=== PATIENT | female | born 1995 | race Caucasian/White ===

== ENCOUNTER 2018-01-20 21:48 | Emergency (ER) | payer OTHER, MEDICAID, SELFPAY ==
[2018-01-20 21:51] VITALS: BP 101/59; PULSE 85; RESP 18; TEMP 36.8; O2SAT 99; BMI 18.8
--- NOTE | 2018-01-20 22:07 | ED.RN ---
CALLED DAQUAN & NOTIFIED HER THAT PT NEED [facility] TESTING. SHE IS ON THE WAY.
--- NOTE | 2018-01-20 22:08 | RAD_ITS ---
STUDY: X-RAY - RIGHT FOOT CLINICAL: Female, 22 years old. Injury TECHNIQUE: 3 view(s) of the foot. COMPARISON: None. FINDINGS: Normal talus, calcaneus, and tarsal bones. Normal visualized subtalar, talonavicular, calcaneocuboid, tarsal and tarsometatarsal articulations. Normal metatarsi. Normal metatarsophalangeal joint of the great toe. Normal tibial and fibular sesamoid bones. Normal interphalangeal joint of the great toe. Normal phalanges of the great toe. Normal second through fifth metatarsophalangeal joints. Normal interphalangeal joints and phalanges of the lesser toes. The soft tissue structures are unremarkable. RAD/Foot min 3 Views IMPRESSION: Normal x-ray examination of the foot. Electronically Signed: Jorge Reynaga MD at 22:18 EDT Tel , Service support ,
--- NOTE | 2018-01-20 22:24 | ED.VISSUMM ---
- ER Visit Summary Date of Service: 01/20/18 Chief Complaint: [Injury right foot] History of Present Illness: The patient is a 22 F [presents to the emergency department with complaint of injury to her right foot that occurred approximately 1:30 PM while at work today. Patient states that she was carrying a palate and she accidentally dropped it onto her right foot. Patient was wearing steel toed shoes. Patient is unsure the weight of the palate. Patient initially did not think much of it continue to work. Once patient got home and took her boots off she noticed swelling and not having more pain and difficulty ambulating secondary to pain. Physical Examination: [HEENT-PERRLA, EOMI. Cranial nerves II through XII grossly intact. TMs clear. Mucous membranes moist. No adenopathy. Cardiovascular-regular rate and rhythm without murmur or ectopy Lungs-clear to auscultation, chest wall stable without crepitus or subcu emphysema Abdomen-normoactive bowel sounds, soft, nontender, no rebound or rigidity, no peritoneal signs. Extremities-intact ?4, normal range of motion, normal pulses. Right foot-patient has some mild soft tissue swelling over the dorsum of midfoot. No ecchymosis or bruising noted. No deformity noted. Neurovascularly intact. Test Results: [X-rays of the right foot obtained were read as normal] Emergency Department Course and Treatment: [Patient will be given an Joce wrap and crutches] Treatment Plan: [Patient to follow-up with corporate care in 3-5 days and given work restrictions] Disposition: [Discharged home in stable condition] Impression: [Contusion right foot] This note was generated with [employer] dictation software. It may contain incorrect words, spelling, and punctuation that were not noted in review of the chart prior to signing ED Disposition - Plan for ED Patient: Chief Complaint: Lower Extremity Injury Referrals: Farrah Oro [Primary Care Provider] -
--- NOTE | 2018-01-20 22:27 | ED.DCSUM_ITS ---
- ER Visit Summary Date of Service: 01/20/18 Chief Complaint: [Injury right foot] History of Present Illness: The patient is a 22 F [presents to the emergency department with complaint of injury to her right foot that occurred approximately 1:30 PM while at work today. Patient states that she was carrying a palate and she accidentally dropped it onto her right foot. Patient was wearing steel toed shoes. Patient is unsure the weight of the palate. Patient initially did not think much of it continue to work. Once patient got home and took her boots off she noticed swelling and not having more pain and difficulty ambulating secondary to pain. Physical Examination: [HEENT-PERRLA, EOMI. Cranial nerves II through XII grossly intact. TMs clear. Mucous membranes moist. No adenopathy. Cardiovascular-regular rate and rhythm without murmur or ectopy Lungs-clear to auscultation, chest wall stable without crepitus or subcu emphysema Abdomen-normoactive bowel sounds, soft, nontender, no rebound or rigidity, no peritoneal signs. Extremities-intact ?4, normal range of motion, normal pulses. Right foot- patient has some mild soft tissue swelling over the dorsum of midfoot. No ecchymosis or bruising noted. No deformity noted. Neurovascularly intact. Test Results: [X-rays of the right foot obtained were read as normal] Emergency Department Course and Treatment: [Patient will be given an Joce wrap and crutches] Treatment Plan: [Patient to follow-up with corporate care in 3-5 days and given work restrictions] Disposition: [Discharged home in stable condition] Impression: [Contusion right foot] This note was generated with [employer] dictation software. It may contain incorrect words, spelling, and punctuation that were not noted in review of the chart prior to signing ED Disposition - Plan for ED Patient: Chief Complaint: Lower Extremity Injury Referrals: Farrah Oro [Primary Care Provider] -
--- NOTE | 2018-01-20 22:28 | DCINST.ED_ITS ---
ED Disposition - Plan for ED Patient: Chief Complaint: Lower Extremity Injury Instructions: ED Contusion Foot Prescriptions: Naproxen [Naprosyn] 500 mg PO BID PRN #20 tab Referrals: Farrah Oro [Primary Care Provider] - [facility] [GROUP OF PHYSICIANS] - 3-5 Days
[2018-01-20 22:58] VITALS: RESP 18
== END 2018-01-20 22:59 | disposition home or self-care (01) ==
LOC: ED 22:15
PROVIDERS: Emergency Provider Emergency Medicine
DX: S90.31XA Contusion of right foot, initial encounter (principal); W22.8XXA Striking against or struck by other objects, initial encounter; Y93.89 Activity, other specified; Y92.9 Unspecified place or not applicable; Y99.0 Civilian activity done for income or pay; Z72.0 Tobacco use
CPT/HCPCS: 73630; 99283

== ENCOUNTER → 2018-04-03 17:24 | Outpatient (CLI) | payer MEDICAID, SELFPAY ==
[2018-04-03 17:26] LABS: Red Blood Cells-Urine 0 SEEN /hpf (0-5)
[2018-04-03 17:32] LABS: Color, Urine Yellow (Yellow); Glucose, Dipstick Normal (Normal); Ketone-Dipstick Negative (Negative); Leukocyte Esterase-Dipstick 500 /ul (Negative); Nitrite-Dipstick Negative (Negative); Occult Blood-Urine 10 /ul (Negative); Protein-Dipstick Negative (Negative); Urine Bilirubin Dipstick Negative (Negative); Urine Clarity Sl. Cloudy (Clear); Urine Urobilinogen 1 mg/dl (Normal)
[2018-04-03 17:45] LABS: Bacteria 3+ /hpf (None Seen); Mucous, Urine 2+ /hpf (<or=2+); Squamous Epithelial Cells - UA 0-5 SEEN /hpf (5-10); White Blood Cells 0-5 SEEN /hpf (0-5)
== END ==
PROVIDERS: Visit Provider Physician Assistant Medical
DX: R82.99 Other abnormal findings in urine (principal)
CPT/HCPCS: 81001; 87086; 87088

== ENCOUNTER → 2018-04-29 18:06 | Outpatient (CLI) | payer MEDICAID, SELFPAY ==
--- NOTE | 2018-04-29 | IMM_PTH ---
PATIENT: CHAITANYA WISEMAN LOC: [facility] U#:[id number] AGE/SX: 30/F ROOM: RE04/29/[address]: Dr. Valentin Villanueva MD : 1995 BED: DIS: SPEC #: [id number] RECD: 05/05/18 09:43 STATUS: ADALGISA REDevon #: [id number] JOMAR: 04/29/18 00:[address]: Valentin Villanueva DEPT: IMMUNOHISTOCHEMISTRY RECD BY: Stephanie Lou Tissues: A - Uterine cervix, NOS Procedures: p16 (initial) KI-67 (add) PHYSICIAN & INSTITUTION [place] [id number] SPECIMEN INFORMATION: Tissue Source: A ? Four quadrants Clinical Info: LSIL, HPV positive Specimen Number: [id number] CPT code: 77671, 52529 METHODOLOGY: Deparaffinized sections of prefer/formalin-fixed tissue or PAP/DQ stained slides are incubated with monoclonal/polyclonal antibodies/oligonucleotide probes. Localization is made via biotin free immunoperoxidase method. Appropriate controls are performed and reacted as expected. Results on target cell population are indicated in the following table: RESULTS: ANTIBODY / CLONE RESULT Block A P16 (E6H4) positive, block-like Ki-67 (30-9) positive, moderate These tests were developed and their performance characteristics determined by [facility]. They may not have been cleared or approved by the U.S. Food and Drug Administration. The FDA has determined that such clearance or approval is not necessary. 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 AM:jason 05/05/18
--- NOTE | 2018-04-29 | CER_PTH ---
PATIENT: CHAITANYA WISEMAN [id number] AGE/SX: 30/F ROOM: RE04/29/[address]: Dr. Valentin Villanueva MD : 1995 BED: DIS: SPEC #: [id number] RECD: 04/30/18 09:12 STATUS: ADALGISA BERE #: [id number] JOMAR: 04/29/18 00:[address]: aVlentin Villanueva DEPT: SURGICAL PATHOLOGY RECD BY: Salo Owens Tissues: A - Uterine cervix, NOS B - Uterine cervix, NOS Procedures: Surgery Specimen Level IV HEADER OPERATION: Colposcopy PRE-OP DIAGNOSIS: LSIL, HPV positive TISSUE SUBMITTED: A ? Four quadrants, B - Cervical MICROSCOPIC DIAGNOSIS A. Cervix, four-quadrants, biopsy: Mild to focal moderate squamous dysplasia, ANDRE I-II (HSIL). Squamous metaplasia and chronic inflammation. See comment. B. Cervical: Scant strips of benign superficial endocervix, mucous and blood. No evidence of dysplasia. AM:jason 05/01/18 COMMENT A. Results from immunohistochemistry ([id number]) for surrogate HPV marker (p16) will be reported separately. MICROSCOPIC DESCRIPTION Slides are reviewed. GROSS DESCRIPTION A - Received in fixative is one container labeled with the patient's name and designated four quadrant. The specimen consists of multiple irregular fragments of light dawson soft tissue that in aggregate measure 0.8 x 0.6 x 0.1 cm. The specimen is totally submitted in one cassette. B - Received in fixative is one container labeled with the patient's name and designated cervical. The specimen consists of an irregular fragment of light dawson mucoid material aggregating to 1.5 x 1 x 0.1 cm. The specimen is totally submitted in one cassette. / AM:jason 04/30/18 TC:? CPT: 24710 x2
== END ==
PROVIDERS: Visit Provider Obstetrics & Gynecology
DX: R87.612 Low grade squamous intraepithelial lesion on cytologic smear of cervix (LGSIL) (principal); R87.810 Cervical high risk human papillomavirus (HPV) DNA test positive
CPT/HCPCS: 88305; 88341; 88342

== ENCOUNTER → 2018-10-29 17:55 | Outpatient (CLI) | payer MEDICAID, SELFPAY ==
[2018-08-10 17:34] VITALS: BMI 22.0
[2018-10-29 20:27] LABS: Chlamydia Trachomatis by PCR Negative (Negative); Neisserai gonorrhoeae by PCR Negative (Negative); Probe Check PASS; Sample Adequacy Control PASS; Specimen Processing Control PASS
== END ==
PROVIDERS: Referring Provider Obstetrics & Gynecology; Visit Provider Obstetrics & Gynecology
DX: R30.0 Dysuria (principal); Z11.3 Encounter for screening for infections with a predominantly sexual mode of transmission
CPT/HCPCS: 87086; 87088; 87491; 87591

== ENCOUNTER 2018-11-01 17:19 | Emergency (ER) | payer MEDICAID, SELFPAY ==
[2018-08-10 17:34] VITALS: BMI 22.0
[2018-11-01 17:21] VITALS: BP 117/70; PULSE 75; RESP 18; TEMP 36.9; O2SAT 100; BMI 22.0
--- NOTE | 2018-11-01 18:35 | ED.DCSUM_ITS ---
- ER Visit Summary Date of Service: 11/01/18 Chief Complaint: Toothache History of Present Illness: The patient is a 23 F presenting with toothache. Patient states this started on Friday. She has had severe pain right upper tooth. She has an appointment with her dentist tomorrow. She has been using Tylenol and Excedrin at home. She is 7 weeks and understands that she should not be using Excedrin. She has been taking leftover amoxicillin intermittently. She denies fever or other complaints. Physical Examination: Vitals are stable. Patient is afebrile. Alert no acute distress. HEENT exam right upper incisor tender to palpation, no surrounding fluctuance, no sublingual edema. Neck is supple. Lungs are clear and equal bilaterally. Heart is regular rate and rhythm. Extremities are unremarkable. Skin is warm and dry. Remainder of exam is unremarkable. Emergency Department Course and Treatment: Patient was given [place] x1. She was given penicillin. She is advised to follow-up with her dentist as scheduled tomorrow. Advised return to ED if worsening complaints. Disposition: Discharge home Impression: Odontalgia This note was generated with [employer] dictation software. It may contain incorrect words, spelling, and punctuation that were not noted in review of the chart prior to signing ED Disposition - Plan for ED Patient: Referrals: Care Physician,No Primary [Primary Care Provider] -
--- NOTE | 2018-11-01 18:35 | ED.DEP ---
ED Disposition - Plan for ED Patient: Instructions: ED Tooth Pain Prescriptions: Penicillin V Potassium 500 mg PO 4X/DAY #40 tablet Referrals: Care Physician,No Primary [Primary Care Provider] -
[2018-11-01] MEDS: HYDROcodone Bitartrate/Apap 5/325 Tablet PO (18:46)
[2018-11-01] MEDS: Penicillin Vk 250 MG Tablet 500 MG PO (18:46)
== END 2018-11-01 18:48 | disposition home or self-care (01) ==
PROVIDERS: Emergency Provider Emergency Medicine
DX: O99.89 Other specified diseases and conditions complicating pregnancy, childbirth and the puerperium (principal); K08.89 Other specified disorders of teeth and supporting structures; O99.331 Smoking (tobacco) complicating pregnancy, first trimester; Z3A.01 Less than 8 weeks gestation of pregnancy
CPT/HCPCS: 99283

== ENCOUNTER 2018-11-03 22:52 | Emergency (ER) | payer MEDICAID, SELFPAY ==
[2018-11-03 22:52] VITALS: BP 121/70; PULSE 83; RESP 16; TEMP 36.6; O2SAT 99; BMI 22.4
[2018-11-03 23:25] VITALS: BP 121/80; PULSE 83; RESP 16; TEMP 36.7; O2SAT 98
--- NOTE | 2018-11-03 23:36 | ED.VISSUMM ---
- ER Visit Summary Date of Service: 11/03/18 Chief Complaint: Fever, facial pain History of Present Illness: The patient is a 23 F reports fever on and off since 5 days ago. Dealing with right upper dental pain prior, is on penicillin saw dentist yesterday had tooth extracted. Feeling hot and cold sensitivities. Headache myalgias on . She is G4, P0013 7-week gestation followed by Dr. Villanueva. No abdominal pain, no urinary symptoms. Tylenol taken at 8:30 PM. 1 nausea and vomiting episode this morning. Tolerating oral fluids. No diarrhea. Physical Examination: General: Alert and oriented ?3, no acute distress HEENT: Normocephalic, atraumatic. Moist mucosa membranes. Extracted tooth #7, no bleeding, no fluctuance. Airway patent. Neck: supple, nontender. No lymphadenopathy Cardiovascular: Regular rate and rhythm, no murmurs Respiratory: Normal breath sounds, symmetric, no distress Abdomen: Soft, nontender, nondistended Extremities: Nontender, no edema, pulses intact ?4 Neuro: no focal neurological deficits. Test Results: [] Emergency Department Course and Treatment: Patient nontoxic vital signs stable. Patient gumline appears stable. Is currently on penicillin. Discussed with her fever myalgias 5 days ago experience influenza symptoms with pre-vitamins, however with her asthma history she is 5 days into symptoms and out of the window for treatment. She is tolerating oral fluids. Discussed with patient continuing Tylenol as needed, oral hydration, and finishing her penicillin. Discussed if symptoms persist in her gumline, she will follow-up with her dentist for reevaluation. All questions were answered. Treatment Plan: [] Disposition: Discharge Impression: 1. Dentalgia 2. Viral syndrome This note was generated with [employer] software. It may contain incorrect words, spelling, and punctuation that were not noted in review of the chart prior to signing ED Disposition - Plan for ED Patient: Disposition: Home or Assisted Living Diagnosis: Dentalgia, Viral syndrome Instructions: ED Tooth Pain, ED Viral Syndrome Prescriptions: proMETHazine tablet [Phenergan] 25 mg PO Q6H PRN PRN #10 tablet PRN Reason: Nausea Referrals: Care Physician,No Primary [Primary Care Provider] - Additional Instructions: Follow up with your dentist is symptoms persist. finish your antibiotics.
== END 2018-11-03 23:48 | disposition home or self-care (01) ==
PROVIDERS: Emergency Provider Emergency Medicine
DX: O98.511 Other viral diseases complicating pregnancy, first trimester (principal); O99.89 Other specified diseases and conditions complicating pregnancy, childbirth and the puerperium; K08.89 Other specified disorders of teeth and supporting structures; O99.331 Smoking (tobacco) complicating pregnancy, first trimester; Z3A.01 Less than 8 weeks gestation of pregnancy
CPT/HCPCS: 99282

== ENCOUNTER → 2018-11-11 14:30 | Outpatient (CLI) | payer MEDICAID, SELFPAY ==
[2018-11-03 22:52] VITALS: BMI 22.4
[2018-11-11 15:48] LABS: Absolute Lymphocyte Count 2.36 X10^3/ul (0.83-4.51); Absolute Neutrophil Count 4.7 X10^3/uL (2.0-7.7); Basophil# 0.04 X10^3/uL; Basophil% 0.5 % (0-1); Eosinophils% 1.3 % (0-5); Hematocrit 32.8 % (37-47); Lymphocyte # 2.36 X10^3/ul (4.0); Lymphocyte % 31.2 % (19-41); Mean Corp Hgb Conc 33.5 g/gl (32-36); Mean Corpuscular Hgb 29.9 pg (27.0-32.0); Mean Corpuscular Volume 89.1 fL (81-99); Mean Platelet Vol. 9.6 fl (6.2-12.0); Monocyte# 0.33 X10^3/uL; Monocyte% 4.4 % (0-10); Neutrophil # 4.72 X10^3/uL (2.7-7.7); Neutrophil % 62.5 % (47-70); Platelet Count 256 K/mm3 (150-450); RBC Distribution Width CV 12.2 % (11.6-14.6); RBC Distribution Width SD 38.3 fl (35.1-43.9); Red Blood Count 3.68 M/mm3 (4.2-5.4); White Blood Count 7.6 K/mm3 (4.4-11.0)
[2018-11-11 16:01] LABS: POSITIVE COUNT NO; POSITIVE DIFFERENTIAL NO; POSITIVE MORPHOLOGY NO
[2018-11-11 16:05] LABS: Thyroid Stim Hormone (TSH) 0.35 uIU/mL (0.358-3.74)
[2018-11-11 16:50] LABS: HIV - WCH Non-Reactive (Nonreactive)
[2018-11-11 17:36] LABS: Color, Urine Yellow (Yellow); Glucose, Dipstick Normal (Normal); Ketone-Dipstick Negative (Negative); Leukocyte Esterase-Dipstick Negative /ul (Negative); Nitrite-Dipstick Negative (Negative); Occult Blood-Urine Negative /ul (Negative); Protein-Dipstick Negative (Negative); Urine Bilirubin Dipstick Negative (Negative); Urine Clarity Sl. Cloudy (Clear); Urine Urobilinogen Normal (Normal)
[2018-11-11 17:51] LABS: Amphetamine Urine VISTA NEGATIVE (<1000 ng/mL); Barbiturate Urine VISTA NEGATIVE (< 200 ng/mL); Benzodiazepine Urine VISTA NEGATIVE (< 200 ng/mL); Cocaine Urine VISTA NEGATIVE (< 300 ng/mL); Ecstacy Urine VISTA NEGATIVE (< 500 ng/mL); Methadone Urine VISTA NEGATIVE (< 300 ng/mL); PCP Urine VISTA NEGATIVE (< 25 ng/mL); THC Urine VISTA NEGATIVE (< 50 ng/mL); Vista UDS pH Range 6
[2018-11-12 20:21] LABS: Prenatal RPR NONREACTIVE (NONREACTIVE)
[2018-11-13 09:11] LABS: HEPATITIS B SURFACE AG Negative (Negative); Hep C Antibodies <0.1 s/co ratio (0.0-0.9)
== END ==
PROVIDERS: Visit Provider Obstetrics & Gynecology
DX: Z34.81 Encounter for supervision of other normal pregnancy, first trimester (principal)
CPT/HCPCS: 36415; 80307; 81002; 84443; 85025; 86703; 86762; 86803; 87340

== ENCOUNTER 2018-12-03 08:46 | Emergency (ER) | payer MEDICAID, SELFPAY ==
[2018-12-03 08:47] VITALS: BP 116/60; PULSE 77; RESP 18; TEMP 37; O2SAT 100; BMI 22.6
--- NOTE | 2018-12-03 09:00 | ED.DCSUM_ITS ---
History of Present Illness Chief Complaint: Abd Pain Informant: Patient Onset: Days - Onset of discomfort 2 days ago Context: - - Somewhat abrupt Timing: Continuous, Waxes and wanes Quality: Burning cramping Location: Originally epigastric now right and left lower quadrant Current Severity: Mild Maximum Severity: Moderate Worsened by: P.o. intake Relieved by: Nothing Associated Symptoms: Fever 101.5 Narrative: Patient is a 23-year-old woman who presents with upper abdominal pain and now predominately bilateral lower abdominal pain with temperature documented 101.5 associated with nausea. She denies urologic symptoms. Denies vaginal symptoms. She denies flank or low back pain. She denies runny nose, earache, sore throat, cough or shortness of breath. She denies rash. She denies myalgias or arthralgias. Prior similar symptoms: No Recent Illness/Hospitalization: No - Past Medical History (1) No significant past medical history Status: Acute Past Medical History - Allergies and Home Meds Allergies/Adverse Reactions: Allergies No Known Allergies Allergy (Verified 12/03/18 08:48) Primary Care Physician: Care Physician,No Primary [Primary Care Provider] - Prior records reviewed: Yes Lives: Spouse/ Significant Other Smoking Status: Current every day smoker Alcohol: None Review of Systems General: Reports: Fever. Denies: Chills, Malaise, Subjective, Sweats Eyes: Denies: Visual changes - bilaterally, Blurred Vision - bilaterally, Diplopia ENT: Denies: Bilateral ear pain, Left ear pain, Right ear pain, Rhinorrhea, Sore throat, -, - Cardiovascular: Denies: Chest pain, Palpitations, Heart racing, -, - Respiratory: Denies: Dyspnea, Cough, Sputum, Dyspnea on exertion, Orthopnea, Paroxysmal nocturnal dyspnea, -, - Gastrointestinal: Reports: Abdominal pain, Nausea, Constipation - Patient states she had a small hard stool yesterday. She states normal is bowel movement once a week., Hematochezia. Denies: Vomiting, Diarrhea, Melena Genitourinary: Denies: Dysuria, Hematuria, Frequency, -, - Musculoskeletal: Denies: Myalgias, Arthralgias, Neck pain, Back pain, Swelling, Extremity Pain, -, - Skin: Denies: Rash, Wounds Neurological: Reports: Weakness Hematologic: Denies: Easy bruising, Easy bleeding Allergy: Denies: Uticaria Physical Exam Vital Signs/Narrative: Vital Signs Temp Pulse Resp BP Pulse Ox 12/03/18 08:47 98.6 F 77 18 116/60 100 Inital Vital Signs reviewed: Yes General: Well nourished, Well developed, No Acute Distress Head: Normocephalic, Atraumatic Eyes: Perrl, EOMI. Negative for: Pale conjunctiva, Scleral icterus ENT: Moist mucous membranes, No rhinorrhea Neck: Supple, Nontender, No lymphadenopathy, No JVD Cardiovascular: Regular rate, Regular rhythm, No murmurs, Normal S1, Normal S2 Respiratory: No distress, CTA bilaterally, Chest nontender Abdomen: Soft, Nondistended, No masses, Tender, Guarding, Rebound tenderness, Hypoactive bowel sounds, - - Patient reported tenderness epigastric and left side. Repeat exam did not elicit tenderness.. Negative for: Hepatomegaly, Splenomegaly, Mass, Pulsatile mass, Zendejas's sign Rectal: Deferred Back: Nontender, Normal Inspection. Negative for: CVA tenderness Extremities: Nontender, No edema. Negative for: Calf Tenderness Skin: Normal color, No rash. Negative for: Cyanosis, Jaundice Neurological: Alert, Oriented x3, Cranial nerves II-XII grossly intact, Normal Strength, Normal Sensation Psychological: Normal affect, Normal Mood Diagnostic/Tx/Re-eval Laboratory Results 12/03/18 12/03/18 12/03/18 09:08 09:08 09:13 WBC 6.5 RBC 3.68 L Hgb 11.0 L Hct 31.7 L MCV 86.1 MCH 29.9 MCHC 34.7 RDW 13.2 RDW Differential 40.4 Plt Count 212 MPV 9.2 Immature Gran % (Auto) 0.200 Neut % (Auto) 60.4 Lymph % (Auto) 31.7 [place] % (Auto) 6.3 Eos % (Auto) 1.1 Baso % (Auto) 0.3 Absolute Neuts (auto) 4.0 Absolute Lymphs (auto) 2.07 Total Counted Not Reportable Differential Comment SCANNED Sodium 136 Potassium 3.7 Chloride 104 Carbon Dioxide 27.0 Anion Gap 5 BUN 5 L Creatinine 0.53 L Estim Creat Clear Calc 140.12 Est GFR (MDRD) Af Amer 178 Est GFR (MDRD) Non-Af 147 BUN/Creatinine Ratio 9.4 L Glucose 78 Calcium 8.7 Urine Color Yellow Urine Clarity Sl. Cloudy Urine pH 6.5 Ur Specific Delta 1.015 Urine Protein 15 H Urine Glucose (UA) Normal Urine Ketones Negative Urine Occult Blood 10 H Urine Nitrite Positive H Urine Bilirubin Negative Urine Urobilinogen Normal Ur Leukocyte Esterase 500 H Urine RBC 0 SEEN Urine WBC 0-5 SEEN Ur Squamous Epith Cells 0-5 SEEN Urine Bacteria 4+ Urine Mucus 0 SEEN - Medical Decision Making Suspect abdominal pain secondary to constipation. Uncertain etiology of fever. Will obtain UA. Also blood work was obtained. This may represent viral infection versus urinary tract infection doubt respiratory since she has no symptoms and lung exam is normal. Patient was informed her test results indicates she has a urinary tract infectio n. Culture was sent. She received first dose of cephalexin in the department. She was instructed to follow-up with Dr. Villanueva. ED Disposition - Plan for ED Patient: Disposition: Home or Assisted Living Diagnosis: Cystitis during in first trimester, antepartum Instructions: ED UTI Cystitis Female Prescriptions: Cephalexin [Keflex] 500 mg PO 4X/DAY #30 capsule Referrals: Care Physician,No Primary [Primary Care Provider] - Valentin Villanueva MD [STAFF PHYSICIAN] - 3-5 Days
[2018-12-03 09:18] LABS: Mucous, Urine 0 SEEN /hpf (<or=2+); Red Blood Cells-Urine 0 SEEN /hpf (0-5)
[2018-12-03 09:24] LABS: Color, Urine Yellow (Yellow); Glucose, Dipstick Normal (Normal); Ketone-Dipstick Negative (Negative); Leukocyte Esterase-Dipstick 500 /ul (Negative); Nitrite-Dipstick Positive (Negative); Occult Blood-Urine 10 /ul (Negative); Protein-Dipstick 15 mg/dl (Negative); Specific Gravity, Urine 1.015 (1.002-1.030); Urine Bilirubin Dipstick Negative (Negative); Urine Clarity Sl. Cloudy (Clear); Urine Urobilinogen Normal (Normal); Urine pH 6.5 (5.0 - 8.0)
[2018-12-03 09:28] LABS: Absolute Lymphocyte Count 2.07 X10^3/ul (0.83-4.51); Basophil# 0.02 X10^3/uL; Basophil% 0.3 % (0-1); Differential Indicated SCAN CRITERIA MET; Eosinophil# 0.07 X10^3/uL; Eosinophils% 1.1 % (0-5); Hematocrit 31.7 % (37-47); Lymphocyte # 2.07 X10^3/ul (4.0); Lymphocyte % 31.7 % (19-41); Mean Corp Hgb Conc 34.7 g/gl (32-36); Mean Corpuscular Hgb 29.9 pg (27.0-32.0); Mean Corpuscular Volume 86.1 fL (81-99); Mean Platelet Vol. 9.2 fl (6.2-12.0); Monocyte# 0.41 X10^3/uL; Monocyte% 6.3 % (0-10); Neutrophil # 3.95 X10^3/uL (2.7-7.7); Neutrophil % 60.4 % (47-70); POSITIVE COUNT NO; POSITIVE DIFFERENTIAL NO; POSITIVE MORPHOLOGY YES; Platelet Count 212 K/mm3 (150-450); RBC Distribution Width CV 13.2 % (11.6-14.6); RBC Distribution Width SD 40.4 fl (35.1-43.9); Red Blood Count 3.68 M/mm3 (4.2-5.4); White Blood Count 6.5 K/mm3 (4.4-11.0)
[2018-12-03 09:29] LABS: Squamous Epithelial Cells - UA 0-5 SEEN /hpf (5-10)
[2018-12-03 09:30] LABS: Bacteria 4+ /hpf (None Seen); White Blood Cells 0-5 SEEN /hpf (0-5)
[2018-12-03 09:33] LABS: Anion Gap 5 (5-15); BUN 5 mg/dL (7-18); BUN/Creat Ratio 9.4 RATIO (10-20); Calcium,Total 8.7 mg/dL (8.5-10.1); Chloride 104 mmol/L (98-107); Creatinine, Serum 0.53 mg/dL (0.55-1.02); EST Glomerular Filtration Rate 147 mL/min (>60); Est Glom Filt Rate - Afr Amer 178 mL/min (>60); Estimated Creatinine Clearance 140.12 ml/min; Glucose 78 mg/dL (74-106); Potassium 3.7 mmol/L (3.5-5.1); Sodium Level 136 mmol/L (136-145)
[2018-12-03 09:47] LABS: Differential Comment SCANNED
[2018-12-03] MEDS: Cephalexin 250 MG Capsule 500 MG PO (09:57)
[2018-12-03 10:02] VITALS: PULSE 81; RESP 17; O2SAT 97
== END 2018-12-03 10:03 | disposition home or self-care (01) ==
PROVIDERS: Emergency Provider Emergency Medicine
DX: O23.11 Infections of bladder in pregnancy, first trimester (principal); N30.90 Cystitis, unspecified without hematuria; O99.331 Smoking (tobacco) complicating pregnancy, first trimester; Z3A.00 Weeks of gestation of pregnancy not specified
CPT/HCPCS: 80048; 81001; 85025; 87077; 87086; 87088; 87186; 99284; A4216

== ENCOUNTER 2018-12-20 04:53 | Emergency (ER) | payer MEDICAID, SELFPAY ==
[2018-12-20 04:54] VITALS: BP 115/66; PULSE 63; RESP 18; TEMP 36.7; O2SAT 98; BMI 22.3
--- NOTE | 2018-12-20 05:30 | ED.VISSUMM ---
- ER Visit Summary Date of Service: 12/20/18 Chief Complaint: Dental pain History of Present Illness: The patient is a 23 F who presents with dental pain. It is been present since last night. It was initially mild she is Tylenol. Her pain is worsened since that time. She is 13 weeks . She denies any fevers jaw facial swelling. Physical Examination: Afebrile vitals normal Patient indicates that the pain is above her right central maxillary incisor to the right maxillary canine. Her right lateral maxillary incisor has been extracted. I do not appreciate any focal dental abscess she has no dental tenderness on percussion. No trismus Clear speech No sublingual edema Heart regular Lungs clear Test Results: Not indicated Emergency Department Course and Treatment: I suspect this is related to developing periapical abscess. We will start the patient on penicillin. 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 She understands to return for new or worsening symptoms and was discharged home. Treatment Plan: [] Disposition: Discharge Impression: Odontalgia This note was generated with [employer] dictation software. It may contain incorrect words, spelling, and punctuation that were not noted in review of the chart prior to signing ED Disposition - Plan for ED Patient: Referrals: Care Physician,No Primary [Primary Care Provider] -
--- NOTE | 2018-12-20 05:33 | ED.DEP ---
ED Disposition - Plan for ED Patient: Instructions: ED Tooth Pain Prescriptions: Penicillin V Potassium 500 mg PO 4X/DAY #40 tab Referrals: Care Physician,No Primary [Primary Care Provider] -
[2018-12-20] MEDS: Penicillin Vk 250 MG Tablet 500 MG PO (05:40)
[2018-12-20 05:43] VITALS: RESP 14
== END 2018-12-20 05:44 | disposition home or self-care (01) ==
LOC: ED 05:33
PROVIDERS: Emergency Provider Emergency Medicine
DX: O99.89 Other specified diseases and conditions complicating pregnancy, childbirth and the puerperium (principal); K08.89 Other specified disorders of teeth and supporting structures; O99.331 Smoking (tobacco) complicating pregnancy, first trimester; Z3A.13 13 weeks gestation of pregnancy
CPT/HCPCS: 99283

== ENCOUNTER → 2019-03-31 14:08 | Outpatient (CLI) | payer MEDICAID, SELFPAY ==
[2019-03-31 15:46] LABS: Hematocrit 29.3 % (37-47); Hemoglobin 9.8 g/dL (12.0-15.0); Mean Corp Hgb Conc 33.4 g/dL (32-36); Mean Corpuscular Hgb 30.4 pg (27.0-32.0); Mean Platelet Vol. 9.6 fl (6.2-12.0); Platelet Count 223 K/mm3 (150-450); RBC Distribution Width CV 13.3 % (11.6-14.6); RBC Distribution Width SD 43.9 fl (35.1-43.9); Red Blood Count 3.22 M/mm3 (4.2-5.4); White Blood Count 9.9 K/mm3 (4.4-11.0)
[2019-03-31 15:51] LABS: Glucose Challenge Gest 1H 50g 137 mg/dL (70-140)
== END ==
PROVIDERS: Visit Provider Obstetrics & Gynecology
DX: Z34.83 Encounter for supervision of other normal pregnancy, third trimester (principal)
CPT/HCPCS: 36415; 82950; 85027

== ENCOUNTER → 2019-04-15 14:12 | Outpatient (CLI) | payer MEDICAID, SELFPAY ==
[2019-04-15 14:16] LABS: Mucous, Urine 0 SEEN /hpf (<or=2+)
[2019-04-15 14:36] LABS: Color, Urine Yellow (Yellow); Glucose, Dipstick Normal (Normal); Ketone-Dipstick 5 mg/dl (Negative); Leukocyte Esterase-Dipstick 500 /ul (Negative); Nitrite-Dipstick Negative (Negative); Occult Blood-Urine 25 /ul (Negative); Protein-Dipstick 15 mg/dl (Negative); Specific Gravity, Urine 1.015 (1.002-1.030); Urine Bilirubin Dipstick Negative (Negative); Urine Clarity Sl. Cloudy (Clear); Urine Urobilinogen 1 mg/dl (Normal)
[2019-04-15 14:45] LABS: Amorphous Sediment 2+ PHOS; Bacteria 1+ /hpf (None Seen); Red Blood Cells-Urine 0-5 SEEN /hpf (0-5); Squamous Epithelial Cells - UA 10-25 SEEN /hpf (5-10); White Blood Cells 25-50 SEEN /hpf (0-5)
[2019-04-15 14:47] LABS: Fetal Fibronectin Negative
== END ==
PROVIDERS: Visit Provider Obstetrics & Gynecology
DX: O99.89 Other specified diseases and conditions complicating pregnancy, childbirth and the puerperium (principal); R30.0 Dysuria; Z3A.00 Weeks of gestation of pregnancy not specified
CPT/HCPCS: 81001; 82731; 87086; 87088

== ENCOUNTER → 2019-04-22 14:07 | Outpatient (CLI) | payer MEDICAID, SELFPAY ==
[2019-04-22 12:39] VITALS: BMI 22.3
== END ==
PROVIDERS: Referring Provider Physician Assistant; Visit Provider Physician Assistant
DX: J02.9 Acute pharyngitis, unspecified (principal)
CPT/HCPCS: 87077; 87081

== ENCOUNTER 2019-05-18 12:16 | Observation (INO) | payer MEDICAID, SELFPAY ==
[2019-04-22 12:39] VITALS: BMI 22.3
[2019-05-18 12:32] VITALS: BMI 26.4
--- NOTE | 2019-05-18 12:59 | US_ITS ---
STUDY: OBSTETRICAL ULTRASOUND - BIOPHYSICAL PROFILE REASON FOR EXAM: Female, 24 years old. well-being LMP: Unknown. PRIOR ULTRASOUND: None. TECHNIQUE: Transabdominal ultrasound evaluation was performed. FINDINGS: There is a single intrauterine fetus. The fetus is in a cephalic presentation. There is demonstrated cardiac activity with a heart rate of 109 bpm. There is a normal amniotic fluid volume. The amniotic fluid index (ALAN) is 12.59 cm. The placenta is anterior in location and is not low lying. BIOPHYSICAL PROFILE: Breathing Movements (FBM): 0 Gross Body Movements (GBM): 2 Tone (FT): 2 Amniotic Fluid Volume (AFV): 2 TOTAL SCORE: 6 / 8 US/Biophysical Profile IMPRESSION: Biophysical profile score 6/8 with 2 points conducted for no breathing motions observed. Electronically Signed: Jorge Jimenez, at 15:52 EDT Tel , Service support ,
[2019-05-18] MEDS: Betamethasone/Betamethasone 30 MG/5 ML Vial 12 MG IM ×2 (15:40→16:00)
[2019-05-18] MEDS: 0.9% Normal Saline 1,000 ML 500 ML IV (16:00)
[2019-05-18] MEDS: 0.9% Saline Lock 10 ML Syringe IV (17:46)
--- NOTE | 2019-05-18 21:09 | OB.TRI.NOTE ---
- Problem List (1) 35 weeks gestation of Status: Acute (2) Decreased movement Status: Acute Qualifiers: Fetus number: single or unspecified fetus Trimester: third trimester Qualified Code(s): O36.8130 - Decreased movements, third trimester, not applicable or unspecified History of Present Illness Date of Service: 05/18/19 Was patient seen by the physician?: Yes Reason For Visit: EXTENDED MONITORING Final GENA: 06/22/19 Final GENA Source: US <20 weeks Gestational age: 35 Weeks and 0 Days History of Present Illness: 24yo @ 35wga with c/o decreased movement and lower abdominal pain sent from the office. In office US performed with hand noted at site of painfulness occurring with contractions. NST performed with Category II FHR with late decelerations. She was sent from the office for extended monitoring and celestone. Allergies No Known Allergies Allergy (Verified 05/18/19 12:33) - Pertinent Past Medical History Medical History: Past Medical History (Last Reviewed 04/22/19 @ 11:59 by Lenora Calderon) Anemia Arthritis Asthma Stomach ulcer UNEXPLAINED BRUISES Laboratory Studies: Mom's Problem List Problem Status Onset Code 35 weeks gestation of Acute Z3A.35 Decreased movement Acute O36.8190 Social History Hx Smoking Yes Smoking Status Current every day smoker Physical Exam Vitals: AVSS General: Alert, Oriented x3, Cooperative, No apparent distress HEENT: Atraumatic, Normocephalic Lungs: Normal air movement Abdomen: Soft, Non Tender, Non-Distended, Gravid Neurological: Neuro grossly intact Estimated gestational size: Appropriate for gestational size NST - FHR Rate Baby A Baseline: 120 Variability:: Moderate Accelerations:: 15 x 15 Decelerations:: None NST Reactive:: Yes FHR Category:: Category I Uterine Activity:: none Impression/Plan Mom's Problem List Problem Status Onset Code 35 weeks gestation of Acute Z3A.35 Decreased movement Acute O36.8190 Social History Hx Smoking Yes Smoking Status Current every day smoker 24yo with false labor and heart rate decelerations, now resolved. BPP 6/8 (-2 for breathing) No evidence of labor NST now reactive with no recent decelerations Plan for repeat BPP in am and celestone tomorrow Observe overnight, continuous monitoring Code Visit Office Visits / Consults: [id number] OV L3 Est
[2019-05-19] MEDS: 0.9% Saline Lock 10 ML Syringe IV (05:07)
--- NOTE | 2019-05-19 08:00 | US_ITS ---
STUDY: OBSTETRICAL ULTRASOUND - BIOPHYSICAL PROFILE REASON FOR EXAM: Female, 24 years old well-being. LMP: September 15, 2018. PRIOR ULTRASOUND: Comparison is made with prior study dated May 18, 2019. TECHNIQUE: Transabdominal TECHNICAL QUALITY: Adequate. FINDINGS: There is a single intrauterine fetus. The fetus is in a cephalic presentation. There is demonstrated cardiac activity with a heart rate of 1:15 bpm. There is a normal amniotic fluid volume. The largest amniotic fluid pocket measures 3.9 cm. The amniotic fluid index (ALAN) is 12.6 cm. The placenta is anterior in location and is not low lying. There are Grade 2 placental changes. BIOPHYSICAL PROFILE: Breathing Movements (FBM): 2 Gross Body Movements (GBM): 2 Tone (FT): 2 Amniotic Fluid Volume (AFV): 2 TOTAL SCORE: US/Biophysical Profile IMPRESSION: Normal biophysical profile of 04/08. Electronically Signed: Alli Daigle, at 9:29 EDT , Service support ,
[2019-05-19 09:19] LABS: Group B Strep DNA By PCR Negative (Negative); Internal Control PASS; Probe Check PASS; Specimen Processing Control PASS
[2019-05-19] MEDS: Betamethasone/Betamethasone 30 MG/5 ML Vial 12 MG IM (09:44)
--- NOTE | 2019-05-19 09:54 | NURSING ---
This instructor present with Chancellor Ching, student nurse, to observe and acknowledge betamethasone IM injection. pt tolerated well and instructed on side effects.
--- NOTE | 2019-05-25 08:33 | OB.TRI.PN ---
Progress Notes Date of Service: 05/19/19 Progress Note: Pain resolved. AVSS GEN - NAD, AAO x 3 FHR 115, moderate variability, + accelerations, no decelerations TOCO 0/10 min SVE deferred A/P: 24yo at 35+ wga with false labor -Contractions resolved -d/c home Laboratory Studies: Laboratory Tests 05/18/19 Range/Units 07:40 Group B Strep DNA Negative (Negative) Specimen Comment Not Reportable - Problem List (1) 35 weeks gestation of Status: Acute (2) Decreased movement Status: Acute Qualifiers: Fetus number: single or unspecified fetus Trimester: third trimester Qualified Code(s): O36.8130 - Decreased movements, third trimester, not applicable or unspecified
== END 2019-05-19 10:45 | disposition home or self-care (01) ==
LOC: WPOUT 12:23 → WP 12:24 → WPOUT 05-19 09:17
PROVIDERS: Obstetrics & Gynecology; Admitting Provider Obstetrics & Gynecology; Referring Provider Obstetrics & Gynecology; Visit Provider Obstetrics & Gynecology
DX: O47.03 False labor before 37 completed weeks of gestation, third trimester (principal); O76 Abnormality in fetal heart rate and rhythm complicating labor and delivery; O36.8130 Decreased fetal movements, third trimester, not applicable or unspecified; O99.013 Anemia complicating pregnancy, third trimester; D64.9 Anemia, unspecified; O99.333 Smoking (tobacco) complicating pregnancy, third trimester; F17.200 Nicotine dependence, unspecified, uncomplicated; Z3A.35 35 weeks gestation of pregnancy
CPT/HCPCS: 96365; 96366 ×3; 96372; 36415; 59025; 59050; 76818; 87081; 87653; 99218; J7030; A4216; G0378; J0702

== ENCOUNTER 2019-06-17 19:09 | Inpatient (IN) | payer MEDICAID, SELFPAY ==
[2019-06-17] MEDS: Lactated Ringers 1,000 ML 50 ML IV (19:35)
[2019-06-17 19:43] VITALS: BMI 28.4
[2019-06-17 20:29] LABS: Absolute Lymphocyte Count 3.29 X10^3/uL (0.83-4.51); Absolute Neutrophil Count 8.4 X10^3/uL (2.0-7.7); Basophil# 0.04 X10^3/uL; Basophil% 0.3 % (0-1); Eosinophil# 0.05 X10^3/uL; Eosinophils% 0.4 % (0-5); Hematocrit 34.3 % (37-47); Hemoglobin 11.8 g/dL (12.0-15.0); Lymphocyte # 3.29 X10^3/ul (4.0); Lymphocyte % 26.7 % (19-41); Mean Corp Hgb Conc 34.4 g/dL (32-36); Mean Corpuscular Hgb 30.8 pg (27.0-32.0); Mean Corpuscular Volume 89.6 fL (81-99); Mean Platelet Vol. 10.5 fl (6.2-12.0); Monocyte# 0.52 X10^3/uL; Monocyte% 4.2 % (0-10); NRBC Flagged by Analyzer 0 % (0-5); Neutrophil # 8.35 X10^3/uL (2.7-7.7); Neutrophil % 67.8 % (47-70); Platelet Count 231 K/mm3 (150-450); RBC Distribution Width CV 14.6 % (11.6-14.6); RBC Distribution Width SD 47.2 fl (35.1-43.9); Red Blood Count 3.83 M/mm3 (4.2-5.4); White Blood Count 12.3 K/mm3 (4.4-11.0)
[2019-06-17] MEDS: miSOPROStol 25 MCG TABLET PO (20:47)
[2019-06-17] MEDS: Acetaminophen 325 MG Tablet PO (22:09)
--- NOTE | 2019-06-17 23:07 | PCM.HP.BLA ---
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 Original Ordering Provider: Nic Villanueva HEP C AB <0.1 s/co ratio 0.0-0.9 Negative: < 0.8 Indeterminate: 0.8 - 0.9 Positive: > 0.9 The CDC recommends that a positive HCV antibody result be followed up with a HCV Nucleic Acid Amplification test (070484). Reviewed by SWATHI HEPATITIS B SURFACE AG 11/11/18 NOTE Original Ordering Provider: Nic Villanueva HB SURF AG Negative Negative Performed at: [address] [id number] Commercial Coordinator: Rodger Kang PhD, Phone: [phone] Reviewed by SWATHI RPR 11/11/18 NOTE Original Ordering Provider: Nic Villanueva RPR NONREACTIVE NONREACTIVE Reviewed by SWATHI URINALYSIS, ROUTINE (DIPSTICK) 11/11/18 NOTE Original Ordering Provider: Nic Villanueva COLOR Yellow Yellow CLARITY Sl. Cloudy Clear GLUCOSE, UR Normal mg/dl Normal BILIRUBIN URINE Negative mg/dL Negative KETONE UR Negative mg/dl Negative SP.GR. DIPSTX 1.020 1.002-1.030 PH UR 7.0 5.0 - 8.0 PROT DIPSTX Negative mg/dl Negative UROBILI Normal mg/dl Normal NITRITE UR Negative Negative OCCULT BLOOD-UR Negative /ul Negative LEUK ESTERASE Negative /ul Negative Reviewed by SWATHI URINE DRUG SCREEN (VISTA) 11/11/18 NOTE Original Ordering Provider: Nic Villanueva TO BE CONFIRMED CONFIRMATORY TESTING FOR ALL POSITIVE URINE DRUG SCREEN RESULTS WILL ONLY BE SENT OUT UPON PHYSICIAN ORDER. VISTA Urine Drug Screen methods provide only preliminary analytical test results. A more specific alternate chemical method must be used in order to obtain a confirmed analytical result. Gas chromatography/mass spectrometery (GC/MS) is the preferred confirmatory method. Clinical consideration and professional judgement should be applied to any drug of abuse test result, particularly when preliminary positive results are used. URINE TCA TESTING MUST BE ORDERED SEPARATELY. USE TEST MNEMONIC: [facility]IST[facility] UDS PH 6 AMPHETAMINES NEGATIVE <1000 ng/mL BARBITIURATES NEGATIVE < 200 ng/mL BENZODIAZIPINE NEGATIVE < 200 ng/mL COCAINE NEGATIVE < 300 ng/mL ECSTACY NEGATIVE < 500 ng/mL METHADONE NEGATIVE < 300 ng/mL OPIATES NEGATIVE < 300 ng/mL PCP NEGATIVE < 25 ng/mL THC NEGATIVE < 50 ng/mL Reviewed by SWATHI T AND S-NO CHARGE W/PNP 11/11/18 Reason for Type AND Screen/Red Cells: Surgery? [facility]~[address] [place], [address]~ BLOOD TYPE GEL A POSITIVE N AB SCREEN GEL NEGATIVE N Reviewed by SWATHI HIV - [facility] 11/11/18 NOTE Original Ordering Provider: Nic Villanueva HIV - [facility] Non-Reactive Nonreactive Reviewed by SWATHI RUBELLA IGG 11/11/18 NOTE Original Ordering Provider: Nic Villanueva RUBELLA IGG 64.0 IU/mL Antibody results Interpretation of Immune Status < 5 IU/ml Presumed Non-immune 5 - < 10 IU/ml Equivocal > or = 10 IU/ml Presumed Immune Reviewed by SWATHI THYROID STIM HORMONE (TSH) 11/11/18 NOTE Original Ordering Provider: Nic Villanueva TSH 0.35 uIU/mL 0.358-3.74 L Reviewed by SWATHI CBC W/DIFF, AUTOMATED 11/11/18 NOTE Original Ordering Provider: Nic Villanueva WBC 7.6 K/mm3 4.4-11.0 RBC 3.68 M/mm3 4.2-5.4 L HGB 11.0 g/dl 12.0-15.0 L HCT 32.8 % 37-47 L MCV 89.1 fL 81-99 MCH 29.9 pg 27.0-32.0 MCHC 33.5 g/gl 32-36 RDW CV 12.2 % 11.6-14.6 RDW SD 38.3 fl 35.1-43.9 PLT 256 K/mm3 150-450 MPV 9.6 fl 6.2-12.0 NEUT% 62.5 % 47-70 LY% 31.2 % 19-41 MONO% 4.4 % 0-10 EO% 1.3 % 0-5 BASO% 0.5 % 0-1 IM GRAN % 0.100 % 0.0-0.9 IG% - Immature Granulocytes (promyelocytes, myelocytes and metamyelocytes) > 1% indicates that a LEFT SHIFT is Present. ABSOLUTE NEUT 4.7 X10 3/uL 2.0-7.7 ABSOLUTE LYMPH 2.36 X10 3/ul 0.83-4.51 Reviewed by SWATHI CULTURE, URINE 10/29/18 NOTE Original Ordering Provider: Nic Villanueva Urine Culture Below infection level. ORGANISM 1: Mixed Gram Positive Organisms [place] Count 1000-10,000 ORGANISM 2: Yeast Like Organism [place] Count 1000-10,000 Reviewed by SWATHI Reviewed by SWATHI CT/MARIANO [facility] BY PCR 10/29/18 NOTE Original Ordering Provider: Nic Villanueva [facility] PCR Negative Negative BY PCR Negative Negative Reviewed by SWATHI PROVIDER SIGNATURE ( REQUIRED) Impression /Plan: 39+ week intrauterine with nonreassuring heart tones, grade 3 placenta. Plan Cytotec induction, rupture of membranes and anticipate spontaneous vaginal delivery. Preparations in progress for delivery.
[2019-06-18] MEDS: miSOPROStol 25 MCG TABLET PO (01:27)
[2019-06-18] MEDS: Lactated Ringers 500 ML 999 ML IV ×3 (02:26→07:05)
[2019-06-18] MEDS: Lactated Ringers 1,000 ML 200 ML IV ×2 (03:18→09:43)
[2019-06-18] MEDS: fentaNYL-bupivacaine (epidural) 100 ML BAG EPIDURAL ×2 (04:28→08:54)
[2019-06-18] MEDS: Ondansetron 4 MG/2 ML Vial IV (08:45)
--- NOTE | 2019-06-18 10:17 | PCM.PN.OB ---
Objective: Patient has progressed to 4 to 5 cm 80% effaced -2 station. Still intact given intermittent nonreassuring heart tones. For now heart tones are reactive. Plan rupture membranes if cervix does not continue to dilate. Anticipate spontaneous vaginal delivery. - Physical Exam Weight: 168 lb 3.403 oz Body Mass Index (BMI) 28.4 Intake and Output for Last 24 Hours 06/16/19 06/17/19 06/18/19 23:59 23:59 23:59 Intake Total 152.5 / 152.5 4320.00 / 4320.00 Output Total 575 / 575 1850 / 1850 Balance -422.5 / -422.5 2470.00 / 2470.00 Laboratory Tests Past 24 Hrs 06/17/19 06/17/19 19:35 19:35 WBC 12.3 H RBC 3.83 L Hgb 11.8 L Hct 34.3 L MCV 89.6 MCH 30.8 MCHC 34.4 RDW Std Deviation 47.2 H RDW Coeff of Stacey 14.6 Plt Count 231 MPV 10.5 Immature Gran % (Auto) 0.600 Neut % (Auto) 67.8 Lymph % (Auto) 26.7 Mer[place] % (Auto) 4.2 Eos % (Auto) 0.4 Baso % (Auto) 0.3 Absolute Neuts (auto) 8.4 H Absolute Lymphs (auto) 3.29 Nucleated RBC % 0 Blood Type A POSITIVE Antibody Screen NEGATIVE Medical Necessity - Tobacco Use Smoking Status: Current every day smoker
[2019-06-18] MEDS: Oxytocin 30 units/NS 500 ml 30 UNITS/500 ML IV.SOLN 334 UNITS IV (13:39)
--- NOTE | 2019-06-18 13:44 | DCINST_ITS ---
Discharge Diet: No Restrictions May resume sexual activity in: 4-6 weeks Additional Activity Instructions:: Nothing in the vagina for 4-6 weeks. You may return to work/school in 6 weeks. Additional Instructions: If you experience any of the following, contact your healthcare provider. * Bleeding that soaks a pad every hour for 2 hours * Fever 100.4 or higher * Unrelieved abdominal pain * Problems urinating (including inability to urinate or burning while ur inating). * Visual changes * Severe headache * Flu-like symptoms * Pain or redness in one of both of your breasts * Pain, warmth, tenderness or swelling in your legs, especially the calf area * Frequent nausea and vomiting * Symptoms of depression or anxiety If you experience any of the following, call 911 or go to the nearest Emergency Room. * Chest pain * Problems breathing * Seizure activity * Partial or complete paralysis of a body part, slurred speech, weakness or drooping of the face, or a sudden inability to walk or hold your balance Allergies/Adverse Reactions: Allergies No Known Allergies Allergy (Verified 06/17/19 19:48) Medications to take at Discharge Ferrous Sulfate [Iron] 325 mg PO DAILY 05/18/19 Pnv No.95/Ferrous Fum/Folic AC [ Vitamin Tablet] 1 tab PO DAILY 05/18/19 Please Follow Up With: Valentin Villanueva MD - [phone] When: Call to make an appointment with your doctor in 6 weeks. Primary Care Physician: Care Physician,No Primary [Primary Care Provider] - Test Results: Test results from this visit will be discussed in further detail at your follow- up appointment, if applicable. Proposed Discharge Date: 06/20/19
--- NOTE | 2019-06-18 13:44 | PCM.DCVAG ---
Discharge Diet: No Restrictions May resume sexual activity in: 4-6 weeks Additional Activity Instructions:: Nothing in the vagina for 4-6 weeks. You may return to work/school in 6 weeks. Additional Instructions: If you experience any of the following, contact your healthcare provider. Bleeding that soaks a pad every hour for 2 hours Fever 100.4 or higher Unrelieved abdominal pain Problems urinating (including inability to urinate or burning while urinating). Visual changes Severe headache Flu-like symptoms Pain or redness in one of both of your breasts Pain, warmth, tenderness or swelling in your legs, especially the calf area Frequent nausea and vomiting Symptoms of depression or anxiety If you experience any of the following, call 911 or go to the nearest Emergency Room. Chest pain Problems breathing Seizure activity Partial or complete paralysis of a body part, slurred speech, weakness or drooping of the face, or a sudden inability to walk or hold your balance Allergies/Adverse Reactions: Allergies No Known Allergies Allergy (Verified 06/17/19 19:48) Medications to take at Discharge Ferrous Sulfate [Iron] 325 mg PO DAILY 05/18/19 Pnv No.95/Ferrous Fum/Folic AC [ Vitamin Tablet] 1 tab PO DAILY 05/18/19 Please Follow Up With: Valentin Villanueva MD - [phone] When: Call to make an appointment with your doctor in 6 weeks. Primary Care Physician: Care Physician,No Primary [Primary Care Provider] - Test Results: Test results from this visit will be discussed in further detail at your follow-up appointment, if applicable. Proposed Discharge Date: 06/20/19
--- NOTE | 2019-06-18 13:45 | PCM.OPRPT ---
Vaginal Delivery Maternal Presentation: Medically Indicated Induction - smoker, nonreassuring surveillance Method of Induction: Pitocin Medical Reason for Induction: Compromise: list: - nonreassuring surveillance Amniotic Membrane Rupture Type: Artificial Amniotic Fluid Description: Clear Final GENA: 06/23/19 Gestational age: 39 Weeks and 2 Days Date of Procedure: 06/18/19 Pre-Operative Diagnosis: 39 wk 2 d induction Post-Operative Diagnosis: same Surgery/ Procedure Performed: Spontaneous Vaginal Delivery Type of Anesthesia: Epidural Description of Procedure: AROM just prior to delivery Clear fluid. Copious fluid noted with delivery. of a meade viable male over intact perineum Head delivered ANDERS. Shoulders delivered immediately after VTX. OP and nares bulb suctioned after [id number] of shoulders. to maternal abdomen with spont cry. PP exam; abrasion at posterior introitus. no repair required. No other lacerations Placenta delivered by spont expulsion, expression. 3V normal appearing and intact with trailing membranes. Pt and tolerated delivery well. To recovery, stable condition Ray Nani counts correct times two. Presentation: Vertex, ANDERS Placental Delivery Description: Spontaneous, Expressed Placenta Disposition: [facility] Cord Vessel Description: 3 Vessels Cord Entanglement: None Drain: Meade to straight drain Estimated Blood Loss: 200 Infant A gender: Male (1 minute): 8 (5 minute): 9 Episiotomy Description: None Laceration: None - abrasion at posterior introitus Medications given after delivery: IV Pitocin Complications: None
[2019-06-18 20:41] VITALS: BP 109/48; PULSE 72; RESP 18; TEMP 36.7; O2SAT 97
[2019-06-18] MEDS: Ibuprofen 600 MG Tablet PO (21:55)
[2019-06-19] VITALS: BP 101/47; PULSE 64; RESP 18; TEMP 36.4; O2SAT 98
[2019-06-19 03:50] VITALS: BP 102/49; PULSE 72; RESP 20; TEMP 36.6; O2SAT 97
--- NOTE | 2019-06-19 07:48 | PCM.PN.OB ---
Subjective: Feeling well,tolerating diet, passing flatus, pain well controlled, well Objective: AVSS Breasts soft, nipples atraumatic Fundus firm, midline, u/2, lochia small - Physical Exam General: Alert, Oriented x3, Cooperative, No apparent distress HEENT: PERRLA, EOMI Oral: Moist Mucosa Neck: Supple Lungs: Clear to auscultation, Normal air movement Cardiovascular: Regular rate, Regular Rhythm Abdomen: Bowel Sounds Present, Soft, Non Tender, Non-Distended, Passing Flatus Extremities: No edema Musculoskeletal: No Tenderness to Palpation of Joints or Extremities Neurological: Cranial nerves II-XII grossly intact, Deep Tendon Reflexes 2+/4 and Symmetrical Psych/Mental Status: Normal Affect, Appropriate, Alert and oriented to time, place, person, mood and affect Vital Signs Temp Pulse Resp BP Pulse Ox 97.8 F 72 20 H 102/49 L 97 06/19/19 03:50 06/19/19 03:50 06/19/19 03:50 06/19/19 03:50 06/19/19 03:50 Oxygen Delivery Method Room Air Weight: 168 lb 3.403 oz Body Mass Index (BMI) 28.4 Intake and Output for Last 24 Hours 06/17/19 06/18/19 06/19/19 23:59 23:59 23:59 Intake Total 152.5 / 152.5 6606.67 / 6606.67 Output Total 575 / 575 3700 / 3700 Balance -422.5 / -422.5 2906.67 / 2906.67 Medical Necessity - Tobacco Use Smoking Status: Current every day smoker Assessment/Plan Assessment: 24yo G4 now P1114 (previous twin ) with GENA 45943/19 by L=7w5d US at 39w2d s/p IOL for nonreassuring status PP Day#1 Normal involution, normal course Plan: Discharge teaching started Continue routine care
[2019-06-19 10:00] VITALS: BP 100/49; PULSE 65; RESP 16; TEMP 36.5
[2019-06-19 16:05] VITALS: BP 101/59; PULSE 71; RESP 16; TEMP 36.2
--- NOTE | 2019-06-19 16:52 | NURSING ---
1015 Patient requests formula for infant. States she needs a backup plan for when she goes home because she has 3 year old twins and a daughter with severe ADHD. She states she plans to continue breast feeding but feels like he isn't satisfied and nurses continuously. Also requesting pacifier. Supplemental Huddle form completed.
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
[2019-06-19] MEDS: Ibuprofen 600 MG Tablet PO (17:41)
[2019-06-19 18:00] VITALS: BP 101/45; PULSE 71; RESP 16; TEMP 36.2
--- NOTE | 2019-06-19 19:26 | NURSING ---
1840 Discharged to home. Pt states she wants to go home and feels able to care for her and herself. Instructed to return to ER tomorrow am for baby's repeat bilirubin. States she will do that. Discharged via wheelchair with baby in car seat to car.
== END 2019-06-19 18:40 | disposition home or self-care (01) | DRG 560 ==
PROVIDERS: Admitting Provider Obstetrics & Gynecology; Referring Provider Obstetrics & Gynecology; Visit Provider Obstetrics & Gynecology
DX: O76 Abnormality in fetal heart rate and rhythm complicating labor and delivery (principal); O43.893 Other placental disorders, third trimester; O71.89 Other specified obstetric trauma; O99.42 Diseases of the circulatory system complicating childbirth; I49.8 Other specified cardiac arrhythmias; R01.1 Cardiac murmur, unspecified; O99.52 Diseases of the respiratory system complicating childbirth; J45.909 Unspecified asthma, uncomplicated; F17.200 Nicotine dependence, unspecified, uncomplicated; O99.334 Smoking (tobacco) complicating childbirth; Z37.0 Single live birth; Z3A.39 39 weeks gestation of pregnancy
CPT/HCPCS: 59025; 59050; 85025; 86850; 86900; 86901; 99218; J7120; G0378; J2405

== ENCOUNTER → 2019-08-04 17:50 | Outpatient (CLI) | payer MEDICAID, SELFPAY ==
[2019-08-10 14:00] LABS: HPV APTIMA, High Risk Negative (Negative); HPV Reflexed? YES, CHARGE PATIENT
== END ==
PROVIDERS: Referring Provider Obstetrics & Gynecology; Visit Provider Obstetrics & Gynecology
DX: Z12.4 Encounter for screening for malignant neoplasm of cervix (principal)
CPT/HCPCS: 87624; 88175; G0145

== ENCOUNTER 2019-08-26 19:31 | Emergency (ER) | payer MEDICAID, SELFPAY ==
[2019-08-26 19:33] VITALS: BP 117/72; PULSE 80; RESP 18; TEMP 36.4; O2SAT 98; BMI 25.3
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
[2019-08-26] MEDS: Naproxen 500 MG Tablet PO (20:45)
[2019-08-26] MEDS: HYDROcodone Bitartrate/Apap 5/325 Tablet PO (20:45)
[2019-08-26] MEDS: Diphth,Pertuss(Acell),Tet Vac 0.5 ML Vial IM (20:46)
[2019-08-26 21:14] VITALS: BP 135/72; PULSE 80; RESP 16; O2SAT 97
--- NOTE | 2019-08-26 21:14 | ED.RN ---
SHOT TIME OBSERVED FOR 15 MIN NO REACTION NOTED BY THIS NURSE.
== END 2019-08-26 21:15 | disposition home or self-care (01) ==
PROVIDERS: Emergency Provider Emergency Medicine
DX: T23.252A Burn of second degree of left palm, initial encounter (principal); T23.232A Burn of second degree of multiple left fingers (nail), not including thumb, initial encounter; F17.200 Nicotine dependence, unspecified, uncomplicated
CPT/HCPCS: 90715; 99283

== ENCOUNTER → 2020-05-22 16:50 | Outpatient (CLI) | payer MEDICAID, SELFPAY ==
[2020-04-28 09:37] VITALS: BMI 25.3
[2020-05-25 08:08] LABS: Chlamydia By Nucleic Acid AMP Negative (Negative)
[2020-05-25 08:35] LABS: Gonococcus By Nucleic Acid AMP Negative (Negative)
== END ==
PROVIDERS: Visit Provider Obstetrics & Gynecology
DX: Z11.3 Encounter for screening for infections with a predominantly sexual mode of transmission (principal)
CPT/HCPCS: 87491; 87591

== ENCOUNTER → 2020-08-10 13:13 | Outpatient (CLI) | payer MEDICAID, SELFPAY ==
[2020-04-28 09:37] VITALS: BMI 25.3
[2020-08-14 21:35] LABS: HPV APTIMA, High Risk Positive (Negative); HPV Reflexed? YES, CHARGE PATIENT
== END ==
PROVIDERS: Visit Provider Obstetrics & Gynecology
DX: Z12.4 Encounter for screening for malignant neoplasm of cervix (principal)
CPT/HCPCS: 87086; 87088; 87186; 87624; 88175; G0145

== ENCOUNTER → 2020-10-02 11:10 | Outpatient (CLI) | payer MEDICAID, SELFPAY ==
[2020-10-02 10:25] VITALS: BMI 22.8
[2020-10-02 12:02] LABS: Absolute Lymphocyte Count 2.68 X10^3/uL (0.83-4.51); Absolute Neutrophil Count 6.5 X10^3/uL (2.0-7.7); Basophil# 0.04 X10^3/uL; Basophil% 0.4 % (0-1); Eosinophil# 0.15 X10^3/uL; Eosinophils% 1.5 % (0-5); Hematocrit 39.5 % (37-47); Hemoglobin 13.3 g/dL (12.0-15.0); Lymphocyte # 2.68 X10^3/ul (4.0); Lymphocyte % 27.2 % (19-41); Mean Corp Hgb Conc 33.7 g/dL (32-36); Mean Corpuscular Hgb 30.6 pg (27.0-32.0); Mean Corpuscular Volume 90.8 fL (81-99); Monocyte# 0.48 X10^3/uL; Monocyte% 4.9 % (0-10); NRBC Flagged by Analyzer 0 % (0-5); Neutrophil # 6.46 X10^3/uL (2.7-7.7); Neutrophil % 65.7 % (47-70); Platelet Count 266 K/mm3 (150-450); RBC Distribution Width CV 12.6 % (11.6-14.6); RBC Distribution Width SD 41.4 fl (35.1-43.9); Red Blood Count 4.35 M/mm3 (4.2-5.4); White Blood Count 9.8 K/mm3 (4.4-11.0)
[2020-10-02 12:22] LABS: Vitamin B12 424 pg/mL (211-911)
[2020-10-02 12:34] LABS: ALB/GLOB Ratio 1.1 RATIO (0.9-2.4); AST(SGOT) 13 U/L (15-37); Alanine Aminotransfer ALT/SGPT 14 U/L (13-56); Albumin, Serum 4.1 g/dL (3.2-5.0); Alkaline Phosphatase 86 U/L (45-117); Anion Gap 8 (5-15); BUN 6 mg/dL (7-18); BUN/Creat Ratio 7.4 RATIO (10-20); Calcium,Total 9.4 mg/dL (8.5-10.1); Chloride 107 mmol/L (98-107); Creatinine, Serum 0.81 mg/dL (0.55-1.02); EST Glomerular Filtration Rate 89 mL/min (>60); Est Glom Filt Rate - Afr Amer 108 mL/min (>60); Globulin 3.7 g/dL (2.2-4.2); Glucose 81 mg/dL (74-106); Potassium 3.8 mmol/L (3.5-5.1); Protein, Total 7.8 g/dL (6.4-8.2); Sodium Level 140 mmol/L (136-145); T4 Free Direct 1.14 ng/dL (0.76-1.46)
== END ==
PROVIDERS: Visit Provider Internal Medicine
DX: F41.9 Anxiety disorder, unspecified (principal); F32.9 Major depressive disorder, single episode, unspecified
CPT/HCPCS: 36415; 80053; 82607; 84439; 84443; 85025

== ENCOUNTER 2020-11-13 09:28 | Day surgery (SDC) | payer MEDICAID, SELFPAY ==
[2020-10-02 10:25] VITALS: BMI 22.8
[2020-11-08 14:24] LABS: Hemoglobin 13.5 g/dL (12.0-15.0); Mean Corp Hgb Conc 33.8 g/dL (32-36); Mean Corpuscular Hgb 31.5 pg (27.0-32.0); Mean Corpuscular Volume 93.5 fL (81-99); Platelet Count 293 K/mm3 (150-450); RBC Distribution Width SD 44.2 fl (35.1-43.9); Red Blood Count 4.28 M/mm3 (4.2-5.4); White Blood Count 12.1 K/mm3 (4.4-11.0)
[2020-11-08 14:39] LABS: International Normalized Ratio 1.1; Prothrombin Time (Protime)PT. 13.6 SECONDS (11.7-14.9)
[2020-11-08 14:42] LABS: Internal QC Validated? YES +Cl - CLEAR BKGD; Pregnancy, Serum, hCG Quali. NEGATIVE Negative
--- NOTE | 2020-11-12 19:02 | PCM.HP.BLA ---
History and Physical Date of Admission: 11/13/20 Surgical History and Physical Marylu Osorio, a 25 year old female 2 1 1 1 4, presents for L/S Bilateral Salpingectomy and Remove Liletta IUD on November 13, 2020 at 11:30. -- Desires Permanent Sterilization -- Marylu presents for a tubal as she wants her IUD removed per the advice of her PCP, and she does not want any more children. She is a 25yo female with no menses since Liletta placed 06/20, but sts she has been spotting daily. She is having extreme anxiety and depression, and has been taken off work for the month of Oct as she is just not coping well. Pt is taking Abilify 5mg qd. MEDICATIONS HISTORY: Patient is also takin. Abilify 5 mg tablet, 1 qd 2. Zoloft 50 mg tablet, daily ALLERGIES: No Known Drug Allergies Infections - Chicken pox and unknown Illnesses - anxiety, depression, migraines, childhood asthma and endometriosis Accidents - no injuries of consequence Hospitalizations - Childbirth and see surgery Review of Systems: GENERAL - Denies fever, or chills SKIN - Denies skin changes EYES - Denies visual changes EARS - Denies difficulty hearing NOSE - Denies nasal congestion or bleeding MOUTH - Denies sore throat or difficulty swallowing NECK - Denies pain or swelling RESPIRATORY - Denies shortness of breath or wheezing CARDIOVASCULAR - Denies palpitations or chest pain GASTROINTESTINAL - Denies nausea, vomiting, diarrhea, constipation GENITOURINARY - Denies dysuria, frequency of urination, incontinence of urine MUSCULOSKELETAL - Denies joint or muscle pain NEUROLOGICAL - Denies localized numbness or weakness PSYCHIATRIC - Denies depression or anxiety ENDOCRINE - Denies heat or cold intolerance, weight loss or gain HEMATO-IMMUNOLOGIC - Denies excesive bleeding with cuts SOCIAL HISTORY: Alcohol Use - RARELY not while Smoking - Advised to quit and Smoker since age 14. Currently 10-20 ciga daily. Diet - balanced Diet, caffeine < 2 drinks per day and Water intake at least 3 bottles daily. Lifestyle - high stress lifestyle Exercise - Busy with kids, Enc to walk 20min daily. Seat Belt Use - always Employer - [employer] Illicit Drug Use - Marijuana use as teen only. Sexual Activity - single sexual partner Residence - rent home and LIves with her kids. Hours Worked - none Children Name(s) - Chino Martin Karinnia, Karson(19) Control - none- wants to discuss options FAMILY HISTORY: MENSTRUAL HISTORY: LMP Known?- DefiniteAmount/Duration - 2-3 days, Regularity - Regular, Frequency - monthly days, LMP - 10/28/20, Age Onset Menarche - 9 PAST PREGNANCIES: Total Pregnancies - 3; Full Term Pregnancies - 2; Premature - 1; Abortions, Induced - 0; Abortions, Spontaneous - 1; Ectopics - 0; Multiple Births - 1; Living Children - 4 SURGICAL HISTORY: 1. 09/01/2011 Laparoscopy ; [facility] - pelvic pain - endometriosis dx PHYSICAL EXAM BP- 102/64 Sitting, Right arm, regular cuff Weight- 131.41842 lbs Height- 64.5 inch BMI:22.19 CONSTITUTIONAL - NAD, well nourished, and well developed SKIN - No rash, lesions, or ulcers LUNGS - CTA x2 without wheezes, crackles or rales CARDIAC - Regular rate and rhythm without rubs, murmurs, or gallops ABDOMEN - Without hepatosplenomegaly, distention, masses, rebound, or guarding; normal bowel sounds; no hernias EXTREMITIES - No edema or calf tenderness NEUROLOGICAL - Cranial nerves II-XII grossly intact PSYCHIATRIC - A and O to time, place, person, mood and affect External Genitial Vagina - non-tender without lesions Urethra/Urethral Meatus - non-tender Vagina - vaginal jara are pink and moist without loss of rugae and no evidence of atropy Cervix - without cervical motion tenderness and has normal size and features without evident lesions Uterus - 5-6 cm in size, mobile and nontender Adnexa - clear without massess or tenderness ASSESSMENT/PLAN: 1. Desires Permanent Sterilization Discussed continuing LARCs vs proceeding with L/S Bilateral Salpingectomy with IUD removal. Pt desires the latter. Discussed RBAs and all questions answered.
[2020-11-13] VITALS (7 sets, daily range): BP systolic 94–116; BP diastolic 44–71; PULSE 45–66; RESP 16; TEMP 36.2–36.7; O2SAT 99–100; BMI 22.9
[2020-11-13 10:02] LABS: Internal QC Validated? YES +Cl - CLEAR BKGD; Pregnancy, Urine Negative Negative
[2020-11-13] MEDS: Lactated Ringers 1,000 ML 100 ML IV (10:19)
[2020-11-13] MEDS: Cefotetan 2 GM in 0.9% NS 100 ML IV (10:58)
--- NOTE | 2020-11-13 11:00 | FALS_PTH ---
PATIENT: CHAITANYA WISEMAN [place] [facility] [place][id number] AGE/SX: 25/F ROOM: RE11/13/[address]: Dr. Valentin Villanueva MD : 1995 BED: DIS: 11/13/2020 SPEC #: [id number] RECD: 11/13/20 12:28 STATUS: ADALGISA REDevon #: [id number] JOMAR: 11/13/20 11:[address]: Valentin Villanueva DEPT: SURGICAL PATHOLOGY RECD BY: Kalie Soares ENTERED: 11/14/20 07:45 SP TYPE: FALL TUBES OTHR DR: Dr. Carlie Lozano MD Tissues: Fallopian tube Procedures: Surgery Specimen Level II HEADER OPERATION: Laparoscopic salpingectomy, IUD removal PRE-OP DIAGNOSIS: Sterilization TISSUE SUBMITTED: Bilateral fallopian tubes MICROSCOPIC DIAGNOSIS Right and left fallopian tubes, bilateral salpingectomies: Two complete segments of fallopian tubes with no pathologic change. AM:jason 11/15/2020 MICROSCOPIC DESCRIPTION Slides are reviewed. GROSS DESCRIPTION Received in fixative is one container labeled with the patient's name and designated bilateral fallopian tubes. The specimen consists of two fallopian tubes with an average length of 8 cm and has an average diameter of 0.6 cm. Both fallopian tubes have normal fimbriated ends. No mass lesions are identified. Project Manager/Design Manager sections are submitted in two cassettes as follows: 1 - one fallopian tube, 2 - the other fallopian tube. / AM:jason 11/14/20 TC:4 CPT: 97450 x2
[2020-11-13] MEDS: Lubricating Jelly 60 GM Tube 30 GM TOPICAL (11:15)
[2020-11-13] MEDS: Ropivacaine 0.5% 30 ML Vial (11:18)
--- NOTE | 2020-11-13 11:36 | PCM.OPRPT ---
Report of Operation Date of Procedure: 11/13/20 Pre-Operative Diagnosis: Desires Permanent Sterilization Post-Operative Diagnosis: Desires Permanent Sterilization Surgery/Procedure Performed:: Bilateral Laparoscopic Salpingectomy, Intrauterine Device Removal Description of Surgical Findings:: 8 cm uterus with normal-appearing fallopian tubes and ovaries. IUD device string in vagina consistent with Liletta. continuous improvement director: Mike Barksdale Type of Anesthesia:: General - Endotracheal Anesthesiologist: Josh Calhoun Specimen's removed: Bilateral fallopian tubes. Liletta IUD device discarded. Estimated Blood Loss (mL): Minimal Fluids Replaced: Crystalloid Description of Procedure: Surgeon: Valentin Villanueva MD, FACOG Indications: This is a 25 year old patient who has the above diagnosis. She has considered sterilization for quite some time. She is aware of the permanent nature of the procedure, the failure rate of 1-2%, and the availability of other nonpermanent control options. All questions were answered to consider the patient well-informed. Procedure: The patient was taken to the operating room where after induction of general anesthesia, she was placed in the dorsolithotomy position and prepped and draped in the usual sterile fashion. The bladder was drained of approximately 50 cc of clear yellow urine with a catheter. Anterior cervix was grasped with the tenaculum. After the IUD device was removed with a ring forcep a Conn cannula was placed and attention was turned toward the laparoscopic portion of the procedure. Approximately 20 cc of half percent ropivacaine was injected subumbilically, suprapubically and midway between. A 5 mm bladeless trocar was placed subumbilically and intraperitoneal placement confirmed. After CO2 insufflation was complete, a 5 mm bladeless trocar was introduced suprapubically. The above findings were noted. A 5 mm bladeless port was then placed midway between these 2 ports for tubal manipulation. Each fallopian tube was identified to its fimbriated end and an Enseal device was used to divide the mesosalpinx to the uterus. Tubes were removed through the lower 5 mm port. The peritoneal cavity and upper abdomen were examined and noted to be normal. Photographs were taken. Laparoscopic instruments with as much CO2 gas as possible were removed and incisions were closed with interrupted 4-0 Monocryl suture. Steri-Strips placed across the incision. Vaginal instruments were removed. The patient tolerated the procedure well was taken to recovery room in satisfactory condition and sponge instrument and needle counts were all reportedly correct. Estimated blood loss for the case was minimal. Cefotan 2 g IV was given prior to beginning the operative procedure. There were no apparent complications of the surgery. Specimens to pathology was bilateral tubes Grafts/Implants Used: None - Complications None - Admit VTE Documentation VTE Present on Admission: Yes VTE Mechan Device Prophylaxis: SCD's
--- NOTE | 2020-11-13 11:42 | DCINST_ITS ---
Discharge Diet: No Restrictions - Increase fluid intake for the next 48 hours. Discharge Activity: Return to Normal Activity, May Drive - when you are no longer taking pain/narcotic medicines., May Shower, May Take a Tub Bath May resume sexual activity in: 3 weeks Additional Activity Instructions:: Ambulate often the next week after surgery. Nothing in the vagina for 5 days. Call your doctor if your incision/area has: Continuous Slow Oozing, Sudden Increased Bleeding, Increased Pain/ Swelling, Increased Redness, Foul Smelling Discharge Call your doctor if you observe: Fever of 101 or Higher, Inability to urinate, Inability to have a bowel movement, Using more than one pad per hour Additional Instructions: Nothing in the vagina for 2 weeks please; no lifting more than 20-25 lbs for 2 weeks. Use Ibuprophen 800 mg orally every 8 hours as needed for pain. Can also add Tylenol 1000 mg every 8 hours if needed for pain. If Ibuprophen and Tylenol are not effective then use the Oxycodone but keep in mind it can cause constipation issues. Drink lots of water. Call if bleeding more than a pad per hour. Use stool softener as constipation is an issue after this type of surgery. Activity is encouraged but do not over do it !! Allergies/Adverse Reactions: Allergies No Known Allergies Allergy (Verified 11/13/20 10:12) Medications to take at Discharge multivitamin 1 tab PO DAILY 10/02/20 sennosides 8.6 mg-docusate sodium 50 mg tablet 1 tab-cap PO QHS #60 tab 10/09/20 aripiprazole 10 mg tablet 10 mg PO QHS #30 tab 10/30/20 linaclotide 145 mcg capsule 145 mcg PO QAM #30 cap 10/30/20 sertraline 50 mg tablet 50 mg PO DAILY #30 tab 10/30/20 Oxycodone [Oxyir] 5 mg PO Q6H PRN PRN 7 Days #7 tablet 11/13/20 The following prescriptions were given: Oxycodone [Oxyir] 5 mg PO Q6H PRN PRN 7 Days #7 tablet PRN Reason: Pain Score 6-10 Transmission Status: Sent to [facility] #30 Primary Care Physician: Carlie Lozano MD [Primary Care Provider] - Test Results: Test results from this visit will be discussed in further detail at your follow-up appointment, if applicable. Please Follow Up With: Valentin Villanueva MD - [phone] When: Call with an update in 7 days.
== END 2020-11-13 14:53 | disposition home or self-care (01) ==
LOC: SDC 09:28 → AC 09:39
PROVIDERS: Anesthesiology; PCP Internal Medicine; Referring Provider Obstetrics & Gynecology; Visit Provider Obstetrics & Gynecology
PROC: (CPT 58661; principal; 2020-11-13 10:45)
DX: Z30.2 Encounter for sterilization (principal); F41.9 Anxiety disorder, unspecified; F32.9 Major depressive disorder, single episode, unspecified; J45.909 Unspecified asthma, uncomplicated; Z79.899 Other long term (current) drug therapy
CPT/HCPCS: 00940; 58301; 58661; 36415; 81025; 84703; 85027; 85610; 85730; 86850; 86900; 86901; 87426; 88302; C9803; J7120; C1760

== ENCOUNTER → 2021-04-25 14:23 | Outpatient (CLI) | payer MEDICAID, SELFPAY | PROVIDERS: PCP Internal Medicine; Visit Provider Physician Assistant | DX: R51.9 Headache, unspecified (principal); H66.90 Otitis media, unspecified, unspecified ear | CPT/HCPCS: 87635; U0005; U0003 ==

== ENCOUNTER → 2021-06-04 10:38 | Outpatient (CLI) | payer MEDICAID, SELFPAY | PROVIDERS: PCP Internal Medicine; Visit Provider Physician Assistant Surgical | DX: U07.1 COVID-19 (principal) | CPT/HCPCS: 87635; U0005; U0003 ==

== ENCOUNTER → 2021-07-31 11:40 | Outpatient (CLI) | payer MEDICAID, SELFPAY ==
[2021-07-31 12:00] LABS: Mucous, Urine 0 SEEN /hpf (<or=2+)
[2021-07-31 15:11] LABS: Absolute Lymphocyte Count 2.49 X10^3/uL (0.83-4.51); Absolute Neutrophil Count 5.9 X10^3/uL (2.0-7.7); Basophil# 0.04 X10^3/uL; Basophil% 0.4 % (0-1); Eosinophil# 0.12 X10^3/uL; Eosinophils% 1.3 % (0-5); Hematocrit 39.4 % (37-47); Hemoglobin 13.3 g/dL (12.0-15.0); Lymphocyte # 2.49 X10^3/ul (0.83-4.51); Lymphocyte % 27.5 % (19-41); Mean Corp Hgb Conc 33.8 g/dL (32-36); Mean Corpuscular Hgb 30.9 pg (27.0-32.0); Mean Corpuscular Volume 91.6 fL (81-99); Monocyte# 0.54 X10^3/uL; NRBC Flagged by Analyzer 0 % (0-5); Neutrophil # 5.85 X10^3/uL (2.7-7.7); Neutrophil % 64.5 % (47-70); Platelet Count 270 K/mm3 (150-450); RBC Distribution Width CV 12.6 % (11.6-14.6); RBC Distribution Width SD 41.2 fl (35.1-43.9); White Blood Count 9.1 K/mm3 (4.4-11.0)
[2021-07-31 15:15] LABS: Color, Urine Yellow (Yellow); Glucose, Dipstick Normal (Normal); Ketone-Dipstick Negative (Negative); Leukocyte Esterase-Dipstick 100 /ul (Negative); Nitrite-Dipstick Positive (Negative); Occult Blood-Urine 250 /ul (Negative); Protein-Dipstick 30 mg/dl (Negative); Urine Bilirubin Dipstick Negative (Negative); Urine Clarity Sl. Cloudy (Clear); Urine Urobilinogen Normal (Normal)
[2021-07-31 15:24] LABS: Amorphous Sediment 1+ URATE; Bacteria 1+ /hpf (None Seen); Red Blood Cells-Urine 10-25 SEEN /hpf (0-5); Squamous Epithelial Cells - UA 0-5 SEEN /hpf (5-10); White Blood Cells 10-25 SEEN /hpf (0-5)
[2021-07-31 15:28] LABS: AST(SGOT) 14 U/L (15-37); Alanine Aminotransfer ALT/SGPT 17 U/L (13-56); Albumin, Serum 3.8 g/dL (3.2-5.0); Alkaline Phosphatase 82 U/L (45-117); Anion Gap 5 (5-15); BUN 7 mg/dL (7-18); BUN/Creat Ratio 9.6 RATIO (10-20); Calcium,Total 9.5 mg/dL (8.5-10.1); Chloride 108 mmol/L (98-107); Creatinine, Serum 0.73 mg/dL (0.55-1.02); EST Glomerular Filtration Rate 101 mL/min (>60); Est Glom Filt Rate - Afr Amer 122 mL/min (>60); Glucose 86 mg/dL (74-106); Potassium 4.2 mmol/L (3.5-5.1); Protein, Total 7.8 g/dL (6.4-8.2); Sodium Level 139 mmol/L (136-145)
== END ==
PROVIDERS: PCP Internal Medicine; Referring Provider Internal Medicine; Visit Provider Internal Medicine
DX: R10.9 Unspecified abdominal pain (principal)
CPT/HCPCS: 36415; 80053; 81001; 85025

== ENCOUNTER 2021-10-31 16:14 | Outpatient (CLI) | payer MEDICAID, SELFPAY | END 2021-10-31 23:59 | disposition home or self-care (01) | LOC: LABSPEC 16:15 | PROVIDERS: PCP Internal Medicine; Referring Provider Physician Assistant; Visit Provider Physician Assistant | DX: J02.9 Acute pharyngitis, unspecified (principal) | CPT/HCPCS: 87635; 87070; 87077; 87186; U0003; U0005 ==

== ENCOUNTER 2022-01-16 11:49 | Outpatient (CLI) | payer MEDICAID, SELFPAY ==
--- NOTE | 2022-01-16 | LES_PTH ---
PATIENT: CHAITANYA WISEMAN LOC: [facility] U#:[id number] AGE/SX: 26/F ROOM: RE01/16/[address]: Dr. Valentin Villanueva MD : 1995 BED: DIS: 01/16/2022 SPEC #: [id number] RECD: 01/16/22 12:59 STATUS: ADALGISA BLACKBURN #: [id number] JOMAR: 01/16/22 00:[address]: Valentin Villanueva DEPT: SURGICAL PATHOLOGY RECD BY: Salo Owens ENTERED: 01/16/22 13:00 SP TYPE: Lesion OTHR DR: Dr. Skinny Francois MD Tissues: Skin of vulva Procedures: Surgery Specimen Level IV HEADER OPERATION: Removal of skin tag vulva area PRE-OP DIAGNOSIS: Skin tag TISSUE SUBMITTED: Condyloma MICROSCOPIC DIAGNOSIS Skin tag of vulvar area, biopsy: Intradermal nevus. Polypoid condyloma. AM:jason 01/17/2022 COMMENT Case has been reviewed in consultation with Dr. Wiseman who concurs with the above diagnosis. IDC:DELONTE MICROSCOPIC DESCRIPTION Slides are reviewed. GROSS DESCRIPTION Received in fixative is one container labeled with the patient's name and designated condyloma. The specimen consists of two pieces of dawson-white skin measuring 0.5 x 0.5 x 0.2 cm and 0.3 x 0.3 x 0.1 cm. The specimen is totally submitted in one cassette. / DELONTE:jason 01/16/2022 TC:5 CPT: 24175
[2022-01-21 18:46] LABS: HPV APTIMA, High Risk Negative (Negative)
[2022-01-21 18:47] LABS: HPV Reflexed? YES, CHARGE PATIENT
== END 2022-01-16 23:59 | disposition home or self-care (01) ==
LOC: LABSPEC 11:52
PROVIDERS: PCP Internal Medicine; Visit Provider Obstetrics & Gynecology
DX: Z12.4 Encounter for screening for malignant neoplasm of cervix (principal); L91.8 Other hypertrophic disorders of the skin
CPT/HCPCS: 87624; 88175; 88305; G0145

== ENCOUNTER 2022-06-16 12:21 | Emergency (ER) | payer BC, MEDICAID, SELFPAY ==
[2022-06-16 12:22] VITALS: BP 120/77; PULSE 80; RESP 16; TEMP 36.3; O2SAT 98; BMI 23.1
--- NOTE | 2022-06-16 12:36 | EDS_ITS ---
HPI History of Present Illness Chief Complaint: General Illness [facility] Medical History (Updated 06/16/22 @ 14:03 by DALTON Cummings) 35 weeks gestation of Abdominal pain Anemia Anxiety Arthritis Asthma Contusion of right foot, initial encounter Decreased movement Depression Endometriosis Frequent UTI Heart murmur HPV (human papilloma virus) infection Laryngitis Migraines No significant past medical history Pharyngitis RLQ abdominal pain Stomach ulcer UNEXPLAINED BRUISES URI (upper respiratory infection) Urinary frequency UTI (urinary tract infection) Home Medications NK 06/16/22 [History Last Taken Unknown] Allergy/AdvReac Type Severity Reaction Status Date / Time No Known Allergies Allergy Verified 06/16/22 12:22 Family History Mother Anxiety and depression Heart disease Cancer lung Father Anxiety and depression Diabetes Other Hyperlipemia Surgical History History of tubal ligation Social History Smoking Status: Current every day smoker tobacco type: cigarettes Tobacco: How many years used: 10 alcohol intake: current alcohol intake frequency: a few times a month substance use type: does not use what type of physical activity do you participate in: none EXAM Physical Exam Const Vital Signs: 06/16/22 12:22 06/16/22 12:52 06/16/22 14:11 Temperature 97.4 F L Temperature Source Temporal Pulse Rate 80 78 Respiratory Rate 16 15 Respiratory Effort Normal Respiratory Pattern Normal Blood Pressure 120/77 115/85 H Blood Pressure Mean 91 Pulse Ox 98 98 Oxygen Delivery Method Room Air Discharge Plan Triage Chief Complaint: General Illness ED Midlevel Provider: Lyric Holt ED Provider: Mir Castellon Dx/Rx/DC Orders Clinical Impression: Hot flashes, Post-op pain Instructions: ED Post Op Wound Check, General Prescriptions: No Action NK Primary Care Provider: Skinny Francois Referrals: Skinny Francois MD [Primary Care Provider] - Activity Restrictions/Additional Instructions: Continue your antibiotic and take Tylenol ibuprofen as needed every 6 hours. If symptoms change or worsen call your doctor or return to the ER. Disposition Disposition: Home, Self Care Discharge Date/Time: 06/16/22 14:20
--- NOTE | 2022-06-16 12:36 | EX.ED.DYSGE1 ---
HPI <DALTON Cummings - Last Filed: 06/16/22 14:03> History of Present Illness Chief Complaint: General Illness Narrative Narrative: 27-year-old female had 8 teeth pulled on June 14. The procedure went well without complications and was put on amoxicillin. She states same day she started not feeling well. She has had hot flashes and chills with intermittent sweats and states her temperature has been around 99 ?F. No chest pain or shortness of breath. Denies URI symptoms or N/V/D. She really has minimal oral pain that is well managed with ibuprofen and she has been able to eat and drink. PFSH <DALTON Cummings - Last Filed: 06/16/22 14:03> [facility] Medical History (Updated 06/16/22 @ 14:03 by DALTON Cummings) 35 weeks gestation of Abdominal pain Anemia Anxiety Arthritis Asthma Contusion of right foot, initial encounter Decreased movement Depression Endometriosis Frequent UTI Heart murmur HPV (human papilloma virus) infection Laryngitis Migraines No significant past medical history Pharyngitis RLQ abdominal pain Stomach ulcer UNEXPLAINED BRUISES URI (upper respiratory infection) Urinary frequency UTI (urinary tract infection) Home Medications NK 06/16/22 [History Last Taken Unknown] Allergy/AdvReac Type Severity Reaction Status Date / Time No Known Allergies Allergy Verified 06/16/22 12:22 Family History Mother Anxiety and depression Heart disease Cancer lung Father Anxiety and depression Diabetes Other Hyperlipemia Surgical History History of tubal ligation Social History Smoking Status: Current every day smoker tobacco type: cigarettes Tobacco: How many years used: 10 alcohol intake: current alcohol intake frequency: a few times a month substance use type: does not use what type of physical activity do you participate in: none ROS <DALTON Cummings - Last Filed: 06/16/22 14:03> ROS ED ROS Narrative Constitutional: Positive for fever, chills, malaise. Eyes: Negative for visual change. ENT: Negative for sore throat, ear pain, rhinorrhea. CVS: Positive for palpitations. Negative for chest pain, syncope. Respiratory: Negative for shortness of breath, cough, orthopnea. GI: Negative for abdominal pain, nausea, vomiting, diarrhea, constipation, melena, hematochezia. : Negative for dysuria, hematuria or frequency. Neuro: Negative for headache, motor/sensory dysfunction. Skin: Negative for rash, abscess, or wound. Musc: Negative for joint pain, swelling, trauma. Heme: Negative for easy bruising, bleeding, lymphadenopathy. EXAM <DALTON Cummings - Last Filed: 06/16/22 14:03> Physical Exam Narrative Exam Narrative: CONST: Patient sitting in no acute distress. EYES: Normal inspection. ENT: Mandibular extraction sites appear normal with no swelling or sign of infection. Moist mucous membranes, airway patent. NECK: Normal inspection. RESP: No respiratory distress, CTAB. CVS: Regular rate and rhythm, no murmur, no gallop. ABD: Soft and nontender, no guarding or rebound, nondistended. SKIN: Color normal, no rash, warm, dry, intact. EXTREMITIES: Normal appearance, no pedal edema. NEURO: Oriented x4. PSYCH: Normal affect. Const Vital Signs: 06/16/22 12:22 06/16/22 12:52 Temperature 97.4 F L Temperature Source Temporal Pulse Rate 80 Respiratory Rate 16 Respiratory Effort Normal Respiratory Pattern Normal Blood Pressure 120/77 Blood Pressure Mean 91 Pulse Ox 98 Oxygen Delivery Method Room Air <Dr. Mir Castellon MD - Last Filed: 06/16/22 14:08> Physical Exam Const Vital Signs: 06/16/22 12:22 06/16/22 12:52 Temperature 97.4 F L Temperature Source Temporal Pulse Rate 80 Respiratory Rate 16 Respiratory Effort Normal Respiratory Pattern Normal Blood Pressure 120/77 Blood Pressure Mean 91 Pulse Ox 98 Oxygen Delivery Method Room Air MDM <DALTON Cummings - Last Filed: 06/16/22 14:03> [facility] Narrative Medical decision making narrative: Patient had multiple teeth extracted 3 days ago and is now having intermittent hot flashes and chills with no other specific symptoms. She appears well nontoxic. She is afebrile with normal vital signs. Her lower teeth extraction sites all appear to be healing well with no signs of infection or dry socket. Her exam overall is benign. With nonspecific symptoms of COVID/flu was obtained and is negative. At this point there is no indication for further emergent work-up. She can continue amoxicillin post dental extraction. She was counseled to monitor for new symptoms and follow-up with her doctor. She was discharged in stable condition. <Dr. Mir Castellon MD - Last Filed: 06/16/22 14:08> [facility] Treatment and Re-Evaluation Narrative: Seen and evaluated independently and in conjunction with physician family medicine physician assistant. Agree with notes above unless documented otherwise. Patient having hot flashes, several days after she had dental extractions that were all mandibular. She is having pain and on amoxicillin prior to the extraction, still on amoxicillin. No discharge from the sites, they all look very well on exam, with no signs of objective infection, bleeding, discharge, no evidence of a dry socket, and the patient verifies that she has had that before and it was much more painful than she has been having now. Gingiva are normal-appearing with healing extraction sites and nontender. COVID and influenza are negative, supportive care advised, certainly could be noninfectious etiologies and I would continue the amoxicillin, I see no objective evidence of a reason to change her antibiotic at this time. She is seeing her dentist in 2 days for follow-up appointment. Discharge Plan Triage Chief Complaint: General Illness ED Midlevel Provider: Lyric Holt ED Provider: Mir Castellon Dx/Rx/DC Orders Clinical Impression: Hot flashes, Post-op pain Instructions: ED Post Op Wound Check, General Prescriptions: No Action NK Primary Care Provider: Skinny Francois Referrals: Skinny Francois MD [Primary Care Provider] - Activity Restrictions/Additional Instructions: Continue your antibiotic and take Tylenol ibuprofen as needed every 6 hours. If symptoms change or worsen call your doctor or return to the ER. Disposition Disposition: Home, Self Care
[2022-06-16 14:11] VITALS: BP 115/85; PULSE 78; RESP 15; O2SAT 98
== END 2022-06-16 14:20 | disposition home or self-care (01) ==
PROVIDERS: Emergency Provider Emergency Medicine; PCP Internal Medicine; Visit Provider Emergency Medicine
DX: R68.83 Chills (without fever) (principal); G89.18 Other acute postprocedural pain; F17.210 Nicotine dependence, cigarettes, uncomplicated
CPT/HCPCS: 87428; 99282

== ENCOUNTER → 2023-01-17 | Outpatient (CLI) | payer MEDICAID, SELFPAY ==
--- NOTE | 2023-01-17 13:50 | RAD_ITS ---
INDICATION: Abdominal Pain. Constipation EXAMINATION/TECHNIQUE: X-RAY - XR Abdomen W/ Decub and/or Erect Views COMPARISON: FINDINGS: BOWEL GAS PATTERN: Moderate stool throughout the colon. Remainder bowel gas pattern normal. FREE AIR: Not assessed on a single supine view. ORGANOMEGALY: Not seen. CALCIFICATIONS: No abnormal calcifications observed. LOWER CHEST: No acute pathology. BONES AND SOFT TISSUES: Mild osteitis symphysis. RAD/Abd Inc Decub and/or Erect IMPRESSION: Fecal stasis. Electronically Signed: Guillaume Lucas MD, [facility]ILD at 21:51 EDT ,
[2023-01-17 15:20] LABS: Absolute Lymphocyte Count 3.28 X10^3/uL (0.83-4.51); Absolute Neutrophil Count 3.8 X10^3/uL (2.0-7.7); Basophil# 0.05 X10^3/uL; Basophil% 0.6 % (0-1); Eosinophil# 0.24 X10^3/uL; Hematocrit 36.1 % (37-47); Lymphocyte # 3.28 X10^3/ul (0.83-4.51); Lymphocyte % 41.6 % (19-41); Mean Corp Hgb Conc 33.2 g/dL (32-36); Mean Corpuscular Hgb 30.5 pg (27.0-32.0); Mean Corpuscular Volume 91.9 fL (81-99); Monocyte# 0.51 X10^3/uL; Monocyte% 6.5 % (0-10); NRBC Flagged by Analyzer 0 % (0-5); Neutrophil # 3.78 X10^3/uL (2.7-7.7); Platelet Count 246 K/mm3 (150-450); RBC Distribution Width CV 12.5 % (11.6-14.6); RBC Distribution Width SD 41.3 fl (35.1-43.9); Red Blood Count 3.93 M/mm3 (4.2-5.4); White Blood Count 7.9 K/mm3 (4.4-11.0)
[2023-01-17 15:53] LABS: ALB/GLOB Ratio 1.1 RATIO (0.9-2.4); AST(SGOT) 16 U/L (15-37); Alanine Aminotransfer ALT/SGPT 17 U/L (13-56); Albumin, Serum 3.8 g/dL (3.2-5.0); Alkaline Phosphatase 78 U/L (45-117); Anion Gap 6 (5-15); BUN 6 mg/dL (7-18); BUN/Creat Ratio 9.1 RATIO (10-20); Calcium,Total 9.4 mg/dL (8.5-10.1); Chloride 108 mmol/L (98-107); Creatinine, Serum 0.66 mg/dL (0.55-1.02); EST Glomerular Filtration Rate 112 mL/min (>60); Est Glom Filt Rate - Afr Amer 136 mL/min (>60); Globulin 3.5 g/dL (2.2-4.2); Glucose 85 mg/dL (74-106); Potassium 3.6 mmol/L (3.5-5.1); Protein, Total 7.3 g/dL (6.4-8.2); Sodium Level 140 mmol/L (136-145)
== END | disposition home or self-care (01) ==
PROVIDERS: PCP Internal Medicine; Referring Provider Internal Medicine; Visit Provider Internal Medicine
DX: K59.09 Other constipation (principal); R10.9 Unspecified abdominal pain
CPT/HCPCS: 36415; 74019; 80053; 85025

== ENCOUNTER 2023-05-11 11:23 | Emergency (ER) | payer MEDICAID, SELFPAY ==
[2023-05-11 11:24] VITALS: BP 121/67; PULSE 111; RESP 16; TEMP 36.6; O2SAT 100
--- NOTE | 2023-05-11 11:34 | ED.VIS.LOWEX ---
HPI History of Present Illness Chief Complaint: Lower Extremity Injury Informant: patient Narrative Narrative: Patient was playing basketball yesterday, states that she got wrapped up with another player and inverted her left ankle, felt a crack and has had pain ever since and trouble bearing weight walking. Pain is mostly in the lateral aspect of the foot. No other injuries. [facility] Medical History 35 weeks gestation of Abdominal pain Anemia Anxiety Arthritis Asthma Chronic constipation Contusion of right foot, initial encounter Decreased movement Depression Endometriosis Frequent UTI Heart murmur HPV (human papilloma virus) infection Laryngitis Migraines No significant past medical history Pharyngitis RLQ abdominal pain Stomach ulcer UNEXPLAINED BRUISES URI (upper respiratory infection) Urinary frequency UTI (urinary tract infection) Home Medications lubiprostone 24 mcg capsule (Amitiza) 24 mcg PO BID #60 caps 02/14/23 [Rx Last Taken Unknown] lactulose 10 gram/15 mL oral solution 10 g (15 mL) PO BID #946 mL 04/24/23 [Rx Last Taken Unknown] naproxen 500 mg tablet 500 mg PO BID PRN #14 tabs 05/11/23 [Rx Last Taken Unknown] Allergy/AdvReac Type Severity Reaction Status Date / Time No Known Allergies Allergy Verified 05/11/23 11:25 Family History (Reviewed 02/14/23 @ 14:42 by Kimberley Aparicio NP, [employer] FINISHER HELPER-C) Mother Anxiety and depression Heart disease Cancer lung Father Anxiety and depression Diabetes Other Hyperlipemia Surgical History (Reviewed 02/14/23 @ 14:42 by Kimberley Aparicio [employer] FINISHER HELPER, [employer] FINISHER HELPER-C) History of tubal ligation Social History Smoking Status: Current every day smoker tobacco type: cigarettes Tobacco: How many years used: 10 alcohol intake: current alcohol intake frequency: a few times a month substance use type: does not use what type of physical activity do you participate in: none ROS ROS ED Constitutional Constitutional ED: Denies chills or fever(s) Musculoskeletal Musculoskeletal: Reports extremity pain; Denies neck pain Integumentary Denies Abrasions, rash or wounds Neurologic Neurologic: Denies paresthesias or weakness EXAM Physical Exam Const Vital Signs: 05/11/23 11:24 Temperature 98 F Temperature Source Temporal Pulse Rate 111 H Respiratory Rate 16 Blood Pressure 121/67 H Blood Pressure Mean 85 Pulse Ox 100 Oxygen Delivery Method Room Air Positive well nourished and well developed General Appearance ED: well developed and NAD Neck full ROM and supple Back/Spine normal ROM and normal to inspection Extremity normal to inspection Extremity Narrative: Patient is tender in the area of the lateral aspect of the talus/midfoot. There is no tenderness at the lateral malleolus, the medial malleolus, nor the base of the fifth metatarsal or the toes. There are some mild swelling in the tender area, no gross purpura. Very limited range of motion of the ankle due to pain, she refuses to move it at all. She can wiggle the toes without difficulty brisk up refill distally strong pulses palpable. General Extremety ED: Yes weight-bearing difficulty General Extremity: weight-bearing difficulty Neuro oriented x3, no focal motor deficits and no sensory deficits noted Sensorium / Orientation: alert Psych mental status grossly normal and thought process normal Skin no wounds Rashes: no rashes MDM MDM MDM Narrative Medical decision making narrative: Three-view x-ray series of the left foot were obtained, and are negative for acute fracture my interpretation, and additional 2 views of the left ankle were obtained including AP and mortise views, and my interpretation those are normal as well. I am at a low suspicion of an ankle fracture, I was more concerned about the talus, radiology is in agreement that there is no obvious radiographic evidence of a fracture here. Therefore Marianne treat her like an ankle sprain with an Aircast, we are low on crutches right now and if we do not have any to give her I will give her a prescription for them, and anti-inflammatories advised along with follow-up if not improving. Radiography Diagnostic Testing: Clinical Impression(s) from Imaging Studies Ankle X-Ray 05/11/23 11:45 IMPRESSION: Normal x-ray examination of the ankle. Electronically Signed: Oswald Washington MD at 12:39 EDT , Foot X-Ray 05/11/23 11:45 IMPRESSION: Normal x-ray examination of the foot. Electronically Signed: Oswald Washington MD at 12:42 EDT , Discharge Plan Triage Chief Complaint: Lower Extremity Injury ED Provider: Mir Castellon Dx/Rx/DC Orders Clinical Impression: Left ankle sprain Instructions: ED Ankle Sprain (Adult) Prescriptions: New naproxen 500 mg tablet 500 mg PO BID PRN Qty: 14 0RF No Action lubiprostone [Amitiza] 24 mcg capsule 24 mcg PO BID Qty: 60 12RF lactulose 10 gram/15 mL solution 10 g PO BID Qty: 946 0RF Primary Care Provider: Skinny Francois Referrals: Skinny Francois MD [Primary Care Provider] - Elroy Ledesma DPM [Med Staff - Active Staff] - 1-2 Weeks (if not improving) Activity Restrictions/Additional Instructions: May use the Aircast as long as you need. Crutches encouraged for the first week, then as needed. Disposition Disposition: Home, Self Care
--- NOTE | 2023-05-11 11:45 | RAD_ITS ---
STUDY: X-RAY - LEFT FOOT CLINICAL: Female, 28 years old. injury TECHNIQUE: 3 view(s) of the foot. COMPARISON: None. FINDINGS: Normal talus, calcaneus, and tarsal bones. Normal visualized subtalar, talonavicular, calcaneocuboid, tarsal and tarsometatarsal articulations. Normal metatarsi. Normal metatarsophalangeal joint of the great toe. Normal tibial and fibular sesamoid bones. Normal interphalangeal joint of the great toe. Normal phalanges of the great toe. Normal second through fifth metatarsophalangeal joints. Normal interphalangeal joints and phalanges of the lesser toes. The soft tissue structures are unremarkable. RAD/Foot min 3 Views IMPRESSION: Normal x-ray examination of the foot. Electronically Signed: Oswald Washington MD at 12:42 EDT ,
--- NOTE | 2023-05-11 11:45 | RAD_ITS ---
STUDY: X-RAY - LEFT ANKLE REASON FOR EXAM: Female, 28 years old. injury -- AP, mortise TECHNIQUE: 3 view(s) of the ankle. COMPARISON: None. FINDINGS: Normal visualized distal tibia and fibula. Normal medial and lateral malleoli. Normal tibiotalar articulation and ankle mortise. Normal visualized talus and calcaneus. The visualized subtalar, talonavicular, calcaneocuboid and tarsal articulations are normal. The soft tissue structures are unremarkable. RAD/Ankle min 3 Views IMPRESSION: Normal x-ray examination of the ankle. Electronically Signed: Oswald Washington MD at 12:39 EDT ,
== END 2023-05-11 13:25 | disposition home or self-care (01) ==
PROVIDERS: Emergency Provider Emergency Medicine; PCP Internal Medicine; Visit Provider Emergency Medicine
DX: S93.402A Sprain of unspecified ligament of left ankle, initial encounter (principal); F17.210 Nicotine dependence, cigarettes, uncomplicated; Y93.67 Activity, basketball
CPT/HCPCS: 73610; 73630; 99284

== ENCOUNTER → 2023-06-09 | Outpatient (CLI) | payer MEDICAID, SELFPAY ==
[2023-06-09 12:54] LABS: Bacteria 0 SEEN /hpf (None Seen); Mucous, Urine 0 SEEN /hpf (<or=2+)
[2023-06-09 15:09] LABS: Color, Urine Yellow (Yellow); Glucose, Dipstick Normal (Normal); Ketone-Dipstick 5 mg/dl (Negative); Leukocyte Esterase-Dipstick 25 /ul (Negative); Nitrite-Dipstick Negative (Negative); Occult Blood-Urine 10 /ul (Negative); Protein-Dipstick Negative (Negative); Urine Bilirubin Dipstick Negative (Negative); Urine Clarity Clear (Clear); Urine Urobilinogen Normal (Normal); Urine pH 6.5 (5.0 - 8.0)
[2023-06-09 15:20] LABS: Red Blood Cells-Urine 0-5 SEEN /hpf (0-5); White Blood Cells 0-5 SEEN /hpf (0-5)
[2023-06-09 15:21] LABS: Squamous Epithelial Cells - UA 0-5 SEEN /hpf (5-10)
== END | disposition home or self-care (01) ==
PROVIDERS: PCP Internal Medicine; Visit Provider Physician Assistant
DX: R30.0 Dysuria (principal)
CPT/HCPCS: 81001; 87086; 87088

== ENCOUNTER → 2023-06-30 | Outpatient (CLI) | payer MEDICAID, SELFPAY ==
[2023-06-30 11:10] LABS: Erythrocyte Sedimentation Rate 5 mm/hr (0-30)
[2023-06-30 11:12] LABS: Absolute Lymphocyte Count 3.39 X10^3/uL (0.83-4.51); Absolute Neutrophil Count 6.8 X10^3/uL (2.0-7.7); Basophil# 0.07 X10^3/uL; Basophil% 0.7 % (0-1); Eosinophil# 0.07 X10^3/uL; Eosinophils% 0.7 % (0-5); Hemoglobin 13.1 g/dL (12.0-15.0); Lymphocyte # 3.39 X10^3/ul (0.83-4.51); Lymphocyte % 31.7 % (19-41); Mean Corp Hgb Conc 33.6 g/dL (32-36); Mean Corpuscular Hgb 30.9 pg (27.0-32.0); Mean Platelet Vol. 9.2 fl (6.2-12.0); Monocyte# 0.37 X10^3/uL; Monocyte% 3.5 % (0-10); NRBC Flagged by Analyzer 0 % (0-5); Neutrophil # 6.75 X10^3/uL (2.7-7.7); Platelet Count 264 K/mm3 (150-450); RBC Distribution Width CV 12.9 % (11.6-14.6); RBC Distribution Width SD 43.1 fl (35.1-43.9); Red Blood Count 4.24 M/mm3 (4.2-5.4); White Blood Count 10.7 K/mm3 (4.4-11.0)
[2023-06-30 11:36] LABS: Hemoglobin A1c 4.8 % (3.8-5.6)
[2023-06-30 12:05] LABS: AST(SGOT) 13 U/L (15-37); Alanine Aminotransfer ALT/SGPT 20 U/L (13-56); Alkaline Phosphatase 80 U/L (45-117); Amylase 48 U/L (25-115); Anion Gap 4 (5-15); BUN 8 mg/dL (7-18); BUN/Creat Ratio 11.8 RATIO (10-20); CRP < 2.90 mg/L (0.0-3.0); Calcium,Total 9.2 mg/dL (8.5-10.1); Chloride 109 mmol/L (98-107); Creatinine, Serum 0.68 mg/dL (0.55-1.02); EST Glomerular Filtration Rate 108 mL/min (>60); Est Glom Filt Rate - Afr Amer 131 mL/min (>60); Globulin 4.2 g/dL (2.2-4.2); Glucose 89 mg/dL (74-106); Lipase 27 U/L (13-75); Potassium 3.6 mmol/L (3.5-5.1); Protein, Total 8.2 g/dL (6.4-8.2); Sodium Level 137 mmol/L (136-145)
[2023-06-30 12:34] LABS: HIV - WCH Non-Reactive (Nonreactive)
[2023-07-01 12:09] LABS: Anti-Centromere B Ab <0.2 AI (0.0-0.9); Anti-Chromatin <0.2 AI (0.0-0.9); Anti-Jo <0.2 AI (0.0-0.9); Anti-Scleroderma-70 AB 0.2 AI (0.0-0.9); Anti-dsDNA Ab 1 IU/mL (0-9); RNP Ab <0.2 AI (0.0-0.9); SJOGREN'S Anti-SS-A test < 0.2 AI (0.0-0.9); SJOGREN'S Anti-SS-B test < 0.2 AI (0.0-0.9); Smith Ab <0.2 AI (0.0-0.9)
[2023-07-03 21:07] LABS: Albumin 4.1 g/dL (2.9-4.4); Alpha-1-Globulins 0.2 g/dL (0.0-0.4); Alpha-2-Globulins 0.9 g/dL (0.4-1.0); Cytoplasmic Ab (C-ANCA) <1:20 titer (Neg:<1:20); Endomysial Antibody IgA Negative (Negative); Gamma Globulin 1.3 g/dL (0.4-1.8); Haptoglobin 214 mg/dL (33-278); Immunoglobulin A 170 mg/dL (87-352); Immunoglobulin E 148 IU/mL (6-495); Immunoglobulin G 1218 mg/dL (586-1602); Immunoglobulin M 68 mg/dL (26-217); PROEL- TOTAL PROTEIN 7.5 g/dL (6.0-8.5); Perinuclear Ab (P-ANCA) <1:20 titer (Neg:<1:20); t-Transglutaminase IgA <2 U/mL (0-3)
== END | disposition home or self-care (01) ==
PROVIDERS: PCP Internal Medicine; Referring Provider Internal Medicine Gastroenterology; Visit Provider Internal Medicine Gastroenterology
DX: K59.09 Other constipation (principal); R10.9 Unspecified abdominal pain
CPT/HCPCS: 36415; 80053; 82150; 82784; 82785; 83010; 83036; 83516; 83690; 84165; 85025; 85652; 86140; 86225; 86235; 86255; 86256; 86334; 86703

== ENCOUNTER 2023-07-09 09:49 | Emergency (ER) | payer MEDICAID, SELFPAY ==
[2023-07-09 09:50] VITALS: BP 109/75; PULSE 79; RESP 16; TEMP 36.4; O2SAT 95; BMI 23.9
--- NOTE | 2023-07-09 10:20 | EKG12_ITS ---
Test Reason : CP Blood Pressure : / mmHG Vent. Rate : 076 BPM Atrial Rate : 076 BPM P-R Int : 136 ms QRS Dur : 078 ms QT Int : 398 ms P-R-T Axes : 068 068 066 degrees QTc Int : 447 ms Normal sinus rhythm with sinus arrhythmia Normal ECG Confirmed by SANDIE MULLEN, NELLI ([id number]), supervising film or videotape editor AMIRA GILBERT ([id number]) on 07/14/2023 8:40:10 AM Referred By: Confirmed By:DAYNA HOOPER MD
--- NOTE | 2023-07-09 10:20 | RAD_ITS ---
STUDY: X-RAY CHEST REASON FOR EXAM: Female, 28 years old. Chest pain TECHNIQUE: Single AP portable view of the chest. COMPARISON: Comparison is made with prior examination of March 13, 2017. FINDINGS: The lungs are clear and expanded. There is no demonstrated pleural abnormality. Normal size heart. Normal mediastinum and darian. Normal visualized pulmonary arteries. Normal visualized aortic arch and descending thoracic aorta. Normal visualized thoracic spine. Normal visualized ribs, clavicles, and shoulders. There is no demonstrated abnormality of the visualized soft tissue structures of the upper abdomen. RAD/Chest 1 View (Portable) IMPRESSION: Normal x-ray examination of the chest. Electronically Signed: Alli Daigle MD at 10:44 [facility] ,
--- NOTE | 2023-07-09 10:20 | ED.VIS.CHEST ---
HPI History of Present Illness Chief Complaint: Chest Pain Informant: patient Narrative Narrative: 28-year-old female presenting to the emergency room with months of constant pain. She states that she has been very busy and with 4 children its hard to get seen. She states that today the pain became more worse and was making her short of breath so she came to emergency. Patient states that time it feels like she has ice in her chest. She states she gets a very cold sensation for a second or 2. She states that she has heart problems. She states by this she means that she has been told that she had an irregular heartbeat, slow heartbeat, and heart murmur. 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 She states today the pain is left upper chest near the axilla. Sharp stabbing dull achy. It is making her arm numb and tingling. She denies weight loss weight gain. She denies DVT PE risk factors. She is a smoker. She notes cough with sputum production which seems worse than normal. Patient seems to have a positive review of systems. She states that 3 months ago she failed her vision test. Her last eye exam was 3 years ago. She wears corrective glasses. [facility] Medical History 35 weeks gestation of Abdominal pain Acute pharyngitis, unspecified Anemia Anxiety Arthritis Asthma Chronic constipation Contusion of right foot, initial encounter Decreased movement Depression Endometriosis Frequent UTI Heart murmur HPV (human papilloma virus) infection Laryngitis Migraines No significant past medical history Pharyngitis RLQ abdominal pain Stomach ulcer UNEXPLAINED BRUISES URI (upper respiratory infection) Urinary frequency UTI (urinary tract infection) Home Medications lubiprostone 24 mcg capsule (Amitiza) 24 mcg PO BID #60 caps 02/14/23 [Rx Last Taken Unknown] lactulose 10 gram/15 mL oral solution 10 g (15 mL) PO BID #946 mL 04/24/23 [Rx Last Taken Unknown] naproxen 500 mg tablet 500 mg PO BID PRN #14 tabs 05/11/23 [Rx Last Taken Unknown] hyoscyamine sulfate 0.125 mg tablet 0.125 mg PO BID-QID PRN abdominal pain #60 tabs 06/30/23 [Rx Last Taken Unknown] Allergy/AdvReac Type Severity Reaction Status Date / Time No Known Allergies Allergy Verified 07/09/23 09:50 Family History Mother Anxiety and depression Heart disease Cancer lung Father Anxiety and depression Diabetes Other Hyperlipemia Surgical History History of tubal ligation Social History Smoking Status: Current every day smoker tobacco type: cigarettes Tobacco: How many years used: 10 alcohol intake: current alcohol intake frequency: a few times a month substance use type: does not use what type of physical activity do you participate in: none ROS ROS ED Constitutional Constitutional ED: Reports chills and sweats; Denies fever(s) or weight loss Eyes Eyes: Reports blurry vision; Denies change in vision or diplopia ENT ENT ED: Denies ear pain, rhinorrhea or sore throat Cardiovascular Cardiovascular: Reports chest pain, palpitations and racing heartbeat; Denies orthopnea Respiratory/Chest Respiratory/Chest: Reports cough, dyspnea, dyspnea on exertion and sputum; Denies orthopnea Gastrointestinal Gastrointestinal: Reports nausea; Denies abdominal pain, diarrhea or vomiting Genitourinary Genitourinary ED: Denies dysuria, hematuria or urinary frequency Musculoskeletal Musculoskeletal: Denies arthralgias, back pain, myalgias or neck pain Integumentary Denies abscess or rash Neurologic Neurologic: Reports paresthesias; Denies headache(s) or weakness Psychiatric Psychiatric: Denies anxiety, depression, suicidal ideation or suicidal thoughts Endocrine Endocrinology: Denies polydipsia, polyphagia or polyuria Allergic/Immunologic Allergic/Immunologic ED: Denies mouth swelling, tongue swelling or urticaria EXAM Physical Exam Const Vital Signs: 07/09/23 09:50 Temperature 97.5 F L Temperature Source Temporal Pulse Rate 79 Respiratory Rate 16 Blood Pressure 109/75 Blood Pressure Mean 86 Pulse Ox 95 Oxygen Delivery Method Room Air Positive well nourished and well developed General Appearance ED: well developed HEENT Reports normocephalic, head/scalp atraumatic and moist mucous membranes Eyes PERRL and EOMs intact bilaterally Neck no lymphadenopathy, supple and no JVD Chest Wall Chest Narrative: Tender to palpation left upper chest. No tenderness in the posterior associated ribs. Resp normal respiratory effort and clear to auscultation bilaterally Cardio regular rate, regular rhythm and no murmurs GI normal to inspection, nondistended, normoactive bowel sounds and non-tender Palpation: soft Back/Spine no CVA tenderness and normal ROM Extremity normal to inspection General Extremety ED: Negative for edema General Extremity: Negative for edema Neuro oriented x3 and CN's II-XII intact bilaterally Sensorium / Orientation: alert Motor Exam: strength 5/5 throughout Psych mental status grossly normal Mood & Affect: Negative for depressed or tearful Skin no rashes or lesions noted and no wounds MDM MDM MDM Narrative Medical decision making narrative: My independent interpretation of the single view chest x-ray is no acute process. With months of constant symptoms the patient troponin is 4. Therefore I do not think that the etiology of the patient's symptoms is causing cardiac damage. TSH 0.65. Potassium 3.4 and I do not believe that that is a contributing factor in her chest pain. Hemoglobin 11.7 with a white count of 10.7. Platelet count of 231. D-dimer was obtained and is within normal limits. Patient has not shown any tachy- or li- dysrhythmias on the monitor. At this point without any evidence of acute emergent causes for chest pain I will have the patient follow-up primary care. I am not seeing evidence of ACS, PE, dissection, effusion [place] or endocarditis or pericarditis or dissection. Lab Data Attestation: I reviewed the patient's lab results. Labs: Laboratory Results - last 24 hr 07/09/23 10:25 WBC 10.7 RBC 3.81 L Hgb 11.7 L Hct 35.7 L MCV 93.7 MCH 30.7 MCHC 32.8 RDW Std Deviation 44.3 H RDW Coeff of Stacey 13.0 Plt Count 231 MPV 9.1 Immature Gran % (Auto) 0.600 Neut % (Auto) 69.3 Lymph % (Auto) 25.2 [place] % (Auto) 3.7 Eos % (Auto) 0.7 Baso % (Auto) 0.5 Absolute Neuts (auto) 7.4 Absolute Lymphs (auto) 2.69 Nucleated RBC % 0 D-Dimer Quant (PE/DVT) < 0.27 L Sodium 139 Potassium 3.4 L Chloride 110 H Carbon Dioxide 24.0 Anion Gap 5 BUN 8 Creatinine 0.70 Estim Creat Clear Calc 97.21 Est GFR (MDRD) Af Amer 126 Est GFR (MDRD) Non-Af 104 BUN/Creatinine Ratio 11.4 Glucose 93 Calcium 8.9 Troponin I High Sens 4 TSH 0.65 Radiography Diagnostic Testing: Clinical Impression(s) from Imaging Studies Chest X-Ray 07/09/23 10:20 IMPRESSION: Normal x-ray examination of the chest. Electronically Signed: Alli Daigle MD at 10:44 EST , EKG Initial EKG: Attestation: I personally reviewed and interpreted this EKG as follows: Comments: Normal sinus rhythm with a ventricular rate of 76 bpm. No concerning features of ACS noted Discharge Plan Triage Chief Complaint: Chest Pain ED Provider: Ladarius Lozada Dx/Rx/DC Orders Clinical Impression: Acute dyspnea, Arm paresthesia, left, Chest pain Instructions: ED Chest Pain, Uncertain Cause Prescriptions: No Action lubiprostone [Amitiza] 24 mcg capsule 24 mcg PO BID Qty: 60 12RF hyoscyamine sulfate 0.125 mg tablet 0.125 mg PO BID-QID PRN (Reason: abdominal pain) Qty: 60 1RF naproxen 500 mg tablet 500 mg PO BID PRN Qty: 14 0RF lactulose 10 gram/15 mL solution 10 g PO BID Qty: 946 0RF Primary Care Provider: Skinny Francois Referrals: Skinny Francois MD [Primary Care Provider] - As soon as possible Disposition Disposition: Home, Self Care
[2023-07-09 10:33] LABS: Absolute Lymphocyte Count 2.69 X10^3/uL (0.83-4.51); Absolute Neutrophil Count 7.4 X10^3/uL (2.0-7.7); Basophil# 0.05 X10^3/uL; Basophil% 0.5 % (0-1); Eosinophil# 0.07 X10^3/uL; Eosinophils% 0.7 % (0-5); Hematocrit 35.7 % (37-47); Hemoglobin 11.7 g/dL (12.0-15.0); Lymphocyte # 2.69 X10^3/ul (0.83-4.51); Lymphocyte % 25.2 % (19-41); Mean Corp Hgb Conc 32.8 g/dL (32-36); Mean Corpuscular Hgb 30.7 pg (27.0-32.0); Mean Corpuscular Volume 93.7 fL (81-99); Mean Platelet Vol. 9.1 fl (6.2-12.0); Monocyte# 0.39 X10^3/uL; Monocyte% 3.7 % (0-10); NRBC Flagged by Analyzer 0 % (0-5); Neutrophil # 7.41 X10^3/uL (2.7-7.7); Neutrophil % 69.3 % (47-70); Platelet Count 231 K/mm3 (150-450); RBC Distribution Width SD 44.3 fl (35.1-43.9); Red Blood Count 3.81 M/mm3 (4.2-5.4); White Blood Count 10.7 K/mm3 (4.4-11.0)
[2023-07-09 10:55] LABS: Anion Gap 5 (5-15); BUN 8 mg/dL (7-18); BUN/Creat Ratio 11.4 RATIO (10-20); Calcium,Total 8.9 mg/dL (8.5-10.1); Chloride 110 mmol/L (98-107); EST Glomerular Filtration Rate 104 mL/min (>60); Est Glom Filt Rate - Afr Amer 126 mL/min (>60); Estimated Creatinine Clearance 97.21 ml/min; Glucose 93 mg/dL (74-106); Potassium 3.4 mmol/L (3.5-5.1); Sodium Level 139 mmol/L (136-145); Thyroid Stim Hormone (TSH) 0.65 uIU/mL (0.358-3.74); Troponin-I HS 4 pg/mL (3.0-54.0)
[2023-07-09 11:19] LABS: D-Dimer Quantitative (DVT/PE) < 0.27 FEU/ug/m (0.27-0.49)
[2023-07-09 11:36] VITALS: PULSE 77; RESP 18; O2SAT 100
== END 2023-07-09 11:37 | disposition home or self-care (01) ==
PROVIDERS: Emergency Provider Emergency Medicine; PCP Internal Medicine; Visit Provider Emergency Medicine
DX: R06.00 Dyspnea, unspecified (principal); R20.2 Paresthesia of skin; R07.9 Chest pain, unspecified; F17.210 Nicotine dependence, cigarettes, uncomplicated
CPT/HCPCS: 71045; 80048; 84443; 84484; 85025; 85379; 93005; 99284; A4216

== ENCOUNTER → 2023-07-17 | Outpatient (CLI) | payer MEDICAID, SELFPAY ==
[2023-07-17 09:55] LABS: Bacteria 0 SEEN /hpf (None Seen); Mucous, Urine 0 SEEN /hpf (<or=2+); Red Blood Cells-Urine 0 SEEN /hpf (0-5)
[2023-07-17 09:59] LABS: Color, Urine Yellow (Yellow); Glucose, Dipstick Normal (Normal); Ketone-Dipstick Negative (Negative); Leukocyte Esterase-Dipstick 25 /ul (Negative); Nitrite-Dipstick Negative (Negative); Occult Blood-Urine 10 /ul (Negative); Protein-Dipstick Negative (Negative); Urine Bilirubin Dipstick Negative (Negative); Urine Clarity Clear (Clear); Urine Urobilinogen Normal (Normal)
[2023-07-17 10:11] LABS: Squamous Epithelial Cells - UA 0-5 SEEN /hpf (5-10); White Blood Cells 0-5 SEEN /hpf (0-5)
== END | disposition home or self-care (01) ==
LOC: LABSPEC 09:51
PROVIDERS: PCP Internal Medicine; Referring Provider Physician Assistant; Visit Provider Physician Assistant
DX: R30.0 Dysuria (principal)
CPT/HCPCS: 81001; 87086

== ENCOUNTER → 2023-12-15 | Outpatient (CLI) | payer MEDICAID, SELFPAY ==
[2023-12-15 15:46] LABS: Absolute Lymphocyte Count 2.58 X10^3/uL (0.83-4.51); Absolute Neutrophil Count 3.9 X10^3/uL (2.0-7.7); Basophil# 0.05 X10^3/uL; Basophil% 0.7 % (0-1); Eosinophil# 0.11 X10^3/uL; Eosinophils% 1.5 % (0-5); Hematocrit 35.7 % (37-47); Hemoglobin 11.9 g/dL (12.0-15.0); Lymphocyte # 2.58 X10^3/ul (0.83-4.51); Lymphocyte % 36.2 % (19-41); Mean Corp Hgb Conc 33.3 g/dL (32-36); Mean Corpuscular Hgb 30.9 pg (27.0-32.0); Mean Corpuscular Volume 92.7 fL (81-99); NRBC Flagged by Analyzer 0 % (0-5); Neutrophil # 3.87 X10^3/uL (2.7-7.7); Neutrophil % 54.5 % (47-70); Platelet Count 258 K/mm3 (150-450); RBC Distribution Width CV 12.5 % (11.6-14.6); RBC Distribution Width SD 42.5 fl (35.1-43.9); Red Blood Count 3.85 M/mm3 (4.2-5.4); White Blood Count 7.1 K/mm3 (4.4-11.0)
[2023-12-15 16:13] LABS: ALB/GLOB Ratio 1.1 RATIO (0.9-2.4); AST(SGOT) 21 U/L (15-37); Alanine Aminotransfer ALT/SGPT 21 U/L (13-56); Albumin, Serum 3.9 g/dL (3.2-5.0); Alkaline Phosphatase 79 U/L (45-117); Anion Gap 5 (5-15); BUN 9 mg/dL (7-18); BUN/Creat Ratio 12.8 RATIO (10-20); Calcium,Total 9.2 mg/dL (8.5-10.1); Chloride 109 mmol/L (98-107); EST Glomerular Filtration Rate 103 mL/min (>60); Est Glom Filt Rate - Afr Amer 125 mL/min (>60); Globulin 3.6 g/dL (2.2-4.2); Glucose 84 mg/dL (74-106); Potassium 3.7 mmol/L (3.5-5.1); Protein, Total 7.5 g/dL (6.4-8.2); Sodium Level 140 mmol/L (136-145)
== END | disposition home or self-care (01) ==
LOC: BIMLAB 14:31
PROVIDERS: PCP Internal Medicine; Referring Provider Internal Medicine; Visit Provider Internal Medicine
DX: J06.9 Acute upper respiratory infection, unspecified (principal)
CPT/HCPCS: 36415; 80053; 85025

== ENCOUNTER 2024-02-24 08:26 | Emergency (ER) | payer MEDICAID, SELFPAY ==
[2024-02-24 08:26] VITALS: BP 111/72; PULSE 80; RESP 14; TEMP 36.8; O2SAT 100; BMI 24.2
--- NOTE | 2024-02-24 08:53 | CT_ITS ---
STUDY: CT FACIAL BONES WITH CONTRAST REASON FOR EXAM: Female, 29 years old. Right jaw pain RADIATION DOSAGE (If Supplied By Facility): CTDIvol = ( 29.38 ) mGy, DLP = ( 547.46 ) mGycm TECHNIQUE: The patient was scanned in a multi detector CT scanner. Transaxial imaging was performed following the intravenous administration of IV 75mL Isovue-300. Sagittal and coronal images were reconstructed. Individualized dose optimization techniques were used for this CT. COMPARISON: None. FINDINGS: Normal soft tissue structures. Normal orbital jara and orbital contents. Normal nasal bones and anterior nasal spine. Normal facial bones. There is no demonstrated fracture. There is evidence of bilateral impacted molars. Normal visualized paranasal sinuses. CT/Sinus/Facial Bone WITH Contras IMPRESSION: Bilateral impacted molars. Electronically Signed: Alli Daigle MD at 9:28 EDT ,
--- NOTE | 2024-02-24 08:53 | EKG12_ITS ---
Test Reason : Blood Pressure : / mmHG Vent. Rate : 060 BPM Atrial Rate : 060 BPM P-R Int : 140 ms QRS Dur : 074 ms QT Int : 418 ms P-R-T Axes : 067 054 053 degrees QTc Int : 418 ms Normal sinus rhythm Normal ECG Confirmed by Mauricio Allen ([id number]), editor magazine AMIRA GILBERT ([id number]) on 02/25/2024 9:14:33 AM Referred By: Confirmed By:Mauricio Allen
--- NOTE | 2024-02-24 08:55 | EX.ED.DYSGE1 ---
HPI History of Present Illness Chief Complaint: Other, Pain/Inj Narrative Narrative: 29-year-old female presenting with right jaw pain. She states it is nontraumatic. She states she does not have any dentition there where the pain is. She feels her swelling here. It radiates down into the neck on the right. She states internally her throat is not sore. She has no rashes. No fevers or chills. She states she is already had this evaluated by ENT and they biopsied it but she does not have any malignancy. Patient also states that recently she has been noted to get chest pain when she works. She describes it as aching. She states she does know that she has sinus bradycardia and a murmur. Denies cardiac history otherwise.. No history of DVT/PE and no risk factors. Currently has no chest pain. PFSH [facility] Medical History Sinusitis Acute pharyngitis, unspecified Chronic constipation UTI (urinary tract infection) Urinary frequency RLQ abdominal pain Abdominal pain Migraines Heart murmur HPV (human papilloma virus) infection Endometriosis Depression Anxiety Frequent UTI Decreased movement 35 weeks gestation of Pharyngitis URI (upper respiratory infection) No significant past medical history Laryngitis Contusion of right foot, initial encounter UNEXPLAINED BRUISES Asthma Anemia Stomach ulcer Arthritis Home Medications ?Medication ?Instructions ?Recorded ?Last Taken ?Type albuterol sulfate 90 mcg/actuation 2 puff inhalation Q4-6H PRN 12/16/23 Unknown Rx aerosol inhaler shortness of breath or wheezing #8.5 grams omeprazole 20 mg tablet,delayed 20 mg PO DAILY 01/22/24 Unknown History release Allergy/AdvReac Type Severity Reaction Status Date / Time No Known Allergies Allergy Verified 02/24/24 08:27 Family History Mother Anxiety and depression Heart disease Cancer lung Father Anxiety and depression Diabetes Other Hyperlipemia Surgical History History of tubal ligation Social History Smoking Status: Current every day smoker tobacco type: cigarettes Tobacco: How many years used: 10 alcohol intake: current alcohol intake frequency: a few times a month substance use type: does not use what type of physical activity do you participate in: none ROS ROS ED Constitutional Constitutional ED: Denies chills, fever(s) or sweats Eyes Eyes: Denies blurry vision or change in vision ENT ENT ED: Reports other Details: Right jaw pain ; Denies ear pain or sore throat Cardiovascular Cardiovascular: Reports chest pain; Denies palpitations or racing heartbeat Respiratory/Chest Respiratory/Chest: Denies cough, dyspnea or sputum Gastrointestinal Gastrointestinal: Denies abdominal pain, constipation, diarrhea, nausea or vomiting Genitourinary Genitourinary ED: Denies dysuria, hematuria or urinary frequency Musculoskeletal Musculoskeletal: Denies arthralgias, myalgias or neck pain Integumentary Denies abscess, Abrasions or rash Neurologic Neurologic: Denies headache(s), paresthesias or weakness Psychiatric Psychiatric: Denies anxiety, depression, suicidal ideation or suicidal thoughts Endocrine Endocrinology: Denies polydipsia or polyuria EXAM Physical Exam Const Vital Signs: 02/24/24 08:26 02/24/24 08:33 02/24/24 09:00 Temperature 98.2 F Temperature Source Temporal Pulse Rate 80 Respiratory Rate 14 Respiratory Effort Normal Non-Labored Respiratory Pattern Normal Blood Pressure 111/72 Blood Pressure Mean 85 Pulse Ox 100 Oxygen Delivery Method Room Air Room Air Positive well nourished General Appearance ED: NAD HEENT Reports normocephalic and moist mucous membranes Face and Sinus: normal facial exam, sinuses nontender and face symmetric Nose: external nose normal and nares normal External Ear: external ears normal Mouth ED: Yes oral and palatal mucosa normal, Yes lips normal, Yes tongue normal, Yes salivary gland normal, No drooling and No muffled voice Mouth: oral and palatal mucosa normal, lips normal, tongue normal, salivary gland normal, No drooling and No muffled voice Throat: posterior oropharynx normal Eyes PERRL and EOMs intact bilaterally Neck no lymphadenopathy and supple Chest Wall inspection of chest normal Resp normal respiratory effort and clear to auscultation bilaterally Auscultation: Negative for rales, rhonchi or wheezes Cardio regular rate and regular rhythm Extremity normal to inspection General Extremety ED: Negative for edema General Extremity: Negative for edema Neuro oriented x3 and CN's II-XII intact bilaterally Sensorium / Orientation: alert Motor Exam: strength 5/5 throughout Psych mental status grossly normal MDM MDM MDM Narrative Medical decision making narrative: Patient presenting with right-sided jaw pain.. I am unable to reproduce this on examination. Does not appear to be any TMJ. And her parotid gland is soft nontender. Neck supple without lymphadenopathy. Oropharynx patent without stridor. No posterior oropharyngeal erythema. No sublingual edema or gingival edema. No stridor. We discussed this at length and we will obtain a CT of the facial bones. Patient also states that she has been having chest pain when she works. She describes it as aching. Differential includes differential includes but is not limited to ACS, PE, pneumonia,, pneumothorax, muscle strain, costochondritis. CBC will be obtained to assess white blood cell count, hemoglobin, platelets. BMP to assess renal function, electrolytes, glucose. High-sensitivity troponin and EKG to assess for ischemia/dysrhythmia. Chest x-ray to rule out pneumonia. CBC shows normal white blood cell count of 6.1. Hemoglobin 12.1. Platelets are normal at 231. Renal function electrolytes within normal limits. High-sensitivity troponin is 3. EKG interpreted by myself shows a sinus rhythm at 60 bpm without sign of ischemic change or ectopy. Chest x-ray on my interpretation shows no acute process. Radiology interprets this and agrees. CT of the facial bones shows bilateral impacted molars which the patient is aware of. She is on amoxicillin for this. Given that her workup is ultimately negative I feel she stable for discharge. I recommend she follow-up with her dental professional. Impression: 1. Jaw pain 2. Chest pain Lab Data Attestation: I reviewed the patient's lab results. Labs: Laboratory Results - last 24 hr 02/24/24 08:58 WBC 6.1 RBC 3.95 L Hgb 12.1 Hct 35.9 L MCV 90.9 MCH 30.6 MCHC 33.7 RDW Std Deviation 40.8 RDW Coeff of Stacey 12.3 Plt Count 231 MPV 9.7 Immature Gran % (Auto) 0.300 Neut % (Auto) 68.3 Lymph % (Auto) 26.2 [place] % (Auto) 3.7 Eos % (Auto) 0.8 Baso % (Auto) 0.7 Absolute Neuts (auto) 4.2 Absolute Lymphs (auto) 1.61 Nucleated RBC % 0 Sodium 139 Potassium 3.8 Chloride 112 H Carbon Dioxide 24.0 Anion Gap 3 L BUN 9 Creatinine 0.82 Estim Creat Clear Calc 82.23 Est GFR (MDRD) Af Amer 105 Est GFR (MDRD) Non-Af 87 BUN/Creatinine Ratio 11.0 Glucose 95 Calcium 9.2 Troponin I High Sens < 3 L Radiography Diagnostic Testing: Clinical Impression(s) from Imaging Studies Facial/Sinus 02/24/24 08:53 IMPRESSION: Bilateral impacted molars. Electronically Signed: Alli Daigle MD at 9:28 EDT , Chest X-Ray 02/24/24 09:15 IMPRESSION: Normal x-ray examination of the chest. Electronically Signed: Alli Daigle MD at 9:28 EDT , Discharge Plan Triage Chief Complaint: Other, Pain/Inj ED Provider: Donald Delong Dx/Rx/DC Orders Instructions: ED Chest Pain, Noncardiac Prescriptions: No Action omeprazole 20 mg tablet,delayed release (DR/EC) 20 mg PO DAILY albuterol sulfate 90 mcg/actuation HFA aerosol inhaler 2 puff inhalation Q4-6H PRN (Reason: shortness of breath or wheezing) Qty: 8.5 1RF Primary Care Provider: Skinny Francois Referrals: Skinny Francois MD [Primary Care Provider] - Print Language: Portuguese Disposition Disposition: Home, Self Care
--- NOTE | 2024-02-24 09:15 | RAD_ITS ---
STUDY: X-RAY CHEST REASON FOR EXAM: Female, 29 years old. Chest pain TECHNIQUE: Single AP portable view of the chest. COMPARISON: Comparison is made with prior study dated July 09, 2023. FINDINGS: Hyperinflation. The lungs are clear. Scattered calcified granulomas. There is no demonstrated pleural abnormality. Normal size heart. There are calcified mediastinal lymph nodes. Normal visualized pulmonary arteries. Normal visualized aortic arch and descending thoracic aorta. Normal visualized thoracic spine. Normal visualized ribs, clavicles, and shoulders. There is no demonstrated abnormality of the visualized soft tissue structures of the upper abdomen. RAD/Chest 1 View (Portable) IMPRESSION: Normal x-ray examination of the chest. Electronically Signed: Alli Daigle MD at 9:28 EDT ,
[2024-02-24 09:23] LABS: Anion Gap 3 (5-15); BUN 9 mg/dL (7-18); Calcium,Total 9.2 mg/dL (8.5-10.1); Chloride 112 mmol/L (98-107); Creatinine, Serum 0.82 mg/dL (0.55-1.02); EST Glomerular Filtration Rate 87 mL/min (>60); Est Glom Filt Rate - Afr Amer 105 mL/min (>60); Estimated Creatinine Clearance 82.23 ml/min; Glucose 95 mg/dL (74-106); Potassium 3.8 mmol/L (3.5-5.1); Sodium Level 139 mmol/L (136-145); Troponin-I HS < 3 pg/mL (3.0-54.0)
[2024-02-24 09:28] LABS: Absolute Lymphocyte Count 1.61 X10^3/uL (0.83-4.51); Absolute Neutrophil Count 4.2 X10^3/uL (2.0-7.7); Basophil# 0.04 X10^3/uL; Basophil% 0.7 % (0-1); Eosinophil# 0.05 X10^3/uL; Eosinophils% 0.8 % (0-5); Hematocrit 35.9 % (37-47); Hemoglobin 12.1 g/dL (12.0-15.0); Lymphocyte # 1.61 X10^3/ul (0.83-4.51); Lymphocyte % 26.2 % (19-41); Mean Corp Hgb Conc 33.7 g/dL (32-36); Mean Corpuscular Hgb 30.6 pg (27.0-32.0); Mean Corpuscular Volume 90.9 fL (81-99); Mean Platelet Vol. 9.7 fl (6.2-12.0); Monocyte# 0.23 X10^3/uL; Monocyte% 3.7 % (0-10); NRBC Flagged by Analyzer 0 % (0-5); Neutrophil # 4.19 X10^3/uL (2.7-7.7); Neutrophil % 68.3 % (47-70); Platelet Count 231 K/mm3 (150-450); RBC Distribution Width CV 12.3 % (11.6-14.6); RBC Distribution Width SD 40.8 fl (35.1-43.9); Red Blood Count 3.95 M/mm3 (4.2-5.4); White Blood Count 6.1 K/mm3 (4.4-11.0)
== END 2024-02-24 10:07 | disposition home or self-care (01) ==
PROVIDERS: Emergency Provider Student in an Organized Health Care Education/Training Program; PCP Internal Medicine; Visit Provider Student in an Organized Health Care Education/Training Program
DX: R68.84 Jaw pain (principal); R07.9 Chest pain, unspecified; F17.210 Nicotine dependence, cigarettes, uncomplicated
CPT/HCPCS: 70487; 71045; 80048; 84484; 85025; 93005; 99283; Q9967; A4216

== ENCOUNTER → 2024-02-26 | Outpatient (CLI) | payer MEDICAID, SELFPAY ==
[2024-02-26 12:28] LABS: Erythrocyte Sedimentation Rate 2 mm/hr (0-30)
[2024-02-26 12:41] LABS: CRP < 2.90 mg/L (0.0-3.0); LDH 162 U/L (84-246)
[2024-02-26 12:47] LABS: Internal QC Validated? YES +Cl - CLEAR BKGD; Monotest Negative (Negative); Record Kit Lot#, Mono 13241033
[2024-02-27 12:09] LABS: ANTINUCLEAR ANTIBODIES DIRECT Negative (Negative)
== END | disposition home or self-care (01) ==
LOC: BIMLAB 08:13
PROVIDERS: Nurse Practitioner; PCP Internal Medicine; Referring Provider Internal Medicine; Visit Provider Internal Medicine
DX: R59.0 Localized enlarged lymph nodes (principal)
CPT/HCPCS: 36415; 83615; 85652; 86038; 86140; 86225; 86235; 86308

== ENCOUNTER → 2024-03-08 | Outpatient (CLI) | payer MEDICAID, SELFPAY ==
--- NOTE | 2024-03-08 15:38 | US_ITS ---
STUDY: RIGHT NECK ULTRASOUND REASON FOR EXAM: Female, 29 years old. Right neck lump TECHNIQUE: Ultrasound evaluation of the palpable lump in the right neck was performed with real-time and static ellis-scale imaging. COMPARISON: None. FINDINGS: Solid and elongated lymph node in the right neck underneath the right sternocleidomastoid muscle measures 1.91 x 0.45 x 0.64 cm. The hilum of the lymph node contains normal fat. US/Other Unlisted US Procedure IMPRESSION: Benign reactive lymph node in the right neck without central cystic necrosis measures 1.91 x 0.45 x 0.64 cm. This corresponds to the palpable lump. Electronically Signed: Dalton Jasmine MD at 9:14 EDT ,
== END | disposition home or self-care (01) ==
LOC: US 15:35
PROVIDERS: PCP Internal Medicine; Referring Provider Nurse Practitioner; Visit Provider Nurse Practitioner
DX: R59.0 Localized enlarged lymph nodes (principal)
CPT/HCPCS: 76999

== ENCOUNTER → 2024-08-03 | Outpatient (CLI) | payer MEDICAID, SELFPAY ==
--- NOTE | 2024-08-03 10:27 | RAD_ITS ---
EXAM: XR LEFT FINGERS, 2 OR MORE VIEWS CLINICAL INDICATION: finger injury -- left 3rd finger TECHNIQUE: Frontal, lateral and oblique views of the fingers of the left hand. COMPARISON: No relevant prior studies available. FINDINGS: BONES/JOINTS: No acute abnormality. SOFT TISSUES: Normal. No soft tissue swelling or gas. No radiopaque foreign body. RAD/Finger(s) Min 2 Views IMPRESSION: Intact left third finger. Electronically Signed: Reg Jenkins MD at 11:14 EST ,
== END | disposition home or self-care (01) ==
LOC: MTRAD 10:27
PROVIDERS: PCP Internal Medicine; Referring Provider Physician Assistant; Visit Provider Physician Assistant
DX: S69.90XA Unspecified injury of unspecified wrist, hand and finger(s), initial encounter (principal)
CPT/HCPCS: 73140

== ENCOUNTER → 2024-08-12 | Outpatient (CLI) | payer OTHER, SELFPAY ==
--- NOTE | 2024-08-12 16:32 | RAD_ITS ---
EXAM: XR LEFT HAND COMPLETE, 3 OR MORE VIEWS CLINICAL INDICATION: Hand pain TECHNIQUE: Frontal, lateral and oblique views of the left hand. COMPARISON: Plain film 08/03/2024 FINDINGS: BONES/JOINTS: Unremarkable. No acute fracture. No subluxation. Normal alignment. Preservation of the joint space. No sclerotic or destructive changes observed. SOFT TISSUES: Unremarkable. No soft tissue swelling or gas. No radiopaque foreign body. RAD/Hand Min 3 Views IMPRESSION: Unremarkable exam, no healing fracture identified. Electronically Signed: Renaldo Miguel MD at 11:37 EST ,
== END | disposition home or self-care (01) ==
LOC: RAD 16:29
PROVIDERS: PCP Internal Medicine; Referring Provider Surgery Plastic and Reconstructive Surgery; Visit Provider Surgery Plastic and Reconstructive Surgery
DX: S60.032A Contusion of left middle finger without damage to nail, initial encounter (principal); S62.613A Displaced fracture of proximal phalanx of left middle finger, initial encounter for closed fracture
CPT/HCPCS: 73130

== ENCOUNTER → 2024-08-30 | Outpatient (CLI) | payer MEDICAID, SELFPAY | END | disposition home or self-care (01) | PROVIDERS: PCP Internal Medicine; Visit Provider Nurse Practitioner | DX: J02.9 Acute pharyngitis, unspecified (principal) | CPT/HCPCS: 87070 ==

== ENCOUNTER → 2024-10-07 | Outpatient (CLI) | payer OTHER, SELFPAY ==
--- NOTE | 2024-10-07 14:27 | RAD_ITS ---
EXAM: XR Left Hand Complete, 3 or More Views CLINICAL INDICATION: TECHNIQUE: Frontal, lateral and oblique views of the left hand. COMPARISON: No relevant prior studies available. FINDINGS: BONES/JOINTS: Unremarkable. No acute fracture. No dislocation. SOFT TISSUES: Unremarkable. No radiopaque foreign body. RAD/Hand Min 3 Views IMPRESSION: No acute fracture. Reading Location: [facility]
== END | disposition home or self-care (01) ==
PROVIDERS: PCP Internal Medicine; Referring Provider Physician Assistant Surgical; Visit Provider Physician Assistant Surgical
DX: S69.92XA Unspecified injury of left wrist, hand and finger(s), initial encounter (principal)
CPT/HCPCS: 73130

== ENCOUNTER 2024-10-19 10:15 | Emergency (ER) | payer MEDICAID, SELFPAY ==
[2024-10-19 10:16] VITALS: BP 109/74; PULSE 71; RESP 18; TEMP 37.2; O2SAT 100; BMI 21.7
--- NOTE | 2024-10-19 11:16 | EDS_ITS ---
HPI History of Present Illness HPI Narrative: 29-year-old female no significant past medical or surgical history. Says for 6 months she has had intermittent numbness in her right arm. She has been seeing a chiropractor without any significant relief. She denies any pain. She denies any neck pain. Chief Complaint: Upper Extremity Injury Informant: patient Occured/Mechanism Mechanism/Context: No injury and No blunt trauma Onset/Context/Timing Onset: Month(s) (6) Current Severity: Mild Maximum Severity: Mild Associated Symptoms Associated Symptoms: Positive for Parasthesia; Negative for Weakness or Loss of Funtion Narrative Narrative: 29-year-old female no seen past medical or surgical history. Says for the last 6 months she has had intermittent numbness in her right upper extremity. No weakness. No falls or trauma. No neck pain. She has been seeing chiropractor without relief. Prior similar symptoms: Yes Recent Illness/Hospitalization: No PFSH PFSH Medical History Pharyngitis Contusion of left middle finger Closed fracture of proximal phalanx of left middle finger Acute bronchitis, unspecified Sinusitis Acute pharyngitis, unspecified Chronic constipation UTI (urinary tract infection) Urinary frequency RLQ abdominal pain Abdominal pain Migraines Heart murmur HPV (human papilloma virus) infection Endometriosis Depression Anxiety Frequent UTI Decreased movement 35 weeks gestation of Pharyngitis URI (upper respiratory infection) No significant past medical history Laryngitis Contusion of right foot, initial encounter UNEXPLAINED BRUISES Asthma Anemia Stomach ulcer Arthritis Home Medications ?Medication ?Instructions ?Recorded ?Last Taken ?Type metaxalone 800 mg tablet 800 mg PO TID 7 days #21 tab s 10/19/24 Unknown Rx Allergy/AdvReac Type Severity Reaction Status Date / Time No Known Allergies Allergy Verified 10/07/24 14:24 Family History Mother Anxiety and depression Heart disease Cancer lung Father Anxiety and depression Diabetes Other Hyperlipemia Surgical History History of tubal ligation Social History Smoking Status: Current every day smoker tobacco type: cigarettes Tobacco: How many years used: 10 alcohol intake: current alcohol intake frequency: a few times a month substance use type: does not use what type of physical activity do you participate in: none ROS ROS ED ROS Narrative Right upper extremity numbness. No other complaints. Constitutional Constitutional ED: Denies chills or fever(s) Eyes Eyes: Denies blurry vision ENT ENT ED: Denies ear pain Cardiovascular Cardiovascular: Denies chest pain Respiratory/Chest Respiratory/Chest: Denies cough or dyspnea Gastrointestinal Gastrointestinal: Denies abdominal pain Genitourinary Genitourinary ED: Denies dysuria Musculoskeletal Musculoskeletal: Denies back pain, myalgias or neck pain Integumentary Denies abscess or Abrasions Neurologic Neurologic: Reports paresthesias; Denies headache(s) or weakness Psychiatric Psychiatric: Denies anxiety or depression Endocrine Endocrinology: Denies cold intolerance Hematologic/Lymphatic Hematologic/Lymphatic: Denies easy bleeding Allergic/Immunologic Allergic/Immunologic ED: Denies mouth swelling EXAM Physical Exam Narrative Exam Narrative: Well-appearing 29-year-old female. Vital signs are stable afebrile. No distress. No one else present in the room. H EENT exam pupils round react light. Moist mucous membranes. Neck nontender no lymphadenopathy. No muscle spasms. Full range of motion. Back and spine nontender. No muscle spasms. Lungs clear to auscultation bilaterally. Heart regular rhythm no murmur. Rate about 70. Chest wall ribs nontender. Abdomen soft nontender. Moving all 4 extremities. Normal range of motion. 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 Equal symmetrical radial pulses. Skin is unremarkable. She has normal range of motion of both upper extremities including the shoulders, elbows and wrist. She has good photocomposing keyboard operator strength. Normal sensation. Lower extremities are unremarkable also. 5 out of 5 dorsi plantarflexion. Normal range of motion. Normal sensation. She is able to stand and walk without any difficulty. No ataxia. Neurologically she is awake and alert no focal motor or sensory deficits. No ataxia. NIH 0. Benign normal exam. Const Vital Signs: 10/19/24 10:16 Temperature 98.9 F Temperature Source Oral Pulse Rate 71 Respiratory Rate 18 Blood Pressure 109/74 Blood Pressure Mean 85 Pulse Ox 100 Oxygen Delivery Method Room Air Positive well nourished and well developed; Negative for obese, cachectic, contractures or unkempt General Appearance ED: well developed and NAD; Negative for unkempt, cachectic, contractures, cyanotic or diaphoretic Nutritional Appearance: Negative for cachectic or obese HEENT Reports moist mucous membranes normocephalic and atraumatic; Negative for trauma or tenderness Eyes PERRL and EOMs intact bilaterally Neck full ROM and supple General: Negative for tenderness Lymph Lymphatic: Negative for other Chest Wall inspection of chest normal and palpation of chest normal Resp normal respiratory effort and clear to auscultation bilaterally Auscultation: Negative for rales, rhonchi, wheezes or diminished lung sounds Cardio regular rate, regular rhythm, S1 normal heart sound, S2 normal heart sound and no murmurs GI non-tender, non-distended and no masses Auscultation: normoactive bowel sounds Palpation: soft; Negative for tender, guarding or rebound tenderness present Back/Spine no CVA tenderness General Back: Negative for CVA tenderness Cervical Spine: Negative for cervical spine tenderness Thoracic Spine / Upper Back: Negative for thoracic spinal tenderness Lumbar Spine / Lower Back: Negative for lumbar spinal tenderness Extremity normal to inspection and full ROM Extremity Narrative: 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 Normal appearance. Normal range of motion. Normal strength. Normal sensation. Both upper and lower extremities. Equal and symmetrical radial pulses. General Extremety ED: Yes edema General Extremity: edema Neuro oriented x3, CN's II-XII intact bilaterally, moves all extremities, no focal motor deficits and no sensory deficits noted Sensorium / Orientation: alert, oriented to person, oriented to place and oriented to time; Negative for orientation impaired, lethargic or stuporous Sensory Exam: No sensory level loss detected Motor Exam: strength 5/5 throughout Psych mental status grossly normal Appearance: Negative for unkempt Attitude: No agitated Mood & Affect: Negative for depressed, anxious or tearful Skin Lesions: no lesions Rashes: no rashes MDM MDM MDM Narrative Medical decision making narrative: 29-year-old female with subjective paresthesia right arm. She has a normal exam. Normal strength. Normal sensation. She does not need any testing in the ER. She was told this might be secondary to muscle spasms. I personally do not find any muscle spasms on her exam. She wanted to try muscle relaxants we placed on Skelaxin. Otherwise follow-up with primary care physician for further evaluation possible cervical MRI. History & Record Review Discussion w/independent historian: Patient Discharge Plan Triage Chief Complaint: Upper Extremity Injury ED Provider: Mike Stanley Dx/Rx/DC Orders Clinical Impression: Paresthesia of right upper extremity Instructions: ED Paraesthesias Prescriptions: New metaxalone 800 mg tablet 800 mg PO TID 7 Days Qty: 21 0RF Primary Care Provider: Skinny Francois Referrals: Skinny Francois MD [Primary Care Provider] - As soon as possible Activity Restrictions/Additional Instructions: Skelaxin as a muscle action. Take it 3 times a day. I do not feel a lot of muscle spasm it may or may not help you. Call and follow-up your primary care physician. The first test I would do would be an MRI of your neck to see if there is any issue with pinched nerves in your neck. If that workup is negative the other thing he can consider would be a thoracic outlet syndrome which I think is unlikely. Motrin for pain and inflammation. Print Language: [place] Disposition Disposition: Home, Self Care
== END 2024-10-19 11:23 | disposition home or self-care (01) ==
LOC: ED 11:20
PROVIDERS: Emergency Provider Emergency Medicine; PCP Internal Medicine; Visit Provider Emergency Medicine
DX: R20.0 Anesthesia of skin (principal); F17.210 Nicotine dependence, cigarettes, uncomplicated
CPT/HCPCS: 99282

== ENCOUNTER → 2024-10-27 | Outpatient (CLI) | payer MEDICAID, SELFPAY ==
--- NOTE | 2024-10-27 13:33 | RAD_ITS ---
PROCEDURE: Cervical spine radiographs, three views REASON FOR EXAM: Pain TECHNIQUE: Three views of the cervical spine were obtained. COMPARISON: None. FINDINGS: Three views of the cervical spine were obtained. On the lateral projection, the cervical spine is imaged from the skull base through the C7-T1 interspace. There is straightening of the normal cervical lordosis. No acute fracture or focal subluxation of the cervical spine. No significant disc space narrowing in the cervical spine. The odontoid process appears intact. RAD/Cerv Spine 2 or 3 Views IMPRESSION: Straightening of the normal cervical lordosis, which may be due to muscle spasm or positioning. No acute bony abnormality or significant disc space narrowing of the cervical s pine. If there is persistent pain or clinical concern, short-term follow-up MRI evaluation may be considered. Reading Location: [facility]
--- NOTE | 2024-10-27 13:33 | RAD_ITS ---
PROCEDURE: SHOULDER MIN 2 VIEWS REASON FOR EXAM: Right shoulder pain and right arm weakness. TECHNIQUE: Four views of the right shoulder were obtained. COMPARISON: None. FINDINGS: RIGHT SHOULDER: No fracture. No suspicious bone lesion. Normal alignment of the acromioclavicular and glenohumeral joints. Soft tissues are unremarkable. RAD/Shoulder min 2 Views IMPRESSION: Unremarkable right shoulder radiographs. Reading Location: [facility]
[2024-10-27 15:21] LABS: Hematocrit 38.1 % (37-47); Hemoglobin 12.8 g/dL (12.0-15.0); Mean Corp Hgb Conc 33.6 g/dL (32-36); Mean Corpuscular Hgb 31.2 pg (27.0-32.0); Mean Corpuscular Volume 92.9 fL (81-99); Mean Platelet Vol. 9.8 fl (6.2-12.0); Platelet Count 281 K/mm3 (150-450); RBC Distribution Width CV 12.3 % (11.6-14.6); RBC Distribution Width SD 42.4 fl (35.1-43.9); White Blood Count 10.9 K/mm3 (4.4-11.0)
[2024-10-27 16:15] LABS: ALB/GLOB Ratio 1.7 RATIO (0.9-2.4); AST(SGOT) 21 U/L (<=31); Alanine Aminotransfer ALT/SGPT 11 U/L (<=34); Albumin, Serum 4.6 g/dL (3.5-5.0); Alkaline Phosphatase 71 U/L (35-104); Anion Gap 12 (5-15); BUN 6 mg/dL (4-19); BUN/Creat Ratio 9.5 RATIO (10-20); Calcium 9.3 mg/dL (7.6-11.0); Carbon Dioxide 22.5 mmol/L (22.0-29.0); Chloride 105 mmol/L (96-108); Creatinine, Serum 0.7 mg/dL (0.6-1.0); EST Glomerular Filtration Rate 121 (>60); Globulin 2.7 g/dL (2.2-4.2); Glucose 88 mg/dL (70-99); Potassium 4.1 mmol/L (3.3-5.1); Protein, Total 7.4 g/dL (5.9-8.4); Sodium Level 140 mmol/L (133-145); Total Bilirubin 0.22 mg/dL (0.00-1.30)
[2024-10-30 18:07] LABS: Vitamin D 1,25-Dihydroxy 44.4 pg/mL (24.8-81.5)
== END | disposition home or self-care (01) ==
PROVIDERS: PCP Internal Medicine; Referring Provider Physician Assistant; Visit Provider Physician Assistant
DX: R20.0 Anesthesia of skin (principal); R20.2 Paresthesia of skin; M25.511 Pain in right shoulder; R53.83 Other fatigue
CPT/HCPCS: 36415; 72040; 73030; 80053; 82652; 84443; 85027

== ENCOUNTER → 2024-11-10 | Outpatient (CLI) | payer MEDICAID, SELFPAY ==
--- NOTE | 2024-11-10 12:23 | NEURO ---
NCS and/or EMG Patient Report Ordering Doctor: Abhinav Mendoza DATE OF SERVICE: 11/10/24 Marylu presents for electrodiagnostic testing of the right upper limb. She reports numbness and tingling in the right hand for approximately 6 months. Electrodiagnostic findings: Right median motor nerve demonstrates normal distal latency, amplitude and conduction velocity. Normal right ulnar motor response. Normal median and ulnar F?waves. Sensory responses are within normal limits. Needle EMG testing was performed the right upper limb. All muscles tested showed no evidence of denervation with normal motor unit action potentials. Electrodiagnostic impression: This is a normal electrodiagnostic study of the right upper limb. There is no electrodiagnostic evidence for peripheral neuropathy, including carpal tunnel or cubital tunnel syndrome. There is no electrodiagnostic evidence for cervical radiculopathy. Multi Select Codes Neurology Neurology Interp Codes: 55621-09 Musc test done w/n test comp (interp) and 90646-31 Nrv cndj test 7-8 studies (interp)
== END | disposition home or self-care (01) ==
LOC: PSN 09:51
PROVIDERS: PCP Internal Medicine; Referring Provider Physician Assistant; Visit Provider Physician Assistant
DX: R20.0 Anesthesia of skin (principal); R20.2 Paresthesia of skin
CPT/HCPCS: 95886; 95910

== ENCOUNTER 2024-11-17 08:21 | Emergency (ER) | payer MEDICAID, SELFPAY ==
[2024-11-17 08:22] VITALS: BP 126/69; PULSE 72; RESP 18; TEMP 37.2; O2SAT 100; BMI 23.0
--- NOTE | 2024-11-17 08:52 | EDS_ITS ---
HPI History of Present Illness Chief Complaint: GI Bleed Narrative Narrative: Chief complaint and HPI: Bright red blood per rectum. 29-year-old female with past medical history of chronic constipation, endometriosis status post tubal ligation presents for evaluation of bright red blood per rectum. Patient states that she has a reported history of suspected gastric ulcers. She states that she was diagnosed 5 years ago. She states her PCP wanted her to have an EGD performed however the GI specialist she saw thought the patient was too young and therefore this was never performed. Patient is not on any chronic acid reflux medication. She takes [id number] acid reflux medication as needed. Patient states that she struggles with constipation and that periodically takes Linzess for it. She follows with GI physician, Dr. Marie. Patient states her last bowel movement was Friday. She states yesterday she felt nauseous all day with some burning epigastric abdominal pain. She states that this has since resolved. However, she woke up this morning with an urgency to have a bowel movement. She states she went to the bathroom and only mucus was released. No stool. She states this happened again and then she saw bright red blood in the toilet. Patient states she does have a history of external hemorrhoids. Denies any daily alcohol or NSAID use. Not on blood thinners. She does endorse some mild right lower quadrant discomfort. She denies any fever, chills, vomiting, dysuria. Denies possibility of . Review of systems: See HPI Medications: As listed on the chart Allergies: As listed on the chart PFSH: Per chart Vital signs: As listed on the chart. Reviewed. Physical exam: Gen: A&O x3, NAD Head: Normocephalic, atraumatic Eyes: No sclera icterus, conjunctiva clear ENT: Moist mucous membranes Neck: Trachea midline, No JVD CV: RRR, no murmurs, no peripheral edema Resp: Lungs CTA BL, no w/r/c GI: Abd soft, non-distended, minimal tenderness in the right lower, no r/r/g Rectal: Few non-thrombosed external hemorrhoids. Normal tone and sensation. No masses, fluctuance, or tenderness. No pain out of proportion. No stool felt in the rectal vault. No stool or blood on the finger. Musc: Full ROM, no deformity Skin: Warm, dry Neuro: Alert, oriented, grossly intact, sensation intact Psych: Cooperative, appropriate mood and affect [facility] Medical History Pharyngitis Contusion of left middle finger Closed fracture of proximal phalanx of left middle finger Acute bronchitis, unspecified Sinusitis Acute pharyngitis, unspecified Chronic constipation UTI (urinary tract infection) Urinary frequency RLQ abdominal pain Abdominal pain Migraines Heart murmur HPV (human papilloma virus) infection Endometriosis Depression Anxiety Frequent UTI Decreased movement 35 weeks gestation of Pharyngitis URI (upper respiratory infection) No significant past medical history Laryngitis Contusion of right foot, initial encounter UNEXPLAINED BRUISES Asthma Anemia Stomach ulcer Arthritis Home Medications ?Medication ?Instructions ?Recorded ?Last Taken ?Type sennosides 8.6 mg-docusate sodium 1 tab-cap PO DAILY 1 4 days #14 tabs 11/17/24 Unknown Rx 50 mg tablet (Senna with Docusate Sodium) Allergy/AdvReac Type Severity Reaction Status Date / Time No Known Allergies Allergy Verified 11/17/24 08:22 Family History Mother Anxiety and depression Heart disease Cancer lung Father Anxiety and depression Diabetes Other Hyperlipemia Surgical History History of tubal ligation Social History Smoking Status: Current every day smoker tobacco type: cigarettes Tobacco: How many years used: 10 alcohol intake: current alcohol intake frequency: a few times a month substance use type: does not use what type of physical activity do you participate in: none EXAM Physical Exam Const Vital Signs: 11/17/24 08:22 11/17/24 11:27 Temperature 98.9 F 98.9 F Temperature Source Oral Pulse Rate 72 64 Respiratory Rate 18 18 Blood Pressure 126/69 H 102/53 L Blood Pressure Mean 88 69 Pulse Ox 100 100 Oxygen Delivery Method Room Air MDM MDM MDM Narrative Medical decision making narrative: 29-year-old female with past medical history of chronic constipation, endometriosis status post tubal ligation presents for evaluation of bright red blood per rectum. Differential diagnosis includes but is not limited to hemorrhoidal bleeding, viral illness, constipation, colitis. NS bolus, Pepcid, Zofran ordered for symptoms. Patient declined pain medication such as narcotics. Laboratory workup ordered including CT abdomen and pelvis. CBC without leukocytosis or anemia. CMP unremarkable without ADEBAYO or transaminitis. Lipase unremarkable. Serum negative. Occult positive. UA negative for UTI. Lactic acid unremarkable. CT abdomen pelvis shows hepatomegaly with fatty infiltration as well as constipation. Otherwise no acute intra-abdominal pathology. I suspect patient's bleeding is secondary to constipation as well as possible internal hemorrhoids. Patient's vitals are stable. She is as ymptomatic without anemia. No bloody bowel movements here in the emergency department. Plan is for discharge home. Strict return precautions were given. Follow-up with Dr. Marie for symptoms as well as CT abdomen pelvis findings. Patient given bowel regiment to help with constipation. Patient confirmed understanding of the plan. Impression: 1. Constipation 2. Bright red blood per rectum Lab Data Labs: Laboratory Results - last 24 hr 11/17/24 11/17/24 08:50 09:39 WBC 9.7 RBC 3.96 L Hgb 12.7 Hct 36.3 L MCV 91.7 MCH 32.1 H MCHC 35.0 RDW Std Deviation 41.2 RDW Coeff of Stacey 12.3 Plt Count 244 MPV 9.5 Immature Gran % (Auto) 0.200 Neut % (Auto) 62.6 Lymph % (Auto) 30.0 [place] % (Auto) 5.2 Eos % (Auto) 1.4 Baso % (Auto) 0.6 Absolute Neuts (auto) 6.1 Absolute Lymphs (auto) 2.92 Nucleated RBC % 0 Sodium 137 Potassium 3.7 Chloride 106 Carbon Dioxide 20.1 L Anion Gap 11 BUN 8 Creatinine 0.73 Estim Creat Clear Calc 92.37 Est GFR (MDRD) Non-Af 112 BUN/Creatinine Ratio 11.2 Glucose 80 Lactic Acid 1.1 Calcium 9.0 Total Bilirubin 0.31 AST 17 ALT 8 Alkaline Phosphatase 61 Total Protein 6.8 Albumin 4.2 Globulin 2.6 Albumin/Globulin Ratio 1.6 Lipase 23 Serum , Qual NEGATIVE Urine Color Yellow Urine Clarity Sl. Cloudy Urine pH 7.0 Ur Specific [place] 1.005 Urine Protein 15 H Urine Glucose (UA) Normal Urine Ketones Negative Urine Occult Blood Negative Urine Nitrite Negative Urine Bilirubin Negative Urine Urobilinogen Normal Ur Leukocyte Esterase Negative Urine RBC 0 SEEN Urine WBC 0 SEEN Ur Squamous Epith Cells 0-5 SEEN Urine Bacteria 0 SEEN Urine Mucus 0 SEEN Radiography Diagnostic Testing: Clinical Impression(s) from Imaging Studies Abdomen/Pelvis CT 11/17/24 09:45 IMPRESSION: 1. Normal appendix. 2. Hepatomegaly with fatty infiltration. 3. Fecal retention in the colon consistent with constipation. 4. No obstructive uropathy. Reading Location: [facility] Discharge Plan Triage Chief Complaint: GI Bleed ED Provider: Colby Vázquez Dx/Rx/DC Orders Clinical Impression: Constipation, Acute lower gastrointestinal bleeding Instructions: ED Constipation (Adult), ED Lower GI Bleeding (Stable) Prescriptions: New sennosides-docusate sodium [Senna with Docusate Sodium] 8.6-50 mg tablet 1 tab-cap PO DAILY 14 Days Qty: 14 0RF Primary Care Provider: Skinny Francois Referrals: Skinny Francois MD [Primary Care Provider] - 3-5 Days Deon Marie DO [Med Staff - Active Staff] - 3-5 Days Activity Restrictions/Additional Instructions: Return back to the ED if symptoms change or worsen. Follow-up with Dr. Marie and your primary care physician. Take daily MiraLAX. Buy it [id number]. This will help with your constipation. Print Language: Wolof Disposition Disposition: Home, Self Care Discharge Date/Time: 11/17/24 11:33
[2024-11-17] MEDS: Ondansetron 4 MG/2 ML Vial IV (09:04)
[2024-11-17] MEDS: Famotidine 200 MG/20 ML MDV 20 MG in 0.9% Normal Saline (Pres. free 8 ML 300 MG IV (09:04)
[2024-11-17] MEDS: 0.9% Normal Saline (1000mL) 1,000 ML 999 ML IV (09:04)
[2024-11-17 09:12] LABS: Absolute Lymphocyte Count 2.92 X10^3/uL (0.83-4.51); Absolute Neutrophil Count 6.1 X10^3/uL (2.0-7.7); Basophil# 0.06 X10^3/uL; Basophil% 0.6 % (0-1); Eosinophil# 0.14 X10^3/uL; Eosinophils% 1.4 % (0-5); Hematocrit 36.3 % (37-47); Hemoglobin 12.7 g/dL (12.0-15.0); Lymphocyte # 2.92 X10^3/ul (0.83-4.51); Mean Corpuscular Hgb 32.1 pg (27.0-32.0); Mean Corpuscular Volume 91.7 fL (81-99); Mean Platelet Vol. 9.5 fl (6.2-12.0); Monocyte# 0.51 X10^3/uL; Monocyte% 5.2 % (0-10); NRBC Flagged by Analyzer 0 % (0-5); Neutrophil # 6.08 X10^3/uL (2.7-7.7); Neutrophil % 62.6 % (47-70); Platelet Count 244 K/mm3 (150-450); RBC Distribution Width CV 12.3 % (11.6-14.6); RBC Distribution Width SD 41.2 fl (35.1-43.9); Red Blood Count 3.96 M/mm3 (4.2-5.4); White Blood Count 9.7 K/mm3 (4.4-11.0)
[2024-11-17 09:29] LABS: Internal QC Validated? YES +Cl - CLEAR BKGD; Pregnancy, Serum, hCG Quali. NEGATIVE Negative
[2024-11-17 09:32] LABS: Lipase 23 U/L (13-75)
[2024-11-17 09:42] LABS: ALB/GLOB Ratio 1.6 RATIO (0.9-2.4); AST(SGOT) 17 U/L (<=31); Alanine Aminotransfer ALT/SGPT 8 U/L (<=34); Albumin, Serum 4.2 g/dL (3.5-5.0); Alkaline Phosphatase 61 U/L (35-104); Anion Gap 11 (5-15); BUN 8 mg/dL (4-19); BUN/Creat Ratio 11.2 RATIO (10-20); Carbon Dioxide 20.1 mmol/L (21.0-32.0); Chloride 106 mmol/L (98-108); Creatinine, Serum 0.73 mg/dL (0.70-1.20); EST Glomerular Filtration Rate 112 (>60); Estimated Creatinine Clearance 92.37 ml/min (50-250); Globulin 2.6 g/dL (2.2-4.2); Glucose 80 mg/dL (70-99); Potassium 3.7 mmol/L (3.3-5.1); Protein, Total 6.8 g/dL (5.9-8.4); Sodium Level 137 mmol/L (133-145); Total Bilirubin 0.31 mg/dL (0.00-1.30)
--- NOTE | 2024-11-17 09:45 | CT_ITS ---
EXAM: CT Abdomen and Pelvis With Intravenous Contrast CLINICAL INDICATION: RIGHT LOWER QUADRANT ABDOMINAL PAIN TECHNIQUE: Axial computed tomography images of the abdomen and pelvis with intravenous contrast. This CT exam was performed using one or more of the following dose reduction techniques: automated exposure control, adjustment of the mA and/or kV according to patient size, and/or use of iterative reconstruction technique. COMPARISON: No relevant prior studies available. FINDINGS: LUNG BASES: Unremarkable. No mass. No consolidation. ABDOMEN: LIVER: Hepatomegaly with fatty infiltration. GALLBLADDER AND BILE DUCTS: Unremarkable. No calcified stones. No ductal dilation. PANCREAS: Unremarkable. No mass. No ductal dilation. SPLEEN: Unremarkable. No splenomegaly. ADRENALS: Unremarkable. No mass. KIDNEYS AND URETERS: Unremarkable. No stones within either kidney. No hydronephrosis. STOMACH AND BOWEL: Fecal retention in the colon consistent with constipation. No obstruction. No mucosal thickening. PELVIS: APPENDIX: Normal appendix. BLADDER: Unremarkable. No mass. REPRODUCTIVE: Unremarkable as visualized. ABDOMEN and PELVIS: INTRAPERITONEAL SPACE: Unremarkable. No free air. No significant fluid collection. BONES/JOINTS: No acute fracture. No dislocation. SOFT TISSUES: Unremarkable. VASCULATURE: Unremarkable. No abdominal aortic aneurysm. LYMPH NODES: Unremarkable. No enlarged lymph nodes. CT/Abdomen/Pelvis W IV Cont ONLY IMPRESSION: 1. Normal appendix. 2. Hepatomegaly with fatty infiltration. 3. Fecal retention in the colon consistent with constipation. 4. No obstructive uropathy. Reading Location: [facility]
[2024-11-17 09:49] LABS: Bacteria 0 SEEN /hpf (None Seen); Mucous, Urine 0 SEEN /hpf (<or=2+); White Blood Cells 0 SEEN /hpf (0-5)
[2024-11-17 09:58] LABS: Color, Urine Yellow (Yellow); Glucose, Dipstick Normal (Normal); Ketone-Dipstick Negative (Negative); Leukocyte Esterase-Dipstick Negative /ul (Negative); Nitrite-Dipstick Negative (Negative); Occult Blood-Urine Negative /ul (Negative); Protein-Dipstick 15 mg/dl (Negative); Specific Gravity, Urine 1.005 (1.002-1.030); Urine Bilirubin Dipstick Negative (Negative); Urine Clarity Sl. Cloudy (Clear); Urine Urobilinogen Normal (Normal)
[2024-11-17 10:02] LABS: Lactic Acid 1.1 mmol/L (0.0-2.0)
[2024-11-17 10:08] LABS: Red Blood Cells-Urine 0 SEEN /hpf (0-5); Squamous Epithelial Cells - UA 0-5 SEEN /hpf (5-10)
[2024-11-17 11:27] VITALS: BP 102/53; PULSE 64; RESP 18; TEMP 37.2; O2SAT 100
== END 2024-11-17 11:33 | disposition home or self-care (01) ==
PROVIDERS: Emergency Provider Surgery; PCP Internal Medicine; Visit Provider Surgery
DX: K59.00 Constipation, unspecified (principal); K92.2 Gastrointestinal hemorrhage, unspecified; F17.210 Nicotine dependence, cigarettes, uncomplicated
CPT/HCPCS: 74177; 80053; 81001; 82274; 83605; 83690; 84703; 85025; 96361; 96374; 99283; Q9967; J2405

== ENCOUNTER → 2024-11-29 | Outpatient (CLI) | payer MEDICAID, SELFPAY ==
--- NOTE | 2024-11-29 06:55 | MRI_ITS ---
PROCEDURE: BRAIN W/WO CONTRAST 11/29/2024 REASON FOR EXAM: RULE OUT MS. Blurred vision, loss of right arm functionality, numbness and tingling TECHNIQUE: Brain MRI without and with intravenous contrast with additional dedicated imaging of the IACs. CONTRAST: 13 mL Clariscan COMPARISON: None. FINDINGS: Brain: No mass, mass effect or midline shift. No significant T2/FLAIR hyperintense signal. Minimal signal in the periventricular white matter Diffusion weighted images: No restricted diffusion. Ventricles: Normal Major Intracranial Vessels: Normal flow voids identified. Sinuses: Unremarkable Mastoids: No effusions. IACs: No evidence of mass or other pathology of the IAC's Cranial Nerves VII and VIII: Intact Cochlea, Vestibule and Semicircular Canals: Normal Middle Ear Cavities: Normal MRI/Brain W/WO Contrast IMPRESSION: No acute process detected. No abnormal enhancement. Minimal white matter punctate and periventricular T2/FLAIR hyperintense signal in the posterior parietal white matter, possibly age-related microangiopathy. If symptoms persist follow-up MRI brain without w ith contrast might be considered There is otherwise no significant abnormal T2/FLAIR signal that was suggest pre sence of sclerosing plaque Reading [facility]
== END | disposition home or self-care (01) ==
PROVIDERS: PCP Internal Medicine; Referring Provider Physician Assistant; Visit Provider Physician Assistant
DX: R20.0 Anesthesia of skin (principal); R20.2 Paresthesia of skin; R41.89 Other symptoms and signs involving cognitive functions and awareness
CPT/HCPCS: 70553; A9575

== ENCOUNTER → 2024-12-10 | Outpatient (CLI) | payer MEDICAID, SELFPAY ==
--- NOTE | 2024-12-10 13:53 | ECHOD_ITS ---
Reason For Study Reason For Study: Syncope Procedure This was a 2D Doppler, Color Flow transthoracic echocardiogram. Exam performed in department. Left Ventricle Normal LV size. Left ventricular systolic function is normal. The left ventricular ejection fraction is 60 %. No regional wall motion abnormalities noted. Right Ventricle Normal RV size. Normal systolic function. Atria Normal left atrium. Normal right atrium. Mitral Valve Normal mitral valve. Tricuspid Valve Normal tricuspid valve. Aortic Valve Trisinus/trileaflet aortic valve. Pulmonic Valve Normal pulmonic valve. Great Vessels Normal aortic root. The pulmonary artery is normal size. Inferior vena cava collapse with respiration. Pericardium/Pleural No pericardial effusion. MMode/2D Measurements & Calculations LVIDd: 4.6 cm IVSd: 0.58 cm Ao root diam: 2.1 cm LVIDs: 3.2 cm LVPWd: 0.74 cm RVDd: 2.8 cm FS: 29.1 % LAV(MOD-bp): 24.3 ml LVAd ap4: 29.8 cm2 LVAd ap2: 31.7 cm2 LAV(MOD-bp) Indexed: 15.1 ml/m2 LVLd ap4: 8.3 cm LVLd ap2: 8.5 cm LAV(MOD-sp2): 24.3 ml EDV(MOD-sp4): 89.3 ml EDV(MOD-sp2): 98.9 ml LAV(MOD-sp4): 22.3 ml EDV(sp4-el): 91.1 ml EDV(sp2-el): 100.7 ml LVAs ap4: 17.2 cm2 LVAs ap2: 18.2 cm2 LVLs ap4: 7.1 cm LVLs ap2: 7.2 cm ESV(MOD-sp4): 34.4 ml ESV(MOD-sp2): 39.1 ml ESV(sp4-el): 35.2 ml ESV(sp2-el): 39.2 ml EF(MOD-sp4): 61.5 % EF(MOD-sp2): 60.4 % EF(sp4-el): 61.4 % SV(MOD-sp4): 54.9 ml SV(MOD-sp2): 59.8 ml SV(sp4-el): 55.9 ml SI(MOD-sp4): 34.1 ml/m2 SI(MOD-sp2): 37.1 ml/m2 LA A4 area: 10.6 cm2 LA dimension(2D): 2.5 cm RA A4 area: 8.4 cm2 TAPSE: 2.0 cm Time Measurements MV dec time: 0.14 sec Doppler Measurements & Calculations MV E max hans: 77.6 cm/sec Lat Peak E' Hans: 20.4 cm/sec Med Peak E' Hans: 14.4 cm/sec MV A max hans: 58.5 cm/sec E/E' lat: 3.8 E/E' med: 5.4 MV E/A: 1.3 Ao V2 max: 121.8 cm/sec LV V1 max: 96.8 cm/sec MV dec slope: 565.0 cm/sec2 Ao max P.9 mmHg LV V1 max P.8 mmHg Ao V2 mean: 89.8 cm/sec LV V1 mean P.0 mmHg Ao mean P.6 mmHg LV V1 mean: 67.2 cm/sec Ao V2 VTI: 26.7 cm LV V1 VTI: 21.3 cm AV (velocity ratio): 0.80 PA V2 max: 84.5 cm/sec TR max hans: 196.8 cm/sec TR max P.5 mmHg ECHO/Echo Complete Interpretation Summary Normal LV size. Left ventricular systolic function is normal. The left ventricular ejection fraction is 60 %. Structurally normal valves. Ordering Physician: Abhinav Mendoza Referring Physician: Abhinav Mendoza Performed By: Melvina Lord RDCS
== END | disposition home or self-care (01) ==
LOC: CVS 13:51
PROVIDERS: PCP Internal Medicine; Referring Provider Physician Assistant; Visit Provider Physician Assistant
DX: R55 Syncope and collapse (principal)
CPT/HCPCS: 93306

== ENCOUNTER 2024-12-16 18:53 | Emergency (ER) | payer MEDICAID, SELFPAY ==
[2024-12-16 18:54] VITALS: BP 113/80; PULSE 66; RESP 13; TEMP 36.6; O2SAT 100; BMI 24.6
--- NOTE | 2024-12-16 20:52 | CT_ITS ---
PROCEDURE: SINUS/FACIAL BONE REASON FOR EXAM: FACIAL INJURY TECHNIQUE: CT of the paranasal sinuses with contrast. Coronal and Sagittal reconstruction series were provided. CONTRAST: Not provided VOLUME: Not provided mL Not Provided Gauge IV One or more dose reduction techniques were used (e.g., Automated exposure control, adjustment of the mA and/or kV according to patient size, use of iterative reconstruction technique). RADIATION DOSE SUMMARY: CTDlvol: 29 mGy DLP: 547 mGycm COMPARISON: None. FINDINGS: Frontal: Unremarkable Ethmoid: Unremarkable Sphenoid: Unremarkable Maxillary: Unremarkable Turbinates: Unremarkable Nasal Septum: Unremarkable Mastoids/Middle Ears: Unremarkable No acute fracture. No soft tissue abnormalities demonstrated. CT/Sinus/Facial Bone IMPRESSION: No acute abnormality is demonstrated. [facility]
[2024-12-16 20:53] VITALS: RESP 18
--- NOTE | 2024-12-16 22:15 | EDS_ITS ---
HPI History of Present Illness Chief Complaint: Head Injury Informant: patient Narrative Narrative: Evaluation after being hit by baseball to the face 6:20 PM. Playing with her son when he was pitching to her and hit her in the face accidentally. Pain to the face. No headache no neck pain. No anticoagulation. She reports a bystander gave her the pain medicine she does not know exactly which 1. [facility] Medical History Pharyngitis Contusion of left middle finger Closed fracture of proximal phalanx of left middle finger Acute bronchitis, unspecified Sinusitis Acute pharyngitis, unspecified Chronic constipation UTI (urinary tract infection) Urinary frequency RLQ abdominal pain Abdominal pain Migraines Heart murmur HPV (human papilloma virus) infection Endometriosis Depression Anxiety Frequent UTI Decreased movement 35 weeks gestation of Pharyngitis URI (upper respiratory infection) No significant past medical history Laryngitis Contusion of right foot, initial encounter UNEXPLAINED BRUISES Asthma Anemia Stomach ulcer Arthritis Home Medications ?Medication ?Instructions ?Recorded ?Last Taken ?Type sennosides 8.6 mg-docusate sodium 1 tab-cap PO DAILY 1 4 days #14 tabs 11/17/24 Unknown Rx 50 mg tablet (Senna with Docusate Sodium) fluoxetine 10 mg capsule 10 mg PO DAILY 12/16/24 Unkn own History Allergy/AdvReac Type Severity Reaction Status Date / Time No Known Allergies Allergy Verified 12/16/24 18:56 Family History Mother Anxiety and depression Heart disease Cancer lung Father Anxiety and depression Diabetes Other Hyperlipemia Surgical History History of tubal ligation Social History Smoking Status: Current every day smoker tobacco type: cigarettes Tobacco: How many years used: 10 alcohol intake: current alcohol intake frequency: a few times a month substance use type: does not use what type of physical activity do you participate in: none ROS ROS ED Constitutional Constitutional ED: Denies fever(s) ENT ENT ED: Reports other Details: Facial pain Cardiovascular Cardiovascular: Denies chest pain Respiratory/Chest Respiratory/Chest: Denies cough Gastrointestinal Gastrointestinal: Denies diarrhea, nausea or vomiting Musculoskeletal Musculoskeletal: Denies back pain, extremity pain or neck pain Integumentary Denies wounds Neurologic Neurologic: Denies headache(s), paresthesias or weakness EXAM Physical Exam Const Vital Signs: 12/16/24 18:54 12/16/24 20:27 12/16/24 20:53 Temperature 97.8 F Temperature Source Temporal Pulse Rate 66 Respiratory Rate 13 18 Respiratory Effort Normal Blood Pressure 113/80 Blood Pressure Mean 91 Pulse Ox 100 Oxygen Delivery Method Room Air Positive well nourished and well developed General Appearance ED: well developed and NAD HEENT Reports moist mucous membranes HEENT Narrative: Swelling slight ecchymosis inferior orbital. Swelling to the zygomatic bone with tenderness. normocephalic Eyes EOMs intact bilaterally General Eye ED: Yes normal appearance of both eyes and other Other Details: No entrapment or proptosis. No hyphema. No subconjunctival hemorrhage noted. Neck full ROM Chest Wall Chest: Negative for tenderness Resp normal respiratory effort and normal air movement Effort and Inspection: symmetric chest movement; Negative for respiratory distress Cardio regular rate, regular rhythm and no murmurs Peripheral Pulses: pulses 2+ throughout GI normal to inspection, nondistended, normoactive bowel sounds and non-tender Palpation: Negative for guarding or rebound tenderness present Extremity normal to inspection General Extremety ED: Negative for edema or tenderness General Extremity: Negative for edema Neuro oriented x3, CN's II-XII intact bilaterally and no sensory deficits noted Sensorium / Orientation: awake and alert Skin no rashes or lesions noted and no wounds MDM MDM MDM Narrative Medical decision making narrative: Interventions / MDM: Differential diagnosis: Facial contusion, periorbital ecchymosis Diagnosis considered but do not suspect: No clinical concussion, Nexus CT head criteria negative low suspicion for intracranial hemorrhage. Fracture however CT negative. My EKG interpretation: N/A Imaging independently reviewed and interpreted by myself: CT facial bones: No fracture or soft tissue swelling also read by radiology. External documents reviewed: N/A Test considered but not ordered:N/A ED course: Blunt injury from baseball no headaches. Zygomatic bone tenderness. She declines any pain medicine at this time. Ice was placed. CT facial bones ordered. CT negative. Reassured on findings. She will continue Tylenol Motrin as needed continue to ice. Discussed with patient suspect increasing bruising around her left eye. Outpatient follow-up. All questions answered. Re-evaluation: stable Disposition discussed with patient/family/significant other: Patient Case discussed with consulting clinician: N/A This note was generated with [employer] dictation software. It may contain incorrect words, spelling, and punctuation that were not noted in checking the note before signing. Radiography Diagnostic Testing: Clinical Impression(s) from Imaging Studies Facial/Sinus 12/16/24 20:52 IMPRESSION: No acute abnormality is demonstrated. Reading [facility] Discharge Plan Triage Chief Complaint: Head Injury ED Provider: Seamus Calvo Dx/Rx/DC Orders Clinical Impression: Contusion of face, Periorbital ecchymosis of left eye Instructions: ED Eye Contusion, ED Facial Contusion Prescriptions: No Action sennosides-docusate sodium [Senna with Docusate Sodium] 8.6-50 mg tablet 1 tab-cap PO DAILY 14 Days Qty: 14 0RF fluoxetine 10 mg capsule 10 mg PO DAILY Primary Care Provider: Skinny Francois Referrals: Skinny Francois MD [Primary Care Provider] - 1 Week Activity Restrictions/Additional Instructions: CT facial bones negative for fracture. Expect increasing bruising around your left eye. Continue ice. Tylenol or Motrin as needed. Print Language: Croatian Disposition Disposition: Home, Self Care Discharge Date/Time: 12/16/24 22:23
== END 2024-12-16 22:23 | disposition home or self-care (01) ==
PROVIDERS: Emergency Provider Emergency Medicine; PCP Internal Medicine; Visit Provider Emergency Medicine
DX: S05.12XA Contusion of eyeball and orbital tissues, left eye, initial encounter (principal); F41.9 Anxiety disorder, unspecified; F32.A Depression, unspecified; F17.210 Nicotine dependence, cigarettes, uncomplicated; Z79.899 Other long term (current) drug therapy; W21.03XA Struck by baseball, initial encounter
CPT/HCPCS: 70486; 99282

== ENCOUNTER → 2025-01-04 | Outpatient (CLI) | payer MEDICAID, SELFPAY ==
--- NOTE | 2025-01-04 17:33 | TILTTABLE_ITS ---
Staff Staff: Jenifer Cm and Cherri Rome Summary Pre Test Resting HR: 63 Pre Test Resting BP: 110/60 Minimum Test HR: 56 Maximum Test HR: 83 Minimum Test BP: 93/70 Maximum Test BP: 107/67 Physician Tilt Table Report Patient's Physicians Primary Care Physician: Skinny Francois Indications/Diagnosis: Syncope Procedure Comments: Patient presented to the noninvasive lab in the postabsorptive nonsedated state. Informed consent was obtained. Initial EKG a nd blood pressure was obtained was noted to be 63 bpm and 110/60 mmHg. The patient was then put in the 70 degree head upright tilt position for total duration of 30 minutes. Patient maintained sinus rhythm and stable blood pressures. Patient did complain of dizziness and tingling sensation which persisted throughout the testing. There was however no significant diminution or increase in heart rate for the duration of the testing. The patient was then after 30 minutes put back in the recumbent position and recovered and remained stable. Summary: Negative head upright tilt table testing.
[2025-01-04 17:36] VITALS: BP 107/67; BP 110/60; BP 93/70
== END | disposition home or self-care (01) ==
LOC: CVS 09:19
PROVIDERS: PCP Internal Medicine; Referring Provider Physician Assistant; Visit Provider Physician Assistant
DX: R55 Syncope and collapse (principal)
CPT/HCPCS: A4216; 93660

== ENCOUNTER 2025-03-17 10:30 | Outpatient (RCR) | payer MEDICAID, SELFPAY ==
--- NOTE | 2025-05-12 15:46 | HP.PT.NRP ---
Patient Information Patient Information: CHAITANYA WISEMAN was seen in my office for initial evaluation on 03/03/25. The following Plan of Care was established for this patient: POC Established Initial Frequency: Every Other Week Initial Duration: 4-6 Weeks Anticipated Interventions Patient/Client Instruction: Educate patient on: Condition and Plan of Care Other: to diminish paraeesthesia Therapeutic Exercise to Include: Strength training and Postural training For the Purpose of:: To improve nutrient delivery to tissue, To improve muscle performance and motor function, To increase tolerance to activity/condition/position and To improve ability of physical actions for home/community/work/leisure Last Seen Last Seen: This patient was last seen in our office 03/17/25. Pertinent comments regarding their Physical therapy will appear below: Pt seen two visits of HEP instruct POC and did not return for any further visits. At this point, it has been over 6 weeks and I will discontinue from my care. At this point I will be discontinuing this patient from physical therapy. I would be happy to see this patient again in the future if found appropriate by the physician. Thank you! Rock Lindsey, DPT, OCS, CSCS Balance/Gait/Functional tests Balance/Special Test Scores Functional Gait Assessment Score: 30 % Disability: 0 CATSIB Score (Max score 120 seconds): 120 Quick DASH Score: 36.3625
== END 2025-03-17 19:00 | disposition home or self-care (01) ==
LOC: PT 10:30
PROVIDERS: PCP Internal Medicine; Referring Provider Physician Assistant; Visit Provider Physician Assistant
DX: R20.0 Anesthesia of skin (principal); R20.2 Paresthesia of skin
CPT/HCPCS: 97110; 97162

== ENCOUNTER → 2025-03-24 | Outpatient (CLI) | payer MEDICAID, SELFPAY | END | disposition home or self-care (01) | LOC: SL 20:22 | PROVIDERS: PCP Internal Medicine; Referring Provider Physician Assistant; Visit Provider Physician Assistant | DX: G47.34 Idiopathic sleep related nonobstructive alveolar hypoventilation (principal) | CPT/HCPCS: 95810 ==

== ENCOUNTER → 2025-06-30 | Outpatient (CLI) | payer MEDICAID, SELFPAY ==
[2025-06-30 13:27] LABS: Hematocrit 37.9 % (37-47); Hemoglobin 12.9 g/dL (12.0-15.0); Immature Granulocytes Count 0.040 X10^3/uL (0.0-0.0); Mean Corp Hgb Conc 34.0 g/dL (32-36); Mean Corpuscular Volume 90.9 fL (81-99); Mean Platelet Vol. 9.8 fl (6.2-12.0); NRBC Flagged by Analyzer 0 % (0-5); Platelet Count 281 K/mm3 (150-450); RBC Distribution Width CV 12.3 % (11.6-14.6); RBC Distribution Width SD 40.8 fl (35.1-43.9); Red Blood Count 4.17 M/mm3 (4.2-5.4); White Blood Count 11.1 K/mm3 (4.4-11.0)
[2025-06-30 14:15] LABS: AST(SGOT) 21 U/L (<=31); Alanine Aminotransfer ALT/SGPT 12 U/L (<=34); Albumin, Serum 4.8 g/dL (3.5-5.0); Alkaline Phosphatase 65 U/L (35-104); Anion Gap 11 (5-15); BUN 6 mg/dL (4-19); BUN/Creat Ratio 8.5 RATIO (10-20); Calcium,Total 9.8 mg/dL (7.6-11.0); Carbon Dioxide 22.7 mmol/L (21.0-32.0); Chloride 105 mmol/L (98-108); Globulin 3.1 g/dL (2.2-4.2); Glucose 90 mg/dL (70-99); Magnesium 2.1 mg/dL (1.5-2.2); Potassium 4.2 mmol/L (3.3-5.1); Vitamin B12 550 pg/mL (180-914)
[2025-07-06 14:09] LABS: Immunoglobulin A 174 mg/dL (87-352); VITAMIN B6 27.7 ug/L (3.4-65.2); Vitamin B1, Thiamine 115.3 nmol/L (66.5-200.0)
== END | disposition home or self-care (01) ==
LOC: MTLAB 11:08
PROVIDERS: PCP Internal Medicine
DX: R10.32 Left lower quadrant pain (principal); R20.2 Paresthesia of skin; R41.89 Other symptoms and signs involving cognitive functions and awareness; G47.9 Sleep disorder, unspecified; G43.909 Migraine, unspecified, not intractable, without status migrainosus; R20.0 Anesthesia of skin
CPT/HCPCS: 36415; 80053; 82607; 82784; 83516; 83735; 84207; 84425; 85025; 86255

== ENCOUNTER → 2025-07-14 | Outpatient (CLI) | payer MEDICAID, SELFPAY ==
--- OUTSIDE RECORDS SUMMARY | 2025-07-14 09:06 | XMS RPT_ITS | CCD ---
Author Organization [facility] Care Team Providers Care Title I Coordinator Name Role Phone KRUNAL, DR TEDDY Bolden Attending Davida maryuri HECTOR, DR TEDDY Bolden Primary Care Unavaila maryuri HECTOR, DR TEDDY Bolden Admitting Dr. Lizzy Young Primary Care Provider [phone]) Dr. Lizzy Francois Referring Provider [phone] DALTON Smith Attending Provider Unavailab DALTON Nice Attending Provider [phone] JUN MULLEN, CHET Raya Attending Unavailable LIZZY FRANCOIS MD Primary Care UnavailDr. Lizzy Gómez Primary Care Provider [phone]) Dr. Lizzy Francois Referring Provider [phone] DALTON Swan Attending Provider Dr. Lizzy Francois Attending Provider [phone] Dr. Lizzy Francois Primary Care Provider [phone] [phone]) Dr. Lizzy Francois Referring Provider [phone] Markus SON, ROSA Duque Attending Provider DALTON Bernal Attending Provider Dr. Lizzy Francois Primary Care Provider [phone]) Oleghe, Dr. Babb Referring Provider [phone] DALTON Bernal Attending Provider Friend, Dr. Chavarria Attending Provider [phone]) Priscila, Dr. Babb Primary Care Provider 1(33 [phone]) Priscila, Dr. Babb Referring Provider [phone] DALTON Bernal Attending Provider Friend, Dr. Chavarria Attending Provider [phone] Priscila, Dr. Babb Primary Care Provider [phone]) Priscila, Dr. Babb Referring Provider [phone] DALTON Swan Attending Provider Priscila, Dr. Babb Attending Provider [phone] Unavailable Primary Care Provider Unavailabl e MUSA, ISABELLA Attending Unavailable MUSA, SIABELLA Referring Unavailable MUSA ISABELLA Attending Unavailable Oleghe, Efewongbe Primary Care Unavailable Seamus Calvo Attending Unavailable Oleghe, Efewongbe Primary Care Unavailable Mike Stanley Attending Unavailable InezkaQuinn Attending Unavailable Oleghe, Efewongbe Referring Unavailable Oleghe, Efewongbe Primary Care Unavailable Quinn Rojo Attending Unavailable Quinn Rojo Referring Unavailable Oleghe, Efewongbe Primary Care Unavailable Oleghe, Efewongbe Primary Care Unavailable Jorge Bernal Attending Unavailable Jorge Bernal Referring Unavailable Abhinav Liriano Attending Unavailable Oleghe, Efewongbe Primary Care Unavailable Abhinav Liriano Referring Unavailable Abhinav Liriano Attending Unavailable Oleghe, Efewongbe Primary Care Unavailable Abihnav Liriano Referring Unavailable Carlotta Amor Attending Unavailable Carlotta Amor Referring Unavailable Oleghe, Efewongbe Primary Care Unavailable Oleghe, Efewongbe Referring Unavailable Oleghe, Efewongbe Primary Care Unavailable Abhinav Liriano Attending Unavailable Colby Vázquez Attending Unavailabl e Oleghe, Efewongbe Primary Care Unavailable Oleghe, Efewongbe Primary Care Unavailable Wayt PA, Abhinav Attending Unavailable Wayt PA, Abhinav Referring Unavailable Oleghe, Efewongbe Primary Care Unavailable Eduard San Attending Unavailable Oleghe, Efewongbe Primary Care Unavailable Wayt PA, Abhinav Referring Unavailable Wayt PA, Abhinav Attending Unavailable Oleghe, Efewongbe Primary Care Unavailable Wayt PA, Abhinav Referring Unavailable Wayt PA, Abhinav Attending Unavailable Carlotta Amor Attending Unavailable Carlotta Amor Referring Unavailable Oleghe, Efewongbe Primary Care Unavailable Wayt PA, Abhinav Referring Unavailable Oleghe, Efewongbe Primary Care Unavailable Wayt PA, Abhinav Attending Unavailable Oleghe, Efewongbe Primary Care Unavailable Wayt PA, Abhinav Attending Unavailable Wayt PA, Abhinav Referring Unavailable Harvey Dl HOFFMAN Attending Unavailable Oleghe, Efewongbe Referring Unavailable Oleghe, Efewongbe Primary Care Unavailable Harrison Godwin Attending Unavailable Oleghe, Efewongbe Primary Care Unavailable Wayt PA, Abhinav Referring Unavailable Oleghe, Efewongbe Referring Unavailable Oleghe, Efewongbe Primary Care Unavailable Jorge Bernal Attending Unavailable Oleghe, Efewongbe Referring Unavailable Oleghe, Efewongbe Primary Care Unavailable Jorge Bernal Attending Unavailable Oleghe, Efewongbe Referring Unavailable Oleghe, Efewongbe Primary Care Unavailable Jorge Bernal Attending Unavailable Dl Swan Attending Unavailable Dl Swan Referring Unavailable Oleghe, Efewongbe Primary Care Unavailable Oleghe, Efewongbe Referring Unavailable Oleghe, Efewongbe Primary Care Unavailable Wayt PA, Abhinav Attending Unavailable Adeel Mccormack Attending Unavailable Oleghe, Efewongbe Primary Care Unavailable Wayt PA, Abhinav Referring Unavailable Wayt PA, Abhinav Consulting Unavailable Oleghe, Efewongbe Primary Care Unavailable Wayt PA, Abhinav Consulting Unavailable Dominic Gomes Attending Unavailable Wayt PA, Abhinav Referring Unavailable Oleghe, Efewongbe Primary Care Unavailable Wayt PA, Abhinav Attending Unavailable Oleghe, Efewongbe Primary Care Unavailable Dominic Gomes Attending Unavailable Carlotta Amor Attending Unavailable Oleghe, Efewongbe Referring Unavailable Oleghe, Efewongbe Primary Care Unavailable Oleghe, Efewongbe Referring Unavailable Oleghe, Efewongbe Primary Care Unavailable Jorge Bernal Attending Unavailable Dl Swan Attending Unavailable Oleghe, Efewongbe Referring Unavailable Oleghe, Efewongbe Primary Care Unavailable Oleghe, Efewongbe Referring Unavailable Oleghe, Efewongbe Primary Care Unavailable John SON, Rosa Maria Bolden Attending Unavailabl e Oleghe, Efewongbe Referring Unavailable Oleghe, Efewongbe Primary Care Unavailable Eduard San Attending Unavailable Oleghe, Efewongbe Referring Unavailable Oleghe, Efewongbe Primary Care Unavailable Abhinav Liriano Attending Unavailable Oleghe, Efewongbe Primary Care Unavailable Abhinav Liriano Referring Unavailable Abhinav Liriano Attending Unavailable Medications Current Medications Medication Drug Class(es) Dates Sig (Normalized) Sig (Original) [id number] 200 actuat albuterol 0.09 mg/actuat metered dose inhaler (5 sources) beta2-Adrenergic Agonist Start: 12-16-2023 take 1 puff(s) by inhalation every four to six hours Albuterol Sulfate Active 2 PUFF INHALATION EVERY 4-6 HOURS 8.5 December 16, 2023 12:00am Start: 04-21-2019 take 2 puff(s) by in halation every six hours as needed albuterol HFA (PROAIR HFA) 90 mcg/actuation inhaler Inhale 2 Puffs as instructed every 6 hours as needed. 1 Inhaler 04/21/2019 Active albuterol HFA (P ROVENTIL HFA, VENTOLIN HFA) 90 mcg/actuation inhaler Inhale 2 Puffs as instructed. Active benzonatate 100 mg oral capsule (1 source) Non-narcotic Antitussive Start: 12-16-2023 Benzonatate Active 100 MG PO 2 to 3 times per day 60 December 16, 2023 12:00am 12 hr buPROPion hydrochloride 150 mg extended release oral tablet (1 source) Aminoketone Start: 10-31-2021 take 150 mg by mouth twice daily Bupropion Hcl Active 150 MG PO TWICE A DAY 60 October 31, 2021 1:00am docusate sodium 50 mg / sennosides, long term 8.6 mg oral tablet (9 sources) Start: 11-17-2024 take 1 tablet by mouth once daily STIMULANT LAXATIVE PLUS 8.6-50 mg per tablet Take 1 tablet by mouth once daily. 11/17/2024 Active Start: 10-09-2020 End: 07-02-2021 take 1 tablet by mouth at bedtime Sennosides-Docusate Sodium (Senna Plus) 8.6-50 mg tablet Discontinued 1 TAB-CAP PO AT BEDTIME October 09, 2020 1:00am July 02, 2021 3:39pm FLUoxetine 20 mg oral capsule (3 sources) Serotonin Reuptake Inhibitor Start: 02-08-2025 take 1 capsule by mouth once daily FLUoxetine (PROZAC) 20 mg capsule Take 1 capsule by mouth once daily. 90 capsule 2 02/08/2025 Active Start: 11-19-2024 End: 02-08-2025 take 1 capsule by mouth once daily FLUoxetine (PROZAC) 10 mg capsule Indications: PMS (premenstrual syndrome) Take 1 capsule by mouth once daily. 90 capsule 11/19/2024 02/08/2025 Discontinued (Course of therapy completed) fluticasone propionate 0.05 mg/actuat metered dose nasal spray (8 sources) Corticosteroid Start: 10-31-2021 take 2 spray(s) nasal route every week Fluticasone Propionate Active 1 - 2 SPRAY INTRANASAL TWICE A DAY October 31, 2021 1:00am administer into each nostril; 2 sprays in each nostril for the first week Start: 04-25-2021 End: 06-04-2021 take 1 spray(s) nasal route twice daily Fluticasone Propionate Discontinued 1 SPRAY INTRANASAL TWICE A DAY April 25, 2021 12:00am June 04, 2021 10:10am administer into each nostril levocetirizine dihydrochloride 5 mg oral tablet (1 source) Histamine-1 Receptor Antagonist Start: 04-25-2021 take 5 mg by mouth once daily Levocetirizine Active 5 MG PO DAILY April 25, 2021 12:00am linaclotide 0.145 mg oral capsule (20 sources) Guanylate Cyclase-C Agonist Start: 09-18-2024 take 1 capsule by mouth once daily in the morning LINZESS 145 mcg capsule Take 145 mcg by mouth every morning. 09/18/2024 Active Start: 01-17-2023 End: 02-14-2023 take 1 capsule by mouth once daily in the morning Linaclotide (Linzess) 145 mcg capsule Discontinued 145 MCG PO EVERY MORNING January 17, 2023 12:00am February 14, 2023 2:54pm Start: 10-02-2020 End: 01-11-2022 take 1 capsule by mouth once daily in the morning Linaclotide (Linzess) 145 mcg capsule Discontinued 145 MCG PO EVERY MORNING October 30, 2020 11:55am January 11, 2022 8:03am Multivitamin preparation (1 source) Start: 10-02-2020 take 1 tablet by mouth once daily Multivitamin Active 1 TABLET PO DAILY October 02, 2020 1:00am [place] (Nk) (1 source) Start: 06-16-2022 [place] (Nk) A ctive June 16, 2022 12:00am predniSONE 20 mg oral tablet (9 sources) Start: 12-16-2023 take 40 mg by mouth once daily Prednisone Active 40 MG PO DAILY December 16, 2023 11:58am Start: 12-15-2023 End: 12-16-2023 take 20 mg by mouth once daily Prednisone Discontinued 20 MG PO DAILY December 15, 2023 12:00am December 16, 2023 11:59am Start: 02-05-2022 End: 02-17-2022 Prednisone Discontinued 10 M G PO daily 30 08February 05, 2022 12:00am February 17, 2022 12:03am Take 4 tabs once daily days 1-3 3 tabs once daily days 4-6 2 tabs once daily days 7-9 and 1 tab once daily days 10-12. Completed/Discontinued Medications Medication Drug Class(es) Dates Sig (Normalized) Sig (Original) acetaminophen 325 mg / HYDROcodone bitartrate 5 mg oral tablet (7 sources) Opioid Agonist Start: 08-26-2019 End: 08-28-2019 take 1 tablet by mouth every four hours as needed Hydrocodone-Acetam inophen Discontinued 1 TABLET PO EVERY 4 HOURS NEEDED 08 02August 26, 2019 August 28, 2019 1:07am amoxicillin 500 mg oral capsule (11 sources) Penicillin-class Antibacterial Start: 06-09-2023 End: 06-19-2023 take 500 mg by mouth three times daily Amoxicillin Discontinued 500 MG PO THREE TIMES A DAY 30 06June 09, 2023 12:00am June 19, 2023 12:04am Start: 10-31-2021 End: 11-02-2021 take 500 mg by mouth twice daily Amoxicillin Discontinued 500 MG PO TWICE A DAY October 31, 2021 1:00am November 02, 2021 10:14am amoxicillin 875 mg / clavulanate 125 mg oral tablet (13 sources) Penicillin-class Antibacterial Start: 12-05-2023 End: 12-15-2023 take 1 tablet by mouth every twelve hours Amoxicillin-Pot Clavulanate Discontinued 1 TABLET PO Q12H 20 December 05, 2023 12:00am December 15, 2023 12:06am Start: 07-18-2022 End: 07-28-2022 take 1 tablet by mouth every twelve hours Amoxicillin-Pot Clavulanate Discontinued 1 TABLET PO Q12H 20 July 18, 2022 1:00am July 28, 2022 1:03am Start: 04-20-2021 End: 04-25-2021 take 1 tablet by mouth every twelve hours Amoxicillin-Pot Clavulanate (Augmentin) 875-125 mg tablet Discontinued 1 TABLET PO Q12H 20 06April 20, 2021 12:00am April 25, 2021 2:10pm ARIPiprazole 10 mg oral tablet (20 sources) Atypical Antipsychotic Start: 10-30-2020 End: 10-31-2021 take 10 mg by mouth at bedtime Aripiprazole Discontinued 10 MG PO AT BEDTIME July 02, 2021 4:05pm October 31, 2021 4:45pm Start: 10-02-2020 End: 10-30-2020 take 1 tablet by mouth at bedtime Aripiprazole (Abilify) 5 mg tablet Discontinued 5 MG PO AT BEDTIME October 02, 2020 1:00am October 30, 2020 11:56am azithromycin 250 mg oral tablet (7 sources) Macrolide Antimicrobial Start: 04-25-2021 End: 06-04-2021 take 2-5 tablets by mouth once daily Azithromycin (Zithromax Z-Tristan) 250 mg tablet Discontinued 0 PO .COMPLEX April 25, 2021 12:00June 04, 2021 10:10am take 500 mg today (day 1), then 250 mg for 4 days (days 2-5) PO betamethasone 0.5 mg/ml / clotrimazole 10 mg/ml topical cream (5 sources) Azole Antifungal, Corticosteroid Start: 10-04-2022 End: 01-17-2023 Clotrimazole-Beta methasone Discontinued 1 APPLIC TOPICAL TWICE A DAY October 04, 2022 1:00am January 17, 2023 12:56pm bisacodyl 5 mg delayed release oral tablet (7 sources) Stimulant Laxative Start: 10-09-2020 End: 10-09-2020 take 1 tablet by mouth at bedtime Bisacodyl (Dulcolax (Bisacodyl)) 5 mg tablet,delayed release (DR/EC) Discontinued 5 MG PO AT BEDTIME October 09, 2020 1:00am October 09, 2020 2:09pm cephalexin 500 mg oral capsule (14 sources) Cephalosporin Antibacterial Start: 11-02-2021 End: 02-05-2022 take 500 mg by mouth twice daily Cephalexin Discontinued 500 MG PO TWICE A DAY November 02, 2021 1:00am February 05, 2022 5:48pm Start: 04-09-2015 End: 04-09-2015 take 500 mg by mouth twice daily Cephalexin Discontinued 500 MG PO TWICE A DAY April 09, 2015 12:00am April 09, 2015 1:44pm ciprofloxacin 500 mg oral tablet (7 sources) Quinolone Antimicrobial Start: 07-31-2021 End: 10-31-2021 take 500 mg by mouth twice daily Ciprofloxacin Hcl Discontinued 500 MG PO TWICE A DAY July 31, 2021 1:00am October 31, 2021 4:45pm famotidine 20 mg oral tablet (5 sources) Histamine-2 Receptor Antagonist Start: 01-17-2023 End: 02-14-2023 take 20 mg by mouth twice daily Famotidine Discontinued 20 MG PO TWICE A DAY January 17, 2023 12:00am February 14, 2023 2:56pm ferrous sulfate 325 mg oral tablet (7 sources) Start: 05-18-2019 End: 10-02-2020 take 325 mg by mouth once daily Ferrous Sulfate Discontinued 325 MG PO DAILY May 18, 2019 12:00am October 02, 2020 11:33am hyoscyamine sulfate 0.125 mg oral tablet (3 sources) Start: 06-30-2023 End: 12-15-2023 Hyoscyamine Sulfate Discontinued 0.125 MG PO 2 to 4 times per day 60 June 30, 2023 12:00am December 15, 2023 1:49pm ibuprofen 600 mg oral tablet (7 sources) Nonsteroidal Anti-inflammatory Drug Start: 12-11-2020 End: 12-18-2020 take 600 mg by mouth three times daily Ibuprofen Discontinued 600 MG PO THREE TIMES A DAY 21 7 December 11, 2020 12:00am December 18, 2020 12:03am lactulose 667 mg/ml oral solution (4 sources) Osmotic Laxative Start: 04-24-2023 End: 12-15-2023 take 10 g by mouth twice daily Lactulose Discontinued 10 GM PO TWICE A DAY 946 April 24, 2023 12:00am December 15, 2023 1:50pm lubiprostone 0.024 mg oral capsule (4 sources) Chloride Channel Activator Start: 02-14-2023 End: 12-15-2023 take 1 capsule by mouth twice daily Lubiprostone (Amitiza) 24 mcg capsule Discontinued 24 MCG PO TWICE A DAY 60 February 14, 2023 12:00am December 15, 2023 1:50pm magnesium citrate (5 sources) Start: 01-17-2023 End: 02-14-2023 take 1 mL by mouth once daily Magnesium Citrate Discontinued 300 ML PO DAILY 296 January 16, 2023 11:00pm February 14, 2023 1:55pm Start: 01-17-2023 End: 02-14-2023 take 1 mL by mouth once daily Magnesium Citrate Discon tinued 300 ML PO DAILY 296 January 17, 2023 12:00am February 14, 2023 2:55pm Start: 01-17-2023 take 1 mL by mouth once daily Magnesium Citrate Active 300 ML PO DAILY 296 January 17, 2023 12:00am naproxen 500 mg oral tablet (18 sources) Nonsteroidal Anti-inflammatory Drug Start: 05-11-2023 End: 12-15-2023 take 500 mg by mouth twice daily as needed Naproxen Discontinued 500 MG PO TWICE DAILY NEEDED May 11, 2023 12:00am December 15, 2023 1:50pm Start: 08-26-2019 End: 10-02-2020 take 500 mg by mouth twice daily as needed Naproxen Discontinued 500 MG PO TWICE DAILY NEEDED August 26, 2019 1:00am October 02, 2020 11:33am Start: 01-20-2018 End: 04-03-2018 take 500 mg by mouth twice daily as needed Naproxen Discontinued 500 MG PO TWICE DAILY NEEDED January 20, 2018 12:00am April 03, 2018 2:11pm nitrofurantoin, macrocrystals 25 mg / nitrofurantoin, monohydrate 75 mg oral capsule (7 sources) Nitrofuran Antibacterial Start: 04-28-2020 End: 05-05-2020 take 1 capsule by mouth every twelve hours at mealtime Nitrofurantoin Monohyd/M-Cryst Discontinued 1 CAP PO Q12H 14 April 28, 2020 12:00am May 05, 2020 12:03am administer with a meal/food; swallow whole; do not open, crush, dissolve , or chew omeprazole 20 mg delayed release oral capsule (5 sources) Proton Pump Inhibitor Start: 01-17-2023 End: 02-14-2023 take 20 mg by mouth once daily Omeprazole Discontinued 20 MG PO DAILY January 17, 2023 12:00am February 14, 2023 2:55pm ondansetron 4 mg disintegrating oral tablet (7 sources) Serotonin-3 Receptor Antagonist Start: 04-25-2021 End: 10-31-2021 take 4 mg by mouth every eight hours Ondansetron Discontinued 4 MG PO Q8H April 25, 2021 12:00am October 31, 2021 4:46pm oxyCODONE hydrochloride 5 mg oral tablet (7 sources) Opioid Agonist Start: 11-13-2020 End: 11-20-2020 take 5 mg by mouth every six hours as needed Oxycodone Discontinued 5 MG PO EVERY 6 HOURS NEEDED 7 November 13, 2020 November 20, 2020 12:02am penicillin v potassium 500 mg oral tablet (7 sources) Start: 12-20-2018 End: 04-22-2019 take 500 mg by mouth four times daily Penicillin V Potassium Discontinued 500 MG PO 4 TIMES DAILY 40 December 20, 2018 12:00am April 22, 2019 11:59am Pnv Cmb#95-Ferrous Fumarate-Fa (7 sources) Start: 05-18-2019 End: 10-02-2020 take 1 tablet by mouth once daily Pnv Cmb#95-Ferrous Fumarate-Fa Discontinued 1 TABLET PO DAILY May 17, 2019 11:00pm October 02, 2020 10:33am Start: 05-18-2019 End: 10-02-2020 take 1 tablet by mouth once daily Pnv Cmb#95-Ferrous Fumarate-Fa Discontinued 1 TABLET PO DAILY May 18, 2019 12:00am October 02, 2020 11:33am polyethylene glycol 3350 25223 mg powder for oral solution (5 sources) Osmotic Laxative Start: 01-17-2023 End: 02-14-2023 Polyethylene Glycol 3350 (Miralax) 17 gram powder in packet Discontinued 17 GM PO TWICE A DAY January 17, 2023 12:00am February 14, 2023 2:56pm sertraline 50 mg oral tablet (14 sources) Serotonin Reuptake Inhibitor Start: 10-30-2020 End: 10-31-2021 take 0.5 tablet by mouth once daily, then take 1 tablet by mouth once daily Sertraline Discontinued 50 MG PO DAILY July 02, 2021 4:05pm October 31, 2021 4:45pm Take 1/2 tablet for 1 week then increase to 1 tablet daily Problems Active Problems Problem Classification Problem Date Documented Da te Episodic/Chronic Abdominal pain (18 sources) Right lower quadrant pain; Translations: [Right lower quadrant pain] Onset: 07-06-2025 07-31-2021 Episodic Allergic reactions (8 sources) Irritant contact dermatitis due to plant; Translations: [Irritant contact dermatitis due to plants, except food] Episodic Anxiety disorders (17 sources) Anxiety; Translations: [Anxiety disorder, unspecified] Onset: 11-19-2024 Chronic Olson (7 sources) Partial thickness burn of hand; Translations: [Burn of second degree of left hand, unspecified site, initial encounter] 08-27-2019 Episodic Disorders of teeth and jaw (7 sources) Toothache; Translations: [Other specified disorders of teeth and supporting structures] 11-04-2018 Episodic Endometriosis (9 sources) Endometriosis (clinical); Translations: [Endometriosis, unspecified] 11-12-2020 Chronic Genitourinary symptoms and ill-defined conditions (7 sources) Increased frequency of urination; Translations: [Frequency of micturition] 07-31-2021 Episodic Headache; including migraine (1 source) Migraine, unspecified, not intractable, without status migrainosus; Translations: [Migraine, unspecified, not intractable, without status migrainosus] Onset: 06-30-2025 Chronic Immunizations and screening for infectious disease (11 sources) Contact with and (suspected) exposure to other viral communicable diseases; Translations: [Contact with or suspected exposure to other viral communicable disease] Onset: 11-19-2024 06-04-2021 Episodic Menstrual disorders (2 sources) Irregular periods; Translations: [Irregular menstruation, unspecified] Onset: 10-10-2016 10-10-2016 Chronic Mood disorders (9 sources) Depressive disorder; Translations: [Depression] Onset: 11-19-2024 11-12-2020 Chronic Mycoses (6 sources) Candidiasis of skin; Translations: [Candidiasis of skin and nail] 10-04-2022 Episodic Nonspecific chest pain (2 sources) Chest pain; Translations: [Chest pain, unspecified] 07-17-2023 Episodic Other complications of (7 sources) Cystitis of ; Translations: [Infections of bladder in , first trimester] 12-04-2018 Episodic Other complications of (7 sources) Reduced movement; Translations: [Decreased movements, unspecified trimester, not applicable or unspecified] 06-18-2019 Episodic Other female genital disorders (2 sources) Premenstrual tension syndrome; Translations: [Premenstrual tension syndrome] 11-19-2024 Chronic Other gastrointestinal disorders (7 sources) Chronic constipation; Translations: [Other constipation] Onset: 11-19-2024 01-17-2023 Episodic Other gastrointestinal disorders (4 sources) Other constipation; Translations: [Constipation, unspecified] 01-17-2023 Episodic Other lower respiratory disease (2 sources) Dyspnea; Translations: [Dyspnea, unspecified] 07-17-2023 Episodic Other nervous system disorders (6 sources) Postoperative pain ; Translations: [Other acute postprocedural pain] 06-24-2022 Episodic Other nervous system disorders (2 sources) Paresthesia of left upper limb; Translations: [Paresthesia of skin] 07-17-2023 Episodic Other nervous system disorders (2 sources) Anesthesia of skin; Translations: [Anesthesia of skin] Onset: 12-16-2024 Episodic Other nervous system disorders (2 sources) Paresthesia of skin; Translations: [Paresthesia of skin] Onset: 12-16-2024 Episodic Other nervous system disorders (1 source) Other symptoms and signs involving cognitive functions and awareness; Translations: [Other symptoms and signs involving cognitive functions and awareness] Onset: 06-30-2025 Episodic Other screening for suspected conditions (not mental disorders or infectious disease) (2 sources) Cancer cervix screening status; Translations: [Encounter for screening for malignant neoplasm of cervix] Onset: 11-19-2024 11-19-2024 Episodic Other upper respiratory infections (2 sources) Sinusitis; Translations: [Chronic sinusitis, unspecified] 12-15-2023 Chronic Other upper respiratory infections (20 sources) Upper respiratory infection; Translations: [Acute upper respiratory infection, unspecified] Onset: 05-25-2025 Episodic Otitis media and related conditions (7 sources) Acute left otitis media; Translations: [Otitis media, unspecified, left ear] 04-20-2021 Episodic Residual codes; unclassified (1 source) Idiopathic sleep related nonobstructive alveolar hypoventilation; Translations: [Idiopathic sleep related nonobstructive alveolar hypoventilation] Onset: 03-29-2025 Chronic Residual codes; unclassified (1 source) Hypersomnia, unspecified; Translations: [Hypersomnia, unspecified] Onset: 02-18-2025 Chronic Residual codes; unclassified (7 sources) Gestation period, 35 weeks; Translations: [35 weeks gestation of ] 06-18-2019 Episodic Residual codes; unclassified (6 sources) Flushing; Translations: [Flushing] 06-24-2022 Episodic Residual codes; unclassified (2 sources) Sleep disorder, unspecified; Translations: [Sleep disorder, unspecified] Onset: 06-30-2025 Episodic Substance-related disorders (3 sources) Nicotine dependence, unspecified, uncomplicated; Translations: [Tobacco use disorder] Onset: 11-19-2024 Chronic Unclassified (2 sources) CONTACT WITH AND SUSPECTED EXPOSURE TO COVID-19; Translations: [CONTACT WITH AND SUSPECTED EXPOSURE TO COVID-19] Onset: 04-19-2021 Unclassified (1 source) Medication Follow-up Onset: 02-08-2025 Urinary tract infections (20 sources) Urinary tract infectious disease; Translations: [Urinary tract infection, site not specified] 04-28-2020 Episodic Viral infection (7 sources) Viral disease; Translations: [Viral infection, unspecified] 11-04-2018 Episodic Past or Other Problems Problem Classification Problem Date Documented Da te Episodic/Chronic Deficiency and other anemia (2 sources) Anemia; Translations: [Anemia, unspecified] Onset: 7 Resolved: 5 11-19-2024 Episodic Fracture of upper limb (1 source) Displaced fracture of proximal phalanx of left middle finger, initial encounter for closed fracture; Translations: [Displaced fracture of proximal phalanx of left middle finger, initial encounter for closed fracture] Onset: 4 Episodic Gastrointestinal hemorrhage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 hematuria. Extremities: No obvious deformities from prior traumas. Patient does have possible rib fracture left-sided lower rib cage anteriorly. Skin: No rashes. No dermatitis. Patient is wearing a wig. She indicates that she has had hair loss bifrontally. Neurologic: No seizures identified. No prior strokes noted. Psychiatric: Patient is receiving treatment for anxiety and depression. Exam Const Other: Blood pressure 102/62 pulse 67 respiration 16 temperature 98.6 O2 sat 98%. BMI is 24.4%. General appearance that well-developed well-nourished female no acute distress HEENT: No obvious cranial trauma. Conjunctiva clear. No epistaxis. Respiratory: No wheezing at this time. Few sonorous breath sounds heard near apices of both lungs. Cardiac: Regular rhythm no murmurs. Abdomen not distended Extremities: No evidence of definite tr (more content not included)... Normal [facility] Urgent Care Visit Reporton 0 03-10-2025 Urgent Care Visit Report [facility] [address], [address] [place] [address] OFFICE VISIT Date of Service: 03/10/25 MR#: [id number] Acct: [id number] Name: MARYLU WISEMAN Rep #: [id number] : 1995 Provider: DALTON Galindo Age/Sex: 30/F Location: [facility] Status: Signed Intake Vital Signs 02/18/25 10:00 03/10/25 09:18 Height 5 ft 3 in Weight: 134 lb BMI 23.7 BP 110/70 108/58 L Blood Pressure Location Lt brachial Rt brachial Position Sitting Sitting Respiration 16 15 Pulse 70 69 Pulse Source Monitor NIBP Temp 98.0 F 98.4 F Temp Source Temporal Oral Pulse Oximetry (%) 99 98 Oxygen Delivery Method room air room air Intake Visit Reasons: L EAR PAIN 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 +nausea. PFSH Medical History Pharyngitis Contusion of left middle finger Closed fracture of proximal phalanx of left middle finger Acute bronchitis, unspecified Sinusitis Acute pharyngitis, unspecified Chronic constipation UTI (urinary tract infection) Urinary frequency RLQ abdominal pain Abdominal pain Migraines Heart murmur HPV (human papilloma virus) infection Endometriosis Depression Anxiety Frequent UTI Decreased movement 35 weeks gestation of Pharyngitis URI (upper respiratory infection) No significant past medical history Laryngitis Contusion of right foot, initial encounter UNEXPLAINED BRUISES Asthma Anemia Stomach ulcer Arthritis Surgical History History of tubal ligation Family History Mother Anxiety and depression Heart disease Cancer lung Father Anxiety and depression Diabetes Other Hyperlipemia Social History Smoking Status: Current every day smoker tobacco type: cigarettes Tobacco: How many years used: 10 alcohol intake: current alcohol intake frequency: a few times a month substance use type: does not use what type of physical activity do you participate in: none HPI HPI Chief Complaint: left ear, dizzy Details: MARYLU WISEMAN, is a 30 F who presents to the office today for complaint of left ear pain and feeling of dizziness secondary to feeling like there is water in her left ear. Patient does state that the dizziness made her somewhat nauseous yesterday. She denies otorrhea or complete hearing loss. No fever, chills, sweats. No other associated symptoms or alleviating/aggravating factors. ROS Const Constitutional: No other (As above) Exam Const General: cooperative and well developed HENMT Head: normal to inspection and atraumatic Ears: hearing grossly normal bilaterally, EAC abnormal erythema on the left, edema on the left and EAC tenderness on the left and TM abnormal bulging on the left, erythematous on the left and with fluid behind the TM Nose: nasal discharge clear Face and sinus: normal facial exam Mouth: oral mucosae normal Throat: abnormal tonsil bilaterally hypertrophy 1+ Resp Effort Inspection: normal respiratory effort and no audible wheezes Auscultation: Bilateral: Clear to Auscultation Cardio Rate: regular rate Rhythm: regular rhythm Neuro General: patient alert Psych Appearance: grossly normal Mental Status: mental status grossly normal Coding Level of Care Code Off vis,est,level 3 Diagnoses Acute left otitis media H66.92 Acute diffuse otitis externa of left ear H60.312 Vertigo R42 Assessment and Plan Assessment and Plan (1) Acute left otitis media: Status: Acute (2) Acute diffuse otitis externa of left ear: Status: Acute (3) Vertigo: Status: Acute Medications: New amoxicillin-pot clavulanate 875-125 mg 1 TAB PO Q12H 20 tabs 0RF 10 days J01.90 - Acute sinusitis, unspecified ipratropium bromide administer into each nostril 2 sprays intranasal BID-TID PRN 30 mL 0RF postnasal drainage meclizine 25 mg PO BID PRN 20 tabs 0RF dizziness [id number] 3.5-10,000-1 mg/mL-unit/mL-% apply to (cotton) wick; replace wick every 24 hours 3 drps otic (ear) Q4H 10 mL 0RF 10 days Plan Augmentin, nasal spray, eardrops and meclizine as prescribed today. Encouraged to get plenty of rest, drink lots of clear liquids, and use Tylenol or Ibuprofen (unless contraindicated) for fever and comfort. Patient also educated on other symptomatic kendall (more content not included)... Normal [facility] Internal Medicine Office Vis itobuddy 02-18-2025 Internal Medicine Office Visit [facility] [address] [place] [address] [place] [address] OFFICE VISIT Date of Service: 02/18/25 MR#: [id number] Acct: [id number] Name: MARYLU WISEMAN Rep #: [id number] : 1995 Provider: DALTON Martinez Age/Sex: 30/F Location: [facility] Status: Signed Intake Vital Signs 12/16/24 18:54 02/18/25 10:00 Height 5 ft 3 in 5 ft 3 in Weight: 139 lb 134 lb BMI 24.6 23.7 BP 113/80 110/70 Blood Pressure Location Lt brachial Position Sitting Respiration 13 16 Pulse 66 70 Pulse Source Monitor Temp 97.8 F 98.0 F Temp Source Temporal Temporal Pulse Oximetry (%) 100 99 Oxygen Delivery Method room air Intake Visit Reasons: ACUTE DISCUSS SLEEP APNEA Chief Complaint: ACUTE DISCUSS SLEEP APNEA Is patient in pain?: Yes (SEVERE MIGRAINE) Pain scale (1-10): 8 Allergies No Known Allergies Allergy (Verified 02/18/25 09:55) Medications ???Medication ???Instructions ???Recorded ???Confirmed ???Type fluoxetine 10 mg capsule 20 mg PO DAILY 02/18/25 02/18/25 H istory linaclotide 145 mcg capsule 145 mcg PO QAM PRN 02/18/25 History (Linzess) PFSH Medical History Pharyngitis Contusion of left middle finger Closed fracture of proximal phalanx of left middle finger Acute bronchitis, unspecified Sinusitis Acute pharyngitis, unspecified Chronic constipation UTI (urinary tract infection) Urinary frequency RLQ abdominal pain Abdominal pain Migraines Heart murmur HPV (human papilloma virus) infection Endometriosis Depression Anxiety Frequent UTI Decreased movement 35 weeks gestation of Pharyngitis URI (upper respiratory infection) No significant past medical history Laryngitis Contusion of right foot, initial encounter UNEXPLAINED BRUISES Asthma Anemia Stomach ulcer Arthritis Surgical History History of tubal ligation Family History Mother Anxiety and depression Heart disease Cancer lung Father Anxiety and depression Diabetes Other Hyperlipemia Social History Smoking Status: Current every day smoker tobacco type: cigarettes Tobacco: How many years used: 10 alcohol intake: current alcohol intake frequency: a few times a month substance use type: does not use what type of physical activity do you participate in: none Questionnaire STOP-BANG Sleep Apnea STOP Do you SNORE loudly? (louder than talking or loud enough to be heard through closed doors)?: No Do you feel TIRED, fatigued, or sleepy during daytime?: Yes Has anyone OBSERVED you stop breathing during your sleep?: No Do you have or are you being treated for high blood PRESSURE?: No BANG BMI more than 35kg/m2?: No AGE over 50 years old?: No NECK circumference>16 inches (40cm)?: No GENDER: Male?: No SCORE Total Score: Low risk of ROSE: Yes 0-2 HPI HPI Chief Complaint: ACUTE DISCUSS SLEEP APNEA Details: MARYLU WISEMAN, is a 30 F who presents to the office today to discuss some recent findings from her smart watch. She first noticed that her blood oxygen at night was low and her heart rate would also be low as well. She then started to monitor this and noticed that she would be having low oxygen regularly. She states that she does feel like she has difficulties waking up in the morning that it seems to take her a long time to get up and moving. She just feels drowsy first thing in the AM and then sometimes through the day still feels fatigued. Patient does not have her appt with neurology until April Patient states that she did quit her job and tried to make some lifestyle changes and states that she actually was feeling a lot better. She states that her brain fog / memory was doing better and she felt energetic and just overall felt better. She states though that she has been starting to get active again and just noticed the symptoms seemed to still be there. ROS Const Constitutional: Positive for fatigue (C/O SEVERE FATIGUE; MUST NAP IN THE AFTERNOON) and sleep problems (PATIENT REPORTS WATCH ALERTING ABOUT OXYGEN AND HR); No body ache, chills, excessive sweating, fever(s), frequent falls, headache(s), snoring, weakness or change in appetite Eyes Eyes: No blurry vision, change in vision or Light sensitivity ENT ENT: No abnormal hearing, ear or mastoid pain, tinnitus, nasal congestion, nasal discharge, headache(s), neck pain or sore throat Resp Respiratory: No cough, shortness of breath, snoring or wheezing Cardio Cardiology: Positive for other (REPORTS LARGE SWINGS IN HR (47-115)); No chest pain at rest, chest pain with exertion, excessive sweating, shortness of breath, dyspnea on (more content not included)... Normal [facility] Tilt Tableon 05-06-2025 Tilt Table [facility] [address] [place] [address] 01/04/251732 MR#: [id number] Acct: [id number] Name: MARYLU WISEMAN Rep #: [id number] : 1995 29 From: Dominic Gomes MD Attending Dr: DALTON Martinez Status: REG CLI Ordering Dr: Abhinav Mendoza Date: 01/04/25 Location: [facility] Sex: F C Admitted: Staff Staff: Jenifer Cm and Cherri Rome Summary Pre Test Resting HR: 63 Pre Test Resting BP: 110/60 Minimum Test HR: 56 Maximum Test HR: 83 Minimum Test BP: 93/70 Maximum Test BP: 107/67 Physician Tilt Table Report Patient's Physicians Primary Care Physician: Lizzy Francois Indications/Diagnosis: Syncope Procedure Comments: Patient presented to the noninvasive lab in the postabsorptive nonsedated state. Informed consent was obtained. Initial EKG and blood pressure was obtained was noted to be 63 bpm and 110/60 mmHg. The patient was then put in the 70 degree head upright tilt position for total duration of 30 minutes. Patient maintained sinus rhythm and stable blood pressures. Patient did complain of dizziness and tingling sensation which persisted throughout the testing. There was however no significant diminution or increase in heart rate for the duration of the testing. The patient was then after 30 minutes put back in the recumbent position and recovered and remained stable. Summary: Negative head upright tilt table testing. 01/04/251735 Date Dominic Gomes MD CC: Dr. Lizzy Francois MD; DALTON Martinez Date Dictated: 01/04/251732 Date Transcribed: 01/04/251732 Chart Reader: CO Signed Normal [facility] Emergency Department Summary on 12-16-2024 Emergency Department Summary [facility] Medical Records Department [address] [place] [address] Emergency Department Summary 12/16/24 MR#: [id number] Acct: [id number] Name: MARYLU WISEMAN Rep #: [id number] : 1995 29 From: Seamus Lopez PCP: Dr. Lizzy Francois MD Status:DEP ER Location: ED HPI History of Present Illness Chief Complaint: Head Injury Informant: patient Narrative Narrative: Evaluation after being hit by baseball to the face 6:20 PM. Playing with her son when he was pitching to her and hit her in the face accidentally. Pain to the face. No headache no neck pain. No anticoagulation. She reports a bystander gave her the pain medicine she does not know exactly which 1. PFSH [facility] Medical History Pharyngitis Contusion of left middle finger Closed fracture of proximal phalanx of left middle finger Acute bronchitis, unspecified Sinusitis Acute pharyngitis, unspecified Chronic constipation UTI (urinary tract infection) Urinary frequency RLQ abdominal pain Abdominal pain Migraines Heart murmur HPV (human papilloma virus) infection Endometriosis Depression Anxiety Frequent UTI Decreased movement 35 weeks gestation of Pharyngitis URI (upper respiratory infection) No significant past medical history Laryngitis Contusion of right foot, initial encounter UNEXPLAINED BRUISES Asthma Anemia Stomach ulcer Arthritis Home Medications ???Medication ???Instructions ???Recorded ???Last Taken ???Type sennosides 8.6 mg-docusate sodium 1 tab-cap PO DAILY 14 days #14 ta bs 11/17/24 Unknown Rx 50 mg tablet (Senna with Docusate Sodium) fluoxetine 10 mg capsule 10 mg PO DAILY 12/16/24 Unknown Hi story Allergy/AdvReac Type Severity Reaction Status Date / Time No Known Allergies Allergy Verified 12/16/24 18:56 Family History Mother Anxiety and depression Heart disease Cancer lung Father Anxiety and depression Diabetes Other Hyperlipemia Surgical History History of tubal ligation Social History Smoking Status: Current every day smoker tobacco type: cigarettes Tobacco: How many years used: 10 alcohol intake: current alcohol intake frequency: a few times a month substance use type: does not use what type of physical activity do you participate in: none ROS ROS ED Constitutional Constitutional ED: Denies fever(s) ENT ENT ED: Reports other Details: Facial pain Cardiovascular Cardiovascular: Denies chest pain Respiratory/Chest Respiratory/Chest: Denies cough Gastrointestinal Gastrointestinal: Denies diarrhea, nausea or vomiting Musculoskeletal Musculoskeletal: Denies back pain, extremity pain or neck pain Integumentary Denies wounds Neurologic Neurologic: Denies headache(s), paresthesias or weakness EXAM Physical Exam Const Vital Signs: 12/16/24 18:54 12/16/24 20:27 12/16/24 20:53 Temperature 97.8 F Temperature Source Temporal Pulse Rate 66 Respiratory Rate 13 18 Respiratory Effort Normal Blood Pressure 113/80 Blood Pressure Mean 91 Pulse Ox 100 Oxygen Delivery Method Room Air Positive well nourished and well developed General Appearance ED: well developed and NAD HEENT Reports moist mucous membranes HEENT Narrative: Swelling slight ecchymosis inferior orbital. Swelling to the zygomatic bone with tenderness. normocephalic Eyes EOMs intact bilaterally General Eye ED: Yes normal appearance of both eyes and other Other Details: No entrapment or proptosis. No hyphema. No subconjunctival hemorrhage noted. Neck full ROM Chest Wall Chest: Negative for tenderness Resp normal respiratory effort and normal air movement Effort and Inspection: symmetric chest movement; Negative for respiratory distress Cardio regular rate, regular rhythm and no murmurs Peripheral Pulses: pulses 2+ throughout GI normal to inspection, nondistended, normoactive bowel sounds and non-tender Palpation: Negative for guarding or rebound tenderness present Extremity normal to inspection General Extremety ED: Negative for edema or tenderness General Extremity: Negative for edema Neuro oriented x3, CN's II-XII intact bilaterally and no sensory deficits noted Sensorium / Orientation: awake and alert Skin no rashes or lesions noted and no wounds MDM MDM MDM Narrative Medical decision making narrative: Interventions / MDM: Differential diagnosis: Facial contusion, periorbital ecchymosis Diagnosis considered but do not suspect: No clinical concussion, Nexus CT head criteria negative low suspicion for intracranial hemorrhage. Fracture ho (more content not included)... Normal [facility] Sinus/Facial Boneon 12-17-19 Sinus/Facial Bone [facility] Imaging Services [address] [place] [address] Sinus/Facial Bone MR#: [id number] Acct: [id number] Name: MARYLU WISEMAN Rep #: [id number] : 1995 F 29 From: Nicolas Villagran DO PCP: Dr. Lizzy Francois MD Status: REG ER Study: Sinus/Facial Bone Date of Exam: 12/16/24 Exam# [id number] Ordering Dr: Seamus Calvo DO PROCEDURE: SINUS/FACIAL BONE REASON FOR EXAM: FACIAL INJURY TECHNIQUE: CT of the paranasal sinuses with contrast. Coronal and Sagittal reconstruction series were provided. CONTRAST: Not provided VOLUME: Not provided mL Not Provided Gauge IV One or more dose reduction techniques were used (e.g., Automated exposure control, adjustment of the mA and/or kV according to patient size, use of iterative reconstruction technique). RADIATION DOSE SUMMARY: CTDlvol: 29 mGy DLP: 547 mGycm COMPARISON: None. FINDINGS: Frontal: Unremarkable Ethmoid: Unremarkable Sphenoid: Unremarkable Maxillary: Unremarkable Turbinates: Unremarkable Nasal Septum: Unremarkable Mastoids/Middle Ears: Unremarkable No acute fracture. No soft tissue abnormalities demonstrated. CT/Sinus/Facial Bone IMPRESSION: No acute abnormality is demonstrated. Reading Location: [facility] CC: Dr. Lizzy Francois MD; Dr. Seamus Calvo DO Chart Reader: Signed Normal [facility] Echo Completeon 12-10-2024 Echo Complete [facility] Cardi[facility] Services [address] [place] [address] Echo Complete 12/10/24 1358 MR#: [id number] Acct: [id number] Name: MARYLU WISEMAN Rep #: [id number] : 1995 29 From: Dominic Gomes MD Attending Dr: DALTON Martinez Status: REG CLI Ordering Dr: Abhinav Mendoza Date: 12/10/24 Location: [facility] Sex: F C Admitted: Reason For Study Reason For Study: Syncope Procedure This was a 2D Doppler, Color Flow transthoracic echocardiogram. Exam performed in department. Left Ventricle Normal LV size. Left ventricular systolic function is normal. The left ventricular ejection fraction is 60 %. No regional wall motion abnormalities noted. Right Ventricle Normal RV size. Normal systolic function. Atria Normal left atrium. Normal right atrium. Mitral Valve Normal mitral valve. Tricuspid Valve Normal tricuspid valve. Aortic Valve Trisinus/trileaflet aortic valve. Pulmonic Valve Normal pulmonic valve. Great Vessels Normal aortic root. The pulmonary artery is normal size. Inferior vena cava collapse with respiration. Pericardium/Pleural No pericardial effusion. MMode/2D Measurements Calculations LVIDd: 4.6 cm IVSd: 0.58 cm Ao root diam: 2.1 cm LVIDs: 3.2 cm LVPWd: 0.74 cm RVDd: 2.8 cm FS: 29.1 % _ LAV(MOD-bp): 24.3 ml LVAd ap4: 29.8 cm2 LVAd ap2: 31.7 cm2 LAV(MOD-bp) Indexed: 15.1 ml/m2 LVLd ap4: 8.3 cm LVLd ap2: 8.5 cm LAV(MOD-sp2): 24.3 ml EDV(MOD-sp4): 89.3 ml EDV(MOD-sp2): 98.9 ml LAV(MOD-sp4): 22.3 ml EDV(sp4-el): 91.1 ml EDV(sp2-el): 100.7 ml LVAs ap4: 17.2 cm2 LVAs ap2: 18.2 cm2 LVLs ap4: 7.1 cm LVLs ap2: 7.2 cm ESV(MOD-sp4): 34.4 ml ESV(MOD-sp2): 39.1 ml ESV(sp4-el): 35.2 ml ESV(sp2-el): 39.2 ml EF(MOD-sp4): 61.5 % EF(MOD-sp2): 60.4 % EF(sp4-el): 61.4 % _ SV(MOD-sp4): 54.9 ml SV(MOD-sp2): 59.8 ml SV(sp4-el): 55.9 ml SI(MOD-sp4): 34.1 ml/m2 SI(MOD-sp2): 37.1 ml/m2 _ LA A4 area: 10.6 cm2 LA dimension(2D): 2.5 cm RA A4 area: 8.4 cm2 _ TAPSE: 2.0 cm Time Measurements MV dec time: 0.14 sec Doppler Measurements Calculations MV E max nico: 77.6 cm/sec Lat Peak E' Nico: 20.4 cm/sec Med Peak E' Nico: 14.4 cm/sec MV A max nico: 58.5 cm/sec E/E' lat: 3.8 E/E' med: 5.4 MV E/A: 1.3 _ Ao V2 max: 121.8 cm/sec LV V1 max: 96.8 cm/sec MV dec slope: 565.0 cm/sec2 Ao max P.9 mmHg LV V1 max P.8 mmHg Ao V2 mean: 89.8 cm/sec LV V1 mean P.0 mmHg Ao mean P.6 mmHg LV V1 mean: 67.2 cm/sec Ao V2 VTI: 26.7 cm LV V1 VTI: 21.3 cm AV (velocity ratio): 0.80 _ PA V2 max: 84.5 cm/sec TR max nico: 196.8 cm/sec TR max P.5 mmHg ECHO/Echo Complete Interpretation Summary Normal LV size. Left ventricular systolic function is normal. The left ventricular ejection fraction is 60 %. Structurally normal valves. Ordering Physician: Abhinav Mendoza Referring Physician: Abhinav Mendoza Performed By: Melvina Lord RDCS 12/13/24922 Date Dominic Gomes MD CC: Dr. Lizzy Francois MD; DALTON Martinez Date Dictated: 12/10/24 1358 Date Transcribed: 12/13/24922 Chart Reader: Signed Normal [facility] Brain W/WO Contraston 2024 Brain W/WO Contrast [facility] Imaging Services [address] [place] [address] Brain W/WO Contrast MR#: [id number] Acct: [id number] Name: MARYLU WISEMAN Rep #: [id number] : 1995 F 29 From: Bernardo Slade DO PCP: Dr. Lizzy Francois MD Status: REG CLI Study: Brain W/WO Contrast Date of Exam: 11/29/24 Exam# [id number] Ordering Dr: Abhinav Mendoza PROCEDURE: BRAIN W/WO CONTRAST 11/29/2024 REASON FOR EXAM: RULE OUT MS. Blurred vision, loss of right arm functionality, numbness and tingling TECHNIQUE: Brain MRI without and with intravenous contrast with additional dedicated imaging of the IACs. CONTRAST: 13 mL Clariscan COMPARISON: None. FINDINGS: Brain: No mass, mass effect or midline shift. No significant T2/FLAIR hyperintense signal. Minimal signal in the periventricular white matter Diffusion weighted images: No restricted diffusion. Ventricles: Normal Major Intracranial Vessels: Normal flow voids identified. Sinuses: Unremarkable Mastoids: No effusions. IACs: No evidence of mass or other pathology of the IAC's Cranial Nerves VII and VIII: Intact Cochlea, Vestibule and Semicircular Canals: Normal Middle Ear Cavities: Normal MRI/Brain W/WO Contrast IMPRESSION: No acute process detected. No abnormal enhancement. Minimal white matter punctate and periventricular T2/FLAIR hyperintense signal in the posterior parietal white matter, possibly age-related microangiopathy. If symptoms persist follow-up MRI brain without with contrast might be considered There is otherwise no significant abnormal T2/FLAIR signal that was suggest presence of sclerosing plaque Reading [facility] CC: Dr. Lizzy Francois MD; DALTON Martinez Chart Reader: Signed Normal [facility] C. trachomatis+N. gonorrhoea e DNA BEN+probe Ql (Unsp spec)on 11-19-2024 C. trachomatis rRNA BEN+probe Ql (Unsp spec) Not detected Normal Not detected [facility] Comment on above: Order Comment: Speci men Type: SWAB Ordering Facility: [facility] Address: [address] [place] [address] Performed By: #### T RVAMP, 80745-5 #### [facility] CLIA [id number] [address] [place] [address] STATES OF [facility] N. gonorrhoeae rRNA BEN+probe Ql (Unsp spec) Not detected Normal Not detected [facility] Comment on above: Order Comment: Speci men Type: SWAB Ordering Facility: [facility] Address: [address] [place] [address] Performed By: #### T RVAMP, 35893-8 #### [facility] CLIA [id number] [address] [place] [address] [place] CNOVon 11-19-2024 CNOV Office Visit (OBGYWM ) -------- MARYLU WISEMAN ([id number]) 1995 F Date Time Provider Department 11/19/24 7:30 AM ISABELLA VIGIL OBSTEPHANI During your visit today, we recorded the following information about you: Blood pressure Weight Height Last Period 110/64 61.3 kg 1.6 m 11/10/24 Isabella Vigil APRN.MICROSTRATEGY ARCHITECT 11/29/2024 11:39 AM Addendum 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 Marylu is a 29 year old who presents for an annual gynecologic exam without complaints. Still get period: Yes LMP: 11/10/2024 Menses: every 25-30 days and flow lasting 4 days with light flow control: tubal ligation HPV vaccine: No; HPV:positive, unknown date. Last pap smear: unknown. 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 LMP: 11/10/2024 (Exact Date), Having periods Age at Menarche: 8 Age at First : Age at Menopause: Shop Director History Comments: Sexual Activity: Yes; Male Contraception: No contraception data on record Menstrual Tracking History Flowsheet Row Office Visit from 11/19/2024 in OB/Gynecology Period Cycle (Days) 4 Period Duration (Days) 4 Menstrual Flow Moderate PAST MEDICAL HISTORY Diagnosis Date Anemia Asthma Cervical cancer (HCC) Pt reported Endometriosis Pt reported age 17 Heart murmur PAST SURGICAL HISTORY Procedure Laterality Date CERVIX UTERI CONIZA LP ELCTRO EXCI Pt reported LAPAROSCOPY DIAGNOSTIC 2013 endometriosis FAMILY HISTORY Problem Relation Age of Onset Asthma Mother Heart Mother Asthma Father Asthma Maternal Aunt Diabetes Maternal Aunt Heart Maternal Grandmother Heart Maternal Uncle Heart Maternal Uncle SOCIAL HISTORY Social History Tobacco Use Smoking status: Every Day Smokeless tobacco: Never Vaping Use Vaping status: Never Used Substance Use Topics Alcohol use: No Drug use: No REVIEW OF SYSTEMS Abdomen: IBS Bladder: No dysuria, gross hematuria, urinary frequency, urinary urgency, or incontinence. Breast: No breast lumps, nipple d/c, overlying skin changes, redness or skin retraction. Allergies and current medication updated:Yes SENSITIVE EXAM: The sensitive examination was discussed with the Patient or Patient's Authorized Pickling Drum Operator. As applicable, any other physician, advance practice provider, medical student, or other health professional student that will be observing or involved in the sensitive examination for educational or training purposes was discussed with the Patient or Authorized Pickling Drum Operator. The Patient or Authorized Pickling Drum Operator has agreed to proceed with the sensitive examination. (Sensitive examination includes inspection and/or palpation of the breasts, pelvis, prostate and anorectal regions). EXAM: BP 110/64 Ht 5' 3" (1.60m) Wt 135 lb 3.2 oz (61.3kg) LMP 11/10/2024 BMI 23.96 kg/(m2). GENERAL: pleasant, female in no apparent distress HEENT: Normocephalic, atraumatic, mucus membranes moist, and no lesions DERMATOLOGY: Normal, without lesions, non-icteric, and non-hirsute BREAST: soft, non-tender, symmetric, no dominant mass, normal nipple-areolar complex, no lymphadenopathy, and no nipple discharge CHEST: Normal inspiratory effort ABDOMEN: soft, non-tender, and no masses PELVIC: external genitalia normal, normal Bartholin's glands, urethra, Oostburg's glands, no vulvar lesions, no cervical lesions, good vaginal support, physiologic discharge present, normal appearing perineal body and perianal region BIMANUAL: uterus normal size, shape and consistency, no adnexal masses, and non-tender RECTOVAGINAL: deferred. NEURO: alert and oriented x3,exam grossly non-focal EXTREMITIES: normal ASSESSMENT/PLAN: 1) Health maintenance: Pap done with HPV. Mammogram starting age 40. Nutrition, exercise and routine health maintenance exams reviewed. Calcium/Vitamin D supplementation information provided. Colon cancer screening: start at age 45 2) Contraception: tubal sterilization. Contraceptive options reviewed and information provided. 3) STD screening: Accepts full STD screeening including HIV, Syphilis and Hepatitis. 4) Follow up one year or sooner as needed 5) PMS-Prozac 10 mg ordered- follow up in 2 months *pt is being worked up for possible POTS Isabella Vigil APRN.MICROSTRATEGY ARCHITECT Allergies As of Date: 11/19/2024 (No Known Allergies) Date Reviewed: 11/19/2024 Reviewed by: Isabella Vigil APRN.MICROSTRATEGY ARCHITECT - Fully Assessed Reason for Visit: Well Woman [1463] Primary Visit Diagnosis:Encounter for gynecological examination (general) (routine) without abnormal findings [Z01.419] Other Visit Diagnoses:Sc (more content not included)... Normal [facility] HBV surface Ag Ser Qlon - HBV surface Ag Ql (S) Negative Normal Negative [facility] Comment on above: Order Comment: Speci men Type: BLOOD SPECIMEN Ordering Facility: [facility] Address: [address] [place] [address] Performed By: #### 7 3752-8, 5195-3, 83702-0 #### [facility] CLIA [id number] [address] [place] [address] [place] HCV Ab Ser Qlon 11-19-2024 HCV Ab Ql (S) Negative Normal Negative [facility] Comment on above: Order Comment: Speci men Type: BLOOD SPECIMEN Ordering Facility: [facility] Address: [address] [place] [address] Result Comment: The result suggests no evidence of infection with Hepatitis C virus. Should recent infection be suspected, repeat testing may be considered 4-6 weeks after this draw. Performed By: #### 1 6128-1 #### [facility] CLIA [id number] [address] [place] [address] [place] HIGH RISK HUMAN PAPILLOMA IWONA (HPV), PCR FOR DETECTION AND GENOTYPINGon 11-19-2024 HPV 16 Ag Ql (Unsp spec) Not detected Normal Not detec bhavani [facility] Comment on above: Order Comment: Speci men Type: FLUID SPECIMEN Ordering Facility: [facility] Address: [address] [place] [address] Performed By: #### H PVHRT #### [facility] CLIA [id number] [address] [place] [address] [place] HPV 18 Ag Ql (Unsp spec) Not detected Normal Not detec [facility] Comment on above: Order Comment: Speci men Type: FLUID SPECIMEN Ordering Facility: [facility] Address: [address] [place] [address] Performed By: #### H PVHRT #### [facility] CLIA [id number] [address] [place] [address] [place] HPV 31+33+35+39+45+51+52+56+ 58+59+66+68 DNA BEN+probe Ql (Cvx) Not detected Normal Not detected [facility] Comment on above: Order Comment: Speci men Type: FLUID SPECIMEN Ordering Facility: [facility] Address: [address] [place] [address] Result Comment: High Risk HPV Other Type includes HPV types 31, 33, 35, 39, 45, 51, 52, 56, 58, 59, 66 and 68. Performed By: #### H PVHRT #### [facility] CLIA [id number] [address] [place] [address] [place] HIV 1+2 Ab IA Qlon 5 HIV 1 and 2 Ab IA.rapid Nom (S/P/Bld) Normal [facility] Comment on above: Order Comment: Speci men Type: BLOOD SPECIMEN Ordering Facility: [facility] Address: [address] [place] [address] Result Comment: Test not indicated. Performed By: #### 7 3752-8, 5195-3, 83242-7 #### [facility] CLIA [id number] [address] [place] [address] [place] HIV 1+2 Ab+HIV1 p24 Ag IA Ql Non-Reactive Normal Nonreactive [facility] Comment on above: Order Comment: Speci men Type: BLOOD SPECIMEN Ordering Facility: [facility] Address: [address] [place] [address] Performed By: #### 7 3752-8, 5195-3, 66965-3 #### [facility] CLIA [id number] [address] [place] [address] [place] HIV immunoassay testing algorithm interpretation (S/P/Bld) [Interp] Normal [facility] Comment on above: Order Comment: Speci men Type: BLOOD SPECIMEN Ordering Facility: [facility] Address: [address] [place] [address] Result Comment: No e vidence of HIV-1 or HIV-2 infection. Should recent infection be suspected, repeat testing may be considered 2-3 weeks after this draw. [place] Rev. Code 3701.243(E): This information has been disclosed to you from confidential records protected from disclosure by state law. ???You shall make no further disclosure of this information without the specific, written, and informed release of the individual to whom it pertains or as otherwise permitted by state law. A general authorization for the release of medical or other information is not sufficient for the purpose of the release of HIV test results or diagnoses. Performed By: #### 7 3752-8, 5195-3, 82738-2 #### [facility] CLIA [id number] [address] [place] [address] [place] PAP TESTon 11-19-2024 ADEQUACY Normal [facility] Comment on above: Order Comment: Speci men Type: FLUID SPECIMEN Ordering Facility: [facility] Address: [address] [place] [address] Result Comment: Sati sfactory for interpretation. No endocervical component Performed By: #### L [id number] #### [facility] CLIA [id number] [address] [place] [address] [place] CASE REPORT Normal [facility] Comment on above: Order Comment: Speci men Type: FLUID SPECIMEN Ordering Facility: [facility] Address: [address] [place] [address] Result Comment: Gyne cologic Cytology Report Case: [id number] Authorizing Provider: Isabella Vigil APRN.MICROSTRATEGY ARCHITECT Collected: 11/19/2024 08:15 AM Ordering Location: OB/Gynecology Received: 11/19/2024 11:22 AM First Screen: Cesar, Nba, CT, ASCP Specimen: Pap Test, ThinPrep, Cervix Performed By: #### L [id number] #### [facility] CLIA [id number] [address] [place] [address] [place] CLINICAL HISTORY, CYTOLOGY, SEMIAUTOMATIC STITCHER OPERATOR Routine Exam Normal [facility] Comment on above: Order Comment: Speci men Type: FLUID SPECIMEN Ordering Facility: [facility] Address: [address] [place] [address] Performed By: #### L [id number] #### [facility] CLIA [id number] [facility] [place] [id number] [place] CYTOLOGY PAP OTHER INTERPRETATION Predominance of coccobacilli consistent with shift in vaginal duane. Normal [facility] Comment on above: Order Comment: Speci men Type: FLUID SPECIMEN Ordering Facility: [facility] Address: [address] [place] [address] Performed By: #### L [id number] #### [facility] CLIA [id number] [facility] [place] [id number] [place] FINAL PERFORMING LAB Normal [facility] Comment on above: Order Comment: Speci men Type: FLUID SPECIMEN Ordering Facility: [facility] Address: [address] [place] [address] Result Comment: Tech nical component, coating mixer tender screening performed at [facility], [address] [place] [address] [place] [address] CLIA# [id number] Diagnostic interpretation performed at [facility], [address] [place] [address] [place] [address] CLIA# [id number] Home Paraprofessional: Quoc Carmichael M.D. Performed By: #### L [id number] #### [facility] CLIA [id number] [address] [place], [place] [address] [place] INTERPRETATION, CYTOLOGY, SEMIAUTOMATIC STITCHER OPERATOR Normal [facility] Comment on above: Order Comment: Speci men Type: FLUID SPECIMEN Ordering Facility: [facility] Address: [address] [place], [place] [id number] Result Comment: Nega tive for intraepithelial lesion or malignancy. at 1328 EDT Performed By: #### L [id number] #### [facility] CLIA [id number] [address] [place] [address] [place] LMP 11/10/2024 Normal [facility] Comment on above: Order Comment: Speci men Type: FLUID SPECIMEN Ordering Facility: [facility] Address: [address] [place] [address] Performed By: #### L [id number] #### [facility] CLIA [id number] [address] [place] [address] [place] PAP DISCLAIMER COMMENT The Pap Smear is a screening test for cervical cancer. False negative results occur with all screening tests, emphasizing the need for rescreening at recommended intervals, and clinical correlation. Normal [facility] Comment on above: Order Comment: Speci men Type: FLUID SPECIMEN Ordering Facility: [facility] Address: [address] [place] [address] Performed By: #### L [id number] #### [facility] CLIA [id number] [address] [place] [address] [place] PAP COOK HELPER PRESERVES COMMENT This specimen has be en analyzed by the ThinPrep Imaging System, an automated imaging and review system, which assists the laboratory in evaluating cells on ThinPrep Pap tests. Following automated imaging, selected baker from every slide are reviewed by a coating mixer tender. Normal [facility] Comment on above: Order Comment: Speci men Type: FLUID SPECIMEN Ordering Facility: [facility] Address: [address] [place] [address] Performed By: #### L [id number] #### [facility] CLIA [id number] [address] [place] [address] [place] Reagin and Treponema pallidu m IgG and IgM [Interp]on 11-19-2024 T. pallidum IgG+IgM IA Ql (S) Non-Reactive Normal Nonreactive [facility] Comment on above: Order Comment: [place] men Type: BLOOD SPECIMEN Ordering Facility: [facility] Address: [address] [place] [address] Performed By: #### 7 3752-8, 5195-3, 06936-8 #### [facility] CLIA [id number] [address] [id number] [address] [place] Reagin+T pallidum IgG+IgM Se rPl-Impon 11-19-2024 Reagin and Treponema pallidum IgG and IgM [Interp] Cannot exclude recent Treponemal infection if specimen collected within 7-10 days after appearance of suspect lesions or 2-3 weeks after an exposure. Clinical correlation is required. Normal [facility] Comment on above: Order Comment: Speci men Type: BLOOD SPECIMEN Ordering Facility: [facility] Address: [address] [place] [address] Performed By: #### 7 3752-8, 5195-3, 34405-4 #### [facility] CLIA [id number] [address] [place] [address] [place] TRICHOMONAS VAGINALIS NAATon 11-19-2024 T. vaginalis DNA BEN+probe Ql (Unsp spec) Not detected Normal Not detected [facility] Comment on above: Order Comment: Speci men Type: SWAB Ordering Facility: [facility] Address: [address] [place] [address] Performed By: #### T RVAMP, 69016-6 #### [facility] CLIA [id number] [address] [place] [address] [place] Abdomen/Pelvis W IV Cont ONL Yon 11-17-2024 Abdomen/Pelvis W IV Cont ONLY [facility] [address] [place], [place] [address] Abdomen/Pelvis W IV Cont ONLY MR#: [id number] Acct: [id number] Name: MARYLU WISEMAN Rep #: [id number] : 1995 F 29 From: Guillaume Calvo MD PCP: Dr. Lizzy Francois MD Status: [facility] ER Study: Abdomen/Pelvis W IV Cont ONLY Date of Exam: Exam# [id number] Ordering Dr: Colby Vázquez DO EXAM: CT Abdomen and Pelvis With Intravenous Contrast CLINICAL INDICATION: RIGHT LOWER QUADRANT ABDOMINAL PAIN TECHNIQUE: Axial computed tomography images of the abdomen and pelvis with intravenous contrast. This CT exam was performed using one or more of the following dose reduction techniques: automated exposure control, adjustment of the mA and/or kV according to patient size, and/or use of iterative reconstruction technique. COMPARISON: No relevant prior studies available. FINDINGS: LUNG BASES: Unremarkable. No mass. No consolidation. ABDOMEN: LIVER: Hepatomegaly with fatty infiltration. GALLBLADDER AND BILE DUCTS: Unremarkable. No calcified stones. No ductal dilation. PANCREAS: Unremarkable. No mass. No ductal dilation. SPLEEN: Unremarkable. No splenomegaly. ADRENALS: Unremarkable. No mass. KIDNEYS AND URETERS: Unremarkable. No stones within either kidney. No hydronephrosis. STOMACH AND BOWEL: Fecal retention in the colon consistent with constipation. No obstruction. No mucosal thickening. PELVIS: APPENDIX: Normal appendix. BLADDER: Unremarkable. No mass. REPRODUCTIVE: Unremarkable as visualized. ABDOMEN and PELVIS: INTRAPERITONEAL SPACE: Unremarkable. No free air. No significant fluid collection. BONES/JOINTS: No acute fracture. No dislocation. SOFT TISSUES: Unremarkable. VASCULATURE: Unremarkable. No abdominal aortic aneurysm. LYMPH NODES: Unremarkable. No enlarged lymph nodes. CT/Abdomen/Pelvis W IV Cont ONLY IMPRESSION: 1. Normal appendix. 2. Hepatomegaly with fatty infiltration. 3. Fecal retention in the colon consistent with constipation. 4. No obstructive uropathy. Reading Location: [facility] CC: Dr. Colby Vázquez DO; Dr. Lizzy Francois MD Chart Reader: Signed Normal [facility] CBC W/Diff, Automatedon - Absolute Lymph 2.92 X10 3/uL Normal 0.83-4.51 [facility] Comment on above: Performed By: #### L 503.6005, L501.2450, L100.0100, L500.4050, M100.7900, L700.6800 #### [facility] [address] [place], [address] Absolute Neut 6.1 X10 3/uL Normal 2.0-7.7 [facility] Comment on above: Performed By: #### L 503.6005, L501.2450, L100.0100, L500.4050, M100.7900, L700.6800 #### [facility] [address] [place], [address] Basophils/100 WBC (Bld) 0.6 % Normal 0-1 [facility] Comment on above: Performed By: #### L 503.6005, L501.2450, L100.0100, L500.4050, M100.7900, L700.6800 #### [facility] [address] [place], [address] Eosinophils/100 WBC (Bld) 1.4 % Normal 0-5 [facility] Comment on above: Performed By: #### L 503.6005, L501.2450, L100.0100, L500.4050, M100.7900, L700.6800 #### [facility] [address] [place], [address] Erythrocyte distribution width (RBC) [Ratio] 12.3 % Normal 11.6-14.6 [facility] Comment on above: Performed By: #### L 503.6005, L501.2450, L100.0100, L500.4050, M100.7900, L700.6800 #### [facility] [address] [place], [address] Hematocrit (Bld) [Volume fraction] 36.3 % Low 37-47 [facility] Comment on above: Performed By: #### L 503.6005, L501.2450, L100.0100, L500.4050, M100.7900, L700.6800 #### [facility] [address] [place], [address] Hemoglobin (Bld) [Mass/Vol] 12.7 g/dL Normal 12.0-15.0 [facility] Comment on above: Performed By: #### L 503.6005, L501.2450, L100.0100, L500.4050, M100.7900, L700.6800 #### [facility] [address] [place], [address] IG% 0.200 Normal 0.0-0.9 [facility] Comment on above: Result Comment: IG% - Immature Granulocytes (promyelocytes, myelocytes and metamyelocytes) > 1% indicates that a LEFT SHIFT is Present. Performed By: #### L 503.6005, L501.2450, L100.0100, L500.4050, M100.7900, L700.6800 #### [facility] [address] [place], [address] Lymphocytes/100 WBC (Bld) 30.0 % Normal 19-41 [facility] Comment on above: Performed By: #### L 503.6005, L501.2450, L100.0100, L500.4050, M100.7900, L700.6800 #### [facility] [address] [place], [address] MCH (RBC) [Entitic mass] 32.1 pg High 27.0-32.0 [facility] Comment on above: Performed By: #### L 503.6005, L501.2450, L100.0100, L500.4050, M100.7900, L700.6800 #### [facility] [address] [place], [address] MCHC (RBC) [Mass/Vol] 35.0 g/dL Normal 32-36 [facility] Comment on above: Performed By: #### L 503.6005, L501.2450, L100.0100, L500.4050, M100.7900, L700.6800 #### [facility] [address] [place], [address] MCV (RBC) [Entitic vol] 91.7 fL Normal 81-99 [facility] Comment on above: Performed By: #### L 503.6005, L501.2450, L100.0100, L500.4050, M100.7900, L700.6800 #### [facility] [address] [place], [address] Monocytes/100 WBC (Bld) 5.2 % Normal 0-10 [facility] Comment on above: Performed By: #### L 503.6005, L501.2450, L100.0100, L500.4050, M100.7900, L700.6800 #### [facility] [address] [place], [address] Neutrophils/100 WBC (Bld) 62.6 % Normal 47-70 [facility] Comment on above: Performed By: #### L 503.6005, L501.2450, L100.0100, L500.4050, M100.7900, L700.6800 #### [facility] [address] [place], [address] Nucleated RBC (Bld) [#/Vol] 0 10*3/uL Normal 0-5 [facility] Comment on above: Performed By: #### L 503.6005, L501.2450, L100.0100, L500.4050, M100.7900, L700.6800 #### [facility] [address] [place], [address] Platelet mean volume (Bld) [Entitic vol] 9.5 fL Normal 6.2-12.0 [facility] Comment on above: Performed By: #### L 503.6005, L501.2450, L100.0100, L500.4050, M100.7900, L700.6800 #### [facility] [address] [place], [address] Platelets (Bld) [#/Vol] 244 10*3/uL Normal 150-450 [facility] Comment on above: Performed By: #### L 503.6005, L501.2450, L100.0100, L500.4050, M100.7900, L700.6800 #### [facility] [address] [place], [address] RBC (Bld) [#/Vol] 3.96 10*6/uL Low 4.2-5.4 [facility] Comment on above: Performed By: #### L 503.6005, L501.2450, L100.0100, L500.4050, M100.7900, L700.6800 #### [facility] [address] [place], [address] RDW SD 41.2 fl Normal 35.1-43.9 [facility] Comment on above: Performed By: #### L 503.6005, L501.2450, L100.0100, L500.4050, M100.7900, L700.6800 #### [facility] [address] [place], [address] WBC (Bld) [#/Vol] 9.7 10*3/uL Normal 4.4-11.0 [facility] Comment on above: Performed By: #### L 503.6005, L501.2450, L100.0100, L500.4050, M100.7900, L700.6800 #### [facility] [address] [place], [address] Comprehensive Metabolic Prof ilon 11-17-2024 Albumin [Mass/Vol] 4.2 g/dL Normal 3.5-5.0 [facility] Comment on above: Performed By: #### L 503.6005, L501.2450, L100.0100, L500.4050, M100.7900, L700.6800 ####[facility] [address] [place], [address] Albumin/Globulin [Mass ratio] 1.6 {ratio} Normal 0.9-2.4 [facility] Comment on above: Performed By: #### L 503.6005, L501.2450, L100.0100, L500.4050, M100.7900, L700.6800 ####[facility] [address] [place], [address] ALK PHOS 61 U/L Normal 35-104 [facility] Comment on above: Performed By: #### L 503.6005, L501.2450, L100.0100, L500.4050, M100.7900, L700.6800 ####[facility] [address] [place], [address] ALT [Catalytic activity/Vol] 8 U/L Normal <=34 [facility] Comment on above: Performed By: #### L 503.6005, L501.2450, L100.0100, L500.4050, M100.7900, L700.6800 ####[facility] [address] [place], [address] AST [Catalytic activity/Vol] 17 U/L Normal <=31 [facility] Comment on above: Performed By: #### L 503.6005, L501.2450, L100.0100, L500.4050, M100.7900, L700.6800 ####[facility] [address] [place], [address] Bilirubin [Mass/Vol] 0.31 mg/dL Normal 0.00-1.30 [facility] Comment on above: Performed By: #### L 503.6005, L501.2450, L100.0100, L500.4050, M100.7900, L700.6800 ####[facility] [address] [place], [address] BUN/CRE 11.2 RATIO Normal 10-20 [facility] Comment on above: Performed By: #### L 503.6005, L501.2450, L100.0100, L500.4050, M100.7900, L700.6800 ####[facility] [address] [place], [address] Calcium [Mass/Vol] 9.0 mg/dL Normal 7.6-11.0 [facility] Comment on above: Performed By: #### L 503.6005, L501.2450, L100.0100, L500.4050, M100.7900, L700.6800 ####[facility] [address] [place], [address] Chloride [Moles/Vol] 106 mmol/L Normal 98-108 [facility] Comment on above: Performed By: #### L 503.6005, L501.2450, L100.0100, L500.4050, M100.7900, L700.6800 ####[facility] [address] [place], [address] CO2 [Moles/Vol] 20.1 mmol/L Low 21.0-32.0 [facility] Comment on above: Performed By: #### L 503.6005, L501.2450, L100.0100, L500.4050, M100.7900, L700.6800 ####[facility] [address] [place], [address] Creatinine [Mass/Vol] 0.73 mg/dL Normal 0.70-1.20 [place] Comment on above: Performed By: #### L 503.6005, L501.2450, L100.0100, L500.4050, M100.7900, L700.6800 ####[facility] [address] [place], [address] ECRCL 92.37 ml/min Normal 50-250 [facility] Comment on above: Performed By: #### L 503.6005, L501.2450, L100.0100, L500.4050, M100.7900, L700.6800 ####[facility] [address] [place], [address] GAP 11 Normal 5-15 [facility] Comment on above: Performed By: #### L 503.6005, L501.2450, L100.0100, L500.4050, M100.7900, L700.6800 ####[facility] [address] [place], [address] GFR/1.73 sq M.predicted among non-blacks MDRD (S/P/Bld) [Vol rate/Area] 112 mL/min/{1.73_m2} Normal >60 [facility] Comment on above: Result Comment: mL/m in/1.73m2 CKD-EPI Creatinine Equation (2020) Performed By: #### L 503.6005, L501.2450, L100.0100, L500.4050, M100.7900, L700.6800 ####[facility] [address] [place], [address] Globulin (S) [Mass/Vol] 2.6 g/dL Normal 2.2-4.2 [facility] Comment on above: Performed By: #### L 503.6005, L501.2450, L100.0100, L500.4050, M100.7900, L700.6800 ####[facility] [address] [place], [address] Glucose [Mass/Vol] 80 mg/dL Normal 70-99 [facility] Comment on above: Performed By: #### L 503.6005, L501.2450, L100.0100, L500.4050, M100.7900, L700.6800 ####[facility] [address] [place], [address] Potassium [Moles/Vol] 3.7 mmol/L Normal 3.3-5.1 [place] Comment on above: Performed By: #### L 503.6005, L501.2450, L100.0100, L500.4050, M100.7900, L700.6800 ####[facility] [address] [place], [address] Sodium [Moles/Vol] 137 mmol/L Normal 133-145 [facility] Comment on above: Performed By: #### L 503.6005, L501.2450, L100.0100, L500.4050, M100.7900, L700.6800 ####[facility] [address] [place], [address] T PROT 6.8 g/dL Normal 5.9-8.4 [facility] Comment on above: Performed By: #### L 503.6005, L501.2450, L100.0100, L500.4050, M100.7900, L700.6800 ####[facility] [address] [place], [address] Urea nitrogen [Mass/Vol] 8 mg/dL Normal 4-19 [facility] Comment on above: Performed By: #### L 503.6005, L501.2450, L100.0100, L500.4050, M100.7900, L700.6800 ####[facility] [address] [place], [address] Emergency Department Summary on 11-17-2024 Emergency Department Summary [facility] Medical Records Department [address] [place] [address] Emergency Department Summary 11/17/24 MR#: [id number] Acct: [id number] Name: MARYLU WISEMAN Rep #: [id number] : 1995 29 From: Colby Vázquez DO PCP: Dr. Lizzy Francois MD Status:DEP ER Location: ED HPI History of Present Illness Chief Complaint: GI Bleed Narrative Narrative: Chief complaint and HPI: Bright red blood per rectum. 29-year-old female with past medical history of chronic constipation, endometriosis status post tubal ligation presents for evaluation of bright red blood per rectum. Patient states that she has a reported history of suspected gastric ulcers. She states that she was diagnosed 5 years ago. She states her PCP wanted her to have an EGD performed however the GI specialist she saw thought the patient was too young and therefore this was never performed. Patient is not on any chronic acid reflux medication. She takes uphe-kfa-tznhgmf acid reflux medication as needed. Patient states that she struggles with constipation and that periodically takes Linzess for it. She follows with GI physician, Dr. Marie. Patient states her last bowel movement was Friday. She states yesterday she felt nauseous all day with some burning epigastric abdominal pain. She states that this has since resolved. However, she woke up this morning with an urgency to have a bowel movement. She states she went to the bathroom and only mucus was released. No stool. She states this happened again and then she saw bright red blood in the toilet. Patient states she does have a history of external hemorrhoids. Denies any daily alcohol or NSAID use. Not on blood thinners. She does endorse some mild right lower quadrant discomfort. She denies any fever, chills, vomiting, dysuria. Denies possibility of . Review of systems: See HPI Medications: As listed on the chart Allergies: As listed on the chart PFSH: Per chart Vital signs: As listed on the chart. Reviewed. Physical exam: Gen: A O x3, NAD Head: Normocephalic, atraumatic Eyes: No sclera icterus, conjunctiva clear ENT: Moist mucous membranes Neck: Trachea midline, No JVD CV: RRR, no murmurs, no peripheral edema Resp: Lungs CTA BL, no w/r/c GI: Abd soft, non-distended, minimal tenderness in the right lower, no r/r/g Rectal: Few non-thrombosed external hemorrhoids. Normal tone and sensation. No masses, fluctuance, or tenderness. No pain out of proportion. No stool felt in the rectal vault. No stool or blood on the finger. Musc: Full ROM, no deformity Skin: Warm, dry Neuro: Alert, oriented, grossly intact, sensation intact Psych: Cooperative, appropriate mood and affect [facility] Medical History Pharyngitis Contusion of left middle finger Closed fracture of proximal phalanx of left middle finger Acute bronchitis, unspecified Sinusitis Acute pharyngitis, unspecified Chronic constipation UTI (urinary tract infection) Urinary frequency RLQ abdominal pain Abdominal pain Migraines Heart murmur HPV (human papilloma virus) infection Endometriosis Depression Anxiety Frequent UTI Decreased movement 35 weeks gestation of Pharyngitis URI (upper respiratory infection) No significant past medical history Laryngitis Contusion of right foot, initial encounter UNEXPLAINED BRUISES Asthma Anemia Stomach ulcer Arthritis Home Medications ???Medication ???Instructions ???Recorded ???Last Taken ???Type sennosides 8.6 mg-docusate sodium 1 tab-cap PO DAILY 14 days #14 ta bs 11/17/24 Unknown Rx 50 mg tablet (Senna with Docusate Sodium) Allergy/AdvReac Type Severity Reaction Status Date / Time No Known Allergies Allergy Verified 11/17/24 08:22 Family History Mother Anxiety and depression Heart disease Cancer lung Father Anxiety and depression Diabetes Other Hyperlipemia Surgical History History of tubal ligation Social History Smoking Status: Current every day smoker tobacco type: cigarettes Tobacco: How many years used: 10 alcohol intake: current alcohol intake frequency: a few times a month substance use type: does not use what type of physical activity do you participate in: none EXAM Physical Exam Const Vital Signs: 11/17/24 08:22 11/17/24 11:27 Temperature 98.9 F 98.9 F Temperature Source Oral Pulse Rate 72 64 Respiratory Rate 18 18 Blood Pressure 126/69 H 102/53 L Blood Pressure Mean 88 69 Pulse Ox 100 100 Oxygen Delivery Method Room Air MDM MDM MDM Narrative Medical decision making narrative: (more content not included)... Normal [facility] Lactic Acidon 11-17-2024 Lactate [Moles/Vol] 1.1 mmol/L Normal 0.0-2.0 [facility] Comment on above: Order Comment: Y Performed By: #### L 503.6005, L501.2450, L100.0100, L500.4050, M100.7900, L700.6800 ####[facility] [address] [place], [place], [id number] Lipaseon 11-17-2024 Lipase [Catalytic activity/Vol] 23 U/L Normal 13-75 [facility] Comment on above: Result Comment: Lulu kruse note: LIPASE revised reference range effective 22. New Lipase methodology. Expected to produce lower values than the previous assay method. NEW Reference Range: 13 - 75 U/L Performed By: #### L 503.6005, L501.2450, L100.0100, L500.4050, M100.7900, L700.6800 ####[facility] [address] [place], [place], [id number] ,Serum,hCG Quali.on 11-17-2024 HCG, SERUM QUAL Negative Normal [facility] Comment on above: Performed By: #### L 503.6005, L501.2450, L100.0100, L500.4050, M100.7900, L700.6800 #### [facility] [address] [place], [place], [id number] Stool Occult Blood iFOBon STOB Positive Normal [facility] Comment on above: Performed By: #### L 503.6005, L501.2450, L100.0100, L500.4050, M100.7900, L700.6800 #### [facility] [address] [place], [address] Urinalysis, Completeon 11-17 EPI,SQUAMOUS 0-5 SEEN Normal 5-10 [facility] Comment on above: Order Comment: CAROL CTOR TO SPECIFY Performed By: #### L 400.0001 ####[facility] [address] [place], [address] RBC 0 SEEN Normal 0-5 [facility] Comment on above: Order Comment: CAROL CTOR TO SPECIFY Performed By: #### L 400.0001 ####[facility] [address] [place], [address] BACTERIA 0 SEEN Normal None Seen [facility] Comment on above: Order Comment: CAROL CTOR TO SPECIFY Performed By: #### L 400.0001 ####[facility] [address] [place], [address] Mucus Ql (Urine sed) 0 SEEN Normal [facility] Comment on above: Order Comment: CAROL CTOR TO SPECIFY Performed By: #### L 400.0001 ####[facility] [address] [place], [address] WBC 0 SEEN Normal 0-5 [facility] Comment on above: Order Comment: CAROL CTOR TO SPECIFY Performed By: #### L 400.0001 ####[facility] [address] [place], [address] Internal Medicine Office Vis itobuddy 11-11-2024 Internal Medicine Office Visit [facility] [address] [place] [address] [place] [address] OFFICE VISIT Date of Service: 11/11/24 MR#: [id number] Acct: [id number] Name: MARYLU WISEMAN Rep #: [id number] : 1995 Provider: DALTON Martinez Age/Sex: 29/F Location: [facility] Status: Signed Intake Vital Signs 10/27/24 11:27 11/11/24 15:03 11/11/24 15:07 Height 5 ft 3 in 5 ft 3 in 5 ft 3 in Weight: 133 lb 132 lb 182 lb BMI 23.6 23.3 32.2 BP 112/60 104/66 104/60 Blood Pressure Location Lt brachial Lt brachial Lt brachial Position Sitting Sitting Sitting Respiration 18 18 18 Pulse 89 89 89 Pulse Source Monitor Monitor Monitor Temp 97.8 F 97.3 F L 97.3 F L Temp Source Temporal Temporal Temporal Pulse Oximetry (%) 99 99 99 Oxygen Delivery Method room air room air room air Comment pt reports that her "arms go numb with bp checks" pt reports that she feels "slightly lightheaded" Intake Visit Reasons: FU Chief Complaint: FU - Is patient in pain?: No Allergies No Known Allergies Allergy (Verified 11/11/24 15:05) Medications ???Medication ???Instructions ???Recorded ???Confirmed ???Type NK 11/11/24 11/11/24 History Nurse's Note: pt reports that her blood pressure was "very low yesterday" and she 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 reports that she will get short of breath with exertion. pt states that the right shoulder tightness remains PFSH Medical History Pharyngitis Contusion of left middle finger Closed fracture of proximal phalanx of left middle finger Acute bronchitis, unspecified Sinusitis Acute pharyngitis, unspecified Chronic constipation UTI (urinary tract infection) Urinary frequency RLQ abdominal pain Abdominal pain Migraines Heart murmur HPV (human papilloma virus) infection Endometriosis Depression Anxiety Frequent UTI Decreased movement 35 weeks gestation of Pharyngitis URI (upper respiratory infection) No significant past medical history Laryngitis Contusion of right foot, initial encounter UNEXPLAINED BRUISES Asthma Anemia Stomach ulcer Arthritis Surgical History History of tubal ligation Family History Mother Anxiety and depression Heart disease Cancer lung Father Anxiety and depression Diabetes Other Hyperlipemia Social History Smoking Status: Current every day smoker tobacco type: cigarettes Tobacco: How many years used: 10 alcohol intake: current alcohol intake frequency: a few times a month substance use type: does not use what type of physical activity do you participate in: none HPI HPI Chief Complaint: FU - Details: MARYLU WISEMAN, is a 29 F who presents to the office today for f/u after having recent labs as well as recent NCS/EMG. Patient states that she used to see radarman 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 She states that she has had syncopal episodes since she was a child. She was eventually referred to the radarman when this worsened during . She states that she had a holter monitor done which didn't show anything. The cardiologists did not do any other testing and told her that she had a low heart rate, a heart murmur, and irregular rhythms. No treatment was advised at that time and no follow-up was scheduled. She states that even after that she would have episodes where she would pass out. She noticed that these would occur when she would get heated or she was in a hot environment. She continues to have numbness / tingling in the right upper extremity. She states that this continues to involve the hand and all of the fingers at the same time she states that this is starting to radiate up the arm. She feels this in the lower arm and sometimes even above the elbow. Still no evident pattern to the discomfort at the same time still more noticeable first thing in the morning. ROS Const Constitutional: No body ache, chills, excessive sweating, fatigue, fever(s), frequent falls, headache(s), snoring, weight change, sleep problems, abnormal sleep pattern or change in appetite Eyes Eyes: No blurry vision, change in vision, eye pain or Light sensitivity ENT ENT: No abnormal hearing, ear or mastoid pain, tinnitus, nasal congestion, headache(s), neck pain or sore throat Resp Respiratory: No cough, shortness of breath, snoring or wheezing Cardi (more content not included)... Normal [facility] NCS and/or EMG Patienton NCS and/or EMG Patient [facility] Pulmonary Services/Neurology [address] [place] [address] MR#: [id number] Acct: [id number] Name: MARYLU WISEMAN Rep #: [id number] : 1995 29 From: Adeel Mccormack MD Referring Dr: Abhinav Mendoza Status: REG CL I Location: PSN Date: 11/10/24 Sex: F C NCS and/or EMG Patient Report Ordering Doctor: Abhinav Mendoza DATE OF SERVICE: 11/10/24 Marylu presents for electrodiagnostic testing of the right upper limb. She reports numbness and tingling in the right hand for approximately 6 months. Electrodiagnostic findings: Right median motor nerve demonstrates normal distal latency, amplitude and conduction velocity. Normal right ulnar motor response. Normal median and ulnar F???waves. Sensory responses are within normal limits. Needle EMG testing was performed the right upper limb. All muscles tested showed no evidence of denervation with normal motor unit action potentials. Electrodiagnostic impression: This is a normal electrodiagnostic study of the right upper limb. There is no electrodiagnostic evidence for peripheral neuropathy, including carpal tunnel or cubital tunnel syndrome. There is no electrodiagnostic evidence for cervical radiculopathy. Multi Select Codes Neurology Neurology Interp Codes: 73346-46 Musc test done w/n test comp (interp) and 44329-44 Nrv cndj test 7- 8 studies (interp) 11/10/24 1227 Date Adeel Mccormack MD CC: Dr. Adeel Mccormack MD; Dr. Lizzy Francois MD; DALTON Martinez Date Dictated: 11/10/241222 Date Transcribed: 11/10/241222 Chart Reader: AA Signed Normal [facility] Vitamin D 1,25-Dihydroxyon 0 - VIT D 1,25 DIHY 44.4 pg/mL Normal 24.8-81.5 [facility] Comment on above: Result Comment: Perf ormed at: [facility] [address] [id number] Slot Router: Tobias Ryan MD, Phone: [phone] Performed By: #### L 100.0500, L500.4050, L501.9520, L3300.0960 ####[facility] [address] [place], [address] CBC-Complete Blood Cnt No Di ffon 10-27-2024 Erythrocyte distribution width (RBC) [Ratio] 12.3 % Normal 11.6-14.6 [facility] Comment on above: Performed By: #### L 100.0500, L500.4050, L501.9520, L3300.0960 ####[facility] [address] [place], [address] Hematocrit (Bld) [Volume fraction] 38.1 % Normal 37-47 [facility] Comment on above: Performed By: #### L 100.0500, L500.4050, L501.9520, L3300.0960 ####[facility] [address] [place], [address] Hemoglobin (Bld) [Mass/Vol] 12.8 g/dL Normal 12.0-15.0 [facility] Comment on above: Performed By: #### L 100.0500, L500.4050, L501.9520, L3300.0960 ####[facility] [address] [place], [address] MCH (RBC) [Entitic mass] 31.2 pg Normal 27.0-32.0 [facility] Comment on above: Performed By: #### L 100.0500, L500.4050, L501.9520, L3300.0960 ####[facility] [address] [place], [address] MCHC (RBC) [Mass/Vol] 33.6 g/dL Normal 32-36 [facility] Comment on above: Performed By: #### L 100.0500, L500.4050, L501.9520, L3300.0960 ####[facility] [address] [place], [address] MCV (RBC) [Entitic vol] 92.9 fL Normal 81-99 [facility] Comment on above: Performed By: #### L 100.0500, L500.4050, L501.9520, L3300.0960 ####[facility] [address] [place], [address] Platelet mean volume (Bld) [Entitic vol] 9.8 fL Normal 6.2-12.0 [facility] Comment on above: Performed By: #### L 100.0500, L500.4050, L501.9520, L3300.0960 ####[facility] [address] [place], [address] Platelets (Bld) [#/Vol] 281 10*3/uL Normal 150-450 [facility] Comment on above: Performed By: #### L 100.0500, L500.4050, L501.9520, L3300.0960 ####[facility] [address] [place], [address] RBC (Bld) [#/Vol] 4.10 10*6/uL Low 4.2-5.4 [facility] Comment on above: Performed By: #### L 100.0500, L500.4050, L501.9520, L3300.0960 ####[facility] [address] [place], [address] RDW SD 42.4 fl Normal 35.1-43.9 [facility] Comment on above: Performed By: #### L 100.0500, L500.4050, L501.9520, L3300.0960 ####[facility] [address] [place], [address] WBC (Bld) [#/Vol] 10.9 10*3/uL Normal 4.4-11.0 [facility] Comment on above: Performed By: #### L 100.0500, L500.4050, L501.9520, L3300.0960 ####[facility] [address] [place], [address] Cerv Spine 2 or 3 Viewson Cerv Spine 2 or 3 Views [facility] Imaging Services [address] [place] [address] Cerv Spine 2 or 3 Views MR#: [id number] Acct: [id number] Name: MARYLU WISEMAN Rep #: [id number] : 1995 F 29 From: Silviano Sheppard i DO PCP: Dr. Lizzy Francois MD Status: REG CLI Study: Cerv Spine 2 or 3 Views Date of Exam: 10/27/24 Exam# [id number] Ordering Dr: Abhinav Mendoza PROCEDURE: Cervical spine radiographs, three views REASON FOR EXAM: Pain TECHNIQUE: Three views of the cervical spine were obtained. COMPARISON: None. FINDINGS: Three views of the cervical spine were obtained. On the lateral projection, the cervical spine is imaged from the skull base through the C7-T1 interspace. There is straightening of the normal cervical lordosis. No acute fracture or focal subluxation of the cervical spine. No significant disc space narrowing in the cervical spine. The odontoid process appears intact. RAD/Cerv Spine 2 or 3 Views IMPRESSION: Straightening of the normal cervical lordosis, which may be due to muscle spasm or positioning. No acute bony abnormality or significant disc space narrowing of the cervical spine. If there is persistent pain or clinical concern, short-term follow-up MRI evaluation may be considered. Reading Location: [facility] CC: Dr. Lizzy Francois MD; DALTON Martinez Chart Reader: Signed Normal [facility] Comprehensive Metabolic Prof ilon 10-27-2024 Albumin [Mass/Vol] 4.6 g/dL Normal 3.5-5.0 [facility] Comment on above: Performed By: #### L 100.0500, L500.4050, L501.9520, L3300.0960 ####[facility] [address] [place], [address] Albumin/Globulin [Mass ratio] 1.7 {ratio} Normal 0.9-2.4 [facility] Comment on above: Performed By: #### L 100.0500, L500.4050, L501.9520, L3300.0960 ####[facility] [address] [place], [address] ALK PHOS 71 U/L Normal 35-104 [facility] Comment on above: Performed By: #### L 100.0500, L500.4050, L501.9520, L3300.0960 ####[facility] [address] [place], [address] ALT [Catalytic activity/Vol] 11 U/L Normal <=34 [facility] Comment on above: Performed By: #### L 100.0500, L500.4050, L501.9520, L3300.0960 ####[facility] [address] [place], [address] Anion gap [Moles/Vol] 12 mmol/L Normal 5-15 [place] Comment on above: Performed By: #### L 100.0500, L500.4050, L501.9520, L3300.0960 ####[facility] [address] [place], [address] AST [Catalytic activity/Vol] 21 U/L Normal <=31 [facility] Comment on above: Performed By: #### L 100.0500, L500.4050, L501.9520, L3300.0960 ####[facility] [address] [place], [address] Bilirubin [Mass/Vol] 0.22 mg/dL Normal 0.00-1.30 [facility] Comment on above: Performed By: #### L 100.0500, L500.4050, L501.9520, L3300.0960 ####[facility] [address] [place], [address] BUN/CRE 9.5 RATIO Low 10-20 [facility] Comment on above: Performed By: #### L 100.0500, L500.4050, L501.9520, L3300.0960 ####[facility] [address] [place], [address] Calcium [Mass/Vol] 9.3 mg/dL Normal 7.6-11.0 [facility] Comment on above: Performed By: #### L 100.0500, L500.4050, L501.9520, L3300.0960 ####[facility] [address] [place], [address] Chloride [Moles/Vol] 105 mmol/L Normal 96-108 [facility] Comment on above: Performed By: #### L 100.0500, L500.4050, L501.9520, L3300.0960 ####[facility] [address] [place], [address] CO2 [Moles/Vol] 22.5 mmol/L Normal 22.0-29.0 [facility] Comment on above: Performed By: #### L 100.0500, L500.4050, L501.9520, L3300.0960 ####[facility] [address] [place], [address] Creatinine [Mass/Vol] 0.7 mg/dL Normal 0.6-1.0 [place] Comment on above: Performed By: #### L 100.0500, L500.4050, L501.9520, L3300.0960 ####[facility] [address] [place], [address] GFR/1.73 sq M.predicted among non-blacks MDRD (S/P/Bld) [Vol rate/Area] 121 mL/min/{1.73_m2} Normal >60 [facility] Comment on above: Result Comment: mL/m in/1.73m2 CKD-EPI Creatinine Equation (2020) Performed By: #### L 100.0500, L500.4050, L501.9520, L3300.0960 ####[facility] [address] [place], [address] Globulin (S) [Mass/Vol] 2.7 g/dL Normal 2.2-4.2 [facility] Comment on above: Performed By: #### L 100.0500, L500.4050, L501.9520, L3300.0960 ####[facility] [address] [place], [address] Glucose [Mass/Vol] 88 mg/dL Normal 70-99 [facility] Comment on above: Performed By: #### L 100.0500, L500.4050, L501.9520, L3300.0960 ####[facility] [address] [place], [address] Potassium [Moles/Vol] 4.1 mmol/L Normal 3.3-5.1 [place] Comment on above: Performed By: #### L 100.0500, L500.4050, L501.9520, L3300.0960 ####[facility] [address] [place], [address] Sodium [Moles/Vol] 140 mmol/L Normal 133-145 [facility] Comment on above: Performed By: #### L 100.0500, L500.4050, L501.9520, L3300.0960 ####[facility] [address] [place], [address] T PROT 7.4 g/dL Normal 5.9-8.4 [facility] Comment on above: Performed By: #### L 100.0500, L500.4050, L501.9520, L3300.0960 ####[facility] [address] [place], [address] Urea nitrogen [Mass/Vol] 6 mg/dL Normal 4-19 [facility] Comment on above: Performed By: #### L 100.0500, L500.4050, L501.9520, L3300.0960 ####[facility] [address] [place], [address] Internal Medicine Office Vis itobuddy 10-27-2024 Internal Medicine Office Visit [facility] [address] [place] [address] [place] [address] OFFICE VISIT Date of Service: 10/27/24 MR#: [id number] Acct: [id number] Name: MARYLU WISEMAN Rep #: [id number] : 1995 Provider: DALTON Martinez Age/Sex: 29/F Location: [facility] Status: Signed Intake Vital Signs 09/22/24 08:49 10/19/24 10:16 10/27/24 11:27 Height 5 ft 3 in 5 ft 3.5 in 5 ft 3 in Weight: 133 lb BMI 23.6 BP 112/60 Blood Pressure Location Lt brachial Position Sitting Respiration 18 Pulse 89 Pulse Source Monitor Temp 97.8 F Temp Source Temporal Pulse Oximetry (%) 99 Oxygen Delivery Method room air Comment pt reports that her "arms go numb with bp checks" Intake Visit Reasons: Discuss MRI/NUMBING AND TINGLING IN RIGHT ARM Chief Complaint: Discuss MRI/NUMBING AND TINGLING IN RIGHT ARM Is patient in pain?: Yes (8 "shoulders, legs, feet, and ABD" ) Allergies No Known Allergies Allergy (Verified 10/27/24 11:23) Nurse's Note: pt reports that 6 mos ago (denies any injury) she started having right shoulder stiffness, which turned into right arm numbness, falling asleep" pt reports these sensations are spreading to her legs, knees, left arm, and is also having ABD pain. pt denies having any of these symptoms prior to 6 months ago pt has c/o of difficulty with vision focusing" pt reports that her chiropractor Dr. Haq recomended that she have an MRI pt states that 2 weeks ago these symptoms have worsened. pt reports "every now and then she will take linzess" pt is unsure on the dosage, states that she was prescribed this in the ER for her shoulder. pt reports she is now dizzy and has right sided chest pain. denies shortness of breath PFSH Medical History Pharyngitis Contusion of left middle finger Closed fracture of proximal phalanx of left middle finger Acute bronchitis, unspecified Sinusitis Acute pharyngitis, unspecified Chronic constipation UTI (urinary tract infection) Urinary frequency RLQ abdominal pain Abdominal pain Migraines Heart murmur HPV (human papilloma virus) infection Endometriosis Depression Anxiety Frequent UTI Decreased movement 35 weeks gestation of Pharyngitis URI (upper respiratory infection) No significant past medical history Laryngitis Contusion of right foot, initial encounter UNEXPLAINED BRUISES Asthma Anemia Stomach ulcer Arthritis Surgical History History of tubal ligation Family History Mother Anxiety and depression Heart disease Cancer lung Father Anxiety and depression Diabetes Other Hyperlipemia Social History Smoking Status: Current every day smoker tobacco type: cigarettes Tobacco: How many years used: 10 alcohol intake: current alcohol intake frequency: a few times a month substance use type: does not use what type of physical activity do you participate in: none HPI HPI Chief Complaint: Discuss MRI/NUMBING AND TINGLING IN RIGHT ARM Details: MARYLU WISEMAN, is a 29 F who presents to the office today for numbness / tingling in the right upper extremity. She states that she feels the numbness / tingling into all of her fingers. She states that it does come and go but there is no pattern to the activity. She states that it is worse first thing in the morning. This has been occurring for the past 6 month. She states that she woke up one morning and noticed this and then is continued to get worse. She has been seeing multiple chiropractors without relief. She states that one of them told her that she would have to have injections but then the next one told her that she did not need them. She did start a new job in June but states that she has been having these symptoms before that. No other life changes that she can think. No dietary changes. Just prior to leaving the room patient states that the past 2 weeks she has just had some feelings of fatigue as well as a feeling of "brain fog" having some problems with memory and concentration. She states that she has been having occasionally feeling like her vision is off a little bit. She states she is even had some intermittent abdominal cramping. She does states that the past couple weeks she just has not felt herself. She states normally she is very energetic and is typically a go-getter. She is a single mom with 4 kids and so she states she feels like she always has been able to do things but this has not recently felt like it she is able. ROS Const Constitutional: No body ache, chills, excessive sweating, fatigue, fever(s), frequent falls, headache(s), snoring, weight change, s (more content not included)... Normal [facility] Shoulder min 2 Viewson 10-27 Shoulder min 2 Views [facility] Services [address] [place], [place] [id number] Shoulder min 2 Views MR#: [id number] Acct: [id number] Name: MARYLU WISEMAN Rep #: [id number] : 1995 F 29 From: Alli summers MD PCP: Dr. Lizzy Francois MD Status: REG CLI Study: Shoulder min 2 Views Date of Exam: 10/27/24 Exam# [id number] Ordering Dr: Abhinav Mendoza PA PROCEDURE: SHOULDER MIN 2 VIEWS REASON FOR EXAM: Right shoulder pain and right arm weakness. TECHNIQUE: Four views of the right shoulder were obtained. COMPARISON: None. FINDINGS: RIGHT SHOULDER: No fracture. No suspicious bone lesion. Normal alignment of the acromioclavicular and glenohumeral joints. Soft tissues are unremarkable. RAD/Shoulder min 2 Views IMPRESSION: Unremarkable right shoulder radiographs. Reading Location: [facility] CC: Dr. Lizzy Francois MD; DALTON Martinez Chart Reader: Signed Normal [facility] Thyroid Stim Hormone (TSH)on 10-27-2024 TSH 0.590 uIU/mL Normal 0.300-4.200 [facility] Comment on above: Performed By: #### L 100.0500, L500.4050, L501.9520, L3300.0960 ####[facility] [address] [facility] [place], [address] Emergency Department Summary on 10-19-2024 Emergency Department Summary [facility] Medical Records Department [address] [place] [address] Emergency Department Summary 10/19/24 MR#: [id number] Acct: [id number] Name: MARYLU WISEMAN Rep #: [id number] : 1995 29 From: Mike Stanley MD PCP: Dr. Lizzy Francois MD Status:REG ER Location: ED HPI History of Present Illness HPI Narrative: 29-year-old female no significant past medical or surgical history. Says for 6 months she has had intermittent numbness in her right arm. She has been seeing a chiropractor without any significant relief. She denies any pain. She denies any neck pain. Chief Complaint: Upper Extremity Injury Informant: patient Occured/Mechanism Mechanism/Context: No injury and No blunt trauma Onset/Context/Timing Onset: Month(s) (6) Current Severity: Mild Maximum Severity: Mild Associated Symptoms Associated Symptoms: Positive for Parasthesia; Negative for Weakness or Loss of Funtion Narrative Narrative: 29-year-old female no seen past medical or surgical history. Says for the last 6 months she has had intermittent numbness in her right upper extremity. No weakness. No falls or trauma. No neck pain. She has been seeing chiropractor without relief. Prior similar symptoms: Yes Recent Illness/Hospitalization: No PFSH [facility] Medical History Pharyngitis Contusion of left middle finger Closed fracture of proximal phalanx of left middle finger Acute bronchitis, unspecified Sinusitis Acute pharyngitis, unspecified Chronic constipation UTI (urinary tract infection) Urinary frequency RLQ abdominal pain Abdominal pain Migraines Heart murmur HPV (human papilloma virus) infection Endometriosis Depression Anxiety Frequent UTI Decreased movement 35 weeks gestation of Pharyngitis URI (upper respiratory infection) No significant past medical history Laryngitis Contusion of right foot, initial encounter UNEXPLAINED BRUISES Asthma Anemia Stomach ulcer Arthritis Home Medications ???Medication ???Instructions ???Recorded ???Last Taken ???Type metaxalone 800 mg tablet 800 mg PO TID 7 days #21 tabs 10/02 04/25 Unknown Rx Allergy/AdvReac Type Severity Reaction Status Date / Time No Known Allergies Allergy Verified 10/07/24 14:24 Family History Mother Anxiety and depression Heart disease Cancer lung Father Anxiety and depression Diabetes Other Hyperlipemia Surgical History History of tubal ligation Social History Smoking Status: Current every day smoker tobacco type: cigarettes Tobacco: How many years used: 10 alcohol intake: current alcohol intake frequency: a few times a month substance use type: does not use what type of physical activity do you participate in: none ROS ROS ED ROS Narrative Right upper extremity numbness. No other complaints. Constitutional Constitutional ED: Denies chills or fever(s) Eyes Eyes: Denies blurry vision ENT ENT ED: Denies ear pain Cardiovascular Cardiovascular: Denies chest pain Respiratory/Chest Respiratory/Chest: Denies cough or dyspnea Gastrointestinal Gastrointestinal: Denies abdominal pain Genitourinary Genitourinary ED: Denies dysuria Musculoskeletal Musculoskeletal: Denies back pain, myalgias or neck pain Integumentary Denies abscess or Abrasions Neurologic Neurologic: Reports paresthesias; Denies headache(s) or weakness Psychiatric Psychiatric: Denies anxiety or depression Endocrine Endocrinology: Denies cold intolerance Hematologic/Lymphatic Hematologic/Lymphatic: Denies easy bleeding Allergic/Immunologic Allergic/Immunologic ED: Denies mouth swelling EXAM Physical Exam Narrative Exam Narrative: Well-appearing 29-year-old female. Vital signs are stable afebrile. No distress. No one else present in the room. H EENT exam pupils round react light. Moist mucous membranes. Neck nontender no lymphadenopathy. No muscle spasms. Full range of motion. Back and spine nontender. No muscle spasms. Lungs clear to auscultation bilaterally. Heart regular rhythm no murmur. Rate about 70. Chest wall ribs nontender. Abdomen soft nontender. Moving all 4 extremities. Normal range of motion. 5 out of 5 temple meat cutter strength bilaterally. Equal symmetrical radial pulses. Skin is unremarkable. She has normal range of motion of both upper extremities including the shoulders, elbows and wrist. She has good temple meat cutter strength. Normal sensation. Lower extremities are unremarkable also. 5 out of 5 dorsi plantarflexion. Normal range of motion. Normal sensation. She is able to stand and walk without any difficulty. No ataxia. Neurologically she is awake an (more content not included)... Normal [facility] Hand Min 3 Viewson 5 Hand Min 3 Views [facility] Imaging Services [address] [place] [address] Hand Min 3 Views MR#: [id number] Acct: [id number] Name: MARYLU WISEMAN Rep #: [id number] : 1995 F 29 From: Guillaume Calvo MD PCP: Dr. Lizzy Francois MD Status: REG CLI Study: Hand Min 3 Views Date of Exam: 10/07/24 Exam# [id number] Ordering Dr: Dl Gabriel EXAM: XR Left Hand Complete, 3 or More Views CLINICAL INDICATION: TECHNIQUE: Frontal, lateral and oblique views of the left hand. COMPARISON: No relevant prior studies available. FINDINGS: BONES/JOINTS: Unremarkable. No acute fracture. No dislocation. SOFT TISSUES: Unremarkable. No radiopaque foreign body. RAD/Hand Min 3 Views IMPRESSION: No acute fracture. Reading [facility] CC: DALTON Galindo; Dr. Lizzy Francois MD Chart Reader: Signed Normal [facility] Urgent Care Visit Reporton 0 10-07-2024 Urgent Care Visit Report [facility] [address], [address] [place] [address] OFFICE VISIT Date of Service: 10/07/24 MR#: [id number] Acct: [id number] Name: MARYLU WISEMAN Rep #: [id number] : 1995 Provider: DALTON Galindo Age/Sex: 29/F Location: [facility] Status: Signed Intake Vital Signs 09/22/24 08:49 10/07/24 14:23 Height 5 ft 3 in Weight: 138 lb 6 oz BMI 24.5 BP 110/60 118/62 Blood Pressure Location Lt brachial Position Sitting Sitting Respiration 14 Pulse 60 88 Pulse Source NIBP Temp 97.8 F 98.4 F Temp Source Oral Oral Pulse Oximetry (%) 100 98 Oxygen Delivery Method room air room air Intake Visit Reasons: L MIDDLE FINGER INJURY/ [employer] Chief Complaint: WC new, left 3rd finger/hand 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 Is patient in pain?: Yes Allergies No Known Allergies Allergy (Verified 10/07/24 14:24) Is last menstrual period known: No Post menopausal: No Patient : No Have you fallen in the past year?: Yes [facility] Medical History (Updated 10/07/24 @ 14:57 by Dl HOFFMAN PA) Pharyngitis Contusion of left middle finger Closed fracture of proximal phalanx of left middle finger Acute bronchitis, unspecified Sinusitis Acute pharyngitis, unspecified Chronic constipation UTI (urinary tract infection) Urinary frequency RLQ abdominal pain Abdominal pain Migraines Heart murmur HPV (human papilloma virus) infection Endometriosis Depression Anxiety Frequent UTI Decreased movement 35 weeks gestation of Pharyngitis URI (upper respiratory infection) No significant past medical history Laryngitis Contusion of right foot, initial encounter UNEXPLAINED BRUISES Asthma Anemia Stomach ulcer Arthritis Surgical History (Reviewed 08/20/24 @ 16:33 by Rosa Maria Lopez RIM TURNING FINISHER, RIM TURNING FINISHER-C) History of tubal ligation Family History (Reviewed 08/20/24 @ 16:33 by Rosa Maria Lopez RIM TURNING FINISHER, RIM TURNING FINISHER-C) Mother Anxiety and depression Heart disease Cancer lung Father Anxiety and depression Diabetes Other Hyperlipemia Social History (Reviewed 08/20/24 @ 16:33 by Rosa Maria Lopez RIM TURNING FINISHER, RIM TURNING FINISHER-C) Smoking Status: Current every day smoker tobacco type: cigarettes Tobacco: How many years used: 10 alcohol intake: current alcohol intake frequency: a few times a month substance use type: does not use what type of physical activity do you participate in: none HPI HPI Chief Complaint: WC new, left 3rd finger/hand injury Details: MARYLU WISEMAN, is a 29 F who presents to the office today for first report of injury after injuring her left middle finger. 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 Patient states that she feels like she did previously. She denies numbness, tingling or loss of range of motion. Patient states that she has difficulty with making a fist with the left hand secondary to pain. No other associated symptoms or alleviating/aggravating factors. ROS Const Constitutional: No other (As above) Exam Const General: cooperative, healthy appearing and no acute distress Orientation: alert and awake Extrem General: capillary refill normal and normal exam except as noted (pain to touch LMF prox. phalanx at PIPJ w/ pain radiating to MCPJ) Psych Appearance: grossly normal Mental Status: mental status grossly normal Mood: congruent mood Affect: normal affect Speech and Movement: speech and movement normal Attitude: cooperative Coding Level of Care Code Off vis,est,level 4 Diagnoses Strain of extensor structure of left middle finger at hand level S66.313A Assessment and Plan Assessment and Plan (1) Strain of extensor structure of left middle finger at hand level: Status: Acute Plan: X-ray of the left middle finger read and interpreted by myself finding no acute osseous abnormalities, awaiting radiology interpretation at time of patient discharge. [employer] as well as first report of injury form was filled out releasing patient back to work today without restrictions other than to keep the brace on at all times per her request. Form C9 filled out requesting occupational therapy. Patient's left middle finger was placed in a finger splint to help with healing. Patient advised of symptomatic management techniques including but not limited to use of ibuprofen or Tylenol as needed for pain unless contraindicated. Medrol Dosepak to help with the inflammation of the tendons. Patient advised of other symptomatic management techniques as well as potential red flags and when appropriate to report to the ED. Patient advised to follow-up here in 2 weeks for reevaluation or sooner should she be worsening symptoms or new concerns. Patient verbalized understanding and agreement (more content not included)... Normal [facility] Urgent Care Visit Reporton 0 09-22-2024 Urgent Care Visit Report [facility] [address] , [address] [place] [address] OFFICE VISIT Date of Service: 09/22/24 MR#: [id number] Acct: [id number] Name: MARYLU WISEMAN Rep #: [id number] : 1995 Provider: DALTON Holloway Age/Sex: 29/F Location: [facility] Status: Signed Intake Vital Signs 08/30/24 10:37 09/22/24 08:49 Height 5 ft 3 in 5 ft 3 in Weight: 137 lb 8 oz 138 lb 6 oz BMI 24.3 24.5 BP 120/80 110/60 Position Sitting Sitting Pulse 92 60 Temp 98.0 F 97.8 F Temp Source Oral Oral Pulse Oximetry (%) 100 100 Oxygen Delivery Method room air room air Intake Visit Reasons: EAR PAIN Accompanied by: Self Allergies No Known Allergies Allergy (Verified 08/30/24 10:43) Medications ???Medication ???Instructions ???Recorded ???Confirmed ???Type amoxicillin 500 mg tablet 500 mg PO TID #30 tabs 09/22/24 09/22/24 Rx Nurse's Note: Patient has right ear pain that has been going on for 2 days. Patient also states that her right side of her race hurts and she has migraines and nausea with it. [facility] Medical History (Updated 08/30/24 @ 10:50 by Eduard San NP-C) Pharyngitis Contusion of left middle finger Closed fracture of proximal phalanx of left middle finger Acute bronchitis, unspecified Sinusitis Acute pharyngitis, unspecified Chronic constipation UTI (urinary tract infection) Urinary frequency RLQ abdominal pain Abdominal pain Migraines Heart murmur HPV (human papilloma virus) infection Endometriosis Depression Anxiety Frequent UTI Decreased movement 35 weeks gestation of Pharyngitis URI (upper respiratory infection) No significant past medical history Laryngitis Contusion of right foot, initial encounter UNEXPLAINED BRUISES Asthma Anemia Stomach ulcer Arthritis Surgical History (Reviewed 08/20/24 @ 16:33 by Rosa Maria Lopez RIM TURNING FINISHER, RIM TURNING FINISHER-C) History of tubal ligation Family History Mother Anxiety and depression Heart disease Cancer lung Father Anxiety and depression Diabetes Other Hyperlipemia Social History (Reviewed 08/20/24 @ 16:33 by Rosa Maria Lopez RIM TURNING FINISHER, RIM TURNING FINISHER-C) Smoking Status: Current every day smoker tobacco type: cigarettes Tobacco: How many years used: 10 alcohol intake: current alcohol intake frequency: a few times a month substance use type: does not use what type of physical activity do you participate in: none HPI HPI Details: MARYLU WISEMAN, is a 29 F who presents to the office today for initial evaluation [facility] for approximately 2-3 day history of progressively worsening R facial pressure/congestion with purulent postnasal drip/cough and right ear pressure. No complaints of fever, chills, myalgias, fatigue, runny nose, or nausea/vomiting/diarrhea . No complaints of chest pain/shortness of breath/dyspnea on exertion. No close contacts with similar complaints. Tobacco smoker. No other associated symptoms and no other alleviating/aggravating factors. ROS Const Constitutional: No other (as above) Exam Const General: cooperative, healthy appearing and no acute distress Nutritional Appearance: average body habitus Orientation: alert, awake and oriented x3 HENMT Head: normal to inspection Ears: hearing grossly normal bilaterally, external ears normal, TM's normal bilaterally and EAC's normal Nose: external nose normal, nares normal, septum normal and no nasal discharge Face and sinus: normal facial exam, right maxillary sinus palpable tender (w/ right maxillary fullness to palpation) and face symmetric Mouth: oral mucosae normal, lip normal, tongue normal and oropharynx normal Throat: posterior oropharynx normal, tonsils normal, uvula midline and postnasal drainage (scant amount purulent) Eyes General: appearance normal, both eyes and all related structures Neck Neck: normal visual inspection, full ROM, no meningeal signs, supple and lymphadenopathy (R>L anterior cervical lymph node swelling/tender to palpation) Neck mass: No Thyroid: thyroid normal Chest Chest palpation inspection: normal inspection of the chest Resp Effort Inspection: normal respiratory effort and able to speak in complete sentences Auscultation: Bilateral: Clear to Auscultation Cardio Palpation: normal PMI Rate: regular rate Rhythm: regular rhythm Heart Sounds: S1 normal, S2 normal, no gallops, no murmurs and no rubs Pulses: radial pulses present GI Inspection: normal to inspection Skin General: no rashes or lesions noted Neuro General: patient alert, patient awake and patient oriented x3 Cognition: normal cognition Speech: speech normal Psych Appearance: grossly normal Mental Status: mental status grossly normal Mood: congruent mood Affect: no (more content not included)... Normal [facility] Culture, Throaton 08-31-2024 CUT Normal throat duane isolated. No beta-hemolytic streptococcus isolated. Normal [facility] Comment on above: Performed By: #### M 100.1000 ####[facility] [id number] [place], [address] Urgent Care Visit Reporton 1 Urgent Care Visit Report [facility] [address], [address] [place] [address] OFFICE VISIT Date of Service: 08/30/24 MR#: [id number] Acct: [id number] Name: MARYLU WISEMAN Rep #: [id number] : 1995 Provider: ROSA San Age/Sex: 29/F Location: [facility] Status: Signed Intake Vital Signs 08/20/24 16:12 08/30/24 10:37 Height 5 ft 3 in 5 ft 3 in Weight: 137 lb 8 oz BMI 24.3 BP 103/62 120/80 Blood Pressure Location Lt brachial Position Sitting Sitting Respiration 18 Pulse 82 92 Temp 98.5 F 98.0 F Temp Source Oral Oral Pulse Oximetry (%) 97 100 Oxygen Delivery Method room air room air Intake Visit Reasons: ST/WHITE PATCHES IN THROAT Accompanied by: Self Allergies No Known Allergies Allergy (Verified 08/30/24 10:43) Nurse's Note: Patient has a ST, White patches on her throat. Patient states since last (6 days ago) she has been fighting off flu like symptoms. [facility] Medical History (Updated 08/30/24 @ 10:50 by Eduard San NP-C) Pharyngitis Contusion of left middle finger Closed fracture of proximal phalanx of left middle finger Acute bronchitis, unspecified Sinusitis Acute pharyngitis, unspecified Chronic constipation UTI (urinary tract infection) Urinary frequency RLQ abdominal pain Abdominal pain Migraines Heart murmur HPV (human papilloma virus) infection Endometriosis Depression Anxiety Frequent UTI Decreased movement 35 weeks gestation of Pharyngitis URI (upper respiratory infection) No significant past medical history Laryngitis Contusion of right foot, initial encounter UNEXPLAINED BRUISES Asthma Anemia Stomach ulcer Arthritis Surgical History History of tubal ligation Family History Mother Anxiety and depression Heart disease Cancer lung Father Anxiety and depression Diabetes Other Hyperlipemia Social History Smoking Status: Current every day smoker tobacco type: cigarettes Tobacco: How many years used: 10 alcohol intake: current alcohol intake frequency: a few times a month substance use type: does not use what type of physical activity do you participate in: none HPI HPI Details: MARYLU WISEMAN, is a 29 F who presents to the office today for HPI: Patient presents today for approximately 6 days of cough, congestion, headache, intermittent fever, and sore throat. She states that yesterday she thought she noted white patches on her throat. Patient also notes some nausea and vomiting. ROS: As noted in HPI Physical Exam: VITALS: Reviewed. GEN: Healthy appearing, well-developed, NAD. PSYCH: AOx3. Normal memory, mood, and affect. HEENT -Eyes: -No discharge or redness; -Ears: -Mouth and throat: Moist mucous membranes. Mild tonsillar erythema with no exudate noted NECK: CV: Regular rate and rhythm LUNGS: Normal respiratory effort. Lungs clear bilaterally. SKIN: Warm, well perfused. No skin rashes or abnormal lesions noted. MSK: Normal gait. NEURO: Ambulating with no limitations. Normal muscle strength and tone. No focal deficits. Results POC Rapid Strep A Office Rapid Strep A Negative Last Edit by Monie Matt MA on 08/30/24 10:48 Coding Level of Care Code Off vis,est,level 3 Diagnoses Pharyngitis, unspecified etiology J02.9 Pharyngitis/tonsillitis etiology: unspecified etiology Assessment and Plan Assessment and Plan (1) Pharyngitis: Status: Acute Qualifiers: Pharyngitis/tonsillitis etiology: unspecified etiology Qualified Code(s): J02.9 - Acute pharyngitis, unspecified Plan: Rapid strep negative on visit today. Patient is concerned that since she gargled with hydrogen peroxide it messed up the rapid strep test and would prefer to have throat culture performed. This was ordered however nursing staff noted that over the holidays it may take several days for the result to come in. Patient was informed and is agreeable. No medication given at this time. Orders: Orders POC Rapid Strep A Today J02.9 - Acute pharyngitis, unspecified 08/30/24 1051 Date Eduard Jaffe Signature: Date (if applicable) CC: Normal [facility] Plastic Surgery Visit Report on 08-20-2024 Plastic Surgery Visit Report [facility] Plastic Reconstructive Surgery [address], [address] [place], [place] [address] OFFICE VISIT Date of Service: 08/20/24 MR#: [id number] Acct: [id number] Name: MARYLU WISEMAN Rep #: [id number] : 1995 Provider: ROSA patel Age/Sex: 29/F [facility] Status: Signed Intake Vital Signs 08/12/24 16:06 08/20/24 16:12 Height 5 ft 3 in 5 ft 3 in Weight: 124 lb BMI 21.9 BP 111/71 103/62 Blood Pressure Location Rt brachial Lt brachial Position Sitting Sitting Respiration 18 18 Pulse 70 82 Pulse Source Monitor Temp 97.8 F 98.5 F Temp Source Oral Oral Pulse Oximetry (%) 99 97 Oxygen Delivery Method room air room air Intake Visit Reasons: 1 W F/U Chief Complaint: f/u of fracture finger Is patient in pain?: No Allergies No Known Allergies Allergy (Verified 08/20/24 16:12) Medications ???Medication ???Instructions ???Recorded ???Confirmed ???Type albuterol sulfate 90 mcg/actuation 2 puff inhalation Q4-6H PRN 12/16/23 08/20/24 Rx aerosol inhaler shortness of breath or wheezing #8.5 grams linaclotide 145 mcg capsule 145 mcg PO QAM #90 caps 07/28/24 08/20/24 Rx (Linzess) PFSH Medical History (Reviewed 08/20/24 @ 16:33 by Rosa Maria Lopez RIM TURNING FINISHER, RIM TURNING FINISHER-C) Contusion of left middle finger Closed fracture of proximal phalanx of left middle finger Acute bronchitis, unspecified Sinusitis Acute pharyngitis, unspecified Chronic constipation UTI (urinary tract infection) Urinary frequency RLQ abdominal pain Abdominal pain Migraines Heart murmur HPV (human papilloma virus) infection Endometriosis Depression Anxiety Frequent UTI Decreased movement 35 weeks gestation of Pharyngitis URI (upper respiratory infection) No significant past medical history Laryngitis Contusion of right foot, initial encounter UNEXPLAINED BRUISES Asthma Anemia Stomach ulcer Arthritis Surgical History (Reviewed 08/20/24 @ 16:33 by Rosa Maria Lopez RIM TURNING FINISHER, RIM TURNING FINISHER-C) History of tubal ligation Family History Mother Anxiety and depression Heart disease Cancer lung Father Anxiety and depression Diabetes Other Hyperlipemia Social History (Reviewed 08/20/24 @ 16:33 by Rosa Maria Lopez RIM TURNING FINISHER, RIM TURNING FINISHER-C) Smoking Status: Current every day smoker tobacco type: cigarettes Tobacco: How many years used: 10 alcohol intake: current alcohol intake frequency: a few times a month substance use type: does not use what type of physical activity do you participate in: none HPI 1 W F/U Details: Marylu Wiseman is a delightful 29 YO FM who presents for evaluation of her left middle finger. It was injured on 02 Aug 2024 at work when a 30 lb cheese roll fell onto the left middle finger. 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 She is a smoker. CURRENT VISIT 20 Aug 2024: Patient states she is doing well. Shes states that her pain is gone and she feels she can go back to work. She states she has been using it at home. ROS General General: Yes good health; No fever(s) HENMT HENMT: No rhinitis or nasal congestion Endo Endocrine: No thyroid disease Skin Skin: No Bleeding or bruising Musc Musculoskeletal: Yes joint stiffness; No joint pain or back pain Neuro Neurological: No headache(s) and No lightheadedness Cardio Cardiovascular: No chest pain Psych Psychiatric: No depression Resp Respiratory: No shortness of breath Gastro Gastrointestinal: No nausea or vomiting Exam Const General: cooperative and comfortable HENMT Head: normocephalic and atraumatic Eyes General: appearance normal, both eyes and all related structures Neck Neck: full ROM Resp Effort Inspection: normal respiratory effort and able to speak in complete sentences Cardio Rate: regular rate Rhythm: regular rhythm Skin General: no rashes or lesions noted Neuro General: patient alert, patient awake and patient oriented x3 Extrem General: full ROM Other: Left long finger with no bruising or swelling. Good ROM. Able to make a fist and good temple meat cutter strength. Able to extend all finger joints. Sensation intact to light touch. Fingers are warm and pink, capillary refill <2 seconds. Psych Appearance: grossly normal and well kempt Coding Level of Care Code Off vis,est,level 2 Diagnoses Contusion of left middle finger S60.032A Assessment and Plan (No Qualifiers) Assessment and Plan (1) Contusion of left middle finger: Status: Acute Plan She denies any pain today and states she feels she is able to return to work with no restrictions. Gave her a note to RTW on Friday08/23/24. Follow up with us as needed. 08/20/24 3509 > Date (more content not included)... 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 Chief Complaint: Fracture of L middle finger Allergies No Known Allergies Allergy (Verified 08/12/24 16:05) [facility] Medical History Contusion of left middle finger Closed fracture of proximal phalanx of left middle finger Acute bronchitis, unspecified Sinusitis Acute pharyngitis, unspecified Chronic constipation UTI (urinary tract infection) Urinary frequency RLQ abdominal pain Abdominal pain Migraines Heart murmur HPV (human papilloma virus) infection Endometriosis Depression Anxiety Frequent UTI Decreased movement 35 weeks gestation of Pharyngitis URI (upper respiratory infection) No significant past medical history Laryngitis Contusion of right foot, initial encounter UNEXPLAINED BRUISES Asthma Anemia Stomach ulcer Arthritis Surgical History History of tubal ligation Family History Mother Anxiety and depression Heart disease Cancer lung Father Anxiety and depression Diabetes Other Hyperlipemia Social History Smoking Status: Current every day smoker tobacco type: cigarettes Tobacco: How many years used: 10 alcohol intake: current alcohol intake frequency: a few times a month substance use type: does not use what type of physical activity do you participate in: none HPI HPI Chief Complaint: Fracture of L middle finger Details: Patient was informed that today's visit charges, even if billed to insurance may still be the patient's responsibility to pay. MARYLU WISEMAN, is a 29 F who presents to the office today for f/u of LMF injury. Pt notes having been evaluated by ortho-hand/plastics since [facility] and has another follow- up appointment with them on 08/20/2024. She notes discomfort is still remarkable and therefore would continue to follow-up with plastics as previously arranged. ROS Const Constitutional: No other (As above) Exam Details: Details:: Exam was limited due to phone visit with no video. Coding Level of Care Code Level 1 Telephone Diagnoses Contusion of left middle finger S60.032A Assessment and Plan Assessment and Plan (1) Contusion of left middle finger: Status: Acute Plan: See revised [employer] 14 which mirrors what Ortho hand/plastics recommended on their last evaluation. Released from the [facility] at this time, with patient continuing follow-up with Ortho hand/plastics going forward regarding this claim. Patient states acknowledging understanding all the above. This note was generated with [employer]che dictation software. It may contain incorrect words, spelling, and punctuation that were not noted in checking the note before signing. 08/17/24 1740 Date Jorge Jaffe Signature: Date (if applicable) CC: Normal [facility] Hand Min 3 Viewson 4 Hand Min 3 Views [facility] Services [address] [place], [place] [id number] Hand Min 3 Views MR#: [id number] Acct: [id number] Name: MARYLU WISEMAN Rep #: [id number] : 1995 F 29 From: Renaldo Miguel MD PCP: Dr. Lizzy Francois MD Status: REG CLI Study: Hand Min 3 Views Date of Exam: 08/12/24 Exam# [id number] Ordering Dr: Quinn Rojo MD [id number] EXAM: XR LEFT HAND COMPLETE, 3 OR MORE VIEWS CLINICAL INDICATION: Hand pain TECHNIQUE: Frontal, lateral and oblique views of the left hand. COMPARISON: Plain film 08/03/2024 FINDINGS: BONES/JOINTS: Unremarkable. No acute fracture. No subluxation. Normal alignment. Preservation of the joint space. No sclerotic or destructive changes observed. SOFT TISSUES: Unremarkable. No soft tissue swelling or gas. No radiopaque foreign body. RAD/Hand Min 3 Views IMPRESSION: Unremarkable exam, no healing fracture identified. Electronically Signed: Renaldo Miguel MD at 11:37 EST , CC: Dr. Lizzy Francois MD; Dr. Quinn Rojo MD Chart Reader: Signed Normal [facility] MR/BMS.WPS2on 08-12-2024 MR/BMS.WPS2 [facility] Plastic Reconstructive Surgery [address] [place] [address] [place] [address] OFFICE VISIT Date of Service: 08/12/24 MR#: [id number] Acct: [id number] Name: MARYLU WISEMAN Rep #: [id number] : 1995 Provider: Dr. Quinn Rojo MD Age/Sex: 29/F Location: [facility] Status: Signed Intake Vital Signs 3 07/12/24 17:02 08/12/24 16:06 Height 5 ft 3 in 5 ft 3 in Weight: 120 lb 124 lb BMI 21.2 21.9 BP 111/71 Blood Pressure Location Rt brachial Position Sitting Respiration 16 18 Pulse 76 70 Pulse Source Monitor Monitor Temp 98.2 F 97.8 F Temp Source Oral Oral Pulse Oximetry (%) 96 99 Oxygen Delivery Method room air room air Intake Visit Reasons: FRACTURE OF L MIDDLE FINGER [facility] Chief Complaint: Fracture of L middle finger Is patient in pain?: Yes (left long finger) Pain scale (1-10): 5 Allergies No Known Allergies Allergy (Verified 08/12/24 16:05) Medications 3 ???Medication ???Instructions ???Recorded ???Confirmed ???Type albuterol sulfate 90 mcg/actuation 2 puff inhalation Q4-6H PRN 12/16/23 08/12/24 Rx aerosol inhaler shortness of breath or wheezing #8.5 grams linaclotide 145 mcg capsule 145 mcg PO QAM #90 caps 07/28/24 08/12/24 Rx (Linzess) Nurse's Note: Fracture of Left middle finger [facility] Medical History Contusion of left middle finger Closed fracture of proximal phalanx of left middle finger Acute bronchitis, unspecified Sinusitis Acute pharyngitis, unspecified Chronic constipation UTI (urinary tract infection) Urinary frequency RLQ abdominal pain Abdominal pain Migraines Heart murmur HPV (human papilloma virus) infection Endometriosis Depression Anxiety Frequent UTI Decreased movement 35 weeks gestation of Pharyngitis URI (upper respiratory infection) No significant past medical history Laryngitis Contusion of right foot, initial encounter UNEXPLAINED BRUISES Asthma Anemia Stomach ulcer Arthritis Surgical History History of tubal ligation Family History Mother Anxiety and depression Heart disease Cancer lung Father Anxiety and depression Diabetes Other Hyperlipemia Social History Smoking Status: Current every day smoker tobacco type: cigarettes Tobacco: How many years used: 10 alcohol intake: current alcohol intake frequency: a few times a month substance use type: does not use what type of physical activity do you participate in: none HPI FRACTURE OF L MIDDLE FINGER [facility] Details: Marylu Wiseman is a delightful 29 YO FM who presents for evaluation of her left middle finger. It was injured on 02 Aug 2024 at work when a 30 lb cheese roll fell onto the left middle finger. 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 She is not a smoker. ROS General General: Yes good health; No fatigue, fever(s) or weight loss HENMT HENMT: No rhinitis, sore throat/mouth sore, nasal congestion, contacts or glaucoma Endo Endocrine: No thyroid disease, polydipsia, heat intolerance, cold intolerance, hepatitis or excessive urine Skin Skin: No Bleeding, bruising, changing moles or suspicious lesion Musc Musculoskeletal: No joint pain, joint stiffness, muscle weakness, back pain, osteoarthritis or Muscle aches/ myalgia Neuro Neurological: No headache(s), No lightheadedness and No numbness Cardio Cardiovascular: No chest pain, pacemaker, fatigue or shortness of breat with exertion Psych Psychiatric: Yes depression; No claustrophobia or anxiety Resp Respiratory: Yes asthma; No spitting up, shortness of breath, sleep apnea, emphysema, TB, Cough or Smoker Gastro Gastrointestinal: Yes constipation; No diarrhea, blood in stool, nausea, vomiting or abdominal bloating David Hematologic: No anemia, No bleeding and No abnormal bleeding Genitourinary: No urinary frequency, blood in urine or incontinence Exam Details LUE: Currently no hyperpathia or allodynia Inspection: No abnormalities seen on inspection. No bruising. Palpation: Pain to palpation over the long finger metacarpal. No collateral ligament instability on the long finger. No mallet deformity. Motor: Able to bend and extend all MP, PIP, and DIP joints. Makes full fist. Sensory: Intact to light touch on the radial and ulnar borders, but reports some numbness/tingling on the back of P1 on the left long finger. Vascular: Finger tips are warm and well perfused with <2 second capillary refill. Coding Level of Care Code Off vis,new,level 4 Diagnoses Contusion of left middle finger S60.032A Asse (more content not included)... Normal [facility] Finger(s) Min 2 Viewson 12-0 Finger(s) Min 2 Views [facility] Imaging Services [address] [place] [address] Finger(s) Min 2 Views MR#: [id number] Acct: [id number] Name: MARYLU WISEMAN Rep #: [id number] : 1995 F 29 From: Reg Jenkins MD PCP: Dr. Lizzy Francois MD Status: REG CLI Study: Finger(s) Min 2 Views Date of Exam: 08/03/24 Exam# [id number] Ordering Dr: Jorge Liu PA [id number] EXAM: XR LEFT FINGERS, 2 OR MORE VIEWS CLINICAL INDICATION: finger injury -- left 3rd finger TECHNIQUE: Frontal, lateral and oblique views of the fingers of the left hand. COMPARISON: No relevant prior studies available. FINDINGS: BONES/JOINTS: No acute abnormality. SOFT TISSUES: Normal. No soft tissue swelling or gas. No radiopaque foreign body. RAD/Finger(s) Min 2 Views IMPRESSION: Intact left third finger. Electronically Signed: Reg Jenkins MD at 11:14 EST , CC: Dr. Lizzy Francois MD; DALTON Holloway Chart Reader: Signed Normal [facility] Urgent Care Visit Reporton 1 10-04-2023 Urgent Care Visit Report [facility] [address], [address] [place] [address] OFFICE VISIT Date of Service: 08/03/24 MR#: [id number] Acct: [id number] Name: MARYLU WISEMAN Rep #: [id number] : 1995 Provider: DALTON Holloway Age/Sex: 29/F Location: [facility] Status: Signed Intake Vital Signs 07/12/24 17:02 Height 5 ft 3 in Weight: 120 lb BMI 21.2 Respiration 16 Pulse 76 Pulse Source Monitor Temp 98.2 F Temp Source Oral Pulse Oximetry (%) 96 Oxygen Delivery Method room air Intake Visit Reasons: L MIDDLE FINGER INJURY Chief Complaint: cough congestion Allergies No Known Allergies Allergy (Verified 07/12/24 17:04) [facility] Medical History (Updated 08/03/24 @ 11:41 by Jorge HOFFMAN, PA) Contusion of left middle finger Closed fracture of proximal phalanx of left middle finger Acute bronchitis, unspecified Sinusitis Acute pharyngitis, unspecified Chronic constipation UTI (urinary tract infection) Urinary frequency RLQ abdominal pain Abdominal pain Migraines Heart murmur HPV (human papilloma virus) infection Endometriosis Depression Anxiety Frequent UTI Decreased movement 35 weeks gestation of Pharyngitis URI (upper respiratory infection) No significant past medical history Laryngitis Contusion of right foot, initial encounter UNEXPLAINED BRUISES Asthma Anemia Stomach ulcer Arthritis Surgical History History of tubal ligation Family History Mother Anxiety and depression Heart disease Cancer lung Father Anxiety and depression Diabetes Other Hyperlipemia Social History Smoking Status: Current every day smoker tobacco type: cigarettes Tobacco: How many years used: 10 alcohol intake: current alcohol intake frequency: a few times a month substance use type: does not use what type of physical activity do you participate in: none HPI HPI Chief Complaint: cough congestion Details: MARYLU WISEMAN, is a 29 F who presents to the office today for initial evaluation left middle finger proximal phalanx pain after approximately 30 pound roll of cheese fell onto the same yesterday while at work she says states. PMH NC. Pain is aggravated touch more so today than even the day of injury. No loss of sensation or strength or function distally. [id number]. No [id number] products taken to assist. No other associated symptoms and no other alleviating/aggravating factors. ROS Const Constitutional: No other (As above) Exam Const General: cooperative, healthy appearing and no acute distress Orientation: alert and awake Resp Effort Inspection: normal respiratory effort and able to speak in complete sentences Cardio Rate: regular rate Pulses: radial pulses present Skin General: no rashes or lesions noted Neuro General: patient alert and patient awake Cognition: normal cognition Speech: speech normal Extrem General: capillary refill normal and normal exam except as noted (pain to touch LMF prox. phalanx at PIPJ w/ pain radiating to MCPJ) Psych Appearance: grossly normal Mental Status: mental status grossly normal Mood: congruent mood Affect: normal affect Speech and Movement: speech and movement normal Attitude: cooperative Coding Level of Care Code Off vis,est,level 4 Diagnoses Closed fracture of proximal phalanx of left middle finger S62.613A Contusion of left middle finger S60.032A Assessment and Plan Assessment and Plan (1) Closed fracture of proximal phalanx of left middle finger: Status: Acute (2) Contusion of left middle finger: Status: Acute Plan: Left middle finger radiographs reviewed with patient in office today, with radiologist interpretation pending at the time patient discharge. See work restrictions as noted on today's [employer] 14. Aluminum finger splint with lisseth taping to the left index finger to be worn at all times. Supportive measures as instructed today. C9 submitted for referral to Ortho hand/plastics. Follow-up with the [facility] in 2 weeks for reevaluation, sooner should symptoms only worsen or any other concerns develop. Patient states acknowledging understanding all the above. This note was generated with Tyche dictation software. It may contain incorrect words, spelling, and punctuation that were not noted in checking the note before signing. Orders: Orders Finger(s) Min 2 Views Today S69.90XA - Unspecified injury of unspecified wrist, hand and finger(s), initial encounter Referrals Plastic surgery S62.613A - Displaced fracture of proximal phalanx of left middle finger, initial encounter for closed fracture (more content not included)... Normal [facility] Urgent Care Visit Reporton 1 09-11-2023 Urgent Care Visit Report [facility] [address], [address] [place] [address] OFFICE VISIT Date of Service: 07/12/24 MR#: [id number] Acct: [id number] Name: MARYLU WISEMAN Rep #: [id number] : 1995 Provider: DALTON Holloway Age/Sex: 29/F Location: [email or web address] Status: Signed Intake Vital Signs 05/25/24 15:17 07/12/24 17:02 Height 5 ft 3 in 5 ft 3 in Weight: 130 lb 120 lb BMI 23.0 21.2 BP 120/88 H Blood Pressure Location Lt brachial Position Sitting Respiration 16 16 Pulse 84 76 Pulse Source Monitor Monitor Temp 98.7 F 98.2 F Temp Source Temporal Oral Pulse Oximetry (%) 97 96 Oxygen Delivery Method room air room air Intake Visit Reasons: COUGH/CONGESTION Chief Complaint: cough congestion [employer] Supervisor Required: No Accompanied by: Self Is patient in pain?: No Allergies No Known Allergies Allergy (Verified 07/12/24 17:04) Medications ???Medication ???Instructions ???Recorded ???Confirmed ???Type albuterol sulfate 90 mcg/actuation 2 puff inhalation Q4-6H PRN 12/16/23 07/12/24 Rx aerosol inhaler shortness of breath or wheezing #8.5 grams levofloxacin 500 mg tablet 500 mg PO Q24H #7 tabs 07/12/24 07/12/24 Rx Nurse's Note: pt declined testing [facility] Medical History (Updated 07/12/24 @ 17:55 by Jorge HOFFMAN, PA) Acute bronchitis, unspecified Sinusitis Acute pharyngitis, unspecified Chronic constipation UTI (urinary tract infection) Urinary frequency RLQ abdominal pain Abdominal pain Migraines Heart murmur HPV (human papilloma virus) infection Endometriosis Depression Anxiety Frequent UTI Decreased movement 35 weeks gestation of Pharyngitis URI (upper respiratory infection) No significant past medical history Laryngitis Contusion of right foot, initial encounter UNEXPLAINED BRUISES Asthma Anemia Stomach ulcer Arthritis Surgical History History of tubal ligation Family History Mother Anxiety and depression Heart disease Cancer lung Father Anxiety and depression Diabetes Other Hyperlipemia Social History Smoking Status: Current every day smoker tobacco type: cigarettes Tobacco: How many years used: 10 alcohol intake: current alcohol intake frequency: a few times a month substance use type: does not use what type of physical activity do you participate in: none HPI HPI Chief Complaint: cough congestion Details: MARYLU WISEMAN, is a 29 F who presents to the office today for persistent cough for approximately a month and a half without improvement after having been treated approximately a month ago with Augmentin and benzonatate. Patient admits to continuing smoking approximately a pack a day and admitting she exposed her 3 children to her tobacco smoke as well. She notes no complaints of fever, chills, sweats, lightheadedness/dizzines s, nausea/vomiting. No complaints of chest pressure with shortness of breath or dyspnea exertion, though does admit mild fatigue. No [id number] products taken to assist. No other associated symptoms and no other alleviating/aggravating factors. ROS Const Constitutional: No other (As above) Exam Const General: cooperative, healthy appearing and no acute distress Nutritional Appearance: average body habitus Orientation: alert and awake [facility] Head: normal to inspection Ears: hearing grossly normal bilaterally, external ears normal, TM's normal bilaterally and EAC's normal Nose: external nose normal, nares normal, septum normal and no nasal discharge Eyes General: appearance normal, both eyes and all related structures Neck Neck: normal visual inspection, full ROM, no lymphadenopathy, no meningeal signs and supple Neck mass: No Thyroid: thyroid normal Lymphatic: no lymphadenopathy noted Chest Chest palpation inspection: normal inspection of the chest Resp Effort Inspection: normal respiratory effort and able to speak in complete sentences Auscultation: Bilateral: Clear to Auscultation (With scant rhonchi throughout partially clearing with cough) Cardio Palpation: normal PMI Rate: regular rate Rhythm: regular rhythm Heart Sounds: S1 normal, S2 normal, no gallops, no murmurs and no rubs Pulses: radial pulses present Skin General: no rashes or lesions noted Neuro General: patient alert, patient awake and patient oriented x3 Cognition: normal cognition Speech: speech normal Psych Appearance: grossly normal Mental Status: mental status grossly normal Mood: congruent mood Affect: normal affect Speech and Movement: speech and movement normal Attitude: cooperative Coding Level of Care Code (more content not included)... Normal [facility] Absolute lymphocyte countOrd ered By: Lizzy Francois on 12-15-2023 Lymphocytes Auto (Unsp spec) [#/Vol] 2.58 10*3/uL 0.83-4.51 [facility] Automated lymphocyte count a s percentage of total leukocytesOrdered By: Lizzy Francois on 12-15-2023 Lymphocytes/100 WBC Auto (Unsp spec) 36.2 % 19-41 [facility] Basophil percentageOrdered B y: Lizzy Francois on 12-15-2023 Basophils/100 WBC (Bld) 0.7 % 0-1 [facility] Bilirubin [Mass/Vol] 0.30 mg/dL 0.20-1.00 [facility] Comment on above: For patients on eltr ombopag therapy, use of Dimension [place] TBIL is not recommended. Chloride [Moles/Vol] 109 mmol/L 98-107 [facility] Eosinophils/100 WBC (Bld) 1.5 % 0-5 [facility] Glucose [Mass/Vol] 84 mg/dL 74-106 [facility] Hemoglobin (Bld) [Mass/Vol] 11.9 g/dL 12.0-15.0 [facility] Monocytes/100 WBC (Bld) 7.0 % 0-10 [facility] Neutrophils (Bld) [#/Vol] 3.9 10*3/uL 2.0-7.7 [facility] Neutrophils/100 WBC (Bld) 54.5 % 47-70 [facility] Potassium [Moles/Vol] 3.7 mmol/L 3.5-5.1 [place] Protein [Mass/Vol] 7.5 g/dL 6.4-8.2 [facility] Sodium [Moles/Vol] 140 mmol/L 136-145 [facility] WBC (Bld) [#/Vol] 7.1 10*3/uL 4.4-11.0 [facility] Determination of erythrocyte mean corpuscular volume (MCV)Ordered By: Lizzy Francois on 12-15-2023 MCV (RBC) [Entitic vol] 92.7 fL 81-99 [facility] Erythrocyte distribution wid th ratioOrdered By: [facility] Samirkimi on 12-15-2023 Erythrocyte distribution width (RBC) [Ratio] 12.5 % 11.6-14.6 [facility] Erythrocyte distribution wid th standard deviationOrdered By: mitcharomaschiquita Dawsonkimi on 12-15-2023 Erythrocyte distribution width (RBC) [Entitic vol] 42.5 fL 35.1-43.9 [facility] Hematocrit Auto (Bld) [Volum e fraction]Ordered By: Brandyaromaschiquita Dawsonkimi on 12-15-2023 Hematocrit (Bld) [Volume fraction] 35.7 % 37-47 [facility] Immature granulocytes/100 WB C Auto (Bld)Ordered By: Lizzy Francois on 12-15-2023 Immature granulocytes/100 WBC (Bld) 0.100 % 0.0-0.9 [facility] Comment on above: IG% - Immature Granu locytes (promyelocytes, myelocytes and metamyelocytes) > 1% indicates that a LEFT SHIFT is Present. Laboratory - Chemistry and C hemistry - challengeOrdered By: Lizzy Francois on 12-15-2023 Albumin/Globulin [Mass ratio] 1.1 {ratio} 0.9-2.4 [facility] ALP [Catalytic activity/Vol] 79 U/L 45-117 [facility] ALT [Catalytic activity/Vol] 21 U/L 13-56 [facility] CO2 [Moles/Vol] 26.0 mmol/L 21.0-32.0 [facility] Globulin (S) [Mass/Vol] 3.6 g/dL 2.2-4.2 [facility] Urea nitrogen/Creatinine [Mass ratio] 12.8 mg/mg 10-20 [facility] Laboratory - Hematology and Cell countsOrdered By: Lizzy Francois on 12-15-2023 MCH (RBC) [Entitic mass] 30.9 pg 27.0-32.0 [facility] MCHC (RBC) [Mass/Vol] 33.3 g/dL 32-36 [place] Nucleated RBC/100 WBC (Bld) [Ratio] 0 % 0-5 [facility] Platelet mean volume (Bld) [Entitic vol] 10.0 fL 6.2-12.0 [facility] Platelets (Bld) [#/Vol] 258 10*3/uL 150-450 [facility] Laboratory - Microbiology an d Antimicrobial susceptibilityon 12-15-2023 S. pyogenes Ag IA Ql (Unsp spec) Negative [facility] No Panel InformationOrdered By: Lizzy Francois on 12-15-2023 Estimated GFR (MDRD) Amer 125 mL/min >60 [facility] Comment on above: GFR Calc Estimated GFR (MDRD) Non-Af Amer 103 mL/min >60 [facility] Comment on above: Non- GFR Calc RBC Auto (Bld) [#/Vol]Ordere d By: Lizzy Francois on 12-15-2023 RBC (Bld) [#/Vol] 3.85 10*6/uL 4.2-5.4 [facility] Serum or plasma calcium marino urement (mass/volume)Ordered By: Lizzy Francois on 12-15-2023 Calcium [Mass/Vol] 9.2 mg/dL 8.5-10.1 [facility] Serum or plasma creatinine m easurement (mass/volume)Ordered By: Lizzy Francois on 12-15-2023 Creatinine [Mass/Vol] 0.70 mg/dL 0.55-1.02 [place] Comment on above: The validity of the calculated GFR & GFRAA in patients over 70 years has not been determined. Clinical correlation is essential. Serum or plasma urea nitroge n measurement (mass/volume)Ordered By: Lizzy Francois on 12-15-2023 Urea nitrogen [Mass/Vol] 9 mg/dL 7-18 [facility] Thin prep Papanicolaou smear with manual screeningOrdered By: Lizzy Francois on 12-15-2023 Thin prep Papanicolaou smear with manual screening 3.9 g/dL 3.2-5.0 [facility] Thin prep Papanicolaou smear with manual screening 21 U/L 15-37 [facility] Thin prep Papanicolaou smear with manual screening 5 5-15 [facility] Basophil percentageOrdered B y: Jorge Liu on 07-17-2023 Basophil percentage 0-5 SEEN /hpf 0-5 [facility] Bilirubin Test strip Ql (U)O rdered By: Jorge Liu on 07-17-2023 Bilirubin Ql (U) Negative Negative [facility] Culture, urineOrdered By: St keith Liu on 07-17-2023 Bacteria identified Cx Nom (U) Culture exhibits no growth. [facility] Ketones Test strip Ql (U)Ord ered By: Jorge Liu on 07-17-2023 Ketones Ql (U) Negative Negative [facility] Mucus LM Ql (Urine sed)Order ed By: Jorge Liu on 07-17-2023 Mucus Ql (Urine sed) 0 SEEN /hpf [place] Nitrite Test strip Ql (U)Ord ered By: Jorge Liu on 07-17-2023 Nitrite Ql (U) Negative Negative [facility] Protein Test strip Ql (U)Ord ered By: Jorge Liu on 07-17-2023 Protein Ql (U) Negative Negative [facility] Squamous epithelial cells de tection in urine sediment by light microscopyOrdered By: Jorge Liu on 07-17-2023 Epithelial cells.squamous LM Ql (Urine sed) 0-5 SEEN /hpf 5-10 [facility] Urine blood detectionOrdered By: Jorge Liu on 07-17-2023 RBC Ql (U) 10 /ul Negative [facility] RBC Ql (U) 0 SEEN /hpf 0-5 [facility] Urine clarityOrdered By: lAfonso Liu on 07-17-2023 Clarity (U) Clear Clear [facility] Urine color determinationOrd ered By: Jorge Liu on 07-17-2023 Color (U) Yellow Yellow [facility] Urine glucose detectionOrder ed By: Jorge Liu on 07-17-2023 Glucose Ql (U) Normal mg/dl Normal [facility] Urine leukocyte esterase det ection by dipstickOrdered By: Jorge Liu on 07-17-2023 Leukocyte esterase Test strip Ql (U) 25 /ul Negative [facility] Urine pHOrdered By: Jorge boyle on 07-17-2023 pH (U) 7.0 [pH] 5.0 - 8.0 [facility] Urine sediment bacteria coun t by microscopy (number/high power field)Ordered By: Jorge Liu on 07-17-2023 Bacteria LM.HPF (Urine sed) [#/Area] 0 /[HPF] None Seen [facility] Urine specific gravity measu rementOrdered By: Jorge Liu on 07-17-2023 Specific gravity (U) [Rel density] 1.010 1.002-1.030 [facility] Urobilinogen Auto test strip Ql (U)Ordered By: Jorge Liu on 07-17-2023 Urobilinogen Ql (U) Normal mg/dl Normal [place] Laboratory - Chemistry and C hemistry - challengeon 07-16-2023 Bilirubin Ql (U) Negative [facility] Glucose Ql (U) Negative [facility] Ketones Ql (U) Negative [facility] pH (U) 6.5 [pH] [facility] Specific gravity (U) [Rel density] 1.010 [facility] Urobilinogen (U) [Mass/Vol] 0.8903958 mg/dL [facility] Laboratory - Hematology and Cell countson 07-16-2023 Hemoglobin Ql (U) Negative [facility] Laboratory - Specimen inform ationon 07-16-2023 Clarity (U) Cloudy [facility] Color (U) Yellow [facility] Laboratory - Urinalysison Nitrite Ql (U) Negative [facility] Protein Ql (U) Negative [facility] No Panel Informationon 07-16 Urine Leukocytes Negatve [facility] Comment on above: Off Ur Leukocytes pr eviously reported as Positive Urine Non-Hemolyzed Blood Negative [facility] Absolute lymphocyte countOrd ered By: Ladarius Lozada on 07-09-2023 Lymphocytes Auto (Unsp spec) [#/Vol] 2.69 10*3/uL 0.83-4.51 [facility] Basophil percentageOrdered B y: Ladarius Lozada on 07-09-2023 Basophils/100 WBC (Bld) 0.5 % 0-1 [facility] Chloride [Moles/Vol] 110 mmol/L 98-107 [facility] Eosinophils/100 WBC (Bld) 0.7 % 0-5 [facility] Glucose [Mass/Vol] 93 mg/dL 74-106 [facility] Neutrophils (Bld) [#/Vol] 7.4 10*3/uL 2.0-7.7 [facility] Neutrophils/100 WBC (Bld) 69.3 % 47-70 [facility] Potassium [Moles/Vol] 3.4 mmol/L 3.5-5.1 [place] Sodium [Moles/Vol] 139 mmol/L 136-145 [facility] WBC (Bld) [#/Vol] 10.7 10*3/uL 4.4-11.0 [facility] Blood erythrocytes count (nu mber/volume)Ordered By: Ladarius Lozada on 07-09-2023 RBC (Bld) [#/Vol] 3.81 10*6/uL 4.2-5.4 [facility] Blood hemoglobin measurement (mass/volume)Ordered By: Ladarius Lozada on 07-09-2023 Hemoglobin (Bld) [Mass/Vol] 11.7 g/dL 12.0-15.0 [facility] Blood lymphocytes/100 leukoc ytesOrdered By: Ladarius Lozada on 07-09-2023 Lymphocytes/100 WBC (Bld) 25.2 % 19-41 [facility] Blood monocytes/100 leukocyt esOrdered By: Ladarius Lozada on 07-09-2023 Monocytes/100 WBC (Bld) 3.7 % 0-10 [facility] Blood platelet mean volumeOr dered By: Ladarius Lozada on 07-09-2023 Platelet mean volume (Bld) [Entitic vol] 9.1 fL 6.2-12.0 [facility] Determination of erythrocyte mean corpuscular volume (MCV)Ordered By: Ladarius Lozada on 07-09-2023 MCV (RBC) [Entitic vol] 93.7 fL 81-99 [facility] Hematocrit Auto (Bld) [Volum e fraction]Ordered By: Ladarius Lozada on 07-09-2023 Hematocrit (Bld) [Volume fraction] 35.7 % 37-47 [facility] Laboratory - Chemistry and C hemistry - challengeOrdered By: Ladarius Lozada on 07-09-2023 CO2 [Moles/Vol] 24.0 mmol/L 21.0-32.0 [facility] Urea nitrogen/Creatinine [Mass ratio] 11.4 mg/mg 10-20 [facility] Laboratory - Hematology and Cell countsOrdered By: Ladarius Lozada on 07-09-2023 Erythrocyte distribution width (RBC) [Entitic vol] 44.3 fL 35.1-43.9 [facility] Erythrocyte distribution width (RBC) [Ratio] 13.0 % 11.6-14.6 [facility] Immature granulocytes/100 WBC (Bld) 0.600 % 0.0-0.9 [facility] Comment on above: IG% - Immature Granu locytes (promyelocytes, myelocytes and metamyelocytes) > 1% indicates that a LEFT SHIFT is Present. MCH (RBC) [Entitic mass] 30.7 pg 27.0-32.0 [facility] Nucleated RBC/100 WBC (Bld) [Ratio] 0 % 0-[address] [facility] [address] ([facility]BC) [Mass/Vol]Or dered By: Ladarius Lozada on 07-09-2023 MCHC (RBC) [Mass/Vol] 32.8 g/dL 32-36 [place] No Panel InformationOrdered By: Ladarius Lozada on 07-09-2023 D-Dimer Quantitative (PE/DVT) < 0.27 FEU/ug/m 0.27-0.49 [facility] Comment on above: NORMAL D-Dimer level (<0.50) indicates no DVT or PE. Estimated Creatinine Clearance Calc 97.21 ml/min [facility] Estimated GFR (MDRD) Amer 126 mL/min >60 [facility] Comment on above: GFR Calc Estimated GFR (MDRD) Non-Af Amer 104 mL/min >60 [facility] Comment on above: Non- GFR Calc Thyroid Stimulating Hormone (TSH) 0.65 uIU/mL 0.358-3.74 [facility] Troponin I High Sensitivity 4 pg/mL 3.0-54.0 [facility] Comment on above: Please Note: [place] t Units and Gender Specific Reference Ranges. For more information see Policy Stat Procedure [place] High Sensitivity Troponin (TNIH) and attachments. Platelets bldOrdered By: Lawrence Lozada on 07-09-2023 Platelets (Bld) [#/Vol] 231 10*3/uL 150-450 [facility] Serum or plasma calcium marino urement (mass/volume)Ordered By: Ladarius Lozada on 07-09-2023 Calcium [Mass/Vol] 8.9 mg/dL 8.5-10.1 [facility] Serum or plasma creatinine m easurement (mass/volume)Ordered By: Ladarius Lozada on 07-09-2023 Creatinine [Mass/Vol] 0.70 mg/dL 0.55-1.02 [place] Comment on above: The validity of the calculated GFR & GFRAA in patients over 70 years has not been determined. Clinical correlation is essential. Serum or plasma urea nitroge n measurement (mass/volume)Ordered By: Ladarius Lozada on 11-08-2023 Urea nitrogen [Mass/Vol] 8 mg/dL 7-18 [facility] Thin prep Papanicolaou smear with manual screeningOrdered By: Ladarius Lozada on 07-09-2023 Thin prep Papanicolaou smear with manual screening 5 5-15 [facility] Absolute lymphocyte countOrd ered By: Deon Marie on 06-30-2023 Lymphocytes Auto (Unsp spec) [#/Vol] 3.39 10*3/uL 0.83-4.51 [facility] Albumin Elph [Mass/Vol]Order ed By: Deon Marie on 06-30-2023 Albumin [Mass/Vol] 4.1 g/dL 2.9-4.4 [facility] Atypical perinuclear antineu trophil cytoplasmic antibodies measurementOrdered By: Deon Marie on 06-30-2023 Neutrophil cytoplasmic Ab.perinuclear.atypical IF (S) [Titer] <1:20 titer Neg:<1:20 [facility] Comment on above: The atypical pANCA p attern has been observed in asignificant percentage of patients with ulcerative colitis,primary sclerosing cholangitis and autoimmune hepatitis. Basophil percentageOrdered B y: Deon Marie on 06-30-2023 Amylase [Catalytic activity/Vol] 48 U/L 25-115 [facility] Basophil percentage < 0.2 AI 0.0-0.9 [facility] Basophils/100 WBC (Bld) 0.7 % 0-1 [facility] Bilirubin [Mass/Vol] 0.20 mg/dL 0.20-1.00 [facility] Comment on above: For patients on eltr ombopag therapy, use of Dimension [place] TBIL is not recommended. Chloride [Moles/Vol] 109 mmol/L 98-107 [facility] Eosinophils/100 WBC (Bld) 0.7 % 0-5 [facility] Glucose [Mass/Vol] 89 mg/dL 74-106 [facility] Neutrophils (Bld) [#/Vol] 6.8 10*3/uL 2.0-7.7 [facility] Neutrophils/100 WBC (Bld) 63.0 % 47-70 [facility] Potassium [Moles/Vol] 3.6 mmol/L 3.5-5.1 [place] Protein [Mass/Vol] 8.2 g/dL 6.4-8.2 [facility] Sodium [Moles/Vol] 137 mmol/L 136-145 [facility] WBC (Bld) [#/Vol] 10.7 10*3/uL 4.4-11.0 [facility] Blood erythrocytes count (nu mber/volume)Ordered By: Deon Marie on 06-30-2023 RBC (Bld) [#/Vol] 4.24 10*6/uL 4.2-5.4 [facility] Blood hemoglobin measurement (mass/volume)Ordered By: Deon Marie on 06-30-2023 Hemoglobin (Bld) [Mass/Vol] 13.1 g/dL 12.0-15.0 [facility] Blood lymphocytes/100 leukoc ytesOrdered By: Deon Marie on 06-30-2023 Lymphocytes/100 WBC (Bld) 31.7 % 19-41 [facility] Blood monocytes/100 leukocyt esOrdered By: Deon Marie on 06-30-2023 Monocytes/100 WBC (Bld) 3.5 % 0-10 [facility] Blood platelet mean volumeOr dered By: Deon Marie on 06-30-2023 Platelet mean volume (Bld) [Entitic vol] 9.2 fL 6.2-12.0 [facility] Determination of erythrocyte mean corpuscular volume (MCV)Ordered By: Deon Marie on 06-30-2023 MCV (RBC) [Entitic vol] 92.0 fL 81-99 [facility] Erythrocyte sedimentation ra teOrdered By: Deon Marie on 06-30-2023 ESR (Bld) [Velocity] 5 mm/h 0-30 [facility] HIV 1 and HIV-2 antibody ass ay with HIV-1 p24 antigen detectionOrdered By: Deon Marie on 06-30-2023 HIV 1+2 Ab+HIV1 p24 Ag IA Ql Non-Reactive Nonreactive [facility] Hematocrit Auto (Bld) [Volum e fraction]Ordered By: Deon Marie on 06-30-2023 Hematocrit (Bld) [Volume fraction] 39.0 % 37-47 [facility] Interpretation of serum or p lasma protein pattern by immunofixation (narrative resultOrdered By: Deon Marie on 06-30-2023 Protein Fractions Immunofixation Jay Jay [Interp] See comment [facility] Comment on above: NOT OBSERVED Laboratory - Chemistry and C hemistry - challengeOrdered By: Deon Marie on 06-30-2023 ALP [Catalytic activity/Vol] 80 U/L 45-117 [facility] ALT [Catalytic activity/Vol] 20 U/L 13-56 [facility] CO2 [Moles/Vol] 24.0 mmol/L 21.0-32.0 [facility] Lipase [Catalytic activity/Vol] 27 U/L 13-75 [facility] Comment on above: Please note:LIPASE r evised reference range effective 22. New Lipase methodology. Expected to produce lower values than the previous assay method. NEW Reference Range: 13 - 75 U/L Urea nitrogen/Creatinine [Mass ratio] 11.8 mg/mg - [facility] Laboratory - Hematology and Cell countsOrdered By: Deon Marie on 06-30-2023 Erythrocyte distribution width (RBC) [Entitic vol] 43.1 fL 35.1-43.9 [facility] Erythrocyte distribution width (RBC) [Ratio] 12.9 % 11.6-14.6 [facility] Immature granulocytes/100 WBC (Bld) 0.400 % 0.0-0.9 [facility] Comment on above: IG% - Immature Granu locytes (promyelocytes, myelocytes and metamyelocytes) > 1% indicates that a LEFT SHIFT is Present. MCH (RBC) [Entitic mass] 30.9 pg 27.0-32.0 [facility] Nucleated RBC/100 WBC (Bld) [Ratio] 0 % 0-5 [facility] MCHC Auto (RBC) [Mass/Vol]Or dered By: Deon Marie on 06-30-2023 MCHC (RBC) [Mass/Vol] 33.6 g/dL 32-36 [place] No Panel InformationOrdered By: Deon Marie on 06-30-2023 Addendum Document Comment . [facility] Comment on above: Protein electrophore sis scan will follow via computer,mail, or dredge hand delivery. Centromere B Antibody <0.2 AI 0.0-0.9 [place] Endomysial IgA Antibody Negative Negative [facility] Estimated GFR (MDRD) Amer 131 mL/min >60 [facility] Comment on above: GFR Calc Estimated GFR (MDRD) Non-Af Amer 108 mL/min >60 [facility] Comment on above: Non- GFR Calc Haptoglobin 214 mg/dL 33-278 [facility] Comment on above: Performed at: [facility] [address] [id number] Director: Rodger Kang PhD, Phone: [phone] at: [facility] [id number] Director: Tobias Ryan MD, Phone: [phone] Immunoglobulin E 148 IU/mL 6-495 [facility] Miscellaneous Test See comment [facility] Comment on above: TEST RESULTS LIMITSC eliac HLA Rflx to AbsDQ2 (DQA1 0501/0505,[id number]) NegativeDQ8 (DQA1 03XX, DQB1 0302) 01 NegativeFinal Results:DQB1*03:EETKC,-DQA1*05:EETCV,-Code Translation:EETCV 05:09/05:01/03:05/06:07/06:08/05:11/01::14/01:17/05:20:22/01:23/01::28:29Q/05:30:32:34:35 :3705:39/05:42/05:43/05:44:4505:46 05:48/05:50/05:5105:53:58:59:60 05:62/05:64EETKC 03:09/03:06/03:16:19:19/11:20/11::25/11:28:29:35:36:42:44 /03:46/03:47/03:48/03:49/03:50/03:51/03:52 /03:53/03:54/03:55/03:56/03:57/03:58/03:59 /03:60/03:69/03:73/03:75/03:76/03:77/03:78 /03:82/03:83/03:84N/03:92/03:93/03:94 /03:101/03:102/03:103/03:108/03:109/03:114 /03:115/03:116/03:118N/03:119/03:120 /03:121/03:122/03:127/03:128/03:129/03:130 /03:131/03:133/03:134/03:135/03:139/03:140 /03:142/03:143/03:144/03:147/03:148/03:151 /03:152/03:154/03:157/03:158/03:159/03:160 /03:162/03:163/03:164/03:165/03:166/03:167 /03:169/03:170/03:171/03:173/03:182/03:183 /03:186/03:188/03:191/03:192/03:193/03:196 /03:197Q/03:198/03:201/03:202/03:206 /03:207/03:208/03:216/03:218/03:219/03:231 /03:232/03:235/03:236/03:241/03:242/03:243 /03:246/03:252/03:253/03:254/03:255/03:257 /03:260/03:264/03:266/03:267/03:268/03:271 /03:275/03:276N/03:281/03:284/03:285 /03:288/03:290/03:291/03:292/03:293/03:294 /03:297/03:302/03:303N/03:305/03:306 /03:307/03:309/03:311/03:312/03:314/03:317 /03:326/03:328/03:329/03:330/03:331 /03:338N/03:340N/03:341/03:342/03:347 /03:350/03:353/03:354N/03:358N/03:361 /03:366/03:370/03:372/03:373/03:377/03:378 /03:380/03:385N/03:387/03:389/03:390 /03:391/03:394/03:396/03:399N/03:400N /03:404/03:407N/03:408/03:417/03:418 /03:419/03:420/03:421/03:423/03:424/03:425 /03:426/03:427N/03:428/03:430/03:431 /03:432/03:434/03:435/03:436/03:438/03:439 /03:448/03:449/03:451/03:454/03:455/03:458 /03:460/03:465/03:467/03:468/03:469/03:470 /03:472/03:473N/03:475/03:476/03:480Q /03:482/03:483/03:486/03:488N/03:491/03:492The patient is positive for DQA1*05, one half of the WE4jkmvqfiwndz. The Celiac Disease risk from the HLA DQA/DQBgenotype is approximately 1:1842 (0.05%). This is lessthan the 1% risk in the general population.Allele interpretation for all loci based on IMGT/HLAdatabase version 3.49.0A Lab [place] ID Number [id number] than 95% of celiac patients are positive for either DQ2 or DQ8(Ronald and Toshia, (1993) Gastroenterology 105:910-922). However these antigens may also be present in patients who do not have Celiac disease. Comment: This test was performed using Polymerase Chain Reaction (PCR) and Sequence Specific Oligonucleotide Probes (SSOP) (PinchPoint) technique.Sequence Based Typing (SBT) may be used as a supplemental method when necessary.If you have questions, please call [facility] service [phone] or email at [email or web address].Additional Information: 01References:1. Peter HAILE and Neel Milian. Celiac Disease. N Eng J Med 2007; 357:5331-0137.2. David F, Ana B, Bonadarcio M et al. HLA-DQ and risk gradient for celiac disease. Hum Immunol 2009; 70:55-59.3. Eugenio MM, Divya TC, Eyad FM et al. Stratifying risk for celiac disease in a large at-risk [facility] population by using HLA alleles. Clin Gastroenterol Hepatol 2009; 7:966-971.4. Ronald WALDRON and Cassi BA. (2005). Celiac Disease Genetics: Current Concepts and Practical Applications. Clin Gastroenterol and Hepat 3:843-851.5. Rubio CL, Eliazar DO, Peter HAILE, et al. Celiac Disease. In: Jeff RA, Dinesh TC, Roman CR, Karley K, editors. Paco [employer]), [facility], [place], March 03, 2008:1-27. http://www.ncbi.nlm.nih.gov/booksneemaf/br.fcgi?book=genepart=c eliac PMID [id number] (PubMed)6. Napoleon Stroud. Emerging concepts in celiac disease. Curr Opin Pediatr 2004;16:552-559.Reflex to Celiac Ab [id number] Not indicated. TESTING PERFORMED AT [facility]. ORIGINAL REPORT ON FILE IN LAB CONTAINS ADDITIONAL TEST SITE INFORMATION. SHEAR HELPER Antibody <0.2 AI 0.0-0.9 [facility] Platelets bldOrdered By: ronen hendrixbuddy Marie on 06-30-2023 Platelets (Bld) [#/Vol] 264 10*3/uL 150-450 [facility] Serum DNA double strand anti body assay (units/volume)Ordered By: Deon Marie on 06-30-2023 DNA double strand Ab Qn (S) 1 [IU]/mL 0-9 [facility] Comment on above: Negative <5 Equivoca l 5 - 9 Positive >9 Serum Adilia-1 antibody assay (u nits/volume)Ordered By: Deon Marie on 06-30-2023 Adilia-1 extractable nuclear Ab Qn (S) <0.2 AI 0.0-0.9 [facility] Serum Scl-70 extractable nuc lear antibody assay (units/volume)Ordered By: eDon Marie on 06-30-2023 SCL-70 extractable nuclear Ab Qn (S) 0.2 AI 0.0-0.9 [facility] Serum Dykes extractable nucl ear antibody detectionOrdered By: Deon Marie on 06-30-2023 Dykes extractable nuclear Ab Ql (S) <0.2 AI 0.0-0.9 [facility] Serum [id number] measu rement by electrophoresisOrdered By: Deon Marie on 06-30-2023 Alpha 1 globulin Elph [Mass/Vol] 0.2 g/dL 0.0-0.4 [facility] Alpha 1 globulin Elph [Mass/Vol] 0.9 g/dL 0.4-1.0 [facility] Serum classic neutrophil cyt oplasmic antibody assay (units/volume)Ordered By: Deon Marie on 06-30-2023 Neutrophil cytoplasmic Ab.classic Qn (S) <1:20 titer Neg:<1:20 [facility] Serum globulin measurement ( mass/volume)Ordered By: Deon Marie on 06-30-2023 Globulin (S) [Mass/Vol] 3.4 g/dL 2.2-3.9 [facility] Serum or plasma C reactive p rotein measurement (mass/volume)Ordered By: Deon Marie on 06-30-2023 CRP [Mass/Vol] mg/L 0.0-3.0 [facility] Comment on above: C-Reactive Protein ( CRP) provides useful information for thediagnosis, therapy and monitoring of inflammatory processesand associated diseases. For the evaluation of Relative Riskfor Cardiovascular Disease, a High Sensitivity CRP (HSCRP)should be ordered. Serum or plasma IgA measurem ent (mass/volume)Ordered By: Deon Marie on 06-30-2023 IgA [Mass/Vol] 170 mg/dL 87-352 [facility] Serum or plasma IgG measurem ent (mass/volume)Ordered By: Deonanival Marie on 06-30-2023 IgG [Mass/Vol] 1218 mg/dL 586-1602 [facility] Serum or plasma IgM measurem ent (mass/volume)Ordered By: Deon Marie on 06-30-2023 IgM [Mass/Vol] 68 mg/dL 26-217 [facility] Serum or plasma albumin marino urement (mass/volume)Ordered By: Deon Marie on 06-30-2023 Albumin [Mass/Vol] 4.0 g/dL 3.2-5.0 [facility] Serum or plasma albumin/glob ulin mass ratioOrdered By: Deon Marie on 06-30-2023 Albumin/Globulin [Mass ratio] 1.0 {ratio} 0.9-2.4 [facility] Serum or plasma beta globuli n measurement by electrophoresis (mass/volume)Ordered By: Deon Marie on 06-30-2023 Beta globulin Elph [Mass/Vol] 1.0 g/dL 0.7-1.3 [facility] Serum or plasma calcium marino urement (mass/volume)Ordered By: Deon Marie on 06-30-2023 Calcium [Mass/Vol] 9.2 mg/dL 8.5-10.1 [facility] Serum or plasma creatinine m easurement (mass/volume)Ordered By: Deon Marie on 06-30-2023 Creatinine [Mass/Vol] 0.68 mg/dL 0.55-1.02 [place] Comment on above: The validity of the calculated GFR & GFRAA in patients over 70 years has not been determined. Clinical correlation is essential. Serum or plasma gamma globul in measurement by electrophoresis (mass/volume)Ordered By: Deon Marie on 06-30-2023 Gamma globulin Elph [Mass/Vol] 1.3 g/dL 0.4-1.8 [facility] Serum or plasma immunoelectr ophoresis interpretation (nominal result)Ordered By: Deon Marie on 06-30-2023 Interpretation IEP [Interp] Comment . [facility] Comment on above: No monoclonality det ected. Serum or plasma urea nitroge n measurement (mass/volume)Ordered By: Deon Marie on 06-30-2023 Urea nitrogen [Mass/Vol] 8 mg/dL 7-18 [facility] Serum perinuclear neutrophil cytoplasmic antibody titer by immunofluorescenceOrdered By: Deon Marie on 06-30-2023 Neutrophil cytoplasmic Ab.perinuclear IF (S) [Titer] <1:20 titer Neg:<1:20 [facility] Comment on above: The presence of posi tive fluorescence exhibiting P-ANCA orC-ANCA patterns alone is not specific for the diagnosis ofWegener's Granulomatosis (WG) or microscopic polyangiitis.Decisions about treatment should not be based solely onANCA IFA results. The International ANCA Group Consensusrecommends follow up testing of positive sera with both ND-3 and MPO-ANCA enzyme immunoassays. As many as 5% serumsamples are positive only by EIA. Ref. AM J Clin Fglgai5436;111:507-513. Serum tissue transglutaminas e IgA antibody assay (units/volume)Ordered By: Deon Marie on 06-30-2023 tTG IgA Qn (S) <2 U/mL 0-3 [facility] Comment on above: Negative 0 - 3 Weak Positive 4 - 10 Positive >10 Tissue Transglutaminase (tTG) has been identified as the endomysial antigen. Studies have demonstr- ated that endomysial IgA antibodies have over 99% specificity for gluten sensitive enteropathy. Thin prep Papanicolaou smear with manual screeningOrdered By: Deon Marie on 06-30-2023 Thin prep Papanicolaou smear with manual screening 13 U/L 15-37 [facility] Thin prep Papanicolaou smear with manual screening 4 5-15 [facility] Thin prep Papanicolaou smear with manual screening 1.3 0.7-1.7 [facility] Total protein bloodOrdered B y: Deon Cynthia on 06-30-2023 Protein [Mass/Vol] 7.5 g/dL 6.0-8.5 [facility] Whole blood hemoglobin A1c/t otal hemoglobin ratio (mass fraction)Ordered By: Deon Marie on 06-30-2023 HbA1c (Bld) [Mass fraction] 4.8 % 3.8-5.6 [facility] Comment on above: Normal < 5.7 % Predi abetic 5.7 - 6.4 % Diabetic >or= 6.5 % Please note range changes. Basophil percentageOrdered B y: Jorge Liu on 06-09-2023 Basophil percentage 0-5 SEEN /hpf 0-5 [facility] Bilirubin Test strip Ql (U)O rdered By: Jorge Liu on 06-09-2023 Bilirubin Ql (U) Negative Negative [facility] Culture, urineOrdered By: St keith Liu on 06-09-2023 Bacteria identified Cx Nom (U) Positive [facility] Bacteria identified Cx Nom (U) Positive [facility] Ketones Test strip Ql (U)Ord ered By: Jorge Liu on 06-09-2023 Ketones Ql (U) 5 mg/dl Negative [facility] Laboratory - Chemistry and C hemistry - challengeon 06-09-2023 HCG ( test) Ql (U) Negative [facility] Bilirubin Ql (U) Negative [facility] Glucose Ql (U) Negative [facility] Ketones Ql (U) Negative [facility] pH (U) 7.0 [pH] [facility] Specific gravity (U) [Rel density] 1.015 [facility] Urobilinogen (U) [Mass/Vol] 0.6287747 mg/dL [facility] Laboratory - Hematology and Cell countson 06-09-2023 Hemoglobin Ql (U) Negative [facility] Laboratory - Microbiology an d Antimicrobial susceptibilityon 06-09-2023 S. pyogenes Ag IA Ql (Unsp spec) Negative [facility] Laboratory - Specimen inform ationon 06-09-2023 Clarity (U) Cloudy [facility] Color (U) RAMANDEEP [facility] Laboratory - Urinalysison Nitrite Ql (U) Negative [facility] Protein Ql (U) Negative [facility] Mucus LM Ql (Urine sed)Order ed By: Jorge Liu on 06-09-2023 Mucus Ql (Urine sed) 0 SEEN /hpf [place] Nitrite Test strip Ql (U)Ord ered By: Jorge Liu on 06-09-2023 Nitrite Ql (U) Negative Negative [facility] No Panel Informationon 06-09 Urine Leukocytes Positive [facility] Urine Non-Hemolyzed Blood Negative [facility] Protein Test strip Ql (U)Ord ered By: Jorge Liu on 06-09-2023 Protein Ql (U) Negative Negative [facility] Squamous epithelial cells de tection in urine sediment by light microscopyOrdered By: Jorge Liu on 06-09-2023 Epithelial cells.squamous LM Ql (Urine sed) 0-5 SEEN /hpf 5-10 [facility] Urine blood detectionOrdered By: Jorge Liu on 06-09-2023 RBC Ql (U) 10 /ul Negative [facility] RBC Ql (U) 0-5 SEEN /hpf 0-5 [facility] Urine clarityOrdered By: Alfonso Liu on 06-09-2023 Clarity (U) Clear Clear [facility] Urine color determinationOrd ered By: Jorge Liu on 06-09-2023 Color (U) Yellow Yellow [facility] Urine glucose detectionOrder ed By: Jorge Liu on 06-09-2023 Glucose Ql (U) Normal mg/dl Normal [facility] Urine leukocyte esterase det ection by dipstickOrdered By: Jorge Liu on 06-09-2023 Leukocyte esterase Test strip Ql (U) 25 /ul Negative [facility] Urine pHOrdered By: Jorge boyle on 06-09-2023 pH (U) 6.5 [pH] 5.0 - 8.0 [facility] Urine sediment bacteria coun t by microscopy (number/high power field)Ordered By: Jorge Liu on 06-09-2023 Bacteria LM.HPF (Urine sed) [#/Area] 0 /[HPF] None Seen [facility] Urine specific gravity measu rementOrdered By: Jorge Liu on 06-09-2023 Specific gravity (U) [Rel density] 1.010 1.002-1.030 [facility] Urobilinogen Auto test strip Ql (U)Ordered By: Jorge Liu on 06-09-2023 Urobilinogen Ql (U) Normal mg/dl Normal [place] Absolute lymphocyte countOrd ered By: Dr. Francois on 01-17-2023 Lymphocytes Auto (Unsp spec) [#/Vol] 3.28 10*3/uL 0.83-4.51 [facility] Basophil percentageOrdered B y: Dr. Francois on 01-17-2023 Basophils/100 WBC (Bld) 0.6 % 0-1 [facility] Bilirubin [Mass/Vol] 0.20 mg/dL 0.20-1.00 [facility] Comment on above: For patients on eltr ombopag therapy, use of Dimension [place] TBIL is not recommended. Chloride [Moles/Vol] 108 mmol/L 98-107 [facility] Eosinophils/100 WBC (Bld) 3.0 % 0-5 [facility] Glucose [Mass/Vol] 85 mg/dL 74-106 [facility] Neutrophils (Bld) [#/Vol] 3.8 10*3/uL 2.0-7.7 [facility] Neutrophils/100 WBC (Bld) 48.0 % 47-70 [facility] Potassium [Moles/Vol] 3.6 mmol/L 3.5-5.1 [place] Protein [Mass/Vol] 7.3 g/dL 6.4-8.2 [facility] Sodium [Moles/Vol] 140 mmol/L 136-145 [facility] WBC (Bld) [#/Vol] 7.9 10*3/uL 4.4-11.0 [facility] Blood erythrocytes count (nu mber/volume)Ordered By: Dr. Francois on 01-17-2023 RBC (Bld) [#/Vol] 3.93 10*6/uL 4.2-5.4 [facility] Blood hemoglobin measurement (mass/volume)Ordered By: Dr. Francois on 01-17-2023 Hemoglobin (Bld) [Mass/Vol] 12.0 g/dL 12.0-15.0 [facility] Blood lymphocytes/100 leukoc ytesOrdered By: Dr. Francois on 01-17-2023 Lymphocytes/100 WBC (Bld) 41.6 % 19-41 [facility] Blood monocytes/100 leukocyt esOrdered By: Dr. Francois on 01-17-2023 Monocytes/100 WBC (Bld) 6.5 % 0-10 [facility] Blood platelet mean volumeOr dered By: Dr. Francois on 01-17-2023 Platelet mean volume (Bld) [Entitic vol] 10.0 fL 6.2-12.0 [facility] Determination of erythrocyte mean corpuscular volume (MCV)Ordered By: Dr. Francois on 01-17-2023 MCV (RBC) [Entitic vol] 91.9 fL 81-99 [facility] Hematocrit Auto (Bld) [Volum e fraction]Ordered By: Dr. Francois on 01-17-2023 Hematocrit (Bld) [Volume fraction] 36.1 % 37-47 [facility] Laboratory - Chemistry and C hemistry - challengeOrdered By: Dr. Francois on 01-17-2023 ALP [Catalytic activity/Vol] 78 U/L 45-117 [facility] ALT [Catalytic activity/Vol] 17 U/L 13-56 [facility] CO2 [Moles/Vol] 26.0 mmol/L 21.0-32.0 [facility] Globulin (S) [Mass/Vol] 3.5 g/dL 2.2-4.2 [facility] Urea nitrogen/Creatinine [Mass ratio] 9.1 mg/mg 10-20 [facility] Laboratory - Hematology and Cell countsOrdered By: Dr. Francois on 01-17-2023 Erythrocyte distribution width (RBC) [Entitic vol] 41.3 fL 35.1-43.9 [facility] Erythrocyte distribution width (RBC) [Ratio] 12.5 % 11.6-14.6 [facility] Immature granulocytes/100 WBC (Bld) 0.300 % 0.0-0.9 [facility] Comment on above: IG% - Immature Granu locytes (promyelocytes, myelocytes and metamyelocytes) > 1% indicates that a LEFT SHIFT is Present. MCH (RBC) [Entitic mass] 30.5 pg 27.0-32.0 [facility] Nucleated RBC/100 WBC (Bld) [Ratio] 0 % 0-5 [facility] MCHC Auto (RBC) [Mass/Vol]Or dered By: Dr. Francois on 01-17-2023 MCHC (RBC) [Mass/Vol] 33.2 g/dL 32-36 [place] No Panel InformationOrdered By: Dr. Francois on 01-17-2023 Estimated GFR (MDRD) Amer 136 mL/min >60 [facility] Comment on above: GFR Calc Estimated GFR (MDRD) Non-Af Amer 112 mL/min >60 [facility] Comment on above: Non- GFR Calc Platelets bldOrdered By: Dr. Francois on 01-17-2023 Platelets (Bld) [#/Vol] 246 10*3/uL 150-450 [facility] Serum or plasma albumin marino urement (mass/volume)Ordered By: Dr. Francois on 01-17-2023 Albumin [Mass/Vol] 3.8 g/dL 3.2-5.0 [facility] Serum or plasma albumin/glob ulin mass ratioOrdered By: Dr. Francois on 01-17-2023 Albumin/Globulin [Mass ratio] 1.1 {ratio} 0.9-2.4 [facility] Serum or plasma calcium marino urement (mass/volume)Ordered By: Dr. Francois on 01-17-2023 Calcium [Mass/Vol] 9.4 mg/dL 8.5-10.1 [facility] Serum or plasma creatinine m easurement (mass/volume)Ordered By: Dr. Francois on 01-17-2023 Creatinine [Mass/Vol] 0.66 mg/dL 0.55-1.02 [place] Comment on above: The validity of the calculated GFR & GFRAA in patients over 70 years has not been determined. Clinical correlation is essential. Serum or plasma urea nitroge n measurement (mass/volume)Ordered By: Dr. Francois on 01-17-2023 Urea nitrogen [Mass/Vol] 6 mg/dL 7-18 [facility] Thin prep Papanicolaou smear with manual screeningOrdered By: Dr. Francois on 01-17-2023 Thin prep Papanicolaou smear with manual screening 16 U/L 15-37 [facility] Thin prep Papanicolaou smear with manual screening 6 5-15 [facility] Cervical or vagninal specime n microscopic examination by cytology stain (reported ason 01-16-2022 Cytology report Cyto stain Doc (Cvx/Vag) Comment . [facility] Work Phone: Comment on above: The Pap smear is a s creening test designed to aid in thedetection of premalignant and malignant conditions of theuterine cervix. It is not a diagnostic procedure andshould not be used as the sole means of detecting cervicalcancer. Both false-positive and false-negative reports dooccur. Detection in cervical specim en of any of human papilloma virus (HPV) 16, 18, 31, 33,on 01-16-2022 HPV 16+18+31+33+35+39+45+51+ 52+56+58+59+66+68 DNA Probe+sig amp Ql (Cvx) Negative Negative [facility] Work Phone: Comment on above: This nucleic acid am plification test detects fourteen high-risk HPV types (16,18,31,33,35,39,45,51,52,56,58,59,66,68)without differentiation.Performed at: - [facility] [id number] Director: Lety Rhodes MD, Phone: [phone] at: = - [facility] [address] [id number] Director: Lety Rhodes MD, Phone: [phone] Laboratory - Cytologyon 12-30 Automotive Teacher Cyto stain Nom (Cvx/Vag) [ID] Comment . [facility] Work Phone: Comment on above: Halie Hayes Cytot echnologist (ASCP) Laboratory - Miscellaneous t estson 01-16-2022 Service comment (Unsp spec) [Interp] Comment . [facility] Work Phone: Comment on above: This liquid based Th inPrep(R) pap test was screened withthe use of an image guided system. Service comment (Unsp spec) [Interp] . . [facility] Work Phone: No Panel Informationon 01-16 Pathology report final diagnosis Narrative Comment . [facility] Work Phone: Comment on above: NEGATIVE FOR INTRAEP ITHELIAL LESION OR MALIGNANCY.SHIFT IN DUANE SUGGESTIVE OF BACTERIAL VAGINOSIS.CELLULAR CHANGES ASSOCIATED WITH INFLAMMATION ARE PRESENT. Laboratory - Microbiology an d Antimicrobial susceptibilityon 10-31-2021 SARS-CoV-2 (COVID-19) RNA BEN+probe Ql (Unsp spec) Not detected Not Detect [facility] Work Phone: Comment on above: Normal Reference Ran ge: Not DetectedMethod:(RT-PCR) real-time reverse transcriptase PCRLuminex GUTIERREZ Instrument*The Food and Drug Administration (FDA) has issued an Emergency Use Authorization (EAU) for the PathCentral SARS-CoV-2 Assay for the rapid detection of the virus that causes COVID-19. This test has been validated, but the FDAs independent review of this validation is pending.*Negative results do not preclude infection and should not be used as the sole basis for treatment or patient management. Optimum specimen types and timing for peak viral levels during infections caused by SARS-CoV-2 have not been determined. Collection of multiple specimens from the same patient may be necessary to detect the virus. The possibility of a false negative result should be considered if the patient has clinical presentation or has had recent exposure. S. pyogenes Ag IA Ql (Unsp spec) Negative [facility] Work Phone: CORONAVIRUS PCR - POMERENEon 04-19-2021 SARS-CoV-2 (COVID-19) RNA BEN+probe Ql (Unsp spec) Negative Normal NORMAL: NEGATIVE [facility] Comment on above: Performed By: #### [id number] #### [facility],[address] [place] [address] SEND TO IC? YES Normal [facility] Comment on above: Result Comment: RESU LTS FAXED TO INFECTION CONTROL. SARS-CoV-2 THIS TEST IS BEING USED UNDER THE FDA EUA PROCEDURE. THIS ASSAY HAS BEEN VALIDATED IN THE [facility] FOR USE WITH NASOPHARYNGEAL SPECIMENS IN PSE&G [facility]. INTERPRETIVE DATA LABORATORY TEST RESULTS SHOULD ALWAYS BE CONSIDERED IN THE CONTEXT OF CLINICAL OBSERVATIONS AND EPIDEMIOLOGICAL DATA IN MAKING FINAL DIAGNOSIS AND PATIENT MANAGEMENT DECISIONS. PATIENT MANAGEMENT SHOULD FOLLOW CURRENT CDC GUIDELINES. A POSITIVE TEST RESULT FOR COVID-19 INDICATES THAT RNA FROM SARS-CoV-2 WAS DETECTED, AND THE PATIENT IS INFECTED WITH THE VIRUS AND PRESUMED TO BE CONTAGIOUS. A NEGATIVE TEST RESULT FOR THIS TEST MEANS THAT SARS-CoV-2 RNA WAS NOT PRESENT IN THE SPECIMEN ABOVE THE LIMIT OF DETECTION. HOWEVER, A NEGATVIE RESULT DOES NOT RULE OUT COVID-19 AND SHOULD NOT BE USED THE SOLE BASIS FOR TREATMENT OR PATIENT MANAGEMENT DECISIONS. A NEGATIVE RESULT DOES NOT EXCLUDE THE POSSIBILITY OF COVID-19. WHEN DIAGNOSTIC TESTING IS NEGATIVE, THE POSSIBLILTY OF A FALSE NEGATIVE RESULT SHOULD BE CONSIDERED IN THE CONTEXT OF A PATIENT'S RECENT EXPOSURES AND THE PRESENCE OF CLINICAL SIGNS AND SYMPTOMS CONSISTENT WITH COVID-19. THE POSSIBILITY OF A FALSE NEGATIVE RESULT SHOULD ESPECIALLY BE CONSIDERED IF THE PATIENT'S RECENT EXPOSURES OR CLINICAL PRESENTATION INDICATE THAT COVID-19 IS LIKELY, AND DIAGNOSTIC TESTS FOR OTHER CAUSES OF ILLNESS (e.g., OTHER RESPIRATORY ILLNESS) ARE NEGATIVE. IF COVID-19 IS STILL SUSPECTED BASED ON EXPOSURE HISTORY TOGETHER WITH OTHER CLINICAL FINDINGS, RE-TESTED SHOULD BE CONSIDERED BY HEALTHCARE PROVIDERS IN CONSULTATION WITH PUBLIC HEALTH AUTHORITIES. Performed By: #### [id number] #### [facility],[address] [place] [address] Bacteria identified Cx Nom ( Throat) Throat culture Klebsiella pneumonia e sp pneum [facility] Work Phone: No Panel Information SARS-CoV-2 & FLU Antigen (Rapid) [facility] Work Phone: Vital Signs Date Time Vital Sign Value Performing Clinician Sammy farrell 11-19-2024 07:31-0400 Body height [address] [facility] VEST TAILOR.MICROSTRATEGY ARCHITECT Work Phone: [facility] 11-19-2024 07:31-0400 Body mass index (BMI) [Ratio] 23.95 kg/m[facility].MICROSTRATEGY ARCHITECT Work Phone: [facility] 11-19-2024 07:31-0400 Body weight 61.33 kg Isabella Musa VEST TAILOR.MICROSTRATEGY ARCHITECT Work Phone: [facility] 11-19-2024 07:31-0400 Diastolic blood pressure 64 mm[Hg] Isabella Musa VEST TAILOR.MICROSTRATEGY ARCHITECT Work Phone: [facility] 11-19-2024 07:31-0400 Systolic blood pressure 110 mm[Hg] Isabella Norman VEST TAILOR.MICROSTRATEGY ARCHITECT Work Phone: [facility] 12-15-2023 13:50-0400 Body height 160.[address] Lizzy Francois Work Phone: [facility] 12-15-2023 13:50-0400 Body mass index (BMI) [Ratio] 23.9 kg/m2 Dr. Lizzy Francois Work Phone: [facility] 12-15-2023 13:50-0400 Body temperature 97.4 [degF] Dr. Lizzy Francois Work Phone: [facility] 12-15-2023 13:50-0400 Body weight 61.[address] Lizzy Francois Work Phone: [facility] 12-15-2023 13:50-0400 Diastolic blood pressure 62 mm[Hg] Dr. Lizzy Francois Work Phone: [facility] 12-15-2023 13:50-0400 Heart rate 80 /min Dr. Lizzy Francois Work Phone: [facility] 12-15-2023 13:50-0400 Respiratory rate 16 /min Dr. Lizzy Francois Work Phone: [facility] 12-15-2023 13:50-0400 SaO2% (BldA) [Mass fraction] 99 % Dr. Lizzy Francois Work Phone: [facility] 12-15-2023 13:50-0400 Systolic blood pressure 108 mm[Hg] Dr. Lizzy Francois Work Phone: [facility] 12-05-2023 11:38-0400 Body mass index (BMI) [Ratio] 19.5 kg/m2 Dr. Lizzy Francois Work Phone: [facility] 12-05-2023 11:38-0400 Body temperature 98.2 [degF] Dr. Lizzy Francois Work Phone: [facility] 12-05-2023 11:38-0400 Body weight 49.[address] Lizzy Francois Work Phone: [facility] 12-05-2023 11:38-0400 Heart rate 90 /min Dr. Lizzy Francois Work Phone: [facility] 12-05-2023 11:38-0400 Respiratory rate 16 /min Dr. Lizzy Francois Work Phone: [facility] 12-05-2023 11:38-0400 SaO2% (BldA) [Mass fraction] 98 % Dr. Lizzy Francois Work Phone: [facility] 07-16-2023 16:17-0500 Body height 160.[address] Lizzy Francois Work Phone: [facility] 07-16-2023 16:17-0500 Body mass index (BMI) [Ratio] 23 kg/m2 Dr. Lizzy Francois Work Phone: [facility] 07-16-2023 16:17-0500 Body temperature 97.7 [degF] Dr. Lizzy Francois Work Phone: [facility] 07-16-2023 16:17-0500 Body weight 58.[address] Lzizy Francois Work Phone: [facility] 07-16-2023 16:17-0500 Diastolic blood pressure 72 mm[Hg] Dr. Lizzy Francois Work Phone: [facility] 07-16-2023 16:17-0500 Heart rate 93 /min Dr. Lizzy Francois Work Phone: [facility] 07-16-2023 16:17-0500 Respiratory rate 16 /min Dr. Lizzy Francois Work Phone: [facility] 07-16-2023 16:17-0500 SaO2% (BldA) [Mass fraction] 97 % Dr. Lizzy Francois Work Phone: [facility] 07-16-2023 16:17-0500 Systolic blood pressure 109 mm[Hg] Dr. Lizzy Francois Work Phone: [facility] 07-09-2023 11:36-0500 Heart rate 77 /min Dr. Lizzy Francois Work Phone: [facility] 07-09-2023 11:36-0500 Respiratory rate 18 /min Dr. Lizzy Francois Work Phone: [facility] 07-09-2023 11:36-0500 SaO2% (BldA) [Mass fraction] 100 % Dr. Lizzy Francois Work Phone: [facility] 07-09-2023 09:50-0500 Body mass index (BMI) [Ratio] 23.9 kg/m2 Dr. Lizzy Francois Work Phone: [facility] 07-09-2023 09:50-0500 Body temperature 97.5 [degF] Dr. Lizzy Francois Work Phone: [facility] 07-09-2023 09:50-0500 Body weight 61.[address] Lizzy Francois Work Phone: [facility] 07-09-2023 09:50-0500 Diastolic blood pressure 75 mm[Hg] Dr. Lizzy Francois Work Phone: [facility] 07-09-2023 09:50-0500 Systolic blood pressure 109 mm[Hg] Dr. Lizzy Francois Work Phone: [facility] 06-09-2023 10:45-0400 Body height 160.[address] iLzzy Francois Work Phone: [facility] 06-09-2023 10:45-0400 Body mass index (BMI) [Ratio] 23 kg/m2 Dr. Lizzy Francois Work Phone: [facility] 06-09-2023 10:45-0400 Body weight 58.[address] Lizzy Francois Work Phone: [facility] 06-09-2023 10:45-0400 Diastolic blood pressure 79 mm[Hg] Dr. Lizzy Francois Work Phone: [facility] 06-09-2023 10:45-0400 Heart rate 73 /min Dr. Lizzy Francois Work Phone: [facility] 06-09-2023 10:45-0400 Respiratory rate 16 /min Dr. Lizzy Francois Work Phone: [facility] 06-09-2023 10:45-0400 SaO2% (BldA) [Mass fraction] 99 % Dr. Lizzy Francois Work Phone: [facility] 06-09-2023 10:45-0400 Systolic blood pressure 121 mm[Hg] Dr. Lizzy Francois Work Phone: [facility] 05-11-2023 11:24-0400 Body temperature 98 [degF] Dr. Lizzy Francois Work Phone: [facility] 05-11-2023 11:24-0400 Diastolic blood pressure 67 mm[Hg] Dr. Lizzy Francois Work Phone: [facility] 05-11-2023 11:24-0400 Heart rate 111 /min Dr. Lizzy Francois Work Phone: [facility] 05-11-2023 11:24-0400 Respiratory rate 16 /min Dr. Lizzy Francois Work Phone: [facility] 05-11-2023 11:24-0400 SaO2% (BldA) [Mass fraction] 100 % Dr. Lizzy Francois Work Phone: [facility] 05-11-2023 11:24-0400 Systolic blood pressure 121 mm[Hg] Dr. Lizzy Francois Work Phone: [facility] 02-14-2023 14:37-0400 Body mass index (BMI) [Ratio] 22.8 kg/m2 Dr. Lizzy Francois Work Phone: [facility] 02-14-2023 14:37-0400 Body weight 60.[address] Lizzy Francois Work Phone: [facility] 02-14-2023 14:37-0400 Diastolic blood pressure 62 mm[Hg] Dr. Lizzy Francois Work Phone: [facility] 02-14-2023 14:37-0400 Heart rate 90 /min Dr. Lizzy Francois Work Phone: [facility] 02-14-2023 14:37-0400 SaO2% (BldA) [Mass fraction] 98 % Dr. Lizzy Francois Work Phone: [facility] 02-14-2023 14:37-0400 Systolic blood pressure 105 mm[Hg] Dr. Lizzy Francois Work Phone: [facility] 01-17-2023 13:00-0400 Body height 162.[address] Lizzy Francois Work Phone: [facility] 01-17-2023 13:00-0400 Body mass index (BMI) [Ratio] 22.4 kg/m2 Dr. Lizzy Francois Work Phone: [facility] 01-17-2023 13:00-0400 Body temperature 97.8 [degF] Dr. Lizzy Francois Work Phone: [facility] 01-17-2023 13:00-0400 Body weight 59.[address] Lizzy Francois Work Phone: [facility] 01-17-2023 13:00-0400 Diastolic blood pressure 80 mm[Hg] Dr. Lizzy Francois Work Phone: [facility] 01-17-2023 13:00-0400 Heart rate 76 /min Dr. Lizzy Francois Work Phone: [facility] 01-17-2023 13:00-0400 Respiratory rate 16 /min Dr. Lizzy Francois Work Phone: [facility] 01-17-2023 13:00-0400 SaO2% (BldA) [Mass fraction] 99 % Dr. Lizzy Francois Work Phone: [facility] 01-17-2023 13:00-0400 Systolic blood pressure 116 mm[Hg] Dr. Lizzy Francois Work Phone: [facility] 10-04-2022 10:26-0500 Body temperature 97.7 [degF] Dr. Lizzy Francois Work Phone: [facility] 10-04-2022 10:26-0500 Diastolic blood pressure 60 mm[Hg] Dr. Lizzy Francois Work Phone: [facility] 10-04-2022 10:26-0500 Heart rate 89 /min Dr. Lizzy Francois Work Phone: [facility] 10-04-2022 10:26-0500 Respiratory rate 18 /min Dr. Lizzy Francois Work Phone: [facility] 10-04-2022 10:26-0500 SaO2% (BldA) [Mass fraction] 99 % Dr. Lizzy Francois Work Phone: [facility] 10-04-2022 10:26-0500 Systolic blood pressure 102 mm[Hg] Dr. Lizzy Francois Work Phone: [facility] 06-16-2022 14:11-0400 Diastolic blood pressure 85 mm[Hg] [facility] Work Phone: 06-16-2022 14:11-0400 Heart rate 78 /min [facility] Work Phone: 06-16-2022 14:11-0400 Respiratory rate 15 /min [facility] Work Phone: 06-16-2022 14:11-0400 SaO2% (BldA) [Mass fraction] 98 % [facility] Work Phone: 06-16-2022 14:11-0400 Systolic blood pressure 115 mm[Hg] [facility] Work Phone: 06-16-2022 12:22-0400 Body height 162.56 cm [facility] Work Phone: 06-16-2022 12:22-0400 Body mass index (BMI) [Ratio] 23.1 kg/m2 [facility] Work Phone: 06-16-2022 12:22-0400 Body temperature 97.4 [degF] [facility] Work Phone: 06-16-2022 12:22-0400 Body weight 61.23 kg [facility] Work Phone: 02-05-2022 17:47-0400 Body temperature 98.3 [degF] Dr. Lizzy Francois Work Phone: [facility] Work Phone: 02-05-2022 17:47-0400 Diastolic blood pressure 66 mm[Hg] Dr. Lizzy Francois Work Phone: [facility] Work Phone: 02-05-2022 17:47-0400 Heart rate 90 /min Dr. Lizzy Francois Work Phone: [facility] Work Phone: 02-05-2022 17:47-0400 Respiratory rate 16 /min Dr. Lizzy Francois Work Phone: [facility] Work Phone: 02-05-2022 17:47-0400 SaO2% (BldA) [Mass fraction] 99 % Dr. Lizzy Francois Work Phone: [facility] Work Phone: 02-05-2022 17:47-0400 Systolic blood pressure 112 mm[Hg] Dr. Lizzy Francois Work Phone: [facility] Work Phone: 10-31-2021 15:25-0500 Body height 162.[address] Lizzy Francosi Work Phone: [facility] Work Phone: 10-31-2021 15:25-0500 Body mass index (BMI) [Ratio] 24.1 kg/m2 Dr. Lizzy Francois Work Phone: [facility] Work Phone: 10-31-2021 15:25-0500 Body temperature 96.9 [degF] Dr. Lizzy Francois Work Phone: [facility] Work Phone: 10-31-2021 15:25-0500 Body weight 63.[address] Lizzy Francois Work Phone: [facility] Work Phone: 10-31-2021 15:25-0500 Diastolic blood pressure 69 mm[Hg] Dr. Lizzy Francois Work Phone: [facility] Work Phone: 10-31-2021 15:25-0500 Heart rate 80 /min Dr. Lizzy Francois Work Phone: [facility] Work Phone: 10-31-2021 15:25-0500 Respiratory rate 14 /min Dr. Lizzy Francois Work Phone: [facility] Work Phone: 10-31-2021 15:25-0500 SaO2% (BldA) [Mass fraction] 99 % Dr. Lizzy Francois Work Phone: [facility] Work Phone: 10-31-2021 15:25-0500 Systolic blood pressure 114 mm[Hg] Dr. Lizzy Francois Work Phone: [facility] Work Phone: Encounters Encounter Date Encounter Type Care Provider Facility Start: 07-14-2025 ambulatory [facility] Facility: [facility] Start: 06-30-2025 End: 06-30-2025 ambulatory Carlotta Amor Facility:[facility] Start: 06-30-2025 End: 06-30-2025 ambulatory Carlotta Amor Facility:[facility] Start: 04-06-2025 End: 04-06-2025 ambulatory Harrison Godwin Facility:[facility] Start: 03-24-2025 End: 03-24-2025 ambulatory Abhinav HOFFMAN Facility:[facility] Start: 03-17-2025 End: 03-17-2025 ambulatory Abhinav HOFFMAN Facility:[facility] Start: 03-10-2025 End: 03-10-2025 ambulatory Dl HOFFMAN Facility:[facility] Start: 02-18-2025 End: 02-18-2025 ambulatory Lizzy Francois Facility:[facility] Start: 02-08-2025 End: 02-08-2025 Telemedicine consultation with patient Isabella Vigil SAMMIE Work Phone: OB/Gynecology Start: 02-08-2025 End: 02-08-2025 ambulatory Isabella Lovelyn COCHRAN Work Phone: OB/Gynecology Comment on above: PMS (premenstrual sy ndrome) (Primary Dx) Start: 01-04-2025 ambulatory Efewongbe Oleghe Facili ty:[facility] Start: 01-04-2025 End: 01-04-20[facility] Start: 12-20-2024 ambulatory Abhinav Mendoza [place] Facilit y:[facility] Start: 12-16-2024 End: 12-16-2024 Emergency department patient visit [facility] Facility:[facility] Start: 12-10-2024 [facility] Start: 12-10-2024 [facility] Start: 12-10-2024 End: 12-10-2024 [facility] Start: 11-29-2024 End: 11-29-2024 ambulatory [facility] Facility:[facility] Start: 11-19-2024 End: 11-19-2024 ambulatory ISABELLA VIGIL Facility:[facility] Start: 11-19-2024 Encounter for gynecological examination (general) (routine) without abnormal findings ISABELLA VIGIL [facility] Start: 11-19-2024 End: 11-19-2024 Patient encounter procedure Isabella Vigil APRN.LARISSA Work Phone: OB/Gynecology Comment on above: Encounter for gyneco logical examination (general) (routine) without abnormal findings (Primary Dx); Screening for cervical cancer; Encounter for screening for human papillomavirus (HPV); Screen for STD (sexually transmitted disease); PMS (premenstrual syndrome) Start: 11-19-2024 End: 11-19-2024 Patient encounter status Isabella Vigil APRN.CNP Work Phone: [facility] Start: 11-17-2024 End: 11-17-2024 Emergency department patient visit Colby Vázquez Facility:[facility] Start: 11-11-2024 End: 11-11-2024 ambulatory Efewongbe Samirghe Facility:[facility] Start: 11-10-2024 ambulatory Tahiraolivia Gilmroejim [facility] Start: 11-10-2024 End: 11-10-2024 ambulatory Efewongbe Oleghe Facility:[facility] Start: 10-27-2024 End: 10-27-2024 ambulatory Efewongbe Oleghe Facility:[facility] Start: 10-27-2024 End: 10-27-2024 ambulatory Efewongbe Samirghe Facility:[facility] Start: 10-19-2024 End: 10-19-2024 Emergency department patient visit Efmitcharomaschiquita Quesdaae Facility:[facility] Start: 10-07-2024 End: 10-07-2024 ambulatory Dl HOFFMAN Facility:[facility] Start: 10-07-2024 End: 10-07-2024 ambulatory Dl HOFFMAN Facility:[facility] Start: 09-22-2024 End: 09-22-2024 ambulatory Efewongbe Samirghe Facility:[facility] Start: 08-30-2024 End: 08-30-2024 ambulatory Efewongbe Samirghe Facility:[facility] Start: 08-30-2024 End: 08-30-2024 ambulatory Efewaromasbe Samirghe Facility:[facility] Start: 08-20-2024 End: 08-20-2024 ambulatory Efewongbe Samirghe Facility:[facility] Start: 08-17-2024 End: 08-17-2024 ambulatory Efewongbe Oleghe Facility:[facility] Start: 08-12-2024 End: 08-12-2024 ambulatory Quinn Rojo Facility:[facility] Start: 08-12-2024 End: 08-12-2024 ambulatory Quinn Rojo Facility:[facility] Start: 08-03-2024 End: 08-03-2024 ambulatory Efewongbe Samirghe Facility:[facility] Start: 08-03-2024 End: 08-03-2024 ambulatory Efewongbe Samirghe Facility:[facility] Start: 07-12-2024 End: 07-12-2024 ambulatory Lizzy Connell:NASIR Start: 12-15-2023 End: 12-15-[address] Lizzy Francois Work Phone: [facility] Work Phone: Start: 12-15-2023 End: 12-15-[address] Lizzy Francois Work Phone: [facility] Work Phone: Start: 12-05-2023 End: 12-05-[address] Lizzy Francois Work Phone: [facility] Work Phone: Start: 07-17-2023 End: 07-17-[address] Lizzy Francois Work Phone: [facility] Work Phone: Start: 07-17-2023 End: 07-17-[address] [facility] Work [facility]: Start: 07-16-2023 End: 07-16-[address] Lizzy Francois Work Phone: [facility] Work Phone: Start: 07-09-2023 End: 07-09-2023 Emergency department patient visit Dr. Lizzy Francois Work Phone: [facility] Work Phone: Start: 06-30-2023 End: 06-30-[address] Lizzy Francois Work Phone: [facility] Work Phone: Start: 06-30-2023 End: 06-30-[address] Lizzy Francois Work Phone: [facility] Work Phone: Start: 06-09-2023 End: 06-09-[address] Lizzy Francois Work Phone: [facility] Work Phone: Start: 06-09-2023 End: 06-09-[address] Liz[facility] Francois [facility] Work [facility]: Start: 06-09-2023 End: 06-09-[address] Lizzy Francois Work Phone: [facility] Work Phone: Start: 05-11-2023 End: 05-11-2023 Emergency department patient visit Dr. Lizzy Francois [facility] Work [facility]: Start: 02-14-2023 End: 02-14-[address] Lizzy Francois Work Phone: [facility] Work Phone: Start: 01-17-2023 End: 01-17-[address] Lizzy Francois Work Phone: [facility] Work Phone: Start: 01-17-2023 End: 01-17-[address] Lizzy Francois Work Phone: [facility] Start: 01-09-2023 End: 01-10-2023 Emergency department patient visit CHET BARAHONA MD Facility:[facility] Start: 10-04-2022 End: 10-04-[address] Lizzy Francois Work Phone: [facility] Start: 06-16-2022 End: 06-16-2022 Emergency department patient visit [facility] Start: 02-05-2022 End: 02-05-[address] Lizzy Francois Work Phone: [facility] Start: 01-16-2022 End: 01-16-[address] Lizzy Francois Work Phone: [facility]-Laboratory, Specimen Start: 10-31-2021 End: 10-31-[address] Lizzy Francois Work Phone: [facility]Laboratory, Specimen Start: 04-19-2021 End: 04-19-[address] TEDDY HECTOR [facility] Procedures Date Procedure Procedure Detail Performing Clinician Start: 07-17-[address] Lizzy Francois Work Phone: Start: 07-09-2023 Plain chest X-ray Dr. Lizzy Francois Work Phone: Start: 06-09-[address] Lizzy Francois Work Phone: Start: 05-11-[address] Lizzy bolden Work Phone: Start: 05-11-2023 X-ray of both feet Dr. Lizzy Francois Work Phone: Start: 01-17-2023 Diagnostic radiography of abdomen, decubitus and erect Dr. Lizzy Francois Work Phone: Bacteria identificat ion test Dr. Lizzy Francois Work Phone: H/O: tubal ligation History of t ubal ligation Dr. Lizzy Francois Work Phone: SARS-CoV-2 & FLU Ant igen (Rapid) Throat culture Dr. Lizzy Francois Work Phone: Plan of Treatment Date Care Activity Detail Author Start: 11-19-2029 Screening for malign ant neoplasm of cervix Cervical Cancer Screening [facility] Start: 08-26-2029 Urine microalbumin profile DTaP,Tdap,Td Vaccine (2 - Td or Tdap) [facility] Start: 11-21-2025 End: 11-21-2025 Patient encounter procedure 11/21/2025 7:00 AM EDT Office Visit OB/Gynecology [address] [place] [address] Isabella Vigil, TORREY.MICROSTRATEGY ARCHITECT [address] [place] [address] Annual OB/Gynecology Comment on above: Annual Start: 05-02-2025 Influenza vaccination Influenz a Vaccine (Season Ended) [facility] Start: 01-25-2025 End: 01-25-2025 Patient encounter procedure 01/25/2025 8:00 AM EDT Office Visit OB/Gynecology [address] [place] [address] Isabella Vigil, VEST TAILOR.MICROSTRATEGY ARCHITECT [address] [place] [address] 2 MO OV OB/Gynecology Comment on above: 2 MO OV Start: 11-19-2024 End: 02-18-2025 Hepatitis B virus surface Ag [Presence] in Serum [facility] Comment on above: Expected: 11/19/2024 , Expires: 02/18/2025 Start: 11-19-2024 End: 02-18-2025 Hepatitis C virus Ab [Presence] in Serum [facility] Comment on above: Expected: 11/19/2024 , Expires: 02/18/2025 Start: 11-19-2024 End: 02-18-2025 HIV 1+2 Ab [Presence] in Serum or Plasma by Immunoassay [facility] Comment on above: Expected: 11/19/2024 , Expires: 02/18/2025 Start: 11-19-2024 End: 02-18-2025 SYPHILIS TREPONEMAL W/REFLEX [facility] Work Phone: Comment on above: Expected: 11/19/2024 , Expires: 02/18/2025 Start: 05-02-2024 Covid-19 Vaccine ( season) Covid-19 Vaccine ( season) [facility] Start: 05-02-2024 Influenza vaccination Influenza Vacc ine (#1) [facility] Start: 07-09-2023 [facility] Start: 06-30-2023 Celiac disease screen [facility] Start: 06-30-2023 Haptoglobin [Mass/vo lume] in Serum or Plasma [facility] Start: 06-30-2023 IgE [Units/volume] i n Serum or Plasma [facility] Start: 06-30-2023 Procedure [facility] Start: 06-30-2023 Serum immunofixation [facility] Start: 06-30-2023 [facility] Start: 01-17-2023 Patient referral [facility] Work Phone: Start: 10-31-2021 Patient referral [facility] Work Phone: Start: 10-31-2021 Sars-cov-2 detection by dna/rna SARS-COV-2 COVID-19 AMP PRB [facility] Work Phone: Start: 2014 Screening for malign ant neoplasm of cervix Cervical Cancer Screening [facility] Start: 01-25-2012 Hepatitis B Vaccine (1 of 3 - 19+ 3-dose series) Hepatitis B Vaccine (1 of 3 - 19+ 3-dose series) [facility] Start: 01-25-2012 Pneumococcal vaccination Pneum ococcal Vaccine (1 of 2 - PCV) [facility] Start: 2011 Hepatitis C screening [facility] Start: 2011 HIV screening HIV Screening [facility] Chlamydia trachomatis+Neisseria gonorrhoeae DNA [Presence] in Unspecified specimen by BEN with probe detection GONORRHEA/CHLAMYDIA NAAT Lab Routine Encounter for gynecological examination (general) (routine) without abnormal findings Screen for STD (sexually transmitted disease) 11/19/2024 8:15 AM EDT [facility] Measurement of immunoglobulin A in serum specimen [facility] PAP TEST PAP TEST Lab Rou nelsy Encounter for gynecological examination (general) (routine) without abnormal findings Screening for cervical cancer Encounter for screening for human papillomavirus (HPV) 11/19/2024 8:15 AM EDT [facility] Patient Education [facility] Work Phone: Patient referral [facility] Work Phone: Serum protein electrophoresis [facility] TRICHOMONAS VAGINALI S NAAT TRICHOMONAS VAGINALIS NAAT Lab Routine Screen for STD (sexually transmitted disease) 11/19/2024 8:15 AM EDT [facility] Immunizations Immunization Date Immunization Notes Care Provider Fa rayo 08-26-2019 tetanus toxoid, redu angelique diphtheria toxoid, and acellular pertussis vaccine, adsorbed Dr. Lizzy Francois Work Phone: [facility] Payers Date Payer Category Payer Medicaid [id number] 2024 Unknown [id number] 2024 Unknown [id number] 2024 Self-pay [id number] 2023 Unknown [id number] 2014 Unknown [id number] 1993 Unknown [id number] 2.16.84 0.1.075194.3.579.2.651 1993 Unknown [id number] 2.16.8 40.1.905373.3.579.2.627 [facility] [id number] Unknown [id number] 2.16.8 40.1.976600.3.579.2.462 Unknown [id number] 2.16.8 40.1.325321.3.579.2.462 Unknown [id number] 2.16.8 40.1.576259.3.579.2.462 Unknown [id number] 2.16.8 40.1.614649.3.579.2.462 Unknown [id number] 2.16.8 40.1.736530.3.579.2.462 Unknown [id number] 2.16.8 40.1.239173.3.579.2.462 Unknown [id number] 2.16.8 40.1.487437.3.579.2.462 Unknown [id number] 2.16.8 40.1.849648.3.579.2.462 Unknown [id number] 2.16.8 40.1.285163.3.579.2.462 Unknown [id number] 2.16.8 40.1.561371.3.579.2.462 Unknown [id number] 2.16.8 40.1.234124.3.579.2.462 Unknown [id number] 2.16.8 40.1.793273.3.579.2.462 Unknown [id number] 2.16.8 40.1.808775.3.579.2.462 Unknown [id number] 2.16.8 40.1.258369.3.579.2.462 Unknown [id number] 2.16.8 40.1.421371.3.579.2.462 Unknown [id number] 2.16.8 40.1.155006.3.579.2.462 Unknown [id number] 2.16.8 40.1.754742.3.579.2.462 Unknown [id number] 2.16.8 40.1.153993.3.579.2.462 Unknown [id number] 2.16.8 40.1.635126.3.579.2.462 Unknown [id number] 2.16.8 40.1.211148.3.579.2.462 Unknown [id number] 2.16.8 40.1.371178.3.579.2.462 Unknown [id number] 2.16.8 40.1.894868.3.579.2.462 Unknown [id number] 2.16.8 40.1.319591.3.579.2.462 Unknown [id number] 2.16.8 40.1.233288.3.579.2.462 Unknown [id number] 2.16.8 40.1.206418.3.579.2.462 Unknown [id number] 2.16.8 40.1.375897.3.579.2.462 Unknown [id number] 2.16.8 40.1.352922.3.579.2.462 Unknown [id number] 2.16.8 40.1.528727.3.579.2.462 Unknown [id number] 2.16.8 40.1.429944.3.579.2.462 Unknown [id number] 2.16.8 40.1.304699.3.579.2.462 Unknown [id number] 2.16.8 40.1.170826.3.579.2.462 Unknown [id number] 2.16.8 40.1.115114.3.579.2.462 Unknown [id number] 2.16.8 40.1.207593.3.579.2.462 Unknown [id number] 2.16.8 40.1.716350.3.579.2.462 Unknown [id number] 2.16.8 40.1.517166.3.579.2.462 Social History Date Type Detail Facility Start: 02-05-2022 End: 12-15-2023 Tobacco smoking status RIIS Unknown if ever smoked [facility] Start: 12-03-2018 None [facility] Start: 08-26-2019 Alone [facility] Start: 11-06-2020 Cigarettes [facility] Start: 1995 Sex Assigned At Female [facility] Start: 11-19-2024 Tobacco smoking status RIIS Smokes tobacco daily [facility] Start: 11-19-2024 Tobacco use and exposure Smokeless tobacco non-user [facility] Start: 11-19-2024 Alcoholic beverage intake Current non-drinker of alcohol (finding) [facility] Start: 11-19-2024 History of Social function [facility] Start: 11-19-2024 Tobacco use panel [facility] National Score (1-100), lower number is lower risk 77 [facility] Start: 1995 Sex assigned at Not on file [facility] NEGATED: Highlighted row [facility] Mental Status Date Assessment Result Facility 07-09-2023 Cognitive function Level Of Cons ciousness Awake;Alert;Appropriate;Follow s Commands [facility] Work Phone: 06-16-2022 Cognitive function Level Of Cons ciousness Awake;Alert;Appropriate;Follow s Commands [facility] Work Phone: Clinical Notes 01-16-2022 to 02-08-2025 Isabella Vigil APRN.LARISSA - 02/08/2025 12:32 PM EDTMIsabella raymond APRN.CNP - 11/19/2024 7:30 AM EDT Note Date & Type Note Facility 02-08-2025 Note HNO ID: [id number] Author: ISABELLA VIGIL APRN.LARISSA Service: ? Author Type: Nurse Practitioner Type: Progress Notes Filed: 02/08/2025 12:55 Note Text: VIRTUAL VISIT PROGRESS NOTE This is a virtual visit using [employer] Video Visit. It required patient-provider interaction for the medical decision making as documented below. I have communicated my name and active licensure. The patient's identity and physical location were verified at the time of this visit. Either the patient or their legal enrollment representative has been informed of the risks and benefits of -- and alternatives to -- treatment through a remote evaluation and consents to proceed with the evaluation remotely. Marylu Wiseman is a 30 year old female seen for Prozac follow up for PMS. Patient states that she noticed a significant improvement with her moods, temper, and irritability at the 10 mg for 2 cycles. The third cycle she did feel like it was not working as well and was noticing little more irritability than the previous 2 cycles. She is interested in increasing the dosage. HISTORY REVIEWED (electronic chart updated): PAST MEDICAL HISTORY Diagnosis Date Anemia Asthma Cervical cancer (HCC) Pt reported Endometriosis Pt reported age 17 Heart murmur PAST SURGICAL HISTORY Procedure Laterality Date CERVIX UTERI CONIZA LP ELCTRO EXCI Pt reported LAPAROSCOPY DIAGNOSTIC 2013 endometriosis FAMILY HISTORY Problem Relation Age of Onset Asthma Mother Heart Mother Asthma Father Asthma Maternal Aunt Diabetes Maternal Aunt Heart Maternal Grandmother Heart Maternal Uncle Heart Maternal Uncle Social History Tobacco Use Smoking status: Every Day Smokeless tobacco: Never Vaping Use Vaping status: Never Used Substance Use Topics Alcohol use: No Drug use: No Current Outpatient Medications Medication Sig LINZESS 145 mcg capsule Take 145 mcg by mouth every morning. STIMULANT LAXATIVE PLUS 8.6-50 mg per tablet Take 1 tablet by mouth once daily. FLUoxetine (PROZAC) 10 mg capsule Take 1 capsule by mouth once daily. albuterol HFA (PROAIR HFA) 90 mcg/actuation inhaler Inhale 2 Puffs as instructed every 6 hours as needed. albuterol HFA (PROVENTIL HFA, VENTOLIN HFA) 90 mcg/actuation inhaler Inhale 2 Puffs as instructed. No current facility-administered medications for this visit. ALLERGIES No Known Allergies REVIEW OF SYSTEMS: GENERAL: doing well PHYSICAL EXAMINATION: VIDEO EXAM: (if completed, performed via video enabled technology) No exam performed ASSESSMENT/PLAN: 1. PMS (premenstrual syndrome) - ICD9: 625.4, ICD10: N94.3 Increase Prozac to 20 mg Follow up as needed I spent a total of 22 minutes on the date of the service which included preparing to see the patient, [id number] patient care, completing clinical documentation, obtaining and/or reviewing separately obtained history, counseling and educating the patient/family/caregiver, and ordering medications, tests, or procedures Isabella Vigil APRN.[facility] 02-08-2025 History of Present illness Narrative VIRTUAL VISIT PROGRESS NOTE This is a virtual visit using [employer] Video Visit. It required patient-provider interaction for the medical decision making as documented below. I have communicated my name and active licensure. The patient's identity and physical location were verified at the time of this visit. Either the patient or their legal enrollment representative has been informed of the risks and benefits of -- and alternatives to -- treatment through a remote evaluation and consents to proceed with the evaluation remotely. Marylu Wiseman is a 30 year old female seen for Prozac follow up for PMS. Patient states that she noticed a significant improvement with her moods, temper, and irritability at the 10 mg for 2 cycles. The third cycle she did feel like it was not working as well and was noticing little more irritability than the previous 2 cycles. She is interested in increasing the dosage. HISTORY REVIEWED (electronic chart updated): PAST MEDICAL HISTORY Diagnosis Date Anemia Asthma Cervical cancer (HCC) Pt reported Endometriosis Pt reported age 17 Heart murmur PAST SURGICAL HISTORY Procedure Laterality Date CERVIX UTERI CONIZA LP ELCTRO EXCI Pt reported LAPAROSCOPY DIAGNOSTIC 2013 endometriosis FAMILY HISTORY Problem Relation Age of Onset Asthma Mother Heart Mother Asthma Father Asthma Maternal Aunt Diabetes Maternal Aunt Heart Maternal Grandmother Heart Maternal Uncle Heart Maternal Uncle Social History Tobacco Use Smoking status: Every Day Smokeless tobacco: Never Vaping Use Vaping status: Never Used Substance Use Topics Alcohol use: No Drug use: No Current Outpatient Medications Medication Sig LINZESS 145 mcg capsule Take 145 mcg by mouth every morning. STIMULANT LAXATIVE PLUS 8.6-50 mg per tablet Take 1 tablet by mouth once daily. FLUoxetine (PROZAC) 10 mg capsule Take 1 capsule by mouth once daily. albuterol HFA (PROAIR HFA) 90 mcg/actuation inhaler Inhale 2 Puffs as instructed every 6 hours as needed. albuterol HFA (PROVENTIL HFA, VENTOLIN HFA) 90 mcg/actuation inhaler Inhale 2 Puffs as instructed. No current facility-administered medications for this visit. ALLERGIES No Known Allergies REVIEW OF SYSTEMS: GENERAL: doing well PHYSICAL EXAMINATION: VIDEO EXAM: (if completed, performed via video enabled technology) No exam performed ASSESSMENT/PLAN: 1. 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 Marylu is a 29 year old who presents for an annual gynecologic exam without complaints. Still get period: Yes LMP: 11/10/2024 Menses: every 25-30 days and flow lasting 4 days with light flow control: tubal ligation HPV vaccine: No; HPV:positive, unknown date. Last pap smear: unknown. 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 LMP: 11/10/2024 (Exact Date), Having periods Age at Menarche: 8 Age at First : Age at Menopause: Shop Director History Comments: Sexual Activity: Yes; Male Contraception: No contraception data on record Menstrual Tracking History Flowsheet Row Office Visit from 11/19/2024 in OB/Gynecology Period Cycle (Days) 4 Period Duration (Days) 4 Menstrual Flow Moderate PAST MEDICAL HISTORY Diagnosis Date Anemia Asthma Cervical cancer (HCC) Pt reported Endometriosis Pt reported age 17 Heart murmur PAST SURGICAL HISTORY Procedure Laterality Date CERVIX UTERI CONIZA LP ELCTRO EXCI Pt reported LAPAROSCOPY DIAGNOSTIC 2013 endometriosis FAMILY HISTORY Problem Relation Age of Onset Asthma Mother Heart Mother Asthma Father Asthma Maternal Aunt Diabetes Maternal Aunt Heart Maternal Grandmother Heart Maternal Uncle Heart Maternal Uncle SOCIAL HISTORY Social History Tobacco Use Smoking status: Every Day Smokeless tobacco: Never Vaping Use Vaping status: Never Used Substance Use Topics Alcohol use: No Drug use: No REVIEW OF SYSTEMS Abdomen: IBS Bladder: No dysuria, gross hematuria, urinary frequency, urinary urgency, or incontinence. Breast: No breast lumps, nipple d/c, overlying skin changes, redness or skin retraction. Allergies and current medication updated:Yes SENSITIVE EXAM: The sensitive examination was discussed with the Patient or Patient's Authorized Pickling Drum Operator. As applicable, any other physician, advance practice provider, medical student, or other health professional student that will be observing or involved in the sensitive examination for educational or training purposes was discussed with the Patient or Authorized Pickling Drum Operator. The Patient or Authorized Pickling Drum Operator has agreed to proceed with the sensitive examination. (Sensitive examination includes inspection and/or palpation of the breasts, pelvis, prostate and anorectal regions). EXAM: BP 110/64 Ht 5' 3" (1.60m) Wt 135 lb 3.2 oz (61.3kg) LMP 11/10/2024 BMI 23.96 kg/(m^2). GENERAL: pleasant, female in no apparent distress HEENT: Normocephalic, atraumatic, mucus membranes moist, and no lesions DERMATOLOGY: Normal, without lesions, non-icteric, and non-hirsute BREAST: soft, non-tender, symmetric, no dominant mass, normal nipple-areolar complex, no lymphadenopathy, and no nipple discharge CHEST: Normal inspiratory effort ABDOMEN: soft, non-tender, and no masses PELVIC: external genitalia normal, normal Bartholin's glands, urethra, [place]ost[place]'s glands, no vulvar lesions, no cervical lesions, good vaginal support, physiologic discharge present, normal appearing perineal body and perianal region BIMANUAL: uterus normal size, shape and consistency, no adnexal masses, and non-tender RECTOVAGINAL: deferred. NEURO: alert and oriented x3,exam grossly non-focal EXTREMITIES: normal ASSESSMENT/PLAN: 1) Health maintenance: Pap done with HPV. Mammogram starting age 40. Nutrition, exercise and routine health maintenance exams reviewed. Calcium/Vitamin D supplementation information provided. Colon cancer screening: start at age 45 2) Contraception: tubal sterilization. Contraceptive options reviewed and information provided. 3) STD screening: Accepts full STD screeening including HIV, Syphilis and Hepatitis. 4) Follow up one year or sooner as needed 5) Prozac 10 mg ordered- follow up in 2 months *pt is being worked up for possible POTS Isabella Vigil APRN.LARISSA documented in this encounter [facility] 11-19-2024 Note HNO ID: [id number] Author: ISABELLA VIGIL APRN.LARISSA Service: ? 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 Marylu is a 29 year old who presents for an annual gynecologic exam without complaints. Still get period: Yes LMP: 11/10/2024 Menses: every 25-30 days and flow lasting 4 days with light flow control: tubal ligation HPV vaccine: No; HPV:positive, unknown date. Last pap smear: unknown. 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 LMP: 11/10/2024 (Exact Date), Having periods Age at Menarche: 8 Age at First : Age at Menopause: Shop Director History Comments: Sexual Activity: Yes; Male Contraception: No contraception data on record Menstrual Tracking History Flowsheet Row Office Visit from 11/19/2024 in OB/Gynecology Period Cycle (Days) 4 Period Duration (Days) 4 Menstrual Flow Moderate PAST MEDICAL HISTORY Diagnosis Date Anemia Asthma Cervical cancer (HCC) Pt reported Endometriosis Pt reported age 17 Heart murmur PAST SURGICAL HISTORY Procedure Laterality Date CERVIX UTERI CONIZA LP ELCTRO EXCI Pt reported LAPAROSCOPY DIAGNOSTIC 2013 endometriosis FAMILY HISTORY Problem Relation Age of Onset Asthma Mother Heart Mother Asthma Father Asthma Maternal Aunt Diabetes Maternal Aunt Heart Maternal Grandmother Heart Maternal Uncle Heart Maternal Uncle SOCIAL HISTORY Social History Tobacco Use Smoking status: Every Day Smokeless tobacco: Never Vaping Use Vaping status: Never Used Substance Use Topics Alcohol use: No Drug use: No REVIEW OF SYSTEMS Abdomen: IBS Bladder: No dysuria, gross hematuria, urinary frequency, urinary urgency, or incontinence. Breast: No breast lumps, nipple d/c, overlying skin changes, redness or skin retraction. Allergies and current medication updated:Yes SENSITIVE EXAM: The sensitive examination was discussed with the Patient or Patient's Authorized Pickling Drum Operator. As applicable, any other physician, advance practice provider, medical student, or other health professional student that will be observing or involved in the sensitive examination for educational or training purposes was discussed with the Patient or Authorized Pickling Drum Operator. The Patient or Authorized Pickling Drum Operator has agreed to proceed with the sensitive examination. (Sensitive examination includes inspection and/or palpation of the breasts, pelvis, prostate and anorectal regions). EXAM: BP 110/64 Ht 5' 3" (1.60m) Wt 135 lb 3.2 oz (61.3kg) LMP 11/10/2024 BMI 23.96 kg/(m2). GENERAL: pleasant, female in no apparent distress HEENT: Normocephalic, atraumatic, mucus membranes moist, and no lesions DERMATOLOGY: Normal, without lesions, non-icteric, and non-hirsute BREAST: soft, non-tender, symmetric, no dominant mass, normal nipple-areolar complex, no lymphadenopathy, and no nipple discharge CHEST: Normal inspiratory effort ABDOMEN: soft, non-tender, and no masses PELVIC: external genitalia normal, normal Bartholin's glands, urethra, [place]'s glands, no vulvar lesions, no cervical lesions, good vaginal support, physiologic discharge present, normal appearing perineal body and perianal region BIMANUAL: uterus normal size, shape and consistency, no adnexal masses, and non-tender RECTOVAGINAL: deferred. NEURO: alert and oriented x3,exam grossly non-focal EXTREMITIES: normal ASSESSMENT/PLAN: 1) Health maintenance: Pap done with HPV. Mammogram starting age 40. Nutrition, exercise and routine health maintenance exams reviewed. Calcium/Vitamin D supplementation information provided. Colon cancer screening: start at age 45 2) Contraception: tubal sterilization. Contraceptive options reviewed and information provided. 3) STD screening: Accepts full STD screeening including HIV, Syphilis and Hepatitis. 4) Follow up one year or sooner as needed 5) PMS-Prozac 10 mg ordered- follow up in 2 months *pt is being worked up for possible POTS Isabella Vigil APRN.MICROSTRATEGY ARCHITECT [facility] 01-16-2022 Note [facility] Work Phone: Pap Smear Specimen Adequacy January 16, 2022 10:15am Comment . Satisfactory for evaluation. Endocervical and/or squamous metaplasticcells (endocervical component) are present. Comment on above: Satisfactory for lacho luation. Endocervical and/or squamous metaplasticcells (endocervical component) are present. Evaluation note Diagnosis Onset Date Anxiety and depression chron ic Pharyngitis noneactive Smoking noneactive Irritant contact dermatitis due to plant acute [facility] Work Phone: Evaluation noteNo assessment information available [facility] Work Phone: Evaluation note* Diagnosis Onset Date Resolution Status Yeast dermatitis acute Abdominal pain acute Chronic constipation chronic [facility] Work Phone: Evaluation note* Diagnosis Onset Date Resolution Status Chronic constipation chronic Acute pharyngitis, unspecified acute Urinary tract infection acut e [facility] Work Phone: Evaluation note* Diagnosis Onset Date Resolution Status Acute pharyngitis, unspecified acute Urinary tract infection acut e Abdominal pain acute Chronic constipation chronic [facility] Work Phone: Evaluation note* Diagnosis Onset Date Resolution Status Acute sinusitis acute Acute pharyngitis, unspecified acute Sinusitis acute URI (upper respiratory infection) acute [facility] Work Phone: Evaluation note* Diagnosis Encounter for gynecological examination (general) (routine) without abnormal findings- Primary Screening for cervical cancer Screening for malignant neoplasm of the cervix Encounter for screening for human papillomavirus (HPV) Special screening examination for human papillomavirus (HPV) Screen for STD (sexually transmitted disease) Screening examination for venereal disease PMS (premenstrual syndrome) Premenstrual tension syndromes [facility] Diagnosis PMS (premenstrual syndrome)- Primary Premenstrual tension syndromes [facility] Dis[facility] instructions Additional Instructions Continue your antibiotic and take Tylenol ibuprofen as needed every 6 hours. If symptoms change or worsen call your doctor or return to the ER.[facility] Work Phone: Summary Purpose Family History No Family History Records Found Relationship Condition Age at Onset Recorded Date/T jaja Not Specified Hyperlipidemia Unknown mother Anxiety and depression Unknown Cardiac disease Unknown Malignant neoplasm Unknown father Anxiety and depression Unknown Diabetes mellitus Unknown Advance Directives No Advanced Directives Records Found Advance Directive Response Recorded Date/ Time Living Will No April 20 8:41am Power of Wink Cutter Operator No April 20 021 8:41am Advance Directive Response Recorded Date/ Time Living Will No June 16 12:52pm Power of Wink Cutter Operator No June 16, 2022 12:52pm Advance Directive Response Recorded Date/ Time Living Will No May 11, 2023 11:28am Power of Wink Cutter Operator No May 11:28am Advance Directive Response Recorded Date/ Time Living Will No July 09 10:28am Power of Wink Cutter Operator No July 09, 2023 10:28am Advance Directive Response Recorded Date/ Time Living Will No July 09 11:28am Power of Wink Cutter Operator No July 09, 2023 11:28am Chief Complaint and Reason for Visit Chief Complaint ADHD QUESTIONS POISON TRAE Reason for Visit Anxiety and depressi on Pharyngitis Smoking Irritant contact dermatitis due to transplanter Complaint GENERAL ILLNESS Chief Complaint BELLY BUTTON INFECTE D severe stomach pain ADD EORDER XRAY ABDMV Reason for Visit Yeast dermatitis Abdominal pain Chronic constipation Chief Complaint Consult FOOT INJURY CONCERN FOR STREP THROAT/UTI Reason for Visit Chronic constipation Acute pharyngitis, unspecified Urinary tract infection Chief Complaint FOOT INJURY CONCERN FOR STREP THROAT/UTI 4 MO FU INT LABS Reason for Visit Acute pharyngitis, u nspecified Urinary tract infection Abdominal pain Chronic constipation Chief Complaint FOOT INJURY CONCERN FOR STREP THROAT/UTI 4 MO FU INT LABS CHEST PAIN HEADACHE, CONGESTED, DRAINAGE Reason for Visit Acute pharyngitis, u nspecified Urinary tract infection Abdominal pain Chronic constipation Chief Complaint COUGH, CHEST CONGEST ION, SINUS PRESSURE SEVERE CONGESTION Reason for Visit Acute sinusitis Acute pharyngitis, unspecified Sinusitis URI (upper respiratory infection) Additional Source Comments INFORMATION SOURCE (unrecogn ized section and content) DATE CREATED AUTHOR 04/26/2021 [facility] DATE CREATED AUTHOR AUTHOR'S ORGANIZ ATION 01/14/2023 [facility] ([place]) DATE CREATED AUTHOR AUTHOR'S ORGANIZ ATION 02/10/2025 [facility] DATE CREATED AUTHOR AUTHOR'S ORGANIZ ATION 07/08/2025 [facility] Goals (unrecognized section and content) Goals may be documented in a n alternate sectionGoals may be documented in an alternate sectionGoals may be documented in an alternate sectionGoals may be documented in an alternate sectionGoals may be documented in an alternate sectionGoals may be documented in an alternate sectionGoals may be documented in an alternate section Care Teams (unrecognized sec tion and content) Team Status: Active Member Role Status Dates No Primary Care Physician Family Provider Active Dr. Lizzy Francois MD Primary Care Provider Active Team Status: Inactive Member Role Status Dates Dr. Lizzy Francois MD Primary Care Provider, Refer ring Provider Active DALTON Santana Attending Provider Active Team Status: Inactive Member Role Status Dates Dr. Lizzy Francois MD Primary Care P rovider, Attending Provider, Referring Provider Active Team Status: Inactive Member Role Status Dates Dr. Lizzy Francois MD Primary Care Provider, Refer ring Provider Active Kimberley Aparicio [employer]ISHER, [employer]ING FINISHER-C Attending Provider Active Team Status: Inactive Member Role Status Dates Dr. Lizzy Francois MD Primary Care Provider, Refer ring Provider Active DALTON Hoffman Attending Provider Active Team Status: Inactive Member Role Status Dates Dr. Lizzy Francois MD Primary Care Provider Active Dr. Mir Castellon MD Attending Provider, Emergency Provider Active Team Status: Inactive Member Role Status Dates Dr. Lizzy Francois MD Primary Care Provider Active DALTON Hoffman Attending Provider Active Team Status: Inactive Member Role Status Dates Dr. Lizzy Francois MD Primary Care Provider, Refer ring Provider Active Dr. Deon Marie DO Attending Provider Active Team Status: Inactive Member Role Status Dates Dr. Lizzy Francois MD Primary Care Provider Active Dr. Deon Marie DO Attending Provider, Referring Provider Active Team Status: Inactive Member Role Status Dates Dr. Lizzy Francois MD Primary Care Provider Active Dr. Ladarius Lozada DO Attending Provider, Emergency P rovider Active Team Status: Inactive Member Role Status Dates Dr. Lizzy Francois MD Primary Care Provider Active DALTON Hoffman Attending Provider, Referring Pr ovider Active Source Comments (unrecognize d section and content) In the event this informatio n is protected by the Federal Confidentiality of Alcohol and Drug Abuse Patient Records regulations: The Federal rules restrict any use of the information to criminally investigate or prosecute any alcohol or drug abuse patient.[facility] the event this information is protected by the Federal Confidentiality of Alcohol and Drug Abuse Patient Records regulations: The Federal rules restrict any use of the information to criminally investigate or prosecute any alcohol or drug abuse patient.[facility] Reason for Visit (unrecogniz ed section and content) Reason Comments Well Woman Reason Comments Medication Follow-up FOR RECORDS PERTAINING TO PATIENTS WHO ARE OR HAVE BEEN ENROLLED IN A CHEMICAL DEPENDENCY/SUBSTANCEABUSE PROGRAM, SOME INFORMATION MAY BE OMITTED. This clinical summary was aggregated from multiple sources. Caution should be exercised in using it in the provision of clinical care. This summary normalizes information from multiple sources, and as a consequence, information in this document may materially change the coding, format and clinical context of patient data. In addition, data may be omitted in some cases. CLINICAL DECISIONS SHOULD BE BASED ON THE PRIMARY CLINICAL RECORDS. [facility]. provides no warranty or guarantee of the accuracy or completeness of information in this document.
== END | disposition home or self-care (01) ==
LOC: PSN 08:33
PROVIDERS: PCP Internal Medicine
DX: G47.9 Sleep disorder, unspecified (principal)
CPT/HCPCS: 95819

== ENCOUNTER → 2025-08-19 | Outpatient (CLI) | payer MEDICAID, SELFPAY ==
--- NOTE | 2025-08-19 17:17 | CT_ITS ---
PROCEDURE: SOFT TISSUE NECK WITH CONTRAST 08/19/2025 REASON FOR EXAM: Clinical history of neck mass. TECHNIQUE: Procedure Code: CTNEW Modality: CT Procedure: SOFT TISSUE NECK WITH CONTRAST CONTRAST: Isovue 370 VOLUME: 75 mL One or more dose reduction techniques were used (e.g., Automated exposure control, adjustment of the mA and/or kV according to patient size, use of iterative reconstruction technique). RADIATION DOSE SUMMARY: DLP: 410.08 mGycm COMPARISON: None available. FINDINGS: In the area of interest where there is a superficial radiodense marker at the right lateral neck, there is no subjacent soft tissue mass (series 2, image 65). The subjacent right sternocleidomastoid muscle is unremarkable. Aerodigestive tract: The floor of mouth, base of tongue, nasopharynx, oropharynx, hypopharynx, and larynx appear overall symmetric without evidence of nodular or masslike enhancement. The visualized trachea is clear. The nasal cavity is unobstructed. Maxillary edentulism. Salivary glands: (Major): The submandibular glands and parotid glands appear within normal limits. Thyroid gland: Unremarkable. Lymph nodes: There is no evidence of pathologic cervical lymphadenopathy. Vasculature: The common carotid, cervical internal carotid, and cervical vertebral arteries opacify with intravenously administered contrast. Paranasal sinuses: The paranasal sinuses are predominantly clear. Orbits: Unremarkable. Intracranial/cranium: The partially visualized intracranial contents appear overall within normal limits for the patient's stated age, although assessment is limited due to technique (e.g. the [id number]). Cervical spine: Unremarkable. Lung apices: The visualized lung apices are predominantly clear. CT/Soft Tissue Neck WITH Contrast IMPRESSION: No dominant neck mass or pathologic cervical lymphadenopathy. Reading Location: [id number]
--- OUTSIDE RECORDS SUMMARY | 2025-08-19 17:33 | XMS RPT_ITS | CCD ---
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 Ag Ql (Unsp spec) Not detected Normal Not detec bhavani [facility] Comment on above: Order Comment: Speci men Type: FLUID SPECIMEN Ordering Facility: [facility] Address: [address] [place] [address] Performed By: #### H PVHRT #### [facility] CLIA [id number] [address] [place] [address] [place] HPV 31+33+35+39+45+51+52+56+ 58+59+66+68 DNA BEN+probe Ql (Cvx) Not detected Normal Not detected [facility] Comment on above: Order Comment: Speci men Type: FLUID SPECIMEN Ordering Facility: [facility] Address: [address] [place] [address] Result Comment: High Risk HPV Other Type includes HPV types 31, 33, 35, 39, 45, 51, 52, 56, 58, 59, 66 and 68. Performed By: #### H PVHRT #### [facility] CLIA [id number] [address] [place] [address] [place] HIV 1+2 Ab IA Qlon 5 HIV 1 and 2 Ab IA.rapid Nom (S/P/Bld) Normal [facility] Comment on above: Order Comment: Speci men Type: BLOOD SPECIMEN Ordering Facility: [facility] Address: [address] [place] [address] Result Comment: Test not indicated. Performed By: #### 7 3752-8, 5195-3, 49627-1 #### [facility] CLIA [id number] [address] [place] [address] [place] HIV 1+2 Ab+HIV1 p24 Ag IA Ql Non-Reactive Normal Nonreactive [facility] Comment on above: Order Comment: Speci men Type: BLOOD SPECIMEN Ordering Facility: [facility] Address: [address] [place] [address] Performed By: #### 7 3752-8, 5195-3, 72299-2 #### [facility] CLIA [id number] [address] [place] [address] [place] HIV immunoassay testing algorithm interpretation (S/P/Bld) [Interp] Normal [facility] Comment on above: Order Comment: Speci men Type: BLOOD SPECIMEN Ordering Facility: [facility] Address: [address] [place] [address] Result Comment: No e vidence of HIV-1 or HIV-2 infection. Should recent infection be suspected, repeat testing may be considered 2-3 weeks after this draw. [place] Rev. Code 3701.243(E): This information has been [...] diagnoses. Performed By: #### 7 3752-8, 5195-3, 91477-1 #### [facility] CLIA [id number] [address] [place] [address] [place] PAP TESTon 11-19-2024 ADEQUACY Normal [facility] Comment on above: Order Comment: Speci men Type: FLUID SPECIMEN Ordering Facility: [facility] Address: [address] [place] [address] Result Comment: Sati sfactory for interpretation. No endocervical component Performed By: #### L [id number] #### [facility] CLIA [id number] [address] [place] [address] [place] CASE REPORT Normal [facility] Comment on above: Order Comment: Speci men Type: FLUID SPECIMEN Ordering Facility: [facility] Address: [address] [place] [address] Result Comment: Gyne cologic Cytology Report Case: [id number] Authorizing Provider: Isabella Vigil APRN.ESCALATOR CONSTRUCTOR Collected: 11/19/2024 08:15 AM Ordering Location: OB/Gynecology Received: 11/19/2024 11:22 AM First Screen: Cesar, Nba, CT, ASCP Specimen: Pap Test, ThinPrep, Cervix Performed By: #### L [id number] #### [facility] CLIA [id number] [address] [place] [address] [place] CLINICAL HISTORY, CYTOLOGY, MANAGER BUSINESS OPERATIONS Routine Exam Normal [facility] Comment on above: Order Comment: Speci men Type: FLUID SPECIMEN Ordering Facility: [facility] Address: [address] [place] [address] Performed By: #### L [id number] #### [facility] CLIA [id number] [address] [place] [address] [place] CYTOLOGY PAP OTHER INTERPRETATION Predominance of coccobacilli consistent with shift in vaginal duane. Normal [facility] Comment on above: Order Comment: Speci men Type: FLUID SPECIMEN Ordering Facility: [facility] Address: [address] [place] [address] Performed By: #### L [id number] #### [facility] CLIA [id number] [address] [place] [id number] [place] FINAL PERFORMING LAB Normal [facility] Comment on above: Order Comment: Speci men Type: FLUID SPECIMEN Ordering Facility: [facility] Address: [address] [place] [address] Result Comment: Tech nical component, staff climate scientist screening performed at [facility], [address] [place], [place] [address] CLIA# [id number] Diagnostic interpretation performed at [facility], [address] [place], [place] [address] CLIA# [id number] Vac Press Operator: Quoc Carmichael M.D. Performed By: #### L [id number] #### [facility] CLIA [id number] [address] [place], [place] [address] [place] INTERPRETATION, CYTOLOGY, MANAGER BUSINESS OPERATIONS Normal [facility] Comment on above: Order Comment: Speci men Type: FLUID SPECIMEN Ordering Facility: [facility] Address: [address] [place] [address] Result Comment: Nega tive for intraepithelial lesion or malignancy. at 1328 EDT Performed By: #### L [id number] #### [facility] CLIA [id number] [address] [place], [place] [address] [place] LMP 11/10/2024 Normal [facility] Comment on above: Order Comment: Speci men Type: FLUID SPECIMEN Ordering Facility: [facility] Address: [address] [place] [address] Performed By: #### L [id number] #### [facility] CLIA [id number] [address] [place] [address] [place] PAP DISCLAIMER COMMENT The Pap Smear is a screening test for cervical cancer. False negative results occur with all screening tests, emphasizing the need for rescreening at recommended intervals, and clinical correlation. Normal [facility] Comment on above: Order Comment: Speci men Type: FLUID SPECIMEN Ordering Facility: [facility] Address: [address] [place] [address] Performed By: #### L [id number] #### [facility] CLIA [id number] [address] [place] [address] [place] PAP SEMICONDUCTOR PACKAGES TESTER COMMENT This specimen has be en analyzed by the ThinPrep Imaging System, an automated imaging and review system, which assists the laboratory in evaluating cells on ThinPrep Pap tests. Following automated imaging, selected baker from every slide are reviewed by a staff climate scientist. Normal [facility] Comment on above: Order Comment: Speci men Type: FLUID SPECIMEN Ordering Facility: [facility] Address: [address] [place] [address] Performed By: #### L [id number] #### [facility] CLIA [id number] [address] [place] [address] [place] Reagin and Treponema pallidu m IgG and IgM [Interp]on 11-19-2024 T. pallidum IgG+IgM IA Ql (S) Non-Reactive Normal Nonreactive [facility] Comment on above: Order Comment: Speci men Type: BLOOD SPECIMEN Ordering Facility: [facility] Address: [address] [place] [address] Performed By: #### 7 3752-8, 5195-3, 99831-2 #### [facility] CLIA [id number] [address] [place] [address] [place] Reagin+T pallidum IgG+IgM Se rPl-Impon 11-19-2024 Reagin and Treponema pallidum IgG and IgM [Interp] Cannot exclude recent Treponemal infection if specimen collected within 7-10 days after appearance of suspect lesions or 2-3 weeks after an exposure. Clinical correlation is required. Normal [facility] Comment on above: Order Comment: Speci men Type: BLOOD SPECIMEN Ordering Facility: [facility] Address: [address] [place] [address] Performed By: #### 7 3752-8, 5195-3, 87447-6 #### [facility] CLIA [id number] [address] [place] [address] [place] TRICHOMONAS VAGINALIS NAATon 11-19-2024 T. vaginalis DNA BEN+probe Ql (Unsp spec) Not detected Normal Not detected [facility] Comment on above: Order Comment: Speci men Type: SWAB Ordering Facility: [facility] Address: [address] [place] [address] Performed By: #### T RVAMP, 27177-3 #### [facility] CLIA [id number] [address] [place] [address] [place] Abdomen/Pelvis W IV Cont ONL Yon 11-17-2024 Abdomen/Pelvis W IV Cont ONLY [facility] [address] [place] [address] [id number] Abdomen/Pelvis W IV Cont ONLY MR#: [id number] Acct: [id number] Name: MARYLU WISEMAN Rep #: [id number] : 1995 F 29 From: Guillaume Calvo MD PCP: Dr. Lizzy Francois MD Status: REG ER Study: Abdomen/Pelvis W IV Cont ONLY Date of Exam: Exam# [id number] Ordering Dr: Colby Vázquez DO EXAM: CT [...] constipation. 4. No obstructive uropathy. Reading Location[facility] CC: Dr. Colby Vázquez ; Dr. Lizzy Francois MD Assistant Loan Processor: Signed Normal [facility] CBC W/Diff, Automatedon 03- Absolute Lymph 2.92 X10 3/uL Normal 0.83-4.51 [facility] Comment on above: Performed By: #### L 503.6005, L501.2450, L100.0100, L500.4050, M100.7900, L700.6800 #### [facility] [address] [place], [address] Absolute Neut 6.1 X10 3/uL Normal 2.0-7.7 [facility] Comment on above: Performed By: #### L 503.6005, L501.2450, L100.0100, L500.4050, M100.7900, L700.6800 #### [facility] [address] [place], [address] Basophils/100 WBC (Bld) 0.6 % Normal 0-1 [facility] Comment on above: Performed By: #### L 503.6005, L501.2450, L100.0100, L500.4050, M100.7900, L700.6800 #### [facility] [address] [place], [address] Eosinophils/100 WBC (Bld) 1.4 % Normal 0-5 [facility] Comment on above: Performed By: #### L 503.6005, L501.2450, L100.0100, L500.4050, M100.7900, L700.6800 #### [facility] [address] [place], [address] Erythrocyte distribution width (RBC) [Ratio] 12.3 % Normal 11.6-14.6 [facility] Comment on above: Performed By: #### L 503.6005, L501.2450, L100.0100, L500.4050, M100.7900, L700.6800 #### [facility] [address] [place], [address] Hematocrit (Bld) [Volume fraction] 36.3 % Low 37-47 [facility] Comment on above: Performed By: #### L 503.6005, L501.2450, L100.0100, L500.4050, M100.7900, L700.6800 #### [facility] [address] [place], [address] Hemoglobin (Bld) [Mass/Vol] 12.7 g/dL Normal 12.0-15.0 [facility] Comment on above: Performed By: #### L 503.6005, L501.2450, L100.0100, L500.4050, M100.7900, L700.6800 #### [facility] [address] [place], [address] IG% 0.200 Normal 0.0-0.9 [facility] Comment on above: Result Comment: IG% - Immature Granulocytes (promyelocytes, myelocytes and metamyelocytes) > 1% indicates that a LEFT SHIFT is Present. Performed By: #### L 503.6005, L501.2450, L100.0100, L500.4050, M100.7900, L700.6800 #### [facility] [address] [place], [address] Lymphocytes/100 WBC (Bld) 30.0 % Normal 19-41 [facility] Comment on above: Performed By: #### L 503.6005, L501.2450, L100.0100, L500.4050, M100.7900, L700.6800 #### [facility] [address] [place], [address] MCH (RBC) [Entitic mass] 32.1 pg High 27.0-32.0 [facility] Comment on above: Performed By: #### L 503.6005, L501.2450, L100.0100, L500.4050, M100.7900, L700.6800 #### [facility] [address] [place], [address] MCHC (RBC) [Mass/Vol] 35.0 g/dL Normal 32-36 [facility] Comment on above: Performed By: #### L 503.6005, L501.2450, L100.0100, L500.4050, M100.7900, L700.6800 #### [facility] [address] [place], [address] MCV (RBC) [Entitic vol] 91.7 fL Normal 81-99 [facility] Comment on above: Performed By: #### L 503.6005, L501.2450, L100.0100, L500.4050, M100.7900, L700.6800 #### [facility] [address] [place], [address] Monocytes/100 WBC (Bld) 5.2 % Normal 0-10 [facility] Comment on above: Performed By: #### L 503.6005, L501.2450, L100.0100, L500.4050, M100.7900, L700.6800 #### [facility] [address] [place], [address] Neutrophils/100 WBC (Bld) 62.6 % Normal 47-70 [facility] Comment on above: Performed By: #### L 503.6005, L501.2450, L100.0100, L500.4050, M100.7900, L700.6800 #### [facility] [address] [place], [address] Nucleated RBC (Bld) [#/Vol] 0 10*3/uL Normal 0-5 [facility] Comment on above: Performed By: #### L 503.6005, L501.2450, L100.0100, L500.4050, M100.7900, L700.6800 #### [facility] [address] [place], [address] Platelet mean volume (Bld) [Entitic vol] 9.5 fL Normal 6.2-12.0 [facility] Comment on above: Performed By: #### L 503.6005, L501.2450, L100.0100, L500.4050, M100.7900, L700.6800 #### [facility] [address] [place], [address] Platelets (Bld) [#/Vol] 244 10*3/uL Normal 150-450 [facility] Comment on above: Performed By: #### L 503.6005, L501.2450, L100.0100, L500.4050, M100.7900, L700.6800 #### [facility] [address] [place], [address] RBC (Bld) [#/Vol] 3.96 10*6/uL Low 4.2-5.4 [facility] Comment on above: Performed By: #### L 503.6005, L501.2450, L100.0100, L500.4050, M100.7900, L700.6800 #### [facility] [address] [place], [address] RDW SD 41.2 fl Normal 35.1-43.9 [facility] Comment on above: Performed By: #### L 503.6005, L501.2450, L100.0100, L500.4050, M100.7900, L700.6800 #### [facility] [address] [place], [address] WBC (Bld) [#/Vol] 9.7 10*3/uL Normal 4.4-11.0 [facility] Comment on above: Performed By: #### L 503.6005, L501.2450, L100.0100, L500.4050, M100.7900, L700.6800 #### [facility] [address] [place], [address] Comprehensive Metabolic Prof txon 11-17-2024 Albumin [Mass/Vol] 4.2 g/dL Normal 3.5-5.0 [facility] Comment on above: Performed By: #### L 503.6005, L501.2450, L100.0100, L500.4050, M100.7900, L700.6800 ####[facility] [address] [place], [address] Albumin/Globulin [Mass ratio] 1.6 {ratio} Normal 0.9-2.4 [facility] Comment on above: Performed By: #### L 503.6005, L501.2450, L100.0100, L500.4050, M100.7900, L700.6800 ####[facility] [address] [place], [address] ALK PHOS 61 U/L Normal 35-104 [facility] Comment on above: Performed By: #### L 503.6005, L501.2450, L100.0100, L500.4050, M100.7900, L700.6800 ####[facility] [address] [place], [address] ALT [Catalytic activity/Vol] 8 U/L Normal <=34 [facility] Comment on above: Performed By: #### L 503.6005, L501.2450, L100.0100, L500.4050, M100.7900, L700.6800 ####[facility] [address] [place], [address] AST [Catalytic activity/Vol] 17 U/L Normal <=31 [facility] Comment on above: Performed By: #### L 503.6005, L501.2450, L100.0100, L500.4050, M100.7900, L700.6800 ####[facility] [address] [place], [address] Bilirubin [Mass/Vol] 0.31 mg/dL Normal 0.00-1.30 [facility] Comment on above: Performed By: #### L 503.6005, L501.2450, L100.0100, L500.4050, M100.7900, L700.6800 ####[facility] [address] [place], [address] BUN/CRE 11.2 RATIO Normal 10-20 [facility] Comment on above: Performed By: #### L 503.6005, L501.2450, L100.0100, L500.4050, M100.7900, L700.6800 ####[facility] [address] [place], [address] Calcium [Mass/Vol] 9.0 mg/dL Normal 7.6-11.0 [facility] Comment on above: Performed By: #### L 503.6005, L501.2450, L100.0100, L500.4050, M100.7900, L700.6800 ####[facility] [address] [place], [address] Chloride [Moles/Vol] 106 mmol/L Normal 98-108 [facility] Comment on above: Performed By: #### L 503.6005, L501.2450, L100.0100, L500.4050, M100.7900, L700.6800 ####[facility] [address] [place], [address] CO2 [Moles/Vol] 20.1 mmol/L Low 21.0-32.0 [facility] Comment on above: Performed By: #### L 503.6005, L501.2450, L100.0100, L500.4050, M100.7900, L700.6800 ####[facility] [address] [place], [address] Creatinine [Mass/Vol] 0.73 mg/dL Normal 0.70-1.20 [facility] Comment on above: Performed By: #### L 503.6005, L501.2450, L100.0100, L500.4050, M100.7900, L700.6800 ####[facility] [address] [place], [address] ECRCL 92.37 ml/min Normal 50-250 [facility] Comment on above: Performed By: #### L 503.6005, L501.2450, L100.0100, L500.4050, M100.7900, L700.6800 ####[facility] [address] [place], [address] GAP 11 Normal 5-15 [facility] Comment on above: Performed By: #### L 503.6005, L501.2450, L100.0100, L500.4050, M100.7900, L700.6800 ####[facility] [address] [place], [address] GFR/1.73 sq M.predicted among non-blacks MDRD (S/P/Bld) [Vol rate/Area] 112 mL/min/{1.73_m2} Normal >60 [facility] Comment on above: Result Comment: mL/m in/1.73m2 CKD-EPI Creatinine Equation (2020) Performed By: #### L 503.6005, L501.2450, L100.0100, L500.4050, M100.7900, L700.6800 ####[facility] [address] [place], [address] Globulin (S) [Mass/Vol] 2.6 g/dL Normal 2.2-4.2 [facility] Comment on above: Performed By: #### L 503.6005, L501.2450, L100.0100, L500.4050, M100.7900, L700.6800 ####[facility] [address] [place], [address] Glucose [Mass/Vol] 80 mg/dL Normal 70-99 [facility] Comment on above: Performed By: #### L 503.6005, L501.2450, L100.0100, L500.4050, M100.7900, L700.6800 ####[facility] [address] [place], [address] Potassium [Moles/Vol] 3.7 mmol/L Normal 3.3-5.1 [facility] Comment on above: Performed By: #### L 503.6005, L501.2450, L100.0100, L500.4050, M100.7900, L700.6800 ####[facility] [address] [place], [address] Sodium [Moles/Vol] 137 mmol/L Normal 133-145 [facility] Comment on above: Performed By: #### L 503.6005, L501.2450, L100.0100, L500.4050, M100.7900, L700.6800 ####[facility] [address] [place], [address] T PROT 6.8 g/dL Normal 5.9-8.4 [facility] Comment on above: Performed By: #### L 503.6005, L501.2450, L100.0100, L500.4050, M100.7900, L700.6800 ####[facility] [address] [place], [address] Urea nitrogen [Mass/Vol] 8 mg/dL Normal 4-19 [facility] Comment on above: Performed By: #### L 503.6005, L501.2450, L100.0100, L500.4050, M100.7900, L700.6800 ####[facility] [address] [place], [address] Emergency Department Summary on 11-17-2024 Emergency Department Summary [facility] Medical Records Department [address] [place] [address] Emergency Department Summary 11/17/24 MR#: [id number] Acct: [id number] Name: MARYLU WISEMAN Rep #: [id number] : 1995 29 From: Colby Vázquez DO [...] any chronic acid reflux medication. She takes upnk-cwb-yzatdfa acid reflux medication as needed. Patient states [...] intact Psych: Cooperative, appropriate mood and affect [facility] Medical History Pharyngitis Contusion of left middle [...] making narrative: (more content not included)... Normal [facility] Lactic Acidon 11-17-2024 Lactate [Moles/Vol] 1.1 mmol/L Normal 0.0-2.0 [facility] Comment on above: Order Comment: Y Performed By: #### L 503.6005, L501.2450, L100.0100, L500.4050, M100.7900, L700.6800 ####[facility] [address] [place], [address] Lipaseon 11-17-2024 Lipase [Catalytic activity/Vol] 23 U/L Normal 13-75 [facility] Comment on above: Result Comment: Lulu kruse note: LIPASE revised reference range effective 22. New Lipase methodology. Expected to produce lower values than the previous assay method. NEW Reference Range: 13 - 75 U/L Performed By: #### L 503.6005, L501.2450, L100.0100, L500.4050, M100.7900, L700.6800 ####[facility] [address] [place], [place], [address] ,Serum,hCG Quali.on 11-17-2024 HCG, SERUM QUAL Negative [facility] Comment on above: Performed By: #### L 503.6005, L501.2450, L100.0100, L500.4050, M100.7900, L700.6800 #### [facility] [address] [place], [address] Stool Occult Blood iFOBon STOB Positive [facility] Comment on above: Performed By: #### L 503.6005, L501.2450, L100.0100, L500.4050, M100.7900, L700.6800 #### [facility] [address] [place], [address] Urinalysis, Completeon 11-17 EPI,SQUAMOUS 0-5 SEEN Normal 5-10 [facility] Comment on above: Order Comment: CAROL CTOR TO SPECIFY Performed By: #### L 400.0001 ####[facility] [address] [place], [address] RBC 0 SEEN Normal 0-5 [facility] Comment on above: Order Comment: CAROL CTOR TO SPECIFY Performed By: #### L 400.0001 ####[facility] [address] [place], [address] BACTERIA 0 SEEN Normal None Seen [facility] Comment on above: Order Comment: CAROL CTOR TO SPECIFY Performed By: #### L 400.0001 ####[facility] [address] [place], [address] Mucus Ql (Urine sed) 0 SEEN Normal [facility] Comment on above: Order Comment: CAROL CTOR TO SPECIFY Performed By: #### L 400.0001 ####[facility] [address] [place], [address] WBC 0 SEEN Normal 0-5 [facility] Comment on above: Order Comment: CAROL CTOR TO SPECIFY Performed By: #### L 400.0001 ####[facility] [address] [place], [address] Internal Medicine Office Vis tamela 11-11-2024 Internal Medicine Office Visit [facility] [address] [place] [address] [place] [address] OFFICE VISIT Date of Service: 11/11/24 MR#: [id number] Acct: [id number] Name: MARYLU WISEMAN Rep #: [id number] : 1995 Provider: DALTON Martinez Age/Sex: 29/F Location: [facility] [place] Status: Signed Intake Vital Signs 10/27/24 11:27 [...] room air Comment pt reports that her arms go numb with bp checks pt reports that she feels slightly lightheaded Intake Visit Reasons: FU Chief Complaint: FU - Is patient in pain?: No Allergies No Known Allergies Allergy (Verified 11/11/24 15:05) Medications ???Medication ???Instructions ???Recorded ???Confirmed ???Type NK 11/11/24 11/11/24 History Nurse's Note: pt reports that her blood pressure was very low yesterday and she almost passed out when 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 She states that she has had syncopal episodes since she was a child. She was eventually referred to the substation operator apprentice when this worsened during . She states [...] wheezing Cardi (more content not included)... Normal [facility] NCS and/or EMG Patienton NCS and/or EMG Patient [facility] Pulmonary Services/Neurology [address] [place] [address] MR#: [id number] Acct: [id number] Name: MARYLU WISEMAN Rep #: [id number] : 1995 29 From: Adeel Mccormack MD [...] Multi Select Codes Neurology Neurology Interp Codes: 56738-32 Musc test done w/n test comp (interp) and 59173-95 Nrv cndj test 7- 8 studies (interp) 11/10/24 1227 Date Adeel Mccormack MD CC: Dr. Adeel Mccormack MD; Dr. Lizzy Francois MD; DALTON Martinez Date Dictated: 11/10/24 122 Date Transcribed: 11/10/241222 Assistant Loan Processor: AA Signed Normal [facility] Vitamin D 1,25-Dihydroxyon 0 10-30-2024 VIT D 1,25 DIHY 44.4 pg/mL Normal 24.8-81.5 [facility] Comment on above: Result Comment: Perf ormed at: BN - [facility] [address] [id number] Chamber Magistrate: Tobias Ryan MD, Phone: [phone] Performed By: #### L 100.0500, L500.4050, L501.9520, L3300.0960 ####[facility] [address] [place], [address] CBC-Complete Blood Cnt No Di ffon 10-27-2024 Erythrocyte distribution width (RBC) [Ratio] 12.3 % Normal 11.6-14.6 [facility] Comment on above: Performed By: #### L 100.0500, L500.4050, L501.9520, L3300.0960 ####[facility] [address] [place], [address] Hematocrit (Bld) [Volume fraction] 38.1 % Normal 37-47 [facility] Comment on above: Performed By: #### L 100.0500, L500.4050, L501.9520, L3300.0960 ####[facility] [address] [place], [address] Hemoglobin (Bld) [Mass/Vol] 12.8 g/dL Normal 12.0-15.0 [facility] Comment on above: Performed By: #### L 100.0500, L500.4050, L501.9520, L3300.0960 ####[facility] [address] [place], [address] MCH (RBC) [Entitic mass] 31.2 pg Normal 27.0-32.0 [facility] Comment on above: Performed By: #### L 100.0500, L500.4050, L501.9520, L3300.0960 ####[facility] [address] [place], [address] MCHC (RBC) [Mass/Vol] 33.6 g/dL Normal 32-36 [facility] Comment on above: Performed By: #### L 100.0500, L500.4050, L501.9520, L3300.0960 ####[facility] [address] [place], [address] MCV (RBC) [Entitic vol] 92.9 fL Normal 81-99 [facility] Comment on above: Performed By: #### L 100.0500, L500.4050, L501.9520, L3300.0960 ####[facility] [address] [place], [address] Platelet mean volume (Bld) [Entitic vol] 9.8 fL Normal 6.2-12.0 [facility] Comment on above: Performed By: #### L 100.0500, L500.4050, L501.9520, L3300.0960 ####[facility] [address] [place], [address] Platelets (Bld) [#/Vol] 281 10*3/uL Normal 150-450 [facility] Comment on above: Performed By: #### L 100.0500, L500.4050, L501.9520, L3300.0960 ####[facility] [address] [place], [address] RBC (Bld) [#/Vol] 4.10 10*6/uL Low 4.2-5.4 [facility] Comment on above: Performed By: #### L 100.0500, L500.4050, L501.9520, L3300.0960 ####[facility] [address] [place], [address] RDW SD 42.4 fl Normal 35.1-43.9 [facility] Comment on above: Performed By: #### L 100.0500, L500.4050, L501.9520, L3300.0960 ####[facility] [address] [place], [address] WBC (Bld) [#/Vol] 10.9 10*3/uL Normal 4.4-11.0 [facility] Comment on above: Performed By: #### L 100.0500, L500.4050, L501.9520, L3300.0960 ####[facility] [address] [place], [address] Cerv Spine 2 or 3 Viewson Cerv Spine 2 or 3 Views [facility] Imaging Services [address] [place] [address] Cerv Spine 2 or 3 Views MR#: [id number] Acct: [id number] Name: MARYLU WISEMAN Rep #: [id number] : 1995 F 29 From: Silviano Sheppard i, DO PCP: Dr. Lizzy Francois MD Status: REG CLI Study: Cerv Spine 2 or 3 Views Date of Exam: 10/27/24 Exam# [id number] Ordering Dr: Abhinav Mendoza PROCEDURE: Cervical spine [...] CC: Dr. Lizzy Francois MD; DALTON Martinez Assistant Loan Processor: Signed Normal [facility] Comprehensive Metabolic Prof ilon 10-27-2024 Albumin [Mass/Vol] 4.6 g/dL Normal 3.5-5.0 [facility] Comment on above: Performed By: #### L 100.0500, L500.4050, L501.9520, L3300.0960 ####[facility] [address] [place], [address] Albumin/Globulin [Mass ratio] 1.7 {ratio} Normal 0.9-2.4 [facility] Comment on above: Performed By: #### L 100.0500, L500.4050, L501.9520, L3300.0960 ####[facility] [address] [place], [address] ALK PHOS 71 U/L Normal 35-104 [facility] Comment on above: Performed By: #### L 100.0500, L500.4050, L501.9520, L3300.0960 ####[facility] [address] [place], [address] ALT [Catalytic activity/Vol] 11 U/L Normal <=34 [facility] Comment on above: Performed By: #### L 100.0500, L500.4050, L501.9520, L3300.0960 ####[facility] [address] [place], [address] Anion gap [Moles/Vol] 12 mmol/L Normal 5-15 [facility] Comment on above: Performed By: #### L 100.0500, L500.4050, L501.9520, L3300.0960 ####[facility] [address] [place], [address] AST [Catalytic activity/Vol] 21 U/L Normal <=31 [facility] Comment on above: Performed By: #### L 100.0500, L500.4050, L501.9520, L3300.0960 ####[facility] [address] [place], [address] Bilirubin [Mass/Vol] 0.22 mg/dL Normal 0.00-1.30 [facility] Comment on above: Performed By: #### L 100.0500, L500.4050, L501.9520, L3300.0960 ####[facility] [address] [place], [address] BUN/CRE 9.5 RATIO Low 10-20 [facility] Comment on above: Performed By: #### L 100.0500, L500.4050, L501.9520, L3300.0960 ####[facility] [address] [place], [address] Calcium [Mass/Vol] 9.3 mg/dL Normal 7.6-11.0 [facility] Comment on above: Performed By: #### L 100.0500, L500.4050, L501.9520, L3300.0960 ####[facility] [address] [place], [address] Chloride [Moles/Vol] 105 mmol/L Normal 96-108 [facility] Comment on above: Performed By: #### L 100.0500, L500.4050, L501.9520, L3300.0960 ####[facility] [address] [place], [address] CO2 [Moles/Vol] 22.5 mmol/L Normal 22.0-29.0 [facility] Comment on above: Performed By: #### L 100.0500, L500.4050, L501.9520, L3300.0960 ####[facility] [address] [place], [address] Creatinine [Mass/Vol] 0.7 mg/dL Normal 0.6-1.0 [facility] Comment on above: Performed By: #### L 100.0500, L500.4050, L501.9520, L3300.0960 ####[facility] [address] [place], [address] GFR/1.73 sq M.predicted among non-blacks MDRD (S/P/Bld) [Vol rate/Area] 121 mL/min/{1.73_m2} Normal >60 [facility] Comment on above: Result Comment: mL/m in/1.73m2 CKD-EPI Creatinine Equation (2020) Performed By: #### L 100.0500, L500.4050, L501.9520, L3300.0960 ####[facility] [address] [place], [address] Globulin (S) [Mass/Vol] 2.7 g/dL Normal 2.2-4.2 [facility] Comment on above: Performed By: #### L 100.0500, L500.4050, L501.9520, L3300.0960 ####[facility] [address] [place], [address] Glucose [Mass/Vol] 88 mg/dL Normal 70-99 [facility] Comment on above: Performed By: #### L 100.0500, L500.4050, L501.9520, L3300.0960 ####[facility] [address] [place], [address] Potassium [Moles/Vol] 4.1 mmol/L Normal 3.3-5.1 [facility] Comment on above: Performed By: #### L 100.0500, L500.4050, L501.9520, L3300.0960 ####[facility] [address] [place], [address] Sodium [Moles/Vol] 140 mmol/L Normal 133-145 [facility] Comment on above: Performed By: #### L 100.0500, L500.4050, L501.9520, L3300.0960 ####[facility] [address] [place], [address] T PROT 7.4 g/dL Normal 5.9-8.4 [facility] Comment on above: Performed By: #### L 100.0500, L500.4050, L501.9520, L3300.0960 ####[facility] [address] [place], [address] Urea nitrogen [Mass/Vol] 6 mg/dL Normal 4-19 [facility] Comment on above: Performed By: #### L 100.0500, L500.4050, L501.9520, L3300.0960 ####[facility] [address] [place], [address] Internal Medicine Office Vis itobuddy 10-27-2024 Internal Medicine Office Visit [facility] [address] [place], [place] [address] OFFICE VISIT Date of Service: 10/27/24 MR#: [id number] Acct: [id number] Name: MARYLU WISEMAN Rep #: [id number] : 1995 Provider: DALTON Martinez Age/Sex: 29/F Location: [facility] Status: Signed Intake Vital Signs 09/22/24 08:49 [...] room air Comment pt reports that her arms go numb with bp checks Intake Visit Reasons: Discuss MRI/NUMBING AND TINGLING IN RIGHT ARM Chief Complaint: Discuss MRI/NUMBING AND TINGLING IN RIGHT ARM Is patient in pain?: Yes (8 shoulders, legs, feet, and ABD ) Allergies No Known Allergies Allergy (Verified 10/27/24 11:23) Nurse's Note: pt reports that 6 mos ago (denies any injury) she started having right shoulder stiffness, which turned into right arm numbness, falling asleep pt reports these sensations are spreading to her legs, knees, left arm, and is also having ABD pain. pt denies having any of these symptoms prior to 6 months ago pt has c/o of difficulty with vision focusing pt reports that her chiropractor Dr. Haq recomended that she have an MRI pt states that 2 weeks ago these symptoms have worsened. pt reports every now and then she will take linzess pt is unsure on the dosage, states that she was prescribed this in the ER for her shoulder. pt reports she is now dizzy and has right sided chest pain. denies shortness of breath [facility] Medical History Pharyngitis Contusion of left middle [...] fatigue as well as a feeling of brain fog having some problems with memory and concentration. [...] change, s (more content not included)... Normal [facility] Shoulder min 2 Viewson 10-27 Shoulder min 2 Views [facility] Imaging Services [address] [place], [place] [address] Shoulder min 2 Views MR#: [id number] Acct: [id number] Name: MARYLU WISEMAN Rep #: [id number] : 1995 F 29 From: Alli summers MD PCP: Dr. Lizzy Francois MD Status: REG CLI Study: Shoulder min 2 Views Date of Exam: 10/27/24 Exam# [id number] Ordering Dr: Abhinav Mendoza PROCEDURE: SHOULDER MIN 2 VIEWS REASON FOR EXAM: Right shoulder pain and right arm weakness. TECHNIQUE: Four views of the right shoulder were obtained. COMPARISON: None. FINDINGS: RIGHT SHOULDER: No fracture. No suspicious bone lesion. Normal alignment of the acromioclavicular and glenohumeral joints. Soft tissues are unremarkable. RAD/Shoulder min 2 Views IMPRESSION: Unremarkable right shoulder radiographs. Reading Location: [facility] CC: Dr. Lizzy Francois MD; DALTON Martinez Assistant Loan Processor: Signed Normal [facility] Thyroid Stim Hormone (TSH)on 10-27-2024 TSH 0.590 uIU/mL Normal 0.300-4.200 [facility] Comment on above: Performed By: #### L 100.0500, L500.4050, L501.9520, L3300.0960 ####[facility] [address] [place], [address] Emergency Department Summary on 10-19-2024 Emergency Department Summary [facility] Medical Records Department [address] [place] [address] Emergency Department Summary 10/19/24 MR#: [id number] Acct: [id number] Name: MARYLU WISEMAN Rep #: [id number] : 1995 29 From: Mike Stanley MD [...] similar symptoms: Yes Recent Illness/Hospitalization: No PFSH PFSH Medical History Pharyngitis Contusion of left [...] range of motion. 5 out of 5 referral agent strength bilaterally. Equal symmetrical radial pulses. Skin is unremarkable. She has normal range of motion of both upper extremities including the shoulders, elbows and wrist. She has good referral agent strength. Normal sensation. Lower extremities are unremarkable also. 5 out of 5 dorsi plantarflexion. Normal range of motion. Normal sensation. She is able to stand and walk without any difficulty. No ataxia. Neurologically she is awake an (more content not included)... Normal [facility] Hand Min 3 Viewson Hand Min 3 Views [facility] Imaging Services [address], [place] [address] Hand Min 3 Views MR#: [id number] Acct: [id number] Name: MARYLU WISEMAN Rep #: [id number] : 1995 F 29 From: Guillaume Calvo MD PCP: Dr. Lizzy Francois MD Status: REG CLI Study: Hand Min 3 Views Date of Exam: 10/07/24 Exam# [id number] Ordering Dr: Dl Gabriel EXAM: XR Left Hand Complete, 3 or More Views CLINICAL INDICATION: TECHNIQUE: Frontal, lateral and oblique views of the left hand. COMPARISON: No relevant prior studies available. FINDINGS: BONES/JOINTS: Unremarkable. No acute fracture. No dislocation. SOFT TISSUES: Unremarkable. No radiopaque foreign body. RAD/Hand Min 3 Views IMPRESSION: No acute fracture. Reading Location: [facility] CC: DALTON Galindo; Dr. Lizzy Francois MD Assistant Loan Processor: Signed Normal [facility] Urgent Care Visit Reporton 0 10-07-2024 Urgent Care Visit Report [facility] [address], [address] [place] [address] OFFICE VISIT Date of Service: 10/07/24 MR#: [id number] Acct: [id number] Name: MARYLU WISEMAN Rep #: [id number] : 1995 Provider: DALTON Galindo Age/Sex: 29/F Location: [facility] [place] Status: Signed Intake Vital Signs 09/22/24 08:49 [...] Complaint: WC new, left 3rd finger/hand injury Broaching Machine Operator Required: No Is patient in pain?: Yes Allergies No Known Allergies Allergy (Verified 10/07/24 14:24) Is last menstrual period known: No Post menopausal: No Patient : No Have you fallen in the past year?: Yes [facility] Medical History (Updated 10/07/24 @ 14:57 by Dl HOFFMAN, PA) Pharyngitis Contusion of left middle finger [...] 08/20/24 @ 16:33 by Rosa Maria Lopez NUTRITION AND DIETETICS INSTRUCTOR, NUTRITION AND DIETETICS INSTRUCTOR-C) History of tubal ligation Family History (Reviewed 08/20/24 @ 16:33 by Rosa Maria Lopez NUTRITION AND DIETETICS INSTRUCTOR, NUTRITION AND DIETETICS INSTRUCTOR-C) Mother Anxiety and depression Heart disease Cancer lung Father Anxiety and depression Diabetes Other Hyperlipemia Social History (Reviewed 08/20/24 @ 16:33 by Rosa Maria Lopez NUTRITION AND DIETETICS INSTRUCTOR, NUTRITION AND DIETETICS INSTRUCTOR-C) Smoking Status: Current every day smoker tobacco [...] injuries again today while working with the [employer]. Patient states that she feels like she [...] and agreement (more content not included)... Normal [facility] Urgent Care Visit Reporton 0 09-22-2024 Urgent Care Visit Report [facility] [address], [address] [place] [address] OFFICE VISIT Date of Service: 09/22/24 MR#: [id number] Acct: [id number] Name: MARYLU WISEMAN Rep #: [id number] : 1995 Provider: DALTON Holloway Age/Sex: 29/F Location: [facility] [place] Status: Signed Intake Vital Signs 08/30/24 10:37 [...] she has migraines and nausea with it. [facility] Medical History (Updated 08/30/24 @ 10:50 by ROSA Newell) Pharyngitis Contusion of left middle finger Closed [...] 08/20/24 @ 16:33 by Rosa Maria Lopez NUTRITION AND DIETETICS INSTRUCTOR, NUTRITION AND DIETETICS INSTRUCTOR-C) History of tubal ligation Family History (Reviewed 08/20/24 @ 16:33 by Rosa Maria Lopez NUTRITION AND DIETETICS INSTRUCTOR, NUTRITION AND DIETETICS INSTRUCTOR-C) Mother Anxiety and depression Heart disease Cancer lung Father Anxiety and depression Diabetes Other Hyperlipemia Social History (Reviewed 08/20/24 @ 16:33 by Rosa Maria Lopez NUTRITION AND DIETETICS INSTRUCTOR, NUTRITION AND DIETETICS INSTRUCTOR-C) Smoking Status: Current every day smoker tobacco [...] Affect: no (more content not included)... Normal [facility] Culture, Throaton 08-31-2024 CUT Normal throat duane isolated. No beta-hemolytic streptococcus isolated. Normal [facility] Comment on above: Performed By: #### M 100.1000 ####[facility] [address] [place], [place], [address] Urgent Care Visit Reporton 1 Urgent Care Visit Report [facility] [address], [address] [place] [address] OFFICE VISIT Date of Service: 08/30/24 MR#: [id number] Acct: [id number] Name: MARYLU WISEMAN Rep #: [id number] : 1995 Provider: ROSA San Age/Sex: 29/F Location: [facility] [place] Status: Signed Intake Vital Signs 08/20/24 16:12 [...] has been fighting off flu like symptoms. [facility] Medical History (Updated 08/30/24 @ 10:50 by [...] Jaffe Signature: Date (if applicable) CC: Normal [facility] Plastic Surgery Visit Report on 08-20-2024 Plastic Surgery Visit Report [facility] Plastic Reconstructive Surgery [address], [address] [place] [address] OFFICE VISIT Date of Service: 08/20/24 MR#: [id number] Acct: [id number] Name: MARYLU WISEMAN Rep #: [id number] : 1995 Provider: ROSA patel Age/Sex: 29/F Location: [facility] Status: Signed Intake Vital Signs 08/12/24 16:06 [...] 08/20/24 @ 16:33 by Rosa Maria Lopez NUTRITION AND DIETETICS INSTRUCTOR, NUTRITION AND DIETETICS INSTRUCTOR-C) Contusion of left middle finger Closed fracture [...] 08/20/24 @ 16:33 by Rosa Maria Lopez NUTRITION AND DIETETICS INSTRUCTOR, NUTRITION AND DIETETICS INSTRUCTOR-C) History of tubal ligation Family History Mother [...] Able to make a fist and good referral agent strength. Able to extend all finger joints. [...] Follow up with us as needed. 08/20/24 2689 > Date (more content not included)... 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 This note was generated with [employer] dictation software. It may contain incorrect words, spelling, and punctuation that were not noted in checking the note before signing. 08/17/24 1740 Date Jorge Jaffe Signature: Date (if applicable) CC: Normal [facility] Hand Min 3 Viewson 4 Hand Min 3 Views [facility] Imaging Services [address] [place] [address] Hand Min 3 Views MR#: [id number] Acct: [id number] Name: MARYLU WISEMAN Rep #: [id number] : 1995 F 29 From: Renaldo Miguel MD PCP: Dr. Lizzy Francois MD Status: REG CLI Study: Hand Min 3 Views Date of Exam: 08/12/24 Exam# [id number] Ordering Dr: Quinn Rojo MD [id number] EXAM: XR LEFT HAND COMPLETE, 3 OR [...] Lizzy Francois MD; Dr. Quinn Rojo MD Assistant Loan Processor: Signed [facility] [facility] MR/BMS.WPS2on 08-12-2024 MR/BMS.WPS2 [facility] Plastic Reconstructive Surgery [address] [place] [address] OFFICE VISIT Date of Service: 08/12/24 MR#: [id number] Acct: [id number] Name: MARYLU WISEMAN Rep #: [id number] : 1995 Provider: Dr. Quinn Rojo MD Age/Sex: 29/F Location: [facility] [place] Status: Signed Intake Vital Signs 3 07/12/24 [...] Visit Reasons: FRACTURE OF L MIDDLE FINGER [facility] Chief Complaint: Fracture of L middle [...] Nurse's Note: Fracture of Left middle finger [facility] Medical History Contusion of left middle finger [...] none HPI FRACTURE OF L MIDDLE FINGER [facility] Details: Marylu Wiseman is a delightful [...] S60.032A Asse (more content not included)... Normal [facility] Finger(s) Min 2 Viewson 12-0 Finger(s) Min 2 Views [facility] Imaging Services [address] [place], [place] [id number] Finger(s) Min 2 Views MR#: [id number] Acct: [id number] Name: MARYLU WISEMAN Rep #: [id number] : 1995 F 29 From: Reg Jenkins MD PCP: Dr. Lizzy Francois MD Status: REG CLI Study: Finger(s) Min 2 Views Date of Exam: 08/03/24 Exam# [id number] Ordering Dr: Jorge Liu PA [id number] EXAM: XR LEFT FINGERS, 2 OR MORE [...] CC: Dr. Lizzy Francois MD; DALTON Holloway Assistant Loan Processor: Signed Normal [facility] Urgent Care Visit Reporton 1 10-04-2023 Urgent Care Visit Report [facility] [address], [address] [place] [address] OFFICE VISIT Date of Service: 08/03/24 MR#: [id number] Acct: [id number] Name: MARYLU WISEMAN Rep #: [id number] : 1995 Provider: DALTON Holloway Age/Sex: 29/F Location: [facility] [place] Status: Signed Intake Vital Signs 07/12/24 17:02 Height 5 ft 3 in Weight: 120 lb BMI 21.2 Respiration 16 Pulse 76 Pulse Source Monitor Temp 98.2 F Temp Source Oral Pulse Oximetry (%) 96 Oxygen Delivery Method room air Intake Visit Reasons: L MIDDLE FINGER INJURY Chief Complaint: cough congestion Allergies No Known Allergies Allergy (Verified 07/12/24 17:04) [facility] Medical History (Updated 08/03/24 @ 11:41 by [...] of sensation or strength or function distally. Vzxtb-gbqs-mktpmskp. No qycn-kau-apciwwa products taken to assist. No other associated [...] of proximal phalanx of left middle finger S62.614P Contusion of left middle finger S60.032A Assessment [...] the above. This note was generated with [employer] dictation software. It may contain incorrect words, spelling, and punctuation that were not noted in checking the note before signing. Orders: Orders Finger(s) Min 2 Views Today S69.90XA - Unspecified injury of unspecified wrist, hand and finger(s), initial encounter Referrals Plastic surgery S62.613A - Displaced fracture of proximal phalanx of left middle finger, initial encounter for closed fracture (more content not included)... Normal [facility] Urgent Care Visit Reporton 1 09-11-2023 Urgent Care Visit Report [facility] [address], [address] [place] [address] OFFICE VISIT Date of Service: 07/12/24 MR#: [id number] Acct: [id number] Name: MARYLU WISEMAN Rep #: [id number] : 1995 Provider: DALTON Holloway Age/Sex: 29/F Location: [facility] [place] Status: Signed Intake Vital Signs 05/25/24 15:17 [...] Visit Reasons: COUGH/CONGESTION Chief Complaint: cough congestion Broaching Machine Operator Required: No Accompanied by: Self Is patient in pain?: No Allergies No Known Allergies Allergy (Verified 07/12/24 17:04) Medications ???Medication ???Instructions ???Recorded ???Confirmed ???Type albuterol sulfate 90 mcg/actuation 2 puff inhalation Q4-6H PRN 12/16/23 07/12/24 Rx aerosol inhaler shortness of breath or wheezing #8.5 grams levofloxacin 500 mg tablet 500 mg PO Q24H #7 tabs 07/12/24 07/12/24 Rx Nurse's Note: pt declined testing [facility] Medical History (Updated 07/12/24 @ 17:55 by [...] exertion, though does admit mild fatigue. No hhlj-cft-bowslrs products taken to assist. No other associated symptoms and no other alleviating/aggravating factors. ROS Const Constitutional: No other (As above) Exam Const General: cooperative, healthy appearing and no acute distress Nutritional Appearance: average body habitus Orientation: alert and awake [facility] Head: normal to inspection Ears: hearing [...] Care Code (more content not included)... Normal [facility] Absolute lymphocyte countOrd ered By: Lizzy Francois on 12-15-2023 Lymphocytes Auto (Unsp spec) [#/Vol] 2.58 10*3/uL 0.83-4.51 [facility] Automated lymphocyte count a s percentage of total leukocytesOrdered By: Lizzy Francois on 12-15-2023 Lymphocytes/100 WBC Auto (Unsp spec) 36.2 % 19-41 [facility] Basophil percentageOrdered B y: Lizzy Francois on 12-15-2023 Basophils/100 WBC (Bld) 0.7 % 0-1 [facility] Bilirubin [Mass/Vol] 0.30 mg/dL 0.20-1.00 [facility] Comment on above: For patients on eltr ombopag therapy, use of Dimension [place] TBIL is not recommended. Chloride [Moles/Vol] 109 mmol/L 98-107 [facility] Eosinophils/100 WBC (Bld) 1.5 % 0-5 [facility] Glucose [Mass/Vol] 84 mg/dL 74-106 [facility] Hemoglobin (Bld) [Mass/Vol] 11.9 g/dL 12.0-15.0 [facility] Monocytes/100 WBC (Bld) 7.0 % 0-10 [facility] Neutrophils (Bld) [#/Vol] 3.9 10*3/uL 2.0-7.7 [facility] Neutrophils/100 WBC (Bld) 54.5 % 47-70 [facility] Potassium [Moles/Vol] 3.7 mmol/L 3.5-5.1 [facility] Protein [Mass/Vol] 7.5 g/dL 6.4-8.2 [facility] Sodium [Moles/Vol] 140 mmol/L 136-145 [facility] WBC (Bld) [#/Vol] 7.1 10*3/uL 4.4-11.0 [facility] Determination of erythrocyte mean corpuscular volume (MCV)Ordered By: Lizzy Francois on 12-15-2023 MCV (RBC) [Entitic vol] 92.7 fL 81-99 [facility] Erythrocyte distribution wid th ratioOrdered By: [facility] Samirkimi on 12-15-2023 Erythrocyte distribution width (RBC) [Ratio] 12.5 % 11.6-14.6 [facility] Erythrocyte distribution wid th standard deviationOrdered By: [facility] Samirkimi on 12-15-2023 Erythrocyte distribution width (RBC) [Entitic vol] 42.5 fL 35.1-43.9 [facility] Hematocrit Auto (Bld) [Volum e fraction]Ordered By: [facility] Samirk[facility] on 12-15-2023 Hematocrit (Bld) [Volume fraction] 35.7 % 37-47 [facility] Immature granulocytes/100 WB C Auto (Bld)Ordered By: mitchrichmondchiquita Francois on 12-15-2023 Immature granulocytes/100 WBC (Bld) 0.100 % 0.0-0.9 [facility] Comment on above: IG% - Immature Granu locytes (promyelocytes, myelocytes and metamyelocytes) > 1% indicates that a LEFT SHIFT is Present. Laboratory - Chemistry and C hemistry - challengeOrdered By: Lizzy Francois on 12-15-2023 Albumin/Globulin [Mass ratio] 1.1 {ratio} 0.9-2.4 [facility] ALP [Catalytic activity/Vol] 79 U/L 45-117 [facility] ALT [Catalytic activity/Vol] 21 U/L 13-56 [facility] CO2 [Moles/Vol] 26.0 mmol/L 21.0-32.0 [facility] Globulin (S) [Mass/Vol] 3.6 g/dL 2.2-4.2 [facility] Urea nitrogen/Creatinine [Mass ratio] 12.8 mg/mg 10-20 [facility] Laboratory - Hematology and Cell countsOrdered By: Brandyrichmondchiquita Francois on 12-15-2023 MCH (RBC) [Entitic mass] 30.9 pg 27.0-32.0 [facility] MCHC (RBC) [Mass/Vol] 33.3 g/dL 32-36 [facility] Nucleated RBC/100 WBC (Bld) [Ratio] 0 % 0-5 [facility] Platelet mean volume (Bld) [Entitic vol] 10.0 fL 6.2-12.0 [facility] Platelets (Bld) [#/Vol] 258 10*3/uL 150-450 [facility] Laboratory - Microbiology an d Antimicrobial susceptibilityon 12-15-2023 S. pyogenes Ag IA Ql (Unsp spec) Negative [facility] No Panel InformationOrdered By: Lizzy Francois on 12-15-2023 Estimated GFR (MDRD) Amer 125 mL/min >60 [facility] Comment on above: GFR Calc Estimated GFR (MDRD) Non-Af Amer 103 mL/min >60 [facility] Comment on above: Non- GFR Calc RBC Auto (Bld) [#/Vol]Ordere d By: Lizzy Francois on 12-15-2023 RBC (Bld) [#/Vol] 3.85 10*6/uL 4.2-5.4 [facility] Serum or plasma calcium marino urement (mass/volume)Ordered By: Lizzy Francois on 12-15-2023 Calcium [Mass/Vol] 9.2 mg/dL 8.5-10.1 [facility] Serum or plasma creatinine m easurement (mass/volume)Ordered By: Lizzy Francois on 12-15-2023 Creatinine [Mass/Vol] 0.70 mg/dL 0.55-1.02 [facility] Comment on above: The validity of the calculated GFR & GFRAA in patients over 70 years has not been determined. Clinical correlation is essential. Serum or plasma urea nitroge n measurement (mass/volume)Ordered By: Lizzy Francois on 12-15-2023 Urea nitrogen [Mass/Vol] 9 mg/dL 7-18 [facility] Thin prep Papanicolaou smear with manual screeningOrdered By: Lizzy Francois on 12-15-2023 Thin prep Papanicolaou smear with manual screening 3.9 g/dL 3.2-5.0 [facility] Thin prep Papanicolaou smear with manual screening 21 U/L 15-37 [facility] Thin prep Papanicolaou smear with manual screening 5 5-15 [facility] Basophil percentageOrdered B y: Jorge Liu on 07-17-2023 Basophil percentage 0-5 SEEN /hpf 0-5 [facility] Bilirubin Test strip Ql (U)O rdered By: Jorge Liu on 07-17-2023 Bilirubin Ql (U) Negative Negative [facility] Culture, urineOrdered By: St keith Liu on 07-17-2023 Bacteria identified Cx Nom (U) Culture exhibits no growth. [facility] Ketones Test strip Ql (U)Ord ered By: Jorge Liu on 07-17-2023 Ketones Ql (U) Negative Negative [facility] Mucus LM Ql (Urine sed)Order ed By: Jorge Liu on 07-17-2023 Mucus Ql (Urine sed) 0 SEEN /hpf [facility] Nitrite Test strip Ql (U)Ord ered By: Jorge Liu on 07-17-2023 Nitrite Ql (U) Negative Negative [facility] Protein Test strip Ql (U)Ord ered By: Jorge Liu on 07-17-2023 Protein Ql (U) Negative Negative [facility] Squamous epithelial cells de tection in urine sediment by light microscopyOrdered By: Jorge Liu on 07-17-2023 Epithelial cells.squamous LM Ql (Urine sed) 0-5 SEEN /hpf 5-10 [facility] Urine blood detectionOrdered By: Jorge Liu on 07-17-2023 RBC Ql (U) 10 /ul Negative [facility] RBC Ql (U) 0 SEEN /hpf 0-5 [facility] Urine clarityOrdered By: Alfonso Liu on 07-17-2023 Clarity (U) Clear Clear [facility] Urine color determinationOrd ered By: Jorge Liu on 07-17-2023 Color (U) Yellow Yellow [facility] Urine glucose detectionOrder ed By: Jorge Liu on 07-17-2023 Glucose Ql (U) Normal mg/dl Normal [facility] Urine leukocyte esterase det ection by dipstickOrdered By: Jorge Liu on 07-17-2023 Leukocyte esterase Test strip Ql (U) 25 /ul Negative [facility] Urine pHOrdered By: Jorge boyle on 07-17-2023 pH (U) 7.0 [pH] 5.0 - 8.0 [facility] Urine sediment bacteria coun t by microscopy (number/high power field)Ordered By: Jorge Liu on 07-17-2023 Bacteria LM.HPF (Urine sed) [#/Area] 0 /[HPF] None Seen [facility] Urine specific gravity measu rementOrdered By: Jorge Liu on 07-17-2023 Specific gravity (U) [Rel density] 1.010 1.002-1.030 [facility] Urobilinogen Auto test strip Ql (U)Ordered By: Jorge Liu on 07-17-2023 Urobilinogen Ql (U) Normal mg/dl Normal [facility] Laboratory - Chemistry and C hemistry - challengeon 07-16-2023 Bilirubin Ql (U) Negative [facility] Glucose Ql (U) Negative [facility] Ketones Ql (U) Negative [facility] pH (U) 6.5 [pH] [facility] Specific gravity (U) [Rel density] 1.010 [facility] Urobilinogen (U) [Mass/Vol] 0.5376957 mg/dL [facility] Laboratory - Hematology and Cell countson 07-16-2023 Hemoglobin Ql (U) Negative [facility] Laboratory - Specimen inform ationon 07-16-2023 Clarity (U) Cloudy [facility] Color (U) Yellow [facility] Laboratory - Urinalysison Nitrite Ql (U) Negative [facility] Protein Ql (U) Negative [facility] No Panel Informationon 07-16 Urine Leukocytes Negatve [facility] Comment on above: Off Ur Leukocytes pr eviously reported as Positive Urine Non-Hemolyzed Blood Negative [facility] Absolute lymphocyte countOrd ered By: Ladarius Lozada on 07-09-2023 Lymphocytes Auto (Unsp spec) [#/Vol] 2.69 10*3/uL 0.83-4.51 [facility] Basophil percentageOrdered B y: Ladarius Lozada on 07-09-2023 Basophils/100 WBC (Bld) 0.5 % 0-1 [facility] Chloride [Moles/Vol] 110 mmol/L 98-107 [facility] Eosinophils/100 WBC (Bld) 0.7 % 0-5 [facility] Glucose [Mass/Vol] 93 mg/dL 74-106 [facility] Neutrophils (Bld) [#/Vol] 7.4 10*3/uL 2.0-7.7 [facility] Neutrophils/100 WBC (Bld) 69.3 % 47-70 [facility] Potassium [Moles/Vol] 3.4 mmol/L 3.5-5.1 [facility] Sodium [Moles/Vol] 139 mmol/L 136-145 [facility] WBC (Bld) [#/Vol] 10.7 10*3/uL 4.4-11.0 [facility] Blood erythrocytes count (nu mber/volume)Ordered By: Ladarius Lozada on 07-09-2023 RBC (Bld) [#/Vol] 3.81 10*6/uL 4.2-5.4 [facility] Blood hemoglobin measurement (mass/volume)Ordered By: Ladarius Lozada on 07-09-2023 Hemoglobin (Bld) [Mass/Vol] 11.7 g/dL 12.0-15.0 [facility] Blood lymphocytes/100 leukoc ytesOrdered By: Ladarius Lozada on 07-09-2023 Lymphocytes/100 WBC (Bld) 25.2 % 19-41 [facility] Blood monocytes/100 leukocyt esOrdered By: Ladarius Lozada on 07-09-2023 Monocytes/100 WBC (Bld) 3.7 % 0-10 [facility] Blood platelet mean volumeOr dered By: Ladarius Lozada on 07-09-2023 Platelet mean volume (Bld) [Entitic vol] 9.1 fL 6.2-12.0 [facility] Determination of erythrocyte mean corpuscular volume (MCV)Ordered By: Ladarius Lozada on 07-09-2023 MCV (RBC) [Entitic vol] 93.7 fL 81-99 [facility] Hematocrit Auto (Bld) [Volum e fraction]Ordered By: Ladarius Lozada on 07-09-2023 Hematocrit (Bld) [Volume fraction] 35.7 % 37-47 [facility] Laboratory - Chemistry and C hemistry - challengeOrdered By: Ladarius Lozada on 07-09-2023 CO2 [Moles/Vol] 24.0 mmol/L 21.0-32.0 [facility] Urea nitrogen/Creatinine [Mass ratio] 11.4 mg/mg 10-20 [facility] Laboratory - Hematology and Cell countsOrdered By: Ladarius Lozada on 07-09-2023 Erythrocyte distribution width (RBC) [Entitic vol] 44.3 fL 35.1-43.9 [facility] Erythrocyte distribution width (RBC) [Ratio] 13.0 % 11.6-14.6 [facility] Immature granulocytes/100 WBC (Bld) 0.600 % 0.0-0.9 [facility] Comment on above: IG% - Immature Granu locytes (promyelocytes, myelocytes and metamyelocytes) > 1% indicates that a LEFT SHIFT is Present. MCH (RBC) [Entitic mass] 30.7 pg 27.0-32.0 [facility] Nucleated RBC/100 WBC (Bld) [Ratio] 0 % 0-5 [facility] MCHC Auto (RBC) [Mass/Vol]Or dered By: Ladarius Lozada on 07-09-2023 MCHC (RBC) [Mass/Vol] 32.8 g/dL 32-36 [facility] No Panel InformationOrdered By: Ladarius Lozada on 07-09-2023 D-Dimer Quantitative (PE/DVT) < 0.27 FEU/ug/m 0.27-0.49 [facility] Comment on above: NORMAL D-Dimer level (<0.50) indicates no DVT or PE. Estimated Creatinine Clearance Calc 97.21 ml/min [facility] Estimated GFR (MDRD) Amer 126 mL/min >60 [facility] Comment on above: GFR Calc Estimated GFR (MDRD) Non-Af Amer 104 mL/min >60 [facility] Comment on above: Non- GFR Calc Thyroid Stimulating Hormone (TSH) 0.65 uIU/mL 0.358-3.74 [facility] Troponin I High Sensitivity 4 pg/mL 3.0-54.0 [facility] Comment on above: Please Note: [place] t Units and Gender Specific Reference Ranges. For more information see Policy Stat Procedure [place] High Sensitivity Troponin (TNIH) and attachments. Platelets bldOrdered By: Lawrence Lozada on 07-09-2023 Platelets (Bld) [#/Vol] 231 10*3/uL 150-450 [facility] Serum or plasma calcium marino urement (mass/volume)Ordered By: Ladarius Lozada on 07-09-2023 Calcium [Mass/Vol] 8.9 mg/dL 8.5-10.1 [facility] Serum or plasma creatinine m easurement (mass/volume)Ordered By: Ladarius Lozada on 07-09-2023 Creatinine [Mass/Vol] 0.70 mg/dL 0.55-1.02 [facility] Comment on above: The validity of the calculated GFR & GFRAA in patients over 70 years has not been determined. Clinical correlation is essential. Serum or plasma urea nitroge n measurement (mass/volume)Ordered By: Ladarius Lozada on 07-09-2023 Urea nitrogen [Mass/Vol] 8 mg/dL 7-18 [facility] Thin prep Papanicolaou smear with manual screeningOrdered By: Ladarius Lozada on 07-09-2023 Thin prep Papanicolaou smear with manual screening 5 5-15 [facility] Absolute lymphocyte countOrd ered By: Deon Cynthia on 06-30-2023 Lymphocytes Auto (Unsp spec) [#/Vol] 3.39 10*3/uL 0.83-4.51 [facility] Albumin Elph [Mass/Vol]Order ed By: Deon Marie on 06-30-2023 Albumin [Mass/Vol] 4.1 g/dL 2.9-4.4 [facility] Atypical perinuclear antineu trophil cytoplasmic antibodies measurementOrdered By: Deon Marie on 06-30-2023 Neutrophil cytoplasmic Ab.perinuclear.atypical IF (S) [Titer] <1:20 titer Neg:<1:20 [facility] Comment on above: The atypical pANCA p attern has been observed in asignificant percentage of patients with ulcerative colitis,primary sclerosing cholangitis and autoimmune hepatitis. Basophil percentageOrdered B y: Deon Marie on 06-30-2023 Amylase [Catalytic activity/Vol] 48 U/L 25-115 [facility] Basophil percentage < 0.2 AI 0.0-0.9 [facility] Basophils/100 WBC (Bld) 0.7 % 0-1 [facility] Bilirubin [Mass/Vol] 0.20 mg/dL 0.20-1.00 [facility] Comment on above: For patients on eltr ombopag therapy, use of Dimension [place] TBIL is not recommended. Chloride [Moles/Vol] 109 mmol/L 98-107 [facility] Eosinophils/100 WBC (Bld) 0.7 % 0-5 [facility] Glucose [Mass/Vol] 89 mg/dL 74-106 [facility] Neutrophils (Bld) [#/Vol] 6.8 10*3/uL 2.0-7.7 [facility] Neutrophils/100 WBC (Bld) 63.0 % 47-70 [facility] Potassium [Moles/Vol] 3.6 mmol/L 3.5-5.1 [facility] Protein [Mass/Vol] 8.2 g/dL 6.4-8.2 [facility] Sodium [Moles/Vol] 137 mmol/L 136-145 [facility] WBC (Bld) [#/Vol] 10.7 10*3/uL 4.4-11.0 [facility] Blood erythrocytes count (nu mber/volume)Ordered By: Deon Marie on 06-30-2023 RBC (Bld) [#/Vol] 4.24 10*6/uL 4.2-5.4 [facility] Blood hemoglobin measurement (mass/volume)Ordered By: Deon Marie on 06-30-2023 Hemoglobin (Bld) [Mass/Vol] 13.1 g/dL 12.0-15.0 [facility] Blood lymphocytes/100 leukoc ytesOrdered By: Deon Marie on 06-30-2023 Lymphocytes/100 WBC (Bld) 31.7 % 19-41 [facility] Blood monocytes/100 leukocyt esOrdered By: Deon Marie on 06-30-2023 Monocytes/100 WBC (Bld) 3.5 % 0-10 [facility] Blood platelet mean volumeOr dered By: Deon Marie on 06-30-2023 Platelet mean volume (Bld) [Entitic vol] 9.2 fL 6.2-12.0 [facility] Determination of erythrocyte mean corpuscular volume (MCV)Ordered By: Deon Marie on 06-30-2023 MCV (RBC) [Entitic vol] 92.0 fL 81-99 [facility] Erythrocyte sedimentation ra teOrdered By: Deon Marie on 06-30-2023 ESR (Bld) [Velocity] 5 mm/h 0-30 [facility] HIV 1 and HIV-2 antibody ass ay with HIV-1 p24 antigen detectionOrdered By: Deon Marie on 06-30-2023 HIV 1+2 Ab+HIV1 p24 Ag IA Ql Non-Reactive Nonreactive [facility] Hematocrit Auto (Bld) [Volum e fraction]Ordered By: Deon Marie on 06-30-2023 Hematocrit (Bld) [Volume fraction] 39.0 % 37-47 [facility] Interpretation of serum or p lasma protein pattern by immunofixation (narrative resultOrdered By: Deon Marie on 06-30-2023 Protein Fractions Immunofixation Jay Jay [Interp] See comment [facility] Comment on above: NOT OBSERVED Laboratory - Chemistry and C hemistry - challengeOrdered By: Deon Marie on 06-30-2023 ALP [Catalytic activity/Vol] 80 U/L 45-117 [facility] ALT [Catalytic activity/Vol] 20 U/L 13-56 [facility] CO2 [Moles/Vol] 24.0 mmol/L 21.0-32.0 [facility] Lipase [Catalytic activity/Vol] 27 U/L 13-75 [facility] Comment on above: Please note:LIPASE r evised reference range effective 22. New Lipase methodology. Expected to produce lower values than the previous assay method. NEW Reference Range: 13 - 75 U/L Urea nitrogen/Creatinine [Mass ratio] 11.8 mg/mg - [facility] Laboratory - Hematology and Cell countsOrdered By: Deon Marie on 06-30-2023 Erythrocyte distribution width (RBC) [Entitic vol] 43.1 fL 35.1-43.9 [facility] Erythrocyte distribution width (RBC) [Ratio] 12.9 % 11.6-14.6 [facility] Immature granulocytes/100 WBC (Bld) 0.400 % 0.0-0.9 [facility] Comment on above: IG% - Immature Granu locytes (promyelocytes, myelocytes and metamyelocytes) > 1% indicates that a LEFT SHIFT is Present. MCH (RBC) [Entitic mass] 30.9 pg 27.0-32.0 [facility] Nucleated RBC/100 WBC (Bld) [Ratio] 0 % 0-5 [facility] MCHC Auto (RBC) [Mass/Vol]Or dered By: Deon Marie on 06-30-2023 MCHC (RBC) [Mass/Vol] 33.6 g/dL 32-36 [facility] No Panel InformationOrdered By: Deon Marie on 06-30-2023 Addendum Document Comment . [facility] Comment on above: Protein electrophore sis scan will follow via computer,mail, or trauma doctor delivery. Centromere B Antibody <0.2 AI 0.0-0.9 [facility] Endomysial IgA Antibody Negative Negative [facility] Estimated GFR (MDRD) Amer 131 mL/min >60 [facility] Comment on above: GFR Calc Estimated GFR (MDRD) Non-Af Amer 108 mL/min >60 [facility] Comment on above: Non- GFR Calc Haptoglobin 214 mg/dL 33-278 [facility] Comment on above: Performed at: [facility] - [facility] [address] [id number] Director: Rodger Kang PhD, Phone: [phone] at: - [facility] [id number] Director: Tobias Ryan MD, Phone: [phone] Immunoglobulin E 148 IU/mL 6-495 [facility] Miscellaneous Test See comment [facility] Comment on above: TEST RESULTS LIMITSC eliac HLA Rflx to AbsDQ2 (DQA1 0501/0505,GYS033PT) NegativeDQ8 (DQA1 03XX, DQB1 0302) 01 NegativeFinal Results:DQB1*03:EETKC,-DQA1*05:EETCV,-Code Translation:EETCV 05:09/05:01/03:05/06:07/06:08/05:11/01::16:17/05:18/01:22/01:23/01:26 :28:29Q/05:30:32/05:34/05:35 /05:37/05:3905:42/05:43/05:4405:45/05:46 /05:48/05:50/05:51/05:53/05:58/05:59/05:60 /05:62/05:64EETKC 03:09/03:06/03:14/11:17/11:19/11:20/11::25/11:26/11:29:35/:36/:42/:44 :46/:47/:48:49:50:51:52 /03:53/03:54/03:55/03:56/03:57/03:58/03:59 /03:60/03:69/03:73/03:75/03:76/03:77/03:78 /03:82/03:83/03:84N/03:92/03:93/03:94 /03:101/03:102/03:103/03:108/03:109/03:114 /03:115/03:116/03:118N/03:119/03:120 /03:121/03:122/03:127/03:128/03:129/03:130 /03:131/03:133/03:134/03:135/03:139/03:140 /03:142/03:143/03:144/03:147/03:148/03:151 /03:152/03:154/03:157/03:158/03:159/03:160 /03:162/03:163/03:164/03:165/03:166/03:167 /03:169/03:170/03:171/03:173/03:182/03:183 /03:186/03:188/03:191/03:192/03:193/03:196 /03:197Q/03:198/03:201/03:202/03:206 /03:207/03:208/03:216/03:218/03:219/03:231 /03:232/03:235/03:236/03:241/03:242/03:243 /03:246/03:252/03:253/03:254/03:255/03:257 /03:260/03:264/03:266/03:267/03:268/03:271 /03:275/03:276N/03:281/03:284/03:285 /03:288/03:290/03:291/03:292/03:293/03:294 /03:297/03:302/03:303N/03:305/03:306 /03:307/03:309/03:311/03:312/03:314/03:317 /03:326/03:328/03:329/03:330/03:331 /03:338N/03:340N/03:341/03:342/03:347 /03:350/03:353/03:354N/03:358N/03:361 /03:366/03:370/03:372/03:373/03:377/03:378 /03:380/03:385N/03:387/03:389/03:390 /03:391/03:394/03:396/03:399N/03:400N /03:404/03:407N/03:408/03:417/03:418 /03:419/03:420/03:421/03:423/03:424/03:425 /03:426/03:427N/03:428/03:430/03:431 /03:432/03:434/03:435/03:436/03:438/03:439 /03:448/03:449/03:451/03:454/03:455/03:458 /03:460/03:465/03:467/03:468/03:469/03:470 /03:472/03:473N/03:475/03:476/03:480Q /03:482/03:483/03:486/03:488N/03:491/03:492The patient is positive for DQA1*05, one half of the CA0ogrksscoexr. The Celiac Disease risk from the HLA DQA/DQBgenotype is approximately 1:1842 (0.05%). This is lessthan the 1% risk in the general population.Allele interpretation for all loci based on IMGT/HLAdatabase version 3.49.0[facility] Lab [place] ID Number [id number] than 95% of celiac patients are positive for either DQ2 or DQ8(Ronald and Toshia, (1993) Gastroenterology 105:910-922). However these antigens may also be present in patients who do not have Celiac disease. Comment: This test was performed using Polymerase Chain Reaction (PCR) and Sequence Specific Oligonucleotide Probes (SSOP) (Luminex) technique.Sequence Based Typing (SBT) may be used as a supplemental method when necessary.If you have questions, please call [employer] [phone] or email at [email or web address].Additional Information: 01References:1. Peter HAILE and Neel Milian. Celiac Disease. N Eng J Med 2007; 357:4085-0672.2. Megiorni F, Perez B, Bonadarcio M et al. HLA-DQ and risk gradient for celiac disease. Hum Immunol 2009; 70:55-59.3. Eugenio MM, Divya TC, Eyad FM et al. Stratifying risk for celiac disease in a large at-risk [place] population by using HLA alleles. Clin Gastroenterol Hepatol 2009; 7:966-971.4. Ronald WALDRON and Cassi BA. (2005). Celiac Disease Genetics: Current Concepts and Practical Applications. Clin Gastroenterol and Hepat 3:843-851.5. Rubio CL, Eliazar DO, Peter HAILE, et al. Celiac Disease. In: Jeff WOLFE, Dinesh TC, Roman CR, Karley K, editors. Manifest), [facility], [place], March 03, 2008:1-27. http://www.ncbi.nlm.nih.gov/booksneemaf/br.fcgi?book=genepart=c eliac PMID [id number] (PubMed)6. Napoleon Stroud. Emerging concepts in celiac disease. Curr Opin Pediatr 2004;16:552-559.Reflex to Celiac Ab [id number] Not indicated. TESTING PERFORMED AT [facility]. ORIGINAL REPORT ON FILE IN LAB CONTAINS ADDITIONAL TEST SITE INFORMATION. FLAT EXAMINER Antibody <0.2 AI 0.0-0.9 [facility] Platelets bldOrdered By: Berlin Marie on 06-30-2023 Platelets (Bld) [#/Vol] 264 10*3/uL 150-450 [facility] Serum DNA double strand anti body assay (units/volume)Ordered By: Deon Marie on 06-30-2023 DNA double strand Ab Qn (S) 1 [IU]/mL 0-9 [facility] Comment on above: Negative <5 Equivoca l 5 - 9 Positive >9 Serum Adilia-1 antibody assay (u nits/volume)Ordered By: Deon Marie on 06-30-2023 Adilia-1 extractable nuclear Ab Qn (S) <0.2 AI 0.0-0.9 [facility] Serum Scl-70 extractable nuc lear antibody assay (units/volume)Ordered By: Deon Marie on 06-30-2023 SCL-70 extractable nuclear Ab Qn (S) 0.2 AI 0.0-0.9 [facility] Serum Dykes extractable nucl ear antibody detectionOrdered By: Deon Marie on 06-30-2023 Dykes extractable nuclear Ab Ql (S) <0.2 AI 0.0-0.9 [facility] Serum qfhln-1-cnwttcrr measu rement by electrophoresisOrdered By: Deon Marie on 06-30-2023 Alpha 1 globulin Elph [Mass/Vol] 0.2 g/dL 0.0-0.4 [facility] Alpha 1 globulin Elph [Mass/Vol] 0.9 g/dL 0.4-1.0 [facility] Serum classic neutrophil cyt oplasmic antibody assay (units/volume)Ordered By: Deon Marie on 06-30-2023 Neutrophil cytoplasmic Ab.classic Qn (S) <1:20 titer Neg:<1:20 [facility] Serum globulin measurement ( mass/volume)Ordered By: Deon Marie on 06-30-2023 Globulin (S) [Mass/Vol] 3.4 g/dL 2.2-3.9 [facility] Serum or plasma C reactive p rotein measurement (mass/volume)Ordered By: Deon Marie on 06-30-2023 CRP [Mass/Vol] mg/L 0.0-3.0 [facility] Comment on above: C-Reactive Protein ( CRP) provides useful information for thediagnosis, therapy and monitoring of inflammatory processesand associated diseases. For the evaluation of Relative Riskfor Cardiovascular Disease, a High Sensitivity CRP (HSCRP)should be ordered. Serum or plasma IgA measurem ent (mass/volume)Ordered By: Deon Marie on 06-30-2023 IgA [Mass/Vol] 170 mg/dL 87-352 [facility] Serum or plasma IgG measurem ent (mass/volume)Ordered By: Deon Marie on 06-30-2023 IgG [Mass/Vol] 1218 mg/dL 586-1602 [facility] Serum or plasma IgM measurem ent (mass/volume)Ordered By: Deon Marie on 06-30-2023 IgM [Mass/Vol] 68 mg/dL 26-217 [facility] Serum or plasma albumin marino urement (mass/volume)Ordered By: Deon Marie on 06-30-2023 Albumin [Mass/Vol] 4.0 g/dL 3.2-5.0 [facility] Serum or plasma albumin/glob ulin mass ratioOrdered By: Deonanival Marie on 06-30-2023 Albumin/Globulin [Mass ratio] 1.0 {ratio} 0.9-2.4 [facility] Serum or plasma beta globuli n measurement by electrophoresis (mass/volume)Ordered By: Deon Marie on 06-30-2023 Beta globulin Elph [Mass/Vol] 1.0 g/dL 0.7-1.3 [facility] Serum or plasma calcium marino urement (mass/volume)Ordered By: Deon Marie on 06-30-2023 Calcium [Mass/Vol] 9.2 mg/dL 8.5-10.1 [facility] Serum or plasma creatinine m easurement (mass/volume)Ordered By: Deon Marie on 06-30-2023 Creatinine [Mass/Vol] 0.68 mg/dL 0.55-1.02 [facility] Comment on above: The validity of the calculated GFR & GFRAA in patients over 70 years has not been determined. Clinical correlation is essential. Serum or plasma gamma globul in measurement by electrophoresis (mass/volume)Ordered By: Deon Marie on 06-30-2023 Gamma globulin Elph [Mass/Vol] 1.3 g/dL 0.4-1.8 [facility] Serum or plasma immunoelectr ophoresis interpretation (nominal result)Ordered By: Deon Marie on 06-30-2023 Interpretation IEP [Interp] Comment . [facility] Comment on above: No monoclonality det ected. Serum or plasma urea nitroge n measurement (mass/volume)Ordered By: Deon Marie on 06-30-2023 Urea nitrogen [Mass/Vol] 8 mg/dL 7-18 [facility] Serum perinuclear neutrophil cytoplasmic antibody titer by immunofluorescenceOrdered By: Deon Marie on 06-30-2023 Neutrophil cytoplasmic Ab.perinuclear IF (S) [Titer] <1:20 titer Neg:<1:20 [facility] Comment on above: The presence of posi tive fluorescence exhibiting P-ANCA orC-ANCA patterns alone is not specific for the diagnosis ofWegener's Granulomatosis (WG) or microscopic polyangiitis.Decisions about treatment should not be based solely onANCA IFA results. The International ANCA Group Consensusrecommends follow up testing of positive sera with both DE-3 and MPO-ANCA enzyme immunoassays. As many as 5% serumsamples are positive only by EIA. Ref. AM J Clin Vfmrje1862;111:507-513. Serum tissue transglutaminas e IgA antibody assay (units/volume)Ordered By: Deon Marie on 06-30-2023 tTG IgA Qn (S) <2 U/mL 0-3 [facility] Comment on above: Negative 0 - 3 Weak Positive 4 - 10 Positive >10 Tissue Transglutaminase (tTG) has been identified as the endomysial antigen. Studies have demonstr- ated that endomysial IgA antibodies have over 99% specificity for gluten sensitive enteropathy. Thin prep Papanicolaou smear with manual screeningOrdered By: Deon Marie on 06-30-2023 Thin prep Papanicolaou smear with manual screening 13 U/L 15-37 [facility] Thin prep Papanicolaou smear with manual screening 4 5-15 [facility] Thin prep Papanicolaou smear with manual screening 1.3 0.7-1.7 [facility] Total protein bloodOrdered B y: Deon Marie on 06-30-2023 Protein [Mass/Vol] 7.5 g/dL 6.0-8.5 [facility] Whole blood hemoglobin A1c/t otal hemoglobin ratio (mass fraction)Ordered By: Deon Cynthia on 06-30-2023 HbA1c (Bld) [Mass fraction] 4.8 % 3.8-5.6 [facility] Comment on above: Normal < 5.7 % Predi abetic 5.7 - 6.4 % Diabetic >or= 6.5 % Please note range changes. Basophil percentageOrdered B y: Jorge Liu on 06-09-2023 Basophil percentage 0-5 SEEN /hpf 0-5 [facility] Bilirubin Test strip Ql (U)O rdered By: Jorge Liu on 06-09-2023 Bilirubin Ql (U) Negative Negative [facility] Culture, urineOrdered By: St keith Liu on 06-09-2023 Bacteria identified Cx Nom (U) Positive [facility] Bacteria identified Cx Nom (U) Positive [facility] Ketones Test strip Ql (U)Ord ered By: Jorge Liu on 06-09-2023 Ketones Ql (U) 5 mg/dl Negative [facility] Laboratory - Chemistry and C hemistry - challengeon 06-09-2023 HCG ( test) Ql (U) Negative [facility] Bilirubin Ql (U) Negative [facility] Glucose Ql (U) Negative [facility] Ketones Ql (U) Negative [facility] pH (U) 7.0 [pH] [facility] Specific gravity (U) [Rel density] 1.015 [facility] Urobilinogen (U) [Mass/Vol] 0.9898084 mg/dL [facility] Laboratory - Hematology and Cell countson 06-09-2023 Hemoglobin Ql (U) Negative [facility] Laboratory - Microbiology an d Antimicrobial susceptibilityon 06-09-2023 S. pyogenes Ag IA Ql (Unsp spec) Negative [facility] Laboratory - Specimen inform ationon 06-09-2023 Clarity (U) Cloudy [facility] Color (U) RAMANDEEP [facility] Laboratory - Urinalysison Nitrite Ql (U) Negative [facility] Protein Ql (U) Negative [facility] Mucus LM Ql (Urine sed)Order ed By: Jorge Liu on 06-09-2023 Mucus Ql (Urine sed) 0 SEEN /hpf [facility] Nitrite Test strip Ql (U)Ord ered By: Jorge Liu on 06-09-2023 Nitrite Ql (U) Negative Negative [facility] No Panel Informationon 06-09 Urine Leukocytes Positive [facility] Urine Non-Hemolyzed Blood Negative [facility] Protein Test strip Ql (U)Ord ered By: Jorge Liu on 06-09-2023 Protein Ql (U) Negative Negative [facility] Squamous epithelial cells de tection in urine sediment by light microscopyOrdered By: Jorge Liu on 06-09-2023 Epithelial cells.squamous LM Ql (Urine sed) 0-5 SEEN /hpf 5-10 [facility] Urine blood detectionOrdered By: Jorge Liu on 06-09-2023 RBC Ql (U) 10 /ul Negative [facility] RBC Ql (U) 0-5 SEEN /hpf 0-5 [facility] Urine clarityOrdered By: Alfonso Liu on 06-09-2023 Clarity (U) Clear Clear [facility] Urine color determinationOrd ered By: Jorge Liu on 06-09-2023 Color (U) Yellow Yellow [facility] Urine glucose detectionOrder ed By: Jorge Liu on 06-09-2023 Glucose Ql (U) Normal mg/dl Normal [facility] Urine leukocyte esterase det ection by dipstickOrdered By: Jorge Liu on 06-09-2023 Leukocyte esterase Test strip Ql (U) 25 /ul Negative [facility] Urine pHOrdered By: Jorge boyle on 06-09-2023 pH (U) 6.5 [pH] 5.0 - 8.0 [facility] Urine sediment bacteria coun t by microscopy (number/high power field)Ordered By: Jorge Liu on 06-09-2023 Bacteria LM.HPF (Urine sed) [#/Area] 0 /[HPF] None Seen [facility] Urine specific gravity measu rementOrdered By: Jorge Liu on 06-09-2023 Specific gravity (U) [Rel density] 1.010 1.002-1.030 [facility] Urobilinogen Auto test strip Ql (U)Ordered By: Jorge Liu on 06-09-2023 Urobilinogen Ql (U) Normal mg/dl Normal [facility] Absolute lymphocyte countOrd ered By: Dr. Francois on 01-17-2023 Lymphocytes Auto (Unsp spec) [#/Vol] 3.28 10*3/uL 0.83-4.51 [facility] Basophil percentageOrdered B y: Dr. Francois on 01-17-2023 Basophils/100 WBC (Bld) 0.6 % 0-1 [facility] Bilirubin [Mass/Vol] 0.20 mg/dL 0.20-1.00 [facility] Comment on above: For patients on eltr ombopag therapy, use of [place] TBIL is not recommended. Chloride [Moles/Vol] 108 mmol/L 98-107 [facility] Eosinophils/100 WBC (Bld) 3.0 % 0-5 [facility] Glucose [Mass/Vol] 85 mg/dL 74-106 [facility] Neutrophils (Bld) [#/Vol] 3.8 10*3/uL 2.0-7.7 [facility] Neutrophils/100 WBC (Bld) 48.0 % 47-70 [facility] Potassium [Moles/Vol] 3.6 mmol/L 3.5-5.1 [facility] Protein [Mass/Vol] 7.3 g/dL 6.4-8.2 [facility] Sodium [Moles/Vol] 140 mmol/L 136-145 [facility] WBC (Bld) [#/Vol] 7.9 10*3/uL 4.4-11.0 [facility] Blood erythrocytes count (nu mber/volume)Ordered By: Dr. Francois on 01-17-2023 RBC (Bld) [#/Vol] 3.93 10*6/uL 4.2-5.4 [facility] Blood hemoglobin measurement (mass/volume)Ordered By: Dr. Francois on 01-17-2023 Hemoglobin (Bld) [Mass/Vol] 12.0 g/dL 12.0-15.0 [facility] Blood lymphocytes/100 leukoc ytesOrdered By: Dr. Francois on 01-17-2023 Lymphocytes/100 WBC (Bld) 41.6 % 19-41 [facility] Blood monocytes/100 leukocyt esOrdered By: Dr. Francois on 01-17-2023 Monocytes/100 WBC (Bld) 6.5 % 0-10 [facility] Blood platelet mean volumeOr dered By: Dr. Francois on 01-17-2023 Platelet mean volume (Bld) [Entitic vol] 10.0 fL 6.2-12.0 [facility] Determination of erythrocyte mean corpuscular volume (MCV)Ordered By: Dr. Francois on 01-17-2023 MCV (RBC) [Entitic vol] 91.9 fL 81-99 [facility] Hematocrit Auto (Bld) [Volum e fraction]Ordered By: Dr. Francois on 01-17-2023 Hematocrit (Bld) [Volume fraction] 36.1 % 37-47 [facility] Laboratory - Chemistry and C hemistry - challengeOrdered By: Dr. Francois on 01-17-2023 ALP [Catalytic activity/Vol] 78 U/L 45-117 [facility] ALT [Catalytic activity/Vol] 17 U/L 13-56 [facility] CO2 [Moles/Vol] 26.0 mmol/L 21.0-32.0 [facility] Globulin (S) [Mass/Vol] 3.5 g/dL 2.2-4.2 [facility] Urea nitrogen/Creatinine [Mass ratio] 9.1 mg/mg 10-20 [facility] Laboratory - Hematology and Cell countsOrdered By: Dr. Francois on 01-17-2023 Erythrocyte distribution width (RBC) [Entitic vol] 41.3 fL 35.1-43.9 [facility] Erythrocyte distribution width (RBC) [Ratio] 12.5 % 11.6-14.6 [facility] Immature granulocytes/100 WBC (Bld) 0.300 % 0.0-0.9 [facility] Comment on above: IG% - Immature Granu locytes (promyelocytes, myelocytes and metamyelocytes) > 1% indicates that a LEFT SHIFT is Present. MCH (RBC) [Entitic mass] 30.5 pg 27.0-32.0 [facility] Nucleated RBC/100 WBC (Bld) [Ratio] 0 % 0-5 [facility] MCHC Auto (RBC) [Mass/Vol]Or dered By: Dr. Francois on 01-17-2023 MCHC (RBC) [Mass/Vol] 33.2 g/dL 32-36 [facility] No Panel InformationOrdered By: Dr. Francois on 01-17-2023 Estimated GFR (MDRD) Amer 136 mL/min >60 [facility] Comment on above: GFR Calc Estimated GFR (MDRD) Non-Af Amer 112 mL/min >60 [facility] Comment on above: Non- GFR Calc Platelets bldOrdered By: Dr. Francois on 01-17-2023 Platelets (Bld) [#/Vol] 246 10*3/uL 150-450 [facility] Serum or plasma albumin marino urement (mass/volume)Ordered By: Dr. Francois on 01-17-2023 Albumin [Mass/Vol] 3.8 g/dL 3.2-5.0 [facility] Serum or plasma albumin/glob ulin mass ratioOrdered By: Dr. Francois on 01-17-2023 Albumin/Globulin [Mass ratio] 1.1 {ratio} 0.9-2.4 [facility] Serum or plasma calcium marino urement (mass/volume)Ordered By: Dr. Francois on 01-17-2023 Calcium [Mass/Vol] 9.4 mg/dL 8.5-10.1 [facility] Serum or plasma creatinine m easurement (mass/volume)Ordered By: Dr. Francois on 01-17-2023 Creatinine [Mass/Vol] 0.66 mg/dL 0.55-1.02 [facility] Comment on above: The validity of the calculated GFR & GFRAA in patients over 70 years has not been determined. Clinical correlation is essential. Serum or plasma urea nitroge n measurement (mass/volume)Ordered By: Dr. Francois on 01-17-2023 Urea nitrogen [Mass/Vol] 6 mg/dL 7-18 [facility] Thin prep Papanicolaou smear with manual screeningOrdered By: Dr. Francois on 01-17-2023 Thin prep Papanicolaou smear with manual screening 16 U/L 15-37 [facility] Thin prep Papanicolaou smear with manual screening 6 5-15 [facility] Cervical or vagninal specime n microscopic examination by cytology stain (reported ason 01-16-2022 Cytology report Cyto stain Doc (Cvx/Vag) Comment . [facility] Work Phone: Comment on above: The [...] DNA Probe+sig amp Ql (Cvx) Negative Negative [facility] Work Phone: Comment on above: This nucleic acid am plification test detects fourteen high-risk HPV types (16,18,31,33,35,39,45,51,52,56,58,59,66,68)without differentiation.Performed at: - [address] [id number] Director: Lety Rhodes MD, Phone: [phone] at: = - [facility] [id number] Director: Lety Rhodes MD, Phone: [phone] Laboratory - Cytologyon 12-30 Prefinish Operator Cyto stain Nom (Cvx/Vag) [ID] Comment . [facility] Work Phone: Comment on above: Halie Hayes, Cytot echnologist (ASCP) Laboratory - Miscellaneous t estson 01-16-2022 Service comment (Unsp spec) [Interp] Comment . [facility] Work Phone: Comment on above: This liquid based Th inPrep(R) pap test was screened withthe use of an image guided system. Service comment (Unsp spec) [Interp] . . [facility] Work Phone: No Panel Informationon 01-16 Pathology report final diagnosis Narrative Comment . [facility] Work Phone: Comment on above: NEGATIVE FOR INTRAEP ITHELIAL LESION OR MALIGNANCY.SHIFT IN DUANE SUGGESTIVE OF BACTERIAL VAGINOSIS.CELLULAR CHANGES ASSOCIATED WITH INFLAMMATION ARE PRESENT. Laboratory - Microbiology an d Antimicrobial susceptibilityon 10-31-2021 SARS-CoV-2 (COVID-19) RNA BEN+probe Ql (Unsp spec) Not detected Not Detect [facility] Work Phone: Comment on above: Normal Reference Ran ge: Not DetectedMethod:(RT-PCR) real-time reverse transcriptase PCRLuminex GUTIERREZ Instrument*The Food and Drug Administration (FDA) has issued an Emergency Use Authorization (EAU) for the BiBCOM SARS-CoV-2 Assay for the rapid detection of [...] pyogenes Ag IA Ql (Unsp spec) Negative [facility] Work Phone: CORONAVIRUS PCR - POMERENEon 04-19-2021 SARS-CoV-2 (COVID-19) RNA BEN+probe Ql (Unsp spec) Negative Normal NORMAL: NEGATIVE [facility] Comment on above: Performed By: #### [id number] #### [facility],[address] [place], [place] [id number] SEND TO IC? YES Normal [facility] Comment on above: Result Comment: RESU LTS FAXED TO INFECTION CONTROL. SARS-CoV-2 THIS TEST IS BEING USED UNDER THE FDA EUA PROCEDURE. THIS ASSAY HAS BEEN VALIDATED IN THE [facility] FOR USE WITH NASOPHARYNGEAL SPECIMENS IN [...] PUBLIC HEALTH AUTHORITIES. Performed By: #### [id number] #### [facility],[address] [place], [place] [id number] Bacteria identified Cx Nom ( Throat) Throat culture Klebsiella pneumonia e sp pneum [facility] Work Phone: No Panel Information SARS-CoV-2 & FLU Antigen (Rapid) [facility] Work Phone: Vital Signs Date Time Vital Sign Value Performing Clinician Faci litorlando 11-19-2024 07:31-0400 Body height 160 cm Isabella Vigil APRN.CNP Work Phone: [facility] 11-19-2024 07:31-0400 Body mass index (BMI) [Ratio] 23.95 kg/m2 Isabella Vigil APRN.CNP Work Phone: [facility] 11-19-2024 07:31-0400 Body weight 61.33 kg Isabella Musa FAMILY AND DIVORCE LEGAL ASSISTANT.ESCALATOR CONSTRUCTOR Work Phone: [facility] 11-19-2024 07:31-0400 Diastolic blood pressure 64 mm[Hg] Isabella Musa FAMILY [employer] DIVORCE LEGAL ASSISTANT.ESCALATOR CONSTRUCTOR Work Phone: [facility] 11-19-2024 07:31-0400 Systolic blood pressure 110 mm[Hg] Isabella Musa FAMILY AND DIVORCE LEGAL ASSISTANT.ESCALATOR CONSTRUCTOR Work Phone: [facility] 12-15-2023 13:50-0400 Body height 160.[address] Lizzy Francois Work Phone: [facility] 12-15-2023 13:50-0400 Body mass index (BMI) [Ratio] 23.9 kg/m2 Dr. Lizzy Francois Work Phone: [facility] 12-15-2023 13:50-0400 Body temperature 97.4 [degF] Dr. Lizzy Francois Work Phone: [facility] 12-15-2023 13:50-0400 Body weight 61.[address] Lizzy Francois Work Phone: [facility] 12-15-2023 13:50-0400 Diastolic blood pressure 62 mm[Hg] Dr. Lizzy Francois Work Phone: [facility] 12-15-2023 13:50-0400 Heart rate 80 /min Dr. Lizzy Francois Work Phone: [facility] 12-15-2023 13:50-0400 Respiratory rate 16 /min Dr. Lizzy Francois Work Phone: [facility] 12-15-2023 13:50-0400 SaO2% (BldA) [Mass fraction] 99 % Dr. Lizzy Frnacois Work Phone: [facility] 12-15-2023 13:50-0400 Systolic blood pressure 108 mm[Hg] Dr. Lizzy Francois Work Phone: [facility] 12-05-2023 11:38-0400 Body mass index (BMI) [Ratio] 19.5 kg/m2 Dr. Lizzy Francois Work Phone: [facility] 12-05-2023 11:38-0400 Body temperature 98.2 [degF] Dr. Lizzy Francois Work Phone: [facility] 12-05-2023 11:38-0400 Body weight 49.[address] Lizzy Francois Work Phone: [facility] 12-05-2023 11:38-0400 Heart rate 90 /min Dr. Lizzy Francois Work Phone: [facility] 12-05-2023 11:38-0400 Respiratory rate 16 /min Dr. Lizzy Francois Work Phone: [facility] 12-05-2023 11:38-0400 SaO2% (BldA) [Mass fraction] 98 % Dr. Lizzy Francois Work Phone: [facility] 07-16-2023 16:17-0500 Body height 160.[address] Lizzy Francois Work Phone: [facility] 07-16-2023 16:17-0500 Body mass index (BMI) [Ratio] 23 kg/m2 Dr. Lizzy Francois Work Phone: [facility] 07-16-2023 16:17-0500 Body temperature 97.7 [degF] Dr. Lzizy Francois Work Phone: [facility] 07-16-2023 16:17-0500 Body weight 58.[address] Lizzy Francois Work Phone: [facility] 07-16-2023 16:17-0500 Diastolic blood pressure 72 mm[Hg] Dr. Lizzy Francois Work Phone: [facility] 07-16-2023 16:17-0500 Heart rate 93 /min Dr. Lizzy Francois Work Phone: [facility] 07-16-2023 16:17-0500 Respiratory rate 16 /min Dr. Lizzy Francois Work Phone: [facility] 07-16-2023 16:17-0500 SaO2% (BldA) [Mass fraction] 97 % Dr. Lizzy Francois Work Phone: [facility] 07-16-2023 16:17-0500 Systolic blood pressure 109 mm[Hg] Dr. Lizzy Francois Work Phone: [facility] 07-09-2023 11:36-0500 Heart rate 77 /min Dr. Lizzy Francois Work Phone: [facility] 07-09-2023 11:36-0500 Respiratory rate 18 /min Dr. Lizzy Francois Work Phone: [facility] 07-09-2023 11:36-0500 SaO2% (BldA) [Mass fraction] 100 % Dr. Lizzy Francois Work Phone: [facility] 07-09-2023 09:50-0500 Body mass index (BMI) [Ratio] 23.9 kg/m2 Dr. Lizzy Francois Work Phone: [facility] 07-09-2023 09:50-0500 Body temperature 97.5 [degF] Dr. Lizzy Francois Work Phone: [facility] 07-09-2023 09:50-0500 Body weight 61.[address] Lizzy Francois Work Phone: [facility] 07-09-2023 09:50-0500 Diastolic blood pressure 75 mm[Hg] Dr. Lizzy Francois Work Phone: [facility] 07-09-2023 09:50-0500 Systolic blood pressure 109 mm[Hg] Dr. Lizzy Francois Work Phone: [facility] 06-09-2023 10:45-0400 Body height 160.[address] Lizzy Francois Work Phone: [facility] 06-09-2023 10:45-0400 Body mass index (BMI) [Ratio] 23 kg/m2 Dr. Lizzy Francois Work Phone: [facility] 06-09-2023 10:45-0400 Body weight 58.[address] Lizzy Francois Work Phone: [facility] 06-09-2023 10:45-0400 Diastolic blood pressure 79 mm[Hg] Dr. Lizzy Francois Work Phone: [facility] 06-09-2023 10:45-0400 Heart rate 73 /min Dr. Lizzy Francois Work Phone: [facility] 06-09-2023 10:45-0400 Respiratory rate 16 /min Dr. Lizzy Francois Work Phone: [facility] 06-09-2023 10:45-0400 SaO2% (BldA) [Mass fraction] 99 % Dr. Lizzy Francois Work Phone: [facility] 06-09-2023 10:45-0400 Systolic blood pressure 121 mm[Hg] Dr. Lizzy Francois Work Phone: [facility] 05-11-2023 11:24-0400 Body temperature 98 [degF] Dr. Lizzy Francois Work Phone: [facility] 05-11-2023 11:24-0400 Diastolic blood pressure 67 mm[Hg] Dr. Lizzy Francois Work Phone: [facility] 05-11-2023 11:24-0400 Heart rate 111 /min Dr. Lizzy Francois Work Phone: [facility] 05-11-2023 11:24-0400 Respiratory rate 16 /min Dr. Lizzy Francois Work Phone: [facility] 05-11-2023 11:24-0400 SaO2% (BldA) [Mass fraction] 100 % Dr. Lizzy Francois Work Phone: [facility] 05-11-2023 11:24-0400 Systolic blood pressure 121 mm[Hg] Dr. Lizzy Francois Work Phone: [facility] 02-14-2023 14:37-0400 Body mass index (BMI) [Ratio] 22.8 kg/m2 Dr. Lizzy Francois Work Phone: [facility] 02-14-2023 14:37-0400 Body weight 60.[address] Lizzy Francois Work Phone: [facility] 02-14-2023 14:37-0400 Diastolic blood pressure 62 mm[Hg] Dr. Lizzy Francois Work Phone: [facility] 02-14-2023 14:37-0400 Heart rate 90 /min Dr. Lizzy Francois Work Phone: [facility] 02-14-2023 14:37-0400 SaO2% (BldA) [Mass fraction] 98 % Dr. Lizzy Francois Work Phone: [facility] 02-14-2023 14:37-0400 Systolic blood pressure 105 mm[Hg] Dr. Lizzy Francois Work Phone: [facility] 01-17-2023 13:00-0400 Body height 162.[address] Lizzy Francois Work Phone: [facility] 01-17-2023 13:00-0400 Body mass index (BMI) [Ratio] 22.4 kg/m2 Dr. Lizzy Francois Work Phone: [facility] 01-17-2023 13:00-0400 Body temperature 97.8 [degF] Dr. Lizzy Francois Work Phone: [facility] 01-17-2023 13:00-0400 Body weight 59.[address] Lizzy Francois Work Phone: [facility] 01-17-2023 13:00-0400 Diastolic blood pressure 80 mm[Hg] Dr. Lizzy Francois Work Phone: [facility] 01-17-2023 13:00-0400 Heart rate 76 /min Dr. Lizzy Francois Work Phone: [facility] 01-17-2023 13:00-0400 Respiratory rate 16 /min Dr. Lizzy Francois Work Phone: [facility] 01-17-2023 13:00-0400 SaO2% (BldA) [Mass fraction] 99 % Dr. Lizzy Francois Work Phone: [facility] 01-17-2023 13:00-0400 Systolic blood pressure 116 mm[Hg] Dr. Lizzy Francois Work Phone: [facility] 10-04-2022 10:26-0500 Body temperature 97.7 [degF] Dr. Lizzy Francois Work Phone: [facility] 10-04-2022 10:26-0500 Diastolic blood pressure 60 mm[Hg] Dr. Lizzy Francois Work Phone: [facility] 10-04-2022 10:26-0500 Heart rate 89 /min Dr. Lizzy Francois Work Phone: [facility] 10-04-2022 10:26-0500 Respiratory rate 18 /min Dr. Lizzy Francois Work Phone: [facility] 10-04-2022 10:26-0500 SaO2% (BldA) [Mass fraction] 99 % Dr. Lizzy Francois Work Phone: [facility] 10-04-2022 10:26-0500 Systolic blood pressure 102 mm[Hg] Dr. Lizzy Francois Work Phone: [facility] 06-16-2022 14:11-0400 Diastolic blood pressure 85 mm[Hg] [facility] Work Phone: 06-16-2022 14:11-0400 Heart rate 78 /min [facility] Work Phone: 06-16-2022 14:11-0400 Respiratory rate 15 /min [facility] Work Phone: 06-16-2022 14:11-0400 SaO2% (BldA) [Mass fraction] 98 % [facility] Work Phone: 06-16-2022 14:11-0400 Systolic blood pressure 115 mm[Hg] [facility] Work Phone: 06-16-2022 12:22-0400 Body height 162.56 cm [facility] Work Phone: 06-16-2022 12:22-0400 Body mass index (BMI) [Ratio] 23.1 kg/m2 [facility] Work Phone: 06-16-2022 12:22-0400 Body temperature 97.4 [degF] [facility] Work Phone: 06-16-2022 12:22-0400 Body weight 61.23 kg [facility] Work Phone: 02-05-2022 17:47-0400 Body temperature 98.3 [degF] Dr. Lizzy Francois Work Phone: [facility] Work Phone: 02-05-2022 17:47-0400 Diastolic blood pressure 66 mm[Hg] Dr. Lizzy Fracnois Work Phone: [facility] Work Phone: 02-05-2022 17:47-0400 Heart rate 90 /min Dr. Lizzy Francois Work Phone: [facility] Work Phone: 02-05-2022 17:47-0400 Respiratory rate 16 /min Dr. Lizzy Francois Work Phone: [facility] Work Phone: 02-05-2022 17:47-0400 SaO2% (BldA) [Mass fraction] 99 % Dr. Lizzy Francois Work Phone: [facility] Work Phone: 02-05-2022 17:47-0400 Systolic blood pressure 112 mm[Hg] Dr. Lizzy Francois Work Phone: [facility] Work Phone: 10-31-2021 15:25-0500 Body height 162.[address] Lizzy Francois Work Phone: [facility] Work Phone: 10-31-2021 15:25-0500 Body mass index (BMI) [Ratio] 24.1 kg/m2 Dr. Lizzy Francois Work Phone: [facility] Work Phone: 10-31-2021 15:25-0500 Body temperature 96.9 [degF] Dr. Lizzy Francois Work Phone: [facility] Work Phone: 10-31-2021 15:25-0500 Body weight 63.[address] Lizzy Francois Work Phone: [facility] Work Phone: 10-31-2021 15:25-0500 Diastolic blood pressure 69 mm[Hg] Dr. Lizzy Francois Work Phone: [facility] Work Phone: 10-31-2021 15:25-0500 Heart rate 80 /min Dr. Lizzy Francois Work Phone: [facility] Work Phone: 10-31-2021 15:25-0500 Respiratory rate 14 /min Dr. Lizzy Francois Work Phone: [facility] Work Phone: 10-31-2021 15:25-0500 SaO2% (BldA) [Mass fraction] 99 % Dr. Lizzy Francois Work Phone: [facility] Work Phone: 10-31-2021 15:25-0500 Systolic blood pressure 114 mm[Hg] Dr. Lizzy Francios Work Phone: [facility] Work Phone: Encounters Encounter Date Encounter Type Care Provider Facility Start: 07-14-2025 ambulatory [facility] Facility: [facility] Start: 06-30-2025 End: 06-30-2025 ambulatory [facility] Facility:[facility] [place] Start: 06-30-2025 End: 06-30-2025 ambulatory [facility] Berri[facility] Facility:[facility] Start: 04-06-2025 End: 04-06-2025 ambulatory Harrison Godwin Facility:[facility] Start: 03-24-2025 End: 03-24-2025 ambulatory Abhinav HOFFMAN Facility:[facility] Start: 03-17-2025 End: 03-17-2025 ambulatory Abhinav HOFFMAN Facility:[facility] Start: 03-10-2025 End: 03-10-2025 ambulatory Dl HOFFMAN Facility:[facility] Start: 02-18-2025 End: 02-18-2025 ambulatory Lizzy Francois Facility:[facility] Start: 02-08-2025 End: 02-08-2025 Telemedicine consultation with patient Isabella Vigil APRN.CNP Work Phone: OB/Gynecology Start: 02-08-2025 End: 02-08-2025 ambulatory Isabella Vigil APRNAngusESCALATOR CONSTRUCTOR Work Phone: OB/Gynecology Comment on above: PMS (premenstrual sy ndrome) (Primary Dx) Start: 01-04-2025 ambulatory Efmitchongbe Sangitae Facili ty:[facility] Start: 01-04-2025 End: 01-04-2025 [facility] Start: 12-20-2024 ambulatory Abhinav Mendoza PA Facilit y:[facility] Start: 12-16-2024 End: 12-16-2024 Emergency department patient visit [facility] Priscila Facility:[facility] Start: 12-10-2024 ambulatory Brandyrichmondchiquita Quesadae Facili ty:[facility] Start: 12-10-2024 ambulatory Lizzy Francois Facili ty:[facility] Start: 12-10-2024 End: 12-10-2024 [facility] Start: 11-29-2024 End: 11-29-2024 [facility] Start: 11-19-2024 End: 11-19-2024 ambulatory ISABELLA PITTMANCALF Facility:[facility] Start: 11-19-2024 Encounter for gynecological examination (general) (routine) without abnormal findings ISABELLA VIGIL [facility] Start: 11-19-2024 End: 11-19-2024 Patient encounter procedure Isabella Vigil FAMILY [employer] DIVORCE LEGAL ASSISTANT.ESCALATOR CONSTRUCTOR Work Phone: OB/Gynecology Comment on above: Encounter for gyneco logical examination (general) (routine) without abnormal findings (Primary Dx); Screening for cervical cancer; Encounter for screening for human papillomavirus (HPV); Screen for STD (sexually transmitted disease); PMS (premenstrual syndrome) Start: 11-19-2024 End: 11-19-2024 Patient encounter status Isabella Vigil APRN.LARISSA Work Phone: [facility] Start: 11-17-2024 End: 11-17-2024 Emergency department patient visit Colby Vázquez Facility:[facility] Start: 11-11-2024 End: 11-11-2024 ambulatory Lizzy Quesadae Facility:[facility] Start: 11-10-2024 ambulatory Adeel Mandojim [facility] Start: 11-10-2024 End: 11-10-2024 ambulatory Eferik Quesadae Facility:[facility] Start: 10-27-2024 End: 10-27-2024 ambulatory Lizzy Quesadae Facility:[facility] Start: 10-27-2024 End: 10-27-2024 ambulatory Lizzy Quesadae Facility:[facility] Start: 10-19-2024 End: 10-19-2024 Emergency department patient visit Lizzy Francois Facility:[facility] Start: 10-07-2024 End: 10-07-2024 ambulatory Dl HOFFMAN Facility:[facility] Start: 10-07-2024 End: 10-07-2024 ambulatory Dl HOFFMAN Facility:[facility] Start: 09-22-2024 End: 09-22-2024 ambulatory Lizzy Quesadae Facility:[facility] Start: 08-30-2024 End: 08-30-2024 ambulatory Lizzy Quesadae Facility:[facility] Start: 08-30-2024 End: 08-30-2024 ambulatory Lizzy Quesadae Facility:[facility] Start: 08-20-2024 End: 08-20-2024 ambulatory Lizzy Quesadae Facility:[facility] Start: 08-17-2024 End: 08-17-2024 ambulatory Lizzy Quesadae Facility:[facility] Start: 08-12-2024 End: 08-12-2024 ambulatory Quinn Inezbenedict Facility:[facility] Start: 08-12-2024 End: 08-12-2024 ambulatory Quinn Rojo Facility:[facility] Start: 08-03-2024 End: 08-03-2024 ambulatory Efmitchongbe Sangitae Facility:[facility] Start: 08-03-2024 End: 08-03-2024 ambulatory Efmitchongbe Sangitae Facility:[facility] Start: 07-12-2024 End: 07-12-2024 ambulatory Efmitchongchiquita Quesadae Facility:[facility] Start: 12-15-2023 End: 12-15-[address] Lizzy Francois Work Phone: [facility] Work Phone: Start: 12-15-2023 End: 12-15-[address] Lizzy Francois Work Phone: [facility] Work Phone: Start: 12-05-2023 End: 12-05-[address] Lizzy Francois Work Phone: [facility] Work Phone: Start: 07-17-2023 End: 07-17-[address] Lizzy Francois Work Phone: [facility] Work Phone: Start: 07-17-2023 End: 07-17-[address] [facility] Work Phone: Start: 07-16-2023 End: 07-16-[address] Lizzy Francois Work Phone: [facility] Work Phone: Start: 07-09-2023 End: 07-09-2023 Emergency department patient visit Dr. Lizzy Francois Work Phone: [facility]-Emergency Department Work Phone: Start: 06-30-2023 End: 06-30-[address] Lizzy Francois Work Phone: [facility] Work Phone: Start: 06-30-2023 End: 06-30-[address] Lizzy Francois Work Phone: [facility] Work Phone: Start: 06-09-2023 End: 06-09-[address] Lizzy Francois Work Phone: [facility] Work Phone: Start: 06-09-2023 End: 06-09-[address] Lizzy Francois Work Phone: [facility]-Laboratory, Specimen Work Phone: Start: 06-09-2023 End: 06-09-[address] Lizzy Francois Work Phone: [facility] Work Phone: Start: 05-11-2023 End: 05-11-2023 Emergency department patient visit Dr. Lizzy Francois [facility] Work Phone: Start: 02-14-2023 End: 02-14-[address] Lizzy Francois Work Phone: [facility] Work Phone: Start: 01-17-2023 End: 01-17-[address] Lizzy Francois Work Phone: [facility] Work Phone: Start: 01-17-2023 End: 01-17-[address] Lizzy Francois Work Phone: [facility] Internal Medicine Start: 01-09-2023 End: 01-10-2023 Emergency department patient visit CHET BARAHONA MD Facility:[facility] Start: 10-04-2022 End: 10-04-[address] Lizzy Francois Work Phone: [facility] Start: 06-16-2022 End: 06-16-2022 [facility] Start: 02-05-2022 End: 02-05-[address] Lizzy Francois Work Phone: [facility] Start: 01-16-2022 End: 01-16-[address] Lizzy Francois Work Phone: [facility]-Laboratory, Specimen Start: 10-31-2021 End: 10-31-[address] Lizzy Francois Work Phone: [facility]Laboratory, Specimen Start: 04-19-2021 End: 04-19-[address] [facility] Procedures Date Procedure Procedure Detail Performing Clinician [...] ant neoplasm of cervix Cervical Cancer Screening [facility] Start: 08-26-2029 Urine microalbumin profile DTaP,Tdap,Td Vaccine (2 - Td or Tdap) [facility] Start: 11-21-2025 End: 11-21-2025 Patient encounter procedure 11/21/2025 7:00 AM EDT Office Visit OB/Gynecology [address] [place] [address] Isabella Vigil, FAMILY [employer] DIVOR[employer] LEGAL ASSISTANT.ESCALATOR CONSTRUCTOR [address] [place] [address] Annual OB/Gynecology Comment on above: Annual Start: 05-02-2025 Influenza vaccination Influenz a Vaccine (Season Ended) [facility] Start: 01-25-2025 End: 01-25-2025 Patient encounter procedure 01/25/2025 8:00 AM EDT Office Visit OB/Gynecology [address] [place] [address] Isabella Vigil, FAMILY AND DIV[employer] LEGAL ASSISTANT.ESCALATOR CONSTRUCTOR [address] [place] [address] 2 MO OV OB/Gynecology Comment on above: 2 MO OV Start: 11-19-2024 End: 02-18-2025 Hepatitis B virus surface Ag [Presence] in Serum [facility] Comment on above: Expected: 11/19/2024 , Expires: 02/18/2025 Start: 11-19-2024 End: 02-18-2025 Hepatitis C virus Ab [Presence] in Serum [facility] Comment on above: Expected: 11/19/2024 , Expires: 02/18/2025 Start: 11-19-2024 End: 02-18-2025 HIV 1+2 Ab [Presence] in Serum or Plasma by Immunoassay [facility] Comment on above: Expected: 11/19/2024 , Expires: 02/18/2025 Start: 11-19-2024 End: 02-18-2025 SYPHILIS TREPONEMAL W/REFLEX [facility] Work Phone: Comment on above: Expected: 11/19/2024 , Expires: 02/18/2025 Start: 05-02-2024 Covid-19 Vaccine ( season) Covid-19 Vaccine ( season) [facility] Start: 05-02-2024 Influenza vaccination Influenza Vacc ine (#1) [facility] Start: 07-09-2023 [facility] Start: 06-30-2023 Celiac disease screen [facility] Start: 06-30-2023 Haptoglobin [Mass/vo lume] in Serum or Plasma [facility] Start: 06-30-2023 IgE [Units/volume] i n Serum or Plasma [facility] Start: 06-30-2023 Procedure [facility] Start: 06-30-2023 Serum immunofixation [facility] Start: 06-30-2023 [facility] Start: 01-17-2023 Patient referral [facility] Work Phone: Start: 10-31-2021 Patient referral [facility] Work Phone: Start: 10-31-2021 Sars-cov-2 detection by dna/rna SARS-COV-2 COVID-19 AMP PRB [facility] Work Phone: Start: 2014 Screening for malign ant neoplasm of cervix Cervical Cancer Screening [facility] Start: 01-25-2012 Hepatitis B Vaccine (1 of 3 - 19+ 3-dose series) Hepatitis B Vaccine (1 of 3 - 19+ 3-dose series) [facility] Start: 01-25-2012 Pneumococcal vaccination Pneum ococcal Vaccine (1 of 2 - PCV) [facility] Start: 2011 Hepatitis C screening Hepatitis C Nj reening [facility] Start: 2011 HIV screening HIV Screening [facility] Chlamydia trachomatis+Neisseria gonorrhoeae DNA [Presence] in Unspecified specimen by BEN with probe detection GONORRHEA/CHLAMYDIA NAAT Lab Routine Encounter for gynecological examination (general) (routine) without abnormal findings Screen for STD (sexually transmitted disease) 11/19/2024 8:15 AM EDT [facility] Measurement of immunoglobulin A in serum specimen [facility] PAP TEST PAP TEST Lab Rou nelsy Encounter for gynecological examination (general) (routine) without abnormal findings Screening for cervical cancer Encounter for screening for human papillomavirus (HPV) 11/19/2024 8:15 AM EDT [facility] Patient Education [facility] Work Phone: Patient referral [facility] Work Phone: Serum protein electrophoresis [facility] TRICHOMONAS VAGINALI S NAAT TRICHOMONAS VAGINALIS NAAT Lab Routine Screen for STD (sexually transmitted disease) 11/19/2024 8:15 AM EDT [facility] Immunizations Immunization Date Immunization Notes Care Provider Fa cility 08-26-2019 tetanus toxoid, redu angelique diphtheria toxoid, and acellular pertussis vaccine, adsorbed Dr. Lizzy Francois Work Phone: [facility] Payers Date Payer Category Payer Medicaid [id number] 2024 Unknown [id number] 2024 Unknown [id number] 2024 Self-pay [id number] 2023 Unknown [id number] 2014 Unknown [id number] 1993 Unknown [id number] 2.16.84 0.1.659089.3.579.2.651 1993 Unknown [id number] 2.16.8 40.1.780196.3.579.2.627 [facility] [id number] Unknown [id number] 2.16.8 40.1.107758.3.579.2.462 Unknown [id number] 2.16.8 40.1.891404.3.579.2.462 Unknown [id number] 2.16.8 40.1.775926.3.579.2.462 Unknown [id number] 2.16.8 40.1.975153.3.579.2.462 Unknown [id number] 2.16.8 40.1.668955.3.579.2.462 Unknown [id number] 2.16.8 40.1.495495.3.579.2.462 Unknown [id number] 2.16.8 40.1.716362.3.579.2.462 Unknown [id number] 2.16.8 40.1.103356.3.579.2.462 Unknown [id number] 2.16.8 40.1.246741.3.579.2.462 Unknown [id number] 2.16.8 40.1.747247.3.579.2.462 Unknown [id number] 2.16.8 40.1.939047.3.579.2.462 Unknown [id number] 2.16.8 40.1.750213.3.579.2.462 Unknown [id number] 2.16.8 40.1.522780.3.579.2.462 Unknown [id number] 2.16.8 40.1.404686.3.579.2.462 Unknown [id number] 2.16.8 40.1.923614.3.579.2.462 Unknown [id number] 2.16.8 40.1.225443.3.579.2.462 Unknown [id number] 2.16.8 40.1.127198.3.579.2.462 Unknown [id number] 2.16.8 40.1.397819.3.579.2.462 Unknown [id number] 2.16.8 40.1.105126.3.579.2.462 Unknown [id number] 2.16.8 40.1.016689.3.579.2.462 Unknown [id number] 2.16.8 40.1.001138.3.579.2.462 Unknown [id number] 2.16.8 40.1.204471.3.579.2.462 Unknown [id number] 2.16.8 40.1.173071.3.579.2.462 Unknown [id number] 2.16.8 40.1.259920.3.579.2.462 Unknown [id number] 2.16.8 40.1.811437.3.579.2.462 Unknown [id number] 2.16.8 40.1.236251.3.579.2.462 Unknown [id number] 2.16.8 40.1.673576.3.579.2.462 Unknown [id number] 2.16.8 40.1.496266.3.579.2.462 Unknown [id number] 2.16.8 40.1.459916.3.579.2.462 Unknown [id number] 2.16.8 40.1.885843.3.579.2.462 Unknown [id number] 2.16.8 40.1.142268.3.579.2.462 Unknown [id number] 2.16.8 40.1.551542.3.579.2.462 Unknown [id number] 2.16.8 40.1.466600.3.579.2.462 Unknown [id number] 2.16.8 40.1.569879.3.579.2.462 Unknown [id number] 2.16.8 40.1.755936.3.579.2.462 Social History Date Type Detail Facility Start: 02-05-2022 End: 12-15-2023 Tobacco smoking status CTIS Unknown if ever smoked [facility] Start: 12-03-2018 None [facility] Start: 08-26-2019 Alone [facility] Start: 11-06-2020 Cigarettes [facility] Start: 1995 Sex Assigned At Female [facility] Start: 11-19-2024 Tobacco smoking status CTIS Smokes tobacco daily [facility] Start: 11-19-2024 Tobacco use and exposure Smokeless tobacco non-user [facility] Start: 11-19-2024 Alcoholic beverage intake Current non-drinker of alcohol (finding) [facility] Start: 11-19-2024 History of Social function [facility] Start: 11-19-2024 Tobacco use panel [facility] National Score (1-100), lower number is lower risk 77 [facility] Start: 1995 Sex assigned at Not on file [facility] NEGATED: Highlighted row [facility] Mental Status Date Assessment Result Facility 07-09-2023 Cognitive function Level Of Cons ciousness Awake;Alert;Appropriate;Follow s Commands [facility] Work Phone: 06-16-2022 Cognitive function Level Of Cons ciousness Awake;Alert;Appropriate;Follow s Commands [facility] Work Phone: Clinical Notes 01-16-2022 to 02-08-2025 Isabella Vigil APRN.LARISSA - 02/08/2025 12:32 PM EDTMIsabella raymond APRN.CNP - 11/19/2024 7:30 AM EDT Note Date & Type Note Facility 02-08-2025 Note HNO ID: [id number] Author: ISABELLA VIGIL APRN.LARISSA Service: ? Author Type: Nurse Practitioner Type: Progress Notes Filed: 02/08/2025 12:55 Note Text: VIRTUAL VISIT PROGRESS NOTE This is a virtual visit using [employer] Video Visit. It required patient-provider interaction for the medical decision making as documented below. I have communicated my name and active licensure. The patient's identity and physical location were verified at the time of this visit. Either the patient or their legal pharmaceutical sales representative has been informed of the risks [...] LP ELCTRO EXCI Pt reported LAPAROSCOPY DIAGNOSTIC 2012 endometriosis FAMILY HISTORY Problem Relation Age of [...] which included preparing to see the patient, [id number] patient care, completing clinical documentation, obtaining and/or reviewing separately obtained history, counseling and educating the patient/family/caregiver, and ordering medications, tests, or procedures Isabella Vigil APRN.[facility] 02-08-2025 History of Present illness Narrative VIRTUAL VISIT PROGRESS NOTE This is a virtual visit using [employer] Video Visit. It required patient-provider interaction for the medical decision making as documented below. I have communicated my name and active licensure. The patient's identity and physical location were verified at the time of this visit. 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 Marylu is a 29 year old who [...] Living3 SAB0 IAB1 Ectopic0 Multiple1 Live Births0 Journalism Instructor History LMP: 11/10/2024 (Exact Date), Having periods Age at Menarche: 8 Age at First : Age at Menopause: Journalism Instructor History Comments: Sexual Activity: Yes; Male Contraception: [...] discussed with the Patient or Patient's Authorized Gas Compressor Turbine Operator. As applicable, any other physician, advance practice provider, medical student, or other health professional student that will be observing or involved in the sensitive examination for educational or training purposes was discussed with the Patient or Authorized Gas Compressor Turbine Operator. The Patient or Authorized Gas Compressor Turbine Operator has agreed to proceed with the sensitive examination. (Sensitive examination includes inspection and/or palpation of the breasts, pelvis, prostate and anorectal regions). EXAM: BP 110/64 Ht 5' 3 (1.60m) Wt 135 lb 3.2 oz (61.3kg) [...] external genitalia normal, normal Bartholin's glands, urethra, [place]'s glands, no vulvar lesions, no cervical lesions, [...] worked up for possible POTS Isabella Vigil APRN.CNP documented in this encounter [facility] 11-19-2024 Note HNO ID: [id number] Author: ISABELLA VIGIL APRN.CNP Service: ? 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 Marylu is a 29 year old who [...] Living3 SAB0 IAB1 Ectopic0 Multiple1 Live Births0 Journalism Instructor History LMP: 11/10/2024 (Exact Date), Having periods Age at Menarche: 8 Age at First : Age at Menopause: Journalism Instructor History Comments: Sexual Activity: Yes; Male Contraception: [...] discussed with the Patient or Patient's Authorized Gas Compressor Turbine Operator. As applicable, any other physician, advance practice provider, medical student, or other health professional student that will be observing or involved in the sensitive examination for educational or training purposes was discussed with the Patient or Authorized Gas Compressor Turbine Operator. The Patient or Authorized Gas Compressor Turbine Operator has agreed to proceed with the sensitive examination. (Sensitive examination includes inspection and/or palpation of the breasts, pelvis, prostate and anorectal regions). EXAM: BP 110/64 Ht 5' 3 (1.60m) Wt 135 lb 3.2 oz (61.3kg) [...] external genitalia normal, normal Bartholin's glands, urethra, [place]'s glands, no vulvar lesions, no cervical lesions, [...] worked up for possible POTS Isabella Vigil APRN.[facility] 01-16-2022 Note [facility] Work Phone: Pap Smear Specimen Adequacy January 16, 2022 10:15am Comment . Satisfactory for evaluation. Endocervical and/or squamous metaplasticcells (endocervical component) are present. Comment on above: Satisfactory for lacho luation. Endocervical and/or squamous metaplasticcells (endocervical component) are present. Evaluation note Diagnosis Onset Date Anxiety and depression chron ic Pharyngitis noneactive Smoking noneactive Irritant contact dermatitis due to plant acute [facility] Work Phone: Evaluation noteNo assessment information available [facility] Work Phone: Evaluation note* Diagnosis Onset Date Resolution Status Yeast dermatitis acute Abdominal pain acute Chronic constipation chronic [facility] Work Phone: Evaluation note* Diagnosis Onset Date Resolution Status Chronic constipation chronic Acute pharyngitis, unspecified acute Urinary tract infection acut e [facility] Work Phone: Evaluation note* Diagnosis Onset Date Resolution Status Acute pharyngitis, unspecified acute Urinary tract infection acut e Abdominal pain acute Chronic constipation chronic [facility] Work Phone: Evaluation note* Diagnosis Onset Date Resolution Status Acute sinusitis acute Acute pharyngitis, unspecified acute Sinusitis acute URI (upper respiratory infection) acute [facility] Work Phone: Evaluation note* Diagnosis Encounter for gynecological examination (general) (routine) without abnormal findings- Primary Screening for cervical cancer Screening for malignant neoplasm of the cervix Encounter for screening for human papillomavirus (HPV) Special screening examination for human papillomavirus (HPV) Screen for STD (sexually transmitted disease) Screening examination for venereal disease PMS (premenstrual syndrome) Premenstrual tension syndromes documented in this encounter [facility] note* Diagnosis PMS (premenstrual syndrome)- Primary Premenstrual tension syndromes [facility] Dis[facility] instructions Additional Instructions Continue your antibiotic and take Tylenol ibuprofen as needed every 6 hours. If symptoms change or worsen call your doctor or return to the ER.[facility] Work Phone: Summary Purpose Family History [...] Will No April 20 8:41am Power of Marine Water Tender No April 20 021 8:41am Advance Directive Response Recorded Date/ Time Living Will No June 16 12:52pm Power of Marine Water Tender No June 16, 2022 12:52pm Advance Directive Response Recorded Date/ Time Living Will No May 11, 2023 11:28am Power of Marine Water Tender No May 11:28am Advance Directive Response Recorded Date/ Time Living Will No July 09 10:28am Power of Marine Water Tender No July 09, 2023 10:28am Advance Directive Response Recorded Date/ Time Living Will No July 09 11:28am Power of Marine Water Tender No July 09, 2023 11:28am Chief Complaint and Reason for Visit Chief Complaint ADHD QUESTIONS POISON TRAE Reason for Visit Anxiety and depressi on Pharyngitis Smoking 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 Complaint GENERAL ILLNESS Chief Complaint BELLY BUTTON [...] section and content) DATE CREATED AUTHOR 04/26/2021 [facility] DATE CREATED AUTHOR AUTHOR'S ORGANIZ ATION 01/14/2023 [facility] ([place] DATE CREATED AUTHOR AUTHOR'S ORGANIZ ATION 02/10/2025 [facility] DATE CREATED AUTHOR AUTHOR'S ORGANIZ ATION 07/08/2025 [facility] Goals (unrecognized section and content) Goals may [...] Lizzy Francois MD Primary Care Provider, Refer [facility] Provider Active Dl HOFFMAN, [place] Attending Provider Active Team Status: Inactive Member Role Status Dates Dr. Lizzy Francois MD Primary Care P rovider, Attending Provider, Referring Provider Active Team Status: Inactive Member Role Status Dates Dr. Lizzy Francois MD Primary Care Provider, Refer ring Provider Active Kimberley Aparicio NUTRITION AND DIETETICS INSTRUCTOR, NUTRITION AND DIETETICS INSTRUCTOR-C Attending Provider Active Team Status: Inactive Member [...] or prosecute any alcohol or drug abuse patient[facility] the event this information is protected by the Federal Confidentiality of Alcohol and Drug Abuse Patient Records regulations: The Federal rules restrict any use of the information to criminally investigate or prosecute any alcohol or drug abuse patient.[facility] Reason for Visit (unrecogniz ed section and [...] BE BASED ON THE PRIMARY CLINICAL RECORDS. [facility]. provides no warranty or guarantee of the accuracy or completeness of information in this document.
== END | disposition home or self-care (01) ==
LOC: CT 17:13
PROVIDERS: PCP Internal Medicine; Referring Provider Otolaryngology; Visit Provider Otolaryngology
DX: R22.1 Localized swelling, mass and lump, neck (principal)
CPT/HCPCS: 70491; Q9967